=== PATIENT | female | born 1970 | race Caucasian/White ===

== ENCOUNTER 2019-06-28 09:18 | Observation (INO) | payer OTHER, SELFPAY ==
[2019-06-21 11:28] VITALS: BMI 25.3
[2019-06-28] VITALS (14 sets, daily range): BP systolic 114–202; BP diastolic 64–108; PULSE 70–105; RESP 12–20; TEMP 36.1–36.8; O2SAT 94–99; BMI 25.4; BMI 25.1; BMI 26.9
--- NOTE | 2019-06-28 09:36 | CT_ITS ---
STUDY: CT BRAIN WITHOUT CONTRAST REASON FOR EXAM: Female, 48 years old. Headaches and dizziness. Hypertension. RADIATION DOSAGE (If Supplied By Facility): CTDIvol = ( 44.99 ) mGy, DLP = ( 762.36 ) mGycm TECHNIQUE: Transaxial CT imaging of the brain was performed without administration of intravenous contrast material. Individualized dose optimization techniques were used for this CT. COMPARISON: Comparison is made with prior examination dated May 25, 2015. FINDINGS: Normal soft tissue structures. Normal calvarium. Normal size ventricles and extra-axial spaces for the patient's age. Normal white matter tracts of the cerebral hemispheres. Normal basal ganglia and thalami. Normal brainstem. Normal cerebellum. There is no intracranial hemorrhage. There are no findings of an acute ischemic infarction. Normal visualized paranasal sinuses. CT/Brain/Head without Contrast IMPRESSION: Normal unenhanced CT scan of the brain. Electronically Signed: Juan Ramsey, at 10:56 EDT , Service support ,
--- NOTE | 2019-06-28 09:37 | EKG12_ITS ---
Test Reason : NAUSEA/VOMITING Blood Pressure : / mmHG Vent. Rate : 097 BPM Atrial Rate : 097 BPM P-R Int : 124 ms QRS Dur : 078 ms QT Int : 346 ms P-R-T Axes : 044 052 047 degrees QTc Int : 439 ms Normal sinus rhythm Possible Left atrial enlargement Nonspecific ST abnormality Abnormal ECG Confirmed by SILVANA LUJAN, KATYA ([id number]), rewrite editor AUDREY LEE ([id number]) on 07/02/2019 11:25:09 AM Referred By: Denisa Phillips Confirmed By:KATYA PINA MD
--- NOTE | 2019-06-28 09:45 | ED.VISSUMM ---
- ER Visit Summary Date of Service: 06/28/19 Chief Complaint: Hypertension History of Present Illness: The patient is a 48 F [facility] department for evaluation of hypertension. Patient states several years ago she was hospitalized in [place] underwent numerous test and eventually was placed on 5 antihypertensive medications. She states that she lost weight got a divorce things seem to normalize and she was eventually taken off his blood pressure medications. About 2 weeks ago he developed a rash felt to be a contact dermatitis was placed on prednisone was not improving so she got a dose of Kenalog and another round of prednisone. These were reportedly tapering dose. She states that during this time. About 1 week ago can have hypertension. She saw her primary care physician. She was given metoprolol. She states her last dose of prednisone was on Monday. She tells me that on Monday her somatic symptoms began to get worse. She notes now headache, nausea with dry heaves, a jittery feeling, feeling that she is floating. She denies any chest pain or shortness of breath however the patient appears to be tachypneic. She also notes that her lips are tingling. She is reporting numerous blood pressure readings some of which do not make normal physiologic sense such as 154/136. There is however in the 170/110 120 range. She has had her metoprolol increased yesterday and has taken approximately 200 mg of metoprolol the middle of the night. She drank coffee this morning. She is also recently tried to quit smoking and is currently on nicotine patches but does not have one on now. Physical Examination: 202/64 heart rate 105 respirations are 20 pulse ox 95% temperature 97.0 Gen: Well-nourished well-developed Head: Normocephalic atraumatic Eyes: Perrl EOMI ENT: TMs clear no rhinorrhea moist mucous membranes Neck: Supple no lymphadenopathy no JVD nontender CVS: Regular rate rhythm no murmurs normal S1-S2 Respiratory: Patient is tachypneic clear to auscultation bilaterally chest nontender Abdomen: Soft nontender nondistended normal bowel sounds no masses Back: Nontender Extremity: Nontender no edema Skin: Normal color no rash Neuro: alert orientated ?3 CN II-XII intact normal strength sensation Psych: Patient appears anxious Test Results: EKG shows a sinus rhythm at a rate of 97 no concerning features of ACS. Basic labs were obtained showed a white count of 18. Troponin negative. Urinalysis 25-50 white cells with 1+ bacteria. Chest x-ray negative. CT the brain was negative. Emergency Department Course and Treatment: I decided to have the nurses do fairly frequent manual readings as I felt there is a potential for anxiety if we had the monitor cycling the blood pressure frequently. Initially gave her Zofran and Ativan. This did help her nausea/dry heaving. However the patient's pulse pressures continue to be narrowed with more of a high diastolic than a high systolic readings. She continued to feel very symptomatic and gave labetalol. This resulted in blood pressure 120/90 range. Symptomatically she felt better after labetalol. I think it reasonable that we bring her and is a hypertensive urgency under observation. Patient is appreciative of this stating that she does not feel well enough to go home. There may be some degree of adrenal issue with just being on 2 weeks of prednisone but I would think that is it is just 2 weeks that should be a large component. She has this history of significant hypertension requiring 5 drugs at one point. We will bring the patient into PCU. Impression: 1. Hypertensive urgency 2. Nausea and vomiting This note was generated with [employer] dictation software. It may contain incorrect words, spelling, and punctuation that were not noted in review of the chart prior to signing ED Disposition - Plan for ED Patient: Referrals: Clovis Montalvo MD [Primary Care Provider] -
[2019-06-28] MEDS: LORazepam 2 MG/ML Syringe 1 MG IV (09:52)
[2019-06-28] MEDS: Ondansetron 4 MG/2 ML Vial IV (09:52)
[2019-06-28 09:59] LABS: Absolute Lymphocyte Count 3.87 X10^3/uL (0.83-4.51); Absolute Neutrophil Count 12.5 X10^3/uL (2.0-7.7); Basophil# 0.11 X10^3/uL; Basophil% 0.6 % (0-1); Eosinophil# 0.24 X10^3/uL; Eosinophils% 1.3 % (0-5); Hematocrit 49.4 % (37-47); Hemoglobin 15.7 g/dL (12.0-15.0); Lymphocyte # 3.87 X10^3/ul (4.0); Lymphocyte % 21.2 % (19-41); Mean Corp Hgb Conc 31.8 g/dL (32-36); Mean Corpuscular Hgb 25.2 pg (27.0-32.0); Mean Corpuscular Volume 79.3 fL (81-99); Mean Platelet Vol. 10.5 fl (6.2-12.0); Monocyte# 1.01 X10^3/uL; Monocyte% 5.5 % (0-10); NRBC Flagged by Analyzer 0 % (0-5); Neutrophil # 12.51 X10^3/uL (2.7-7.7); Neutrophil % 68.4 % (47-70); Platelet Count 249 K/mm3 (150-450); RBC Distribution Width SD 41.4 fl (35.1-43.9); Red Blood Count 6.23 M/mm3 (4.2-5.4); White Blood Count 18.3 K/mm3 (4.4-11.0)
[2019-06-28 10:14] LABS: ALB/GLOB Ratio 1.1 RATIO (0.9-2.4); AST(SGOT) 10 U/L (15-37); Alanine Aminotransfer ALT/SGPT 23 U/L (13-56); Albumin, Serum 4.1 g/dL (3.2-5.0); Alkaline Phosphatase 86 U/L (45-117); Anion Gap 8 (5-15); BUN 17 mg/dL (7-18); BUN/Creat Ratio 21.3 RATIO (10-20); Calcium,Total 8.8 mg/dL (8.5-10.1); Chloride 107 mmol/L (98-107); EST Glomerular Filtration Rate 82 mL/min (>60); Est Glom Filt Rate - Afr Amer 99 mL/min (>60); Estimated Creatinine Clearance 62.44 ml/min; Globulin 3.9 g/dL (2.2-4.2); Glucose 90 mg/dL (74-106); Potassium 4.2 mmol/L (3.5-5.1); Sodium Level 139 mmol/L (136-145)
--- NOTE | 2019-06-28 10:20 | RAD_ITS ---
STUDY: X-RAY CHEST REASON FOR EXAM: Female, 48 years old. Hypertension. Shortness of breath. TECHNIQUE: AP and lateral views of the chest. COMPARISON: Comparison is made with prior study August 26, 2016. FINDINGS: The lungs are clear and expanded. There is no demonstrated pleural abnormality. Normal size heart. Normal mediastinum and sera. Normal visualized pulmonary arteries. Normal visualized aortic arch and descending thoracic aorta. Normal visualized thoracic spine. Normal visualized ribs, clavicles, and shoulders. There is no demonstrated abnormality of the visualized soft tissue structures of the upper abdomen. RAD/Chest PA and Lateral IMPRESSION: Normal x-ray examination of the chest. Electronically Signed: Juan Ramsey, at 11:08 EDT , Service support ,
[2019-06-28 11:19] LABS: Mucous, Urine 0 SEEN /hpf (<or=2+)
[2019-06-28 11:22] LABS: Color, Urine Yellow (Yellow); Glucose, Dipstick Normal (Normal); Ketone-Dipstick Negative (Negative); Leukocyte Esterase-Dipstick 500 /ul (Negative); Nitrite-Dipstick Negative (Negative); Occult Blood-Urine 10 /ul (Negative); Protein-Dipstick Negative (Negative); Urine Bilirubin Dipstick Negative (Negative); Urine Clarity Sl. Cloudy (Clear); Urine Urobilinogen Normal (Normal)
[2019-06-28 11:31] LABS: Bacteria 1+ /hpf (None Seen); Red Blood Cells-Urine 0-5 SEEN /hpf (0-5); Squamous Epithelial Cells - UA 0-5 SEEN /hpf (5-10); White Blood Cells 25-50 SEEN /hpf (0-5)
--- NOTE | 2019-06-28 14:44 | PCM.HP.STD ---
Problem List (1) H/O emotional problems Status: Chronic (2) Hypertension Status: Chronic (3) Depression Status: Chronic (4) Overweight (BMI 25.0-29.9) Status: Chronic History of Present Illness Date of Admission: 06/28/19 Chief Complaint: Elevated blood pressure. The patient is a 48 year old F with past medical history as mentioned above presented to the emergency room because of elevated blood pressure. Patient provided history over the last 5 years including her present complaint today. She stated that around 5 years ago, she was on 5 different antihypertensive medications and her blood pressure was difficult to control. During that time, she was referred to [facility] and apparently, she underwent extensive work-up for secondary hypertension including cardiac and renal imaging studies and according to the patient, everything looked okay at that time. Over the. Of 5 years, she did lots of life changing strategies including weight loss and trying to quit smoking and she mentioned that she lost significant weight and over the first 3 years, her blood pressure started to come down and her doctor was able to to keep her off any antihypertensive medication for the last 2 years. 2 weeks ago, she started having skin rash, was diagnosed with contact dermatitis and was started on tapering course of prednisone for 1 week by her PCP. The skin rash did not go away and she had significant amount of itching for which she received 1 dose of IV steroids and she was given another week of taper prednisone along with course of Keflex 500 mg p.o. 3 times daily for 1 week. She completed the prednisone taper this past Monday and she supposed to complete her Keflex course today. She notes that her blood pressure has been going up over the last couple of weeks. She saw her primary care physician who started her on metoprolol. She complained of headache, throbbing headache, generalized, associated with nausea with dry heaves as well as jittery feeling and without aggravating or relieving factors. Yesterday, her blood pressure was 154/136. She called her doctor who advised to take an extra dose of metoprolol 50 mg last night and when she rechecked her blood pressure later, it was 164/116. She took another dose of metoprolol ER 50 mg around 1 AM this morning. Today, she went to work, she continued to have headache with nausea and some anxiety. Again around 7 AM this morning at work, her blood pressure was 173/120 and she was advised to take another 50 mg of metoprolol which she did. Her blood pressure did not come down and again continued to have significant headache with nausea and dry heaves and she decided to come to the emergency department. She denied chest pain, palpitation, dizziness or lightheadedness. She reported mild shortness of breath. She denies abdominal pain, constipation or diarrhea. She denies urinary symptoms. She denies fever chills. She denied using recreational drugs. In the emergency department, initial blood pressure was 202/64, other vital signs were stable. She was given 1 dose of IV labetalol and her blood pressure started to improve. Her routine blood work was remarkable for leukocytosis, otherwise normal. LFT was normal. EKG revealed normal sinus rhythm without evidence of acute ischemic changes or cardiac arrhythmias. Troponin was negative. Chest x-ray showed no acute findings. CT scan brain without contrast showed no acute hemorrhage infarct. Urinalysis revealed cloudy urine, negative for nitrite, 500 leukocyte esterase, there was 25-50 WBCs and 1+ bacteria. Urine drug screen was negative. She is being admitted for hypertensive urgency, labile hypertension and leukocytosis which is probably reactive. Past Medical History Past Medical History (Chronic Problems): Chronic Problems (Last Updated 06/28/19 @ 14:43 by Denisa Phillips MD) Heart murmur (Chronic) Frequent headaches (Chronic) H/O emotional problems (Chronic) Back pain (Chronic) High cholesterol (Chronic) Vitamin D deficiency (Chronic) Scoliosis (Chronic) Segmental and somatic dysfunction of lumbar region (Chronic) Hypertension (Chronic) Depression (Chronic) Overweight (BMI 25.0-29.9) (Chronic) Medical History: Medical History (Last Updated 06/28/19 @ 14:43 by Denisa Phillips MD) Heart murmur (Chronic) R01.1 Frequent headaches (Chronic) R51 H/O emotional problems (Chronic) Z86.59 Back pain (Chronic) M54.9 High cholesterol (Chronic) E78.00 Vitamin D deficiency (Chronic) E55.9 Allergies meperidine HCl [From Demerol] Adverse Reaction (Verified 06/28/19 09:19) Nausea/Vom/Diarrhea Home Medications: Ambulatory Orders Medication Instructions Recorded metoprolol succinate ER 25 mg 25 mg PO DAILY #30 tab 07/19/19 tablet,extended release 24 hr nicotine 14 mg/24 hr daily 1 patch TRANSDERMAL Q24H #21 ea 05/17/19 transdermal patch cephalexin 500 mg capsule 500 mg PO TID #21 cap 06/21/19 Surgical History: Surgical History (Last Reviewed 06/20/19 @ 07:09 by Pamela Baumann) History of hysterectomy Z90.710 06/12/2012 History of wisdom tooth extraction K08.409 10/14/16 Hx of tonsillectomy Z90.89 1988 Surgical History: hysterectomy, tonsillectomy Psychiatric History: Anxiety, Depression [employer]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 Denies: Anorexia, Chills, Fever, Weakness Eyes: Denies: Blurred vision, Double vision, Drainage, Redness HEENT: Denies: Difficulty Hearing, Ear Pain, Eye Pain, Nasal Congestion, Sore Throat Cardiovascular: Denies: Chest Pain, Chest Pressure, Chest Tightness, Heaviness, Palpitations, Paroxysmal Noc. Dyspnea, Syncope Respiratory: Reports: Shortness of Breath. Denies: Cough, Pleuritic Pain, Sputum production, Wheezing Gastrointestinal: Reports: Nausea. Denies: Abdominal Pain, Constipation, Diarrhea, Vomiting Genitourinary: Denies: Dysuria, Frequency, Hematuria Musculoskeletal: Denies: Arm Pain, Back Pain, Foot Pain Skin: Denies: Dryness, Rash Neurological: Reports: Headaches. Denies: Balance problems, Blurred vision, Change in Speech, Slurred speech, Confusion, Focal weakness, Incoordination, Numbness Psychiatric: Reports: Anxiety, Depression Endocrine: Denies: Change in Body Habitus, Polydipsia, Polyuria VTE Information - Inpt Only VTE Present on Admission: No VTE Mechan Device Prophylaxis: None VTE Pharm Prophylaxis ordered?: No - Physical Exam General: Alert, Oriented x3, Cooperative, No apparent distress HEENT: Atraumatic, PERRLA, EOMI, Normocephalic Oral: Moist Mucosa, No Gingival or Mucosal Lesions/ Ulcerations Neck: Supple, No JVD, Negative Carotid Bruits, Trachea Midline, Thyroid Normal Size and Texture Lungs: Clear to auscultation, Normal air movement, No rhonchi, No wheeze, No rales Cardiovascular: Regular rate, Regular Rhythm, Normal S1, Normal S2, No murmurs, PMI Normal Abdomen: Bowel Sounds Present, Soft, Non Tender, Non-Distended, No Hepato-splenomegaly Extremities: No clubbing, No cyanosis, No edema Skin: No rashes, No breakdown Lymphatic: No Cervical, Supraclavicular, or Inguinal Adenopathy Neurological: Cranial nerves II-XII grossly intact, Motor Exam 5/5 strength throughout Psych/Mental Status: Normal Affect, Appropriate, Alert and oriented to time, place, person, mood and affect Vital Signs Temp Pulse Resp BP Pulse Ox 98.2 F 72 12 132/98 H 97 06/28/19 14:34 06/28/19 14:34 06/28/19 14:34 06/28/19 14:34 06/28/19 14:34 Oxygen Delivery Method Room Air Weight: 138 lb 3.2 oz Body Mass Index (BMI) 26.9 Laboratory Tests Past 24 Hrs 06/28/19 06/28/19 06/28/19 09:45 09:45 11:15 WBC 18.3 H RBC 6.23 H Hgb 15.7 H Hct 49.4 H MCV 79.3 L MCH 25.2 L MCHC 31.8 L RDW Std Deviation 41.4 RDW Coeff of Comfort 15.0 H Plt Count 249 MPV 10.5 Immature Gran % (Auto) 3.000 H Neut % (Auto) 68.4 Lymph % (Auto) 21.2 Cocke % (Auto) 5.5 Eos % (Auto) 1.3 Baso % (Auto) 0.6 Absolute Neuts (auto) 12.5 H Absolute Lymphs (auto) 3.87 Nucleated RBC % 0 Sodium 139 Potassium 4.2 Chloride 107 Carbon Dioxide 24.0 Anion Gap 8 BUN 17 Creatinine 0.80 Estim Creat Clear Calc 62.44 Est GFR (MDRD) Af Amer 99 Est GFR (MDRD) Non-Af 82 BUN/Creatinine Ratio 21.3 H Glucose 90 Calcium 8.8 Total Bilirubin 0.50 AST 10 L ALT 23 Alkaline Phosphatase 86 Troponin I < 0.015 Total Protein 8.0 Albumin 4.1 Globulin 3.9 Albumin/Globulin Ratio 1.1 Urine Color Yellow Urine Clarity Sl. Cloudy Urine pH 6.0 Ur Specific [place] 1.010 Urine Protein Negative Urine Glucose (UA) Normal Urine Ketones Negative Urine Occult Blood 10 H Urine Nitrite Negative Urine Bilirubin Negative Urine Urobilinogen Normal Ur Leukocyte Esterase 500 H Urine RBC 0-5 SEEN Urine WBC 25-50 SEEN Ur Squamous Epith Cells 0-5 SEEN Urine Bacteria 1+ Urine Mucus 0 SEEN Urine Opiates Screen Urine Methadone Screen Ur Barbiturates Screen Ur Phencyclidine Scrn Ur Amphetamines Screen U Methamphetamin-MDMA U Benzodiazepines Scrn Urine Cocaine Screen U Cannabinoids Screen Ur Drug Screen Comment 06/28/19 11:15 WBC RBC Hgb Hct MCV MCH MCHC RDW Std Deviation RDW Coeff of Comfort Plt Count MPV Immature Gran % (Auto) Neut % (Auto) Lymph % (Auto) Cocke % (Auto) Eos % (Auto) Baso % (Auto) Absolute Neuts (auto) Absolute Lymphs (auto) Nucleated RBC % Sodium Potassium Chloride Carbon Dioxide Anion Gap BUN Creatinine Estim Creat Clear Calc Est GFR (MDRD) Af Amer Est GFR (MDRD) Non-Af BUN/Creatinine Ratio Glucose Calcium Total Bilirubin AST ALT Alkaline Phosphatase Troponin I Total Protein Albumin Globulin Albumin/Globulin Ratio Urine Color Urine Clarity Urine pH Ur Specific [place] Urine Protein Urine Glucose (UA) Urine Ketones Urine Occult Blood Urine Nitrite Urine Bilirubin Urine Urobilinogen Ur Leukocyte Esterase Urine RBC Urine WBC Ur Squamous Epith Cells Urine Bacteria Urine Mucus Urine Opiates Screen Pending Urine Methadone Screen Pending Ur Barbiturates Screen Pending Ur Phencyclidine Scrn Pending Ur Amphetamines Screen Pending U Methamphetamin-MDMA Pending U Benzodiazepines Scrn Pending Urine Cocaine Screen Pending U Cannabinoids Screen Pending Ur Drug Screen Comment Clinical Impression(s) from Imaging Studies Brain CT 06/28/19 09:36 IMPRESSION: Normal unenhanced CT scan of the brain. Electronically Signed: Juan Ramsey, at 10:56 EDT , Service support , Chest X-Ray 06/28/19 10:20 IMPRESSION: Normal x-ray examination of the chest. Electronically Signed: Juan Ramsey, at 11:08 EDT , Service support , Assessment/Plan All Active Problems (Last Updated 06/28/19 @ 14:43 by Denisa Phillips MD) Contact dermatitis due to poison kristopher (Acute) This is a 48 years old female patient presented to the emergency room because of elevated blood pressure with headache, nausea and dry heaves and she is being admitted for hypertensive urgency/labile hypertension as well as leukocytosis. #1 hypertensive urgency/labile hypertension: With history of hypertension, has been off antihypertensive medications for 2 years. Patient was on prednisone for 2 weeks and she has not been able to sleep at night because of itching for the last couple of weeks after she started having the contact dermatitis. Blood pressure significantly fluctuates. She received 1 dose of IV labetalol, blood pressure improved in the ER. EKG was unremarkable. Chest x-ray and CT scan brain were unremarkable as well. Plan: Admit to PCU for observation, cardiac monitoring, close monitor blood pressure, continue metoprolol ER 25 mg p.o. daily, start Norvasc 5 mg p.o. daily, IV hydralazine PRN, repeat CBC tomorrow morning, Ativan as needed. #2 leukocytosis: This is probably reactive secondary to steroids in addition to acute illness. She denies any symptoms or risk of infection. Urinalysis reviewed but patient has been on Keflex for 7 days and today is the last day. She is afebrile. Plan: Urine culture, no indication for IV antibiotics, complete the last day of Keflex which is today. #3 recent history of contact dermatitis/poison kristopher: She completed 2 weeks course of tapered prednisone this past Monday. Skin rash is improving very slowly. Plan for IV Benadryl as needed for itching, complete Keflex as mentioned above. #4 depression/anxiety: She is not on any medication at this time. Plan to start p.o. Ativan as needed, recommend follow-up with PCP as outpatient and probable referral to psychiatry as outpatient as well. #5 tobacco abuse: Continue NicoDerm patch. #6 DVT prophylaxis: Low risk patient, no prophylaxis indicated. Ambulate. This note was generated with [employer] dictation software. It may contain incorrect words, spelling, and punctuation that were not noted in checking the note before signing. Code Visit OBSV E&M: 30646 Initial observation care L3
[2019-06-28 14:47] LABS: Amphetamine Urine VISTA NEGATIVE (<1000 ng/mL); Barbiturate Urine VISTA NEGATIVE (< 200 ng/mL); Benzodiazepine Urine VISTA NEGATIVE (< 200 ng/mL); Cocaine Urine VISTA NEGATIVE (< 300 ng/mL); Ecstacy Urine VISTA NEGATIVE (< 500 ng/mL); Methadone Urine VISTA NEGATIVE (< 300 ng/mL); PCP Urine VISTA NEGATIVE (< 25 ng/mL); THC Urine VISTA NEGATIVE (< 50 ng/mL); Vista UDS pH Range 6
[2019-06-28] MEDS: 0.9% Normal Saline 1,000 ML 100 ML IV (15:27)
[2019-06-28] MEDS: Cephalexin 500 MG Capsule PO ×2 (16:46→22:18)
[2019-06-28] MEDS: DiphenhydrAMINE 50 MG/ML Syringe 25 MG IV (22:18)
[2019-06-29 02:30] VITALS: BP 125/90; PULSE 66; RESP 16; TEMP 36.8; O2SAT 96
[2019-06-29 03:21] VITALS: PULSE 65
[2019-06-29] MEDS: Cephalexin 500 MG Capsule PO (05:29)
[2019-06-29 06:14] LABS: Absolute Lymphocyte Count 4.26 X10^3/uL (0.83-4.51); Absolute Neutrophil Count 9.8 X10^3/uL (2.0-7.7); Basophil# 0.08 X10^3/uL; Basophil% 0.5 % (0-1); Eosinophil# 0.22 X10^3/uL; Eosinophils% 1.4 % (0-5); Hemoglobin 13.6 g/dL (12.0-15.0); Lymphocyte # 4.26 X10^3/ul (4.0); Lymphocyte % 26.5 % (19-41); Mean Corp Hgb Conc 31.6 g/dL (32-36); Mean Corpuscular Hgb 25.7 pg (27.0-32.0); Mean Corpuscular Volume 81.1 fL (81-99); Monocyte# 1.12 X10^3/uL; NRBC Flagged by Analyzer 0 % (0-5); Neutrophil # 9.84 X10^3/uL (2.7-7.7); Neutrophil % 61.3 % (47-70); Platelet Count 208 K/mm3 (150-450); RBC Distribution Width CV 14.9 % (11.6-14.6); RBC Distribution Width SD 43.8 fl (35.1-43.9); White Blood Count 16.1 K/mm3 (4.4-11.0)
[2019-06-29 07:00] VITALS: PULSE 65; O2SAT 95
[2019-06-29 07:56] VITALS: BP 109/73; PULSE 66; PULSE 69; RESP 16; TEMP 36.7; O2SAT 96
[2019-06-29] MEDS: Metoprolol(XL)Succ 25 MG Tablet PO (07:56)
[2019-06-29] MEDS: amLODIPine 5 MG Tablet PO (07:56)
[2019-06-29 09:57] VITALS: BP 118/80
--- NOTE | 2019-06-29 10:21 | PCM.DC ---
You will use the following diet at home:: Cardiac Discharge Activity: Return to Normal Activity Call your doctor if you observe: Shortness of breath, Dizziness, Fainting spells, Chest pain Allergies/Adverse Reactions: Allergies meperidine HCl [From Demerol] Adverse Reaction (Verified 06/28/19 09:19) Nausea/Vom/Diarrhea Medications to take at Discharge nicotine 14 mg/24 hr daily transdermal patch 1 patch TRANSDERMAL Q24H #21 ea 05/17/19 Amlodipine [Norvasc] 5 mg PO DAILY #30 tab 06/29/19 Metoprolol Succinate 50 mg PO DAILY #30 tab 06/29/19 The following prescriptions were given: Amlodipine [Norvasc] 5 mg PO DAILY #30 tab Transmission Status: Sent to [id number] Primary Care Physician: Clovis Montalvo MD [Primary Care Provider] - Please follow up with your Primary Care Physician in: 1 Week Test Results: Test results from this visit will be discussed in further detail at your follow-up appointment, if applicable. Proposed Discharge Date: 06/29/19
--- NOTE | 2019-06-29 10:24 | DS.PCM_ITS ---
<Bernarda Lopez - Last Filed: 06/29/19 10:36> Discharge Date and Diagnosis Date of Admission: 06/28/19 Date of Discharge: 06/29/19 - Primary Discharge Diagnosis 1. Hypertensive urgency, history of labile hypertension 2. Leukocytosis secondary to recent steroid use 3. Recent history of contact dermatitis with superimposed bacterial skin infection 4. Depression/anxiety 5. Tobacco use 6. Asymptomatic bacteria-completed course of Keflex related to #3. - Secondary Discharge Diagnosis Chronic Problems (Last Updated 06/28/19 @ 14:43 by Denisa Phillips MD) Heart murmur (Chronic) Frequent headaches (Chronic) H/O emotional problems (Chronic) Back pain (Chronic) High cholesterol (Chronic) Vitamin D deficiency (Chronic) Scoliosis (Chronic) Segmental and somatic dysfunction of lumbar region (Chronic) Hypertension (Chronic) Depression (Chronic) Overweight (BMI 25.0-29.9) (Chronic) Hospital Course and Treatment Imaging Results: Diagnostic Data Brain CT 06/28/19 09:36 IMPRESSION: Normal unenhanced CT scan of the brain. Electronically Signed: Juan Ramsey, at 10:56 EDT , Service support , Chest X-Ray 06/28/19 10:20 IMPRESSION: Normal x-ray examination of the chest. Electronically Signed: Juan Ramsey, at 11:08 EDT , Service support , Operations: None Procedures: None Summary of Care Provided: The patient is a 48 year old F admitted 06/28/2019 due to elevated blood pressure. 1. Hypertensive urgency, history of labile hypertension-blood pressure in ER 202/64. Improved following 1 dose of IV labetalol 10 mg. Home metoprolol regimen recently increased to 50 mg daily by primary care provider. Continue Toprol XL 50 mg daily. Patient additionally started on amlodipine 5 mg daily. Instructed patient to check blood pressure twice daily, morning and night and report findings to primary care physician at follow-up in 1 week. Patient reports she is under increased stress as her has cancer, suspect part of labile blood pressure may be due to stress/anxiety. Encouraged discussion with primary care physician on adding medication regiment to help with this. 2. Leukocytosis secondary to recent steroid use 3. Recent history of contact dermatitis with superimposed bacterial skin infection-completed extensive course of oral steroids, Kenalog injection followed by a course of Keflex. Rash appears to be mostly resolved. 4. Depression/anxiety-not on regimen. Encouraged follow-up with PCP. 5. Tobacco use-encouraged cessation. 6. Asymptomatic bacteria-completed course of Keflex related to #3. General: Alert, Oriented x3, Cooperative, No apparent distress HEENT: Atraumatic, PERRLA, EOMI, Normocephalic Oral: Moist Mucosa Neck: Supple, No JVD, Negative Carotid Bruits, Trachea Midline, Thyroid Normal Size and Texture Lungs: Clear to auscultation, Normal air movement, No rhonchi, No wheeze, No rales Cardiovascular: Regular rate, Regular Rhythm, Normal S1, Normal S2, No murmurs Abdomen: Bowel Sounds Present, Soft, Non Tender, Non-Distended Extremities: No clubbing, No cyanosis, No edema Skin: No rashes, No breakdown Lymphatic: No Cervical, Supraclavicular, or Inguinal Adenopathy Neurological: Cranial nerves II-XII grossly intact, Motor Exam 5/5 strength throughout Psych/Mental Status: Normal Affect, Appropriate Patient seen and examined prior to discharge. Physical assessment as noted above. Patient is stable for discharge with follow up recommendations as noted above. This patient was seen by THOMAS You under the supervision of Dr. Bain. - Physical Exam Vital Signs Temp Pulse Resp BP Pulse Ox 98.1 F 66 16 118/80 96 06/29/19 07:56 06/29/19 07:56 06/29/19 07:56 06/29/19 09:57 06/29/19 07:56 Oxygen Delivery Method Room Air Weight: 138 lb 3.2 oz Body Mass Index (BMI) 26.9 Intake and Output for Last 24 Hours 06/27/19 06/28/19 06/29/19 23:59 23:59 23:59 Intake Total 1285 / 1285 595 / 595 Balance 1285 / 1285 595 / 595 Laboratory Tests Past 24 Hrs 06/28/19 06/28/19 06/29/19 11:15 11:15 05:41 WBC 16.1 H RBC 5.30 Hgb 13.6 Hct 43.0 MCV 81.1 MCH 25.7 L MCHC 31.6 L RDW Std Deviation 43.8 RDW Coeff of Comfort 14.9 H Plt Count 208 MPV 11.0 Immature Gran % (Auto) 3.300 H Neut % (Auto) 61.3 Lymph % (Auto) 26.5 [place] % (Auto) 7.0 Eos % (Auto) 1.4 Baso % (Auto) 0.5 Absolute Neuts (auto) 9.8 H Absolute Lymphs (auto) 4.26 Nucleated RBC % 0 Urine Color Yellow Urine Clarity Sl. Cloudy Urine pH 6.0 Ur Specific [place] 1.010 Urine Protein Negative Urine Glucose (UA) Normal Urine Ketones Negative Urine Occult Blood 10 H Urine Nitrite Negative Urine Bilirubin Negative Urine Urobilinogen Normal Ur Leukocyte Esterase 500 H Urine RBC 0-5 SEEN Urine WBC 25-50 SEEN Ur Squamous Epith Cells 0-5 SEEN Urine Bacteria 1+ Urine Mucus 0 SEEN Urine Opiates Screen NEGATIVE Urine Methadone Screen NEGATIVE Ur Barbiturates Screen NEGATIVE Ur Phencyclidine Scrn NEGATIVE Ur Amphetamines Screen NEGATIVE U Methamphetamin-MDMA NEGATIVE U Benzodiazepines Scrn NEGATIVE Urine Cocaine Screen NEGATIVE U Cannabinoids Screen NEGATIVE Ur Drug Screen Comment Discharge Diet: Low fat/ Low Cholesterol, 2000 mg Sodium Diet Discharge Activity: Return to Normal Activity Call your doctor if you observe: Shortness of breath, Dizziness, Fainting spells, Chest pain Home Medications: Medications to take at Discharge nicotine 14 mg/24 hr daily transdermal patch 1 patch TRANSDERMAL Q24H #21 ea 05/17/19 Amlodipine [Norvasc] 5 mg PO DAILY #30 tab 06/29/19 Metoprolol Succinate 50 mg PO DAILY #30 tab 06/29/19 Following Prescrptions Were Given to Patient: Amlodipine [Norvasc] 5 mg PO DAILY #30 tab Transmission Status: Received by [id number] Primary Care Physician: Clovis Montalvo MD [Primary Care Provider] - Please follow up with your Primary Care Physician in: 1 Week Disposition: Home Minutes spent on discharge:: 35 Patient Condition:: Stable Medical Necessity - Tobacco Use Smoking Status: Current some day smoker Tobacco Use: Cigarettes Meaningful Use Info Meaningful Use Diagnoses (Choose all that apply): None applicable <Kana Bain - Last Filed: 06/29/19 11:11> Discharge Date and Diagnosis - Secondary Discharge Diagnosis Chronic Problems (Last Updated 06/28/19 @ 14:43 by Denisa Phillips MD) Heart murmur (Chronic) Frequent headaches (Chronic) H/O emotional problems (Chronic) Back pain (Chronic) High cholesterol (Chronic) Vitamin D deficiency (Chronic) Scoliosis (Chronic) Segmental and somatic dysfunction of lumbar region (Chronic) Hypertension (Chronic) Depression (Chronic) Overweight (BMI 25.0-29.9) (Chronic) Hospital Course and Treatment Summary of Care Provided: This patient was seen in conjunction with THOMAS You . I have independently interviewed and examined the patient and reviewed pertinent historical, laboratory, and other data. Please refer to THOMAS You note for details of this patient's presentation, findings, and recommendations. I have reviewed THOMAS You note and concur with documented findings. In brief, patient is a 48-year-old lady who presented with multiple complaints including dizziness found to have markedly elevated blood pressure admitted to monitored bed for subsequent management Hospital course: As documented above by Bernarda Lopez NP?C - Physical Exam Vital Signs Temp Pulse Resp BP Pulse Ox 98.1 F 66 16 118/80 96 06/29/19 07:56 06/29/19 07:56 06/29/19 07:56 06/29/19 09:57 06/29/19 07:56 Oxygen Delivery Method Room Air Weight: 62.686 kg Body Mass Index (BMI) 26.9 Intake and Output for Last 24 Hours 06/27/19 06/28/19 06/29/19 23:59 23:59 23:59 Intake Total 1285 / 1285 595 / 595 Balance 1285 / 1285 595 / 595 Laboratory Tests Past 24 Hrs 06/28/19 06/28/19 06/29/19 11:15 11:15 05:41 WBC 16.1 H RBC 5.30 Hgb 13.6 Hct 43.0 MCV 81.1 MCH 25.7 L MCHC 31.6 L RDW Std Deviation 43.8 RDW Coeff of Comfort 14.9 H Plt Count 208 MPV 11.0 Immature Gran % (Auto) 3.300 H Neut % (Auto) 61.3 Lymph % (Auto) 26.5 [place] % (Auto) 7.0 Eos % (Auto) 1.4 Baso % (Auto) 0.5 Absolute Neuts (auto) 9.8 H Absolute Lymphs (auto) 4.26 Nucleated RBC % 0 Urine Color Yellow Urine Clarity Sl. Cloudy Urine pH 6.0 Ur Specific [place] 1.010 Urine Protein Negative Urine Glucose (UA) Normal Urine Ketones Negative Urine Occult Blood 10 H Urine Nitrite Negative Urine Bilirubin Negative Urine Urobilinogen Normal Ur Leukocyte Esterase 500 H Urine RBC 0-5 SEEN Urine WBC 25-50 SEEN Ur Squamous Epith Cells 0-5 SEEN Urine Bacteria 1+ Urine Mucus 0 SEEN Urine Opiates Screen NEGATIVE Urine Methadone Screen NEGATIVE Ur Barbiturates Screen NEGATIVE Ur Phencyclidine Scrn NEGATIVE Ur Amphetamines Screen NEGATIVE U Methamphetamin-MDMA NEGATIVE U Benzodiazepines Scrn NEGATIVE Urine Cocaine Screen NEGATIVE U Cannabinoids Screen NEGATIVE Ur Drug Screen Comment Code Visit OBSV E&M: 08368 Observation care discharge
== END 2019-06-29 10:21 | disposition home or self-care (01) ==
LOC: ED 13:39 → PCU 14:44
PROVIDERS: Admitting Provider Hospitalist; Emergency Provider Emergency Medicine; Family Provider Internal Medicine; PCP Internal Medicine; Referring Provider Hospitalist; Visit Provider Internal Medicine
DX: I16.0 Hypertensive urgency (principal); I10 Essential (primary) hypertension; T38.0X5A Adverse effect of glucocorticoids and synthetic analogues, initial encounter; L25.5 Unspecified contact dermatitis due to plants, except food; D72.829 Elevated white blood cell count, unspecified; M41.9 Scoliosis, unspecified; E78.00 Pure hypercholesterolemia, unspecified; F17.210 Nicotine dependence, cigarettes, uncomplicated; R06.02 Shortness of breath; F41.9 Anxiety disorder, unspecified; F32.9 Major depressive disorder, single episode, unspecified; Z79.899 Other long term (current) drug therapy
CPT/HCPCS: 36415; 70450; 71046; 80053; 80307; 81001; 84484; 85025; 87086; 87088; 93005; 96361; 96374; 96375; 99218; 99284; 99406; J7030; A4216; G0378; J2405

== ENCOUNTER → 2019-11-01 07:38 | Outpatient (CLI) | payer OTHER, SELFPAY ==
[2019-10-18 13:36] VITALS: BMI 26.9
--- NOTE | 2019-11-01 07:55 | BI_ITS ---
MAMMOGRAPHY - BILATERAL SCREENING 3-D TOMOSYNTHESIS REASON FOR EXAM: Female, 48 years old. UNKNOWN FM HX -ADOPTED, LT MOLE MARKED, WT GAIN SINCE 2012 MAMM @ [facility] PERTINENT HISTORY: No significant family history. TECHNIQUE: 2-D mammograms and 3-D Tomosynthesis of the breast (s) were performed. CAD was performed. COMPARISON: July 15, 2013. FINDINGS: The breast composition is heterogeneously dense that can obscure small breast masses. Scattered benign calcifications are seen. No dense spiculated masses or suspicious microcalcifications are identified. No architectural distortion is identified. There is no skin thickening or retraction. There has been no significant change since the prior study. BI/SCREEN MAMM (CAD) W/NAKUL BILAT IMPRESSION: No mammographic signs of malignancy. Routine yearly mammograms recommended. ASSESSMENT CATEGORY: BIRADS Category 1: Negative. A letter regarding these results will be sent to the patient by the facility within 30 days. FOLLOW UP RECOMMENDATION: Yearly follow up mammogram recommended. (A) Approximately 10% of breast cancers are not detected by mammography. A normal mammogram should not delay biopsy of a clinically suspicious abnormality. Electronically Signed: Milton Kent MD at 13:27 EST , Service support ,
== END ==
PROVIDERS: Family Provider Internal Medicine; PCP Internal Medicine; Referring Provider Internal Medicine; Visit Provider Internal Medicine
DX: Z12.31 Encounter for screening mammogram for malignant neoplasm of breast (principal)
CPT/HCPCS: 77063; 77067

== ENCOUNTER → 2020-01-27 08:19 | Outpatient (CLI) | payer OTHER, SELFPAY ==
[2020-01-24 13:49] VITALS: BMI 26.9
[2020-01-27 08:32] LABS: Absolute Lymphocyte Count 3.35 X10^3/uL (0.83-4.51); Absolute Neutrophil Count 7.5 X10^3/uL (2.0-7.7); Basophil# 0.08 X10^3/uL; Basophil% 0.6 % (0-1); Eosinophil# 0.35 X10^3/uL; Eosinophils% 2.8 % (0-5); Hematocrit 45.6 % (37-47); Hemoglobin 14.5 g/dL (12.0-15.0); Lymphocyte # 3.35 X10^3/ul (4.0); Lymphocyte % 27.2 % (19-41); Mean Corp Hgb Conc 31.8 g/dL (32-36); Mean Corpuscular Hgb 25.6 pg (27.0-32.0); Mean Corpuscular Volume 80.4 fL (81-99); Mean Platelet Vol. 11.1 fl (6.2-12.0); Monocyte# 0.91 X10^3/uL; Monocyte% 7.4 % (0-10); NRBC Flagged by Analyzer 0 % (0-5); Neutrophil # 7.51 X10^3/uL (2.7-7.7); Platelet Count 228 K/mm3 (150-450); RBC Distribution Width CV 14.4 % (11.6-14.6); RBC Distribution Width SD 41.7 fl (35.1-43.9); Red Blood Count 5.67 M/mm3 (4.2-5.4); White Blood Count 12.3 K/mm3 (4.4-11.0)
[2020-01-27 08:47] LABS: BUN 17 mg/dL (7-18); Creatinine, Serum 0.69 mg/dL (0.55-1.02); EST Glomerular Filtration Rate 97 mL/min (>60); Glucose 93 mg/dL (74-106)
[2020-01-27 08:48] LABS: ALB/GLOB Ratio 1.1 RATIO (0.9-2.4); AST(SGOT) 14 U/L (15-37); Alanine Aminotransfer ALT/SGPT 24 U/L (13-56); Alkaline Phosphatase 89 U/L (45-117); Anion Gap 6 (5-15); BUN/Creat Ratio 24.8 RATIO (10-20); Calcium,Total 8.8 mg/dL (8.5-10.1); Chloride 106 mmol/L (98-107); Est Glom Filt Rate - Afr Amer 118 mL/min (>60); Globulin 3.7 g/dL (2.2-4.2); Potassium 4.2 mmol/L (3.5-5.1); Protein, Total 7.7 g/dL (6.4-8.2); Sodium Level 137 mmol/L (136-145)
== END ==
PROVIDERS: PCP Internal Medicine; Visit Provider Internal Medicine
DX: I10 Essential (primary) hypertension (principal); F32.9 Major depressive disorder, single episode, unspecified
CPT/HCPCS: 36415; 80053; 85025

== ENCOUNTER → 2020-04-06 | Outpatient (CLI) | payer OTHER, SELFPAY ==
[2020-03-25 18:27] VITALS: BMI 26.9
[2020-04-13 14:08] LABS: Dopamine, UR 210 ug/L (Undefined); Epinephrine, 24Ur 5 ug/24 hr (0-20); Epinephrine, Ur 7 ug/L (Undefined); Norepinephrine, 24Ur 33 ug/24 hr (0-135); Norepinephrine, Ur 45 ug/L (Undefined); VMA, 24UR 1.8 mg/24 hr (0.0-7.5)
[2020-04-13 20:43] LABS: Dopamine, 24Ur 153 ug/24 hr (0-510); VMA, UR 2.4 mg/L (Undefined)
== END | disposition home or self-care (01) ==
LOC: LABSPEC 08:27
PROVIDERS: PCP Internal Medicine; Referring Provider Internal Medicine; Visit Provider Internal Medicine
DX: D35.00 Benign neoplasm of unspecified adrenal gland (principal); I10 Essential (primary) hypertension
CPT/HCPCS: 81050; 82384; 84585

== ENCOUNTER → 2020-04-24 08:00 | Outpatient (CLI) | payer OTHER, SELFPAY ==
[2020-03-09 15:55] VITALS: BMI 26.9
[2020-03-25 18:27] VITALS: BMI 26.9
--- NOTE | 2020-04-24 08:00 | RDU_ITS ---
Reason For Study: Resistant/symtomatic HTN Right Renal Artery Left Renal Artery Right renal artery ostium Left renal artery ostium 123.6/36.2 135.2/44.5 RSV/EDV. PSV/EDV. Right renal artery proximal Left renal artery proximal PSV/EDV 155.9/65.3 PSV/EDV. 100.9/42.7 . Right renal artery mid 175.2/83.8 Left renal artery mid 136.5/42.7 PSV/EDV. PSV/EDV . Right renal artery distal Left renal artery distal 178.5/49.2 327.8/110.4 PSV/EDV. PSV/EDV. Right Renal Parenchyma Left Renal Parenchyma Upper Pole Medula 29.4/13.3 Left upper pole medulla 47.2/19.7 PSV/EDV. PSV/EDV . Right upper pole medulla EDR .45 . Left upper pole medulla EDR .42 . Right upper pole medulla R.I. .55 . Left upper pole medulla R.I. .58 . Upper [place] Cortx 27.8/13.3 PSV/EDV. UP Cortex 21.3/10.0 PSV/EDV. Right upper pole cortex EDR .48 . Left upper pole cortex EDR .47 . Right upper pole cortex R.I. .52 . Left upper pole cortex R.I. .53 . Right lower Pole medulla 32.7/17.1 Left lower Pole medulla 28.8/14.5 PSV/EDV . PSV/EDV . Right lower pole medulla EDR .52 . Left lower pole medulla EDR .5 . Right lower pole medulla R.I. .48 . Left lower pole medulla R.I. .5 . Lower Pole Cortex 28.8/14.5 Lower Pole Cortx 23.6/9.3 PSV/EDV. PSV/EDV. Left lower pole cortex EDR .4 . Right lower pole cortex EDR .5 . Left lower pole cortex R.I. .6 . Right lower pole cortex R.I. .5 . Left Renal Hilar Right Renal Hilar LT Hilar avg 110.3/40.8 PSV/EDV . Right Hilar avg 88.7/39.6 PSV/EDV. Left hilar acceleration time 80.0 Right hilar acceleration time 60 m/sec. m/sec. Left Renal Dimensions Right Renal Dimensions Left kidney size 11.03 cm . Right kidney size 11.3 cm . Left cortical dimension 1.65 cm . Right cortical dimension 1.21 cm . Aorta Proximal abdominal aorta 1.4 x 1.45 cm . Proximal abdominal aorta peak systolic velocity is 137.9 cm/sec . Distal abdominal aorta 1.02 x .98 cm . Distal abdominal aorta peak systolic velocity is 117.1 cm/sec . Normal Renal Veins bilat. Interpretation Summary <60% stenosis bilateral renal arteries Normal right renal length 11.3 cm Normal left renal length 11.03 cm Maximal aortic diameter 1.4 x 1.45cm Slightly increased aortic velocity making renal/aortic ratios inaccurate Ordering Physician: Clovis Montalvo Performed By: Wenceslao Rodriguez RVT
--- NOTE | 2020-04-24 08:00 | ECHOCS_ITS ---
Reason For Study: HTN Procedure This was a 2D Doppler, Color Flow transthoracic echocardiogram. The study was technically difficult. Contrast injection was performed. Exam performed in department. Left Ventricle Normal LV size. Left ventricular systolic function is normal. The estimated ejection fraction is 65 %. No evidence for diastolic dysfunction. No regional wall motion abnormalities noted. Right Ventricle Normal RV size. Normal systolic function. Atria Normal left atrium. Normal right atrium. Aneurysmal atrial septum. No doppler evidence for ASD. Bubble contrast study negative for right to left interatrial shunt. Mitral Valve There is no mitral annular calcification. Normal mitral valve. Trivial mitral valve insufficiency. Tricuspid Valve Normal tricuspid valve. Trivial tricuspid valve insufficiency. Right ventricular systolic pressure estimated to be 26 mmHg. Aortic Valve Trisinus/trileaflet aortic valve. Mild focal aortic valve thickening. Pulmonic Valve The pulmonic valve is not well visualized. Great Vessels Normal sized aortic root. Pericardium/Pleural No pericardial effusion. Medication 22 gauge I.V. with prn adaptor inserted into right arm. Diluted definity 4.0ml given slow IV push to enhance endocardial definition. (Saline bubble x 2: with and w/o valsalva. MMode/2D Measurements & Calculations LVIDd: 3.7 cm IVSd: 0.86 cm Ao root diam: 2.9 cm LVIDs: 2.5 cm LVPWd: 0.79 cm RVDd: 2.7 cm FS: 32.6 % LAV(MOD-sp4): 45.8 ml LVAd ap4: 25.3 cm2 SV(MOD-sp4): 46.0 ml EDV(MOD-sp4): 70.6 ml EDV(sp4-el): 71.7 ml LVAs ap4: 13.2 cm2 ESV(MOD-sp4): 24.5 ml ESV(sp4-el): 25.1 ml EF(MOD-sp4): 65.3 % EF(sp4-el): 65.0 % SV(sp4-el): 46.6 ml LA A4 area: 17.2 cm2 LA dimension(2D): 3.1 cm RA A4 area: 11.0 cm2 Time Measurements MV dec time: 0.18 sec Doppler Measurements & Calculations MV E max bhavesh: 109.9 cm/sec Lat Peak E' Bhavesh: 12.3 cm/sec Med Peak E' Bhavesh: 10.1 cm/sec MV A max bhavesh: 68.8 cm/sec E/E' lat: 9.0 E/E' med: 10.8 MV E/A: 1.6 Ao V2 max: 151.6 cm/sec LV V1 max: 104.1 cm/sec PA V2 max: 94.2 cm/sec Ao max P.2 mmHg LV V1 max P.3 mmHg TR max bhavesh: 236.1 cm/sec TR max P.7 mmHg Interpretation Summary Left ventricular systolic function is normal. The estimated ejection fraction is 65 %. Trivial mitral valve insufficiency. Trivial tricuspid valve insufficiency. Mild focal aortic valve thickening. Right ventricular systolic pressure estimated to be 26 mmHg. No evidence for diastolic dysfunction. Ordering Physician: Clovis Montalvo Referring Physician: Clovis Montalvo Performed By: Malorie Davidson, RDCS, RVT
== END ==
PROVIDERS: PCP Internal Medicine; Referring Provider Internal Medicine; Visit Provider Internal Medicine
DX: I10 Essential (primary) hypertension (principal); R94.31 Abnormal electrocardiogram [ECG] [EKG]
CPT/HCPCS: 93306; 93975; Q9957; A4216; C8929

== ENCOUNTER → 2021-01-19 16:40 | Outpatient (CLI) | payer OTHER, SELFPAY ==
[2020-12-03 16:57] VITALS: BMI 26.9
--- NOTE | 2021-01-19 16:39 | BI_ITS ---
MAMMOGRAPHY - BILATERAL SCREENING REASON FOR EXAM: Female, 50 years old. Routine annual screening examination. PERTINENT HISTORY: Non-contributory. TECHNIQUE: Digital bilateral breast nakul (3D mammographic acquisition) in the CC and MLO projections. 2-D mediolateral oblique (MLO) and craniocaudad (CC) views of both breasts were obtained. CAD: Full Field Digital Mammography with Computer Added Detection was performed. COMPARISON: Comparison is made with prior examination dated 11/01/2019. FINDINGS: Breast Composition: The breasts are heterogeneously dense, which may obscure small masses. There are no dominant masses or suspicious calcifications. Stable benign-appearing bilateral axillary lymph nodes. No other significant abnormalities are identified. There has been no significant change since the prior study. BI/SCRN MAMM (CAD)W/NAKUL BILAT IMPRESSION: Stable bilateral screening mammogram. Yearly follow-up mammogram recommended. (A) ASSESSMENT CATEGORY: BIRADS Category 2: Benign. A letter regarding these results will be sent to the patient by the facility within 30 days. Approximately 10% of breast cancers are not detected by mammography. A normal mammogram should not delay biopsy of a clinically suspicious abnormality. [id number] Electronically Signed: Juan Ramsey MD at 19:18 EDT , Service support ,
== END ==
PROVIDERS: PCP Internal Medicine; Referring Provider Internal Medicine; Visit Provider Internal Medicine
DX: Z12.31 Encounter for screening mammogram for malignant neoplasm of breast (principal)
CPT/HCPCS: 77063; 77067

== ENCOUNTER → 2021-07-12 17:02 | Outpatient (CLI) | payer OTHER, SELFPAY ==
--- NOTE | 2021-07-12 17:03 | RAD_ITS ---
STUDY: X-RAY - LEFT FOOT CLINICAL: Female, 50 years old. pain x 2 weeks after vacationing and walking in water with rocks pain bottom of foot by toes and along lateral side of foot TECHNIQUE: 3 view(s) of the foot. COMPARISON: None. FINDINGS: Normal talus, calcaneus, and tarsal bones. Normal visualized subtalar, talonavicular, calcaneocuboid, tarsal and tarsometatarsal articulations. Normal metatarsi. No fracture or displaced fragment is seen. Normal metatarsophalangeal joint of the great toe. Normal tibial and fibular sesamoid bones. Normal interphalangeal joint of the great toe. Normal phalanges of the great toe. Normal second through fifth metatarsophalangeal joints. Normal interphalangeal joints and phalanges of the lesser toes. The soft tissue structures are unremarkable. There is no demonstrated fracture. RAD/Foot min 3 Views IMPRESSION: Normal x-ray examination of the foot. Electronically Signed: Venkatesh Krishnan MD at 18:28 EDT , Service support ,
== END ==
PROVIDERS: PCP Internal Medicine; Referring Provider Physician Assistant Surgical; Visit Provider Physician Assistant Surgical
DX: S96.912A Strain of unspecified muscle and tendon at ankle and foot level, left foot, initial encounter (principal)
CPT/HCPCS: 73630

== ENCOUNTER 2022-01-13 08:12 | Outpatient (CLI) | payer OTHER, SELFPAY ==
[2022-01-13 08:43] LABS: Absolute Lymphocyte Count 2.15 X10^3/uL (0.83-4.51); Absolute Neutrophil Count 5.6 X10^3/uL (2.0-7.7); Basophil# 0.06 X10^3/uL; Basophil% 0.7 % (0-1); Eosinophils% 4.5 % (0-5); Hematocrit 45.1 % (37-47); Hemoglobin 14.5 g/dL (12.0-15.0); Lymphocyte # 2.15 X10^3/ul (0.83-4.51); Lymphocyte % 24.3 % (19-41); Mean Corp Hgb Conc 32.2 g/dL (32-36); Mean Corpuscular Hgb 25.9 pg (27.0-32.0); Mean Corpuscular Volume 80.7 fL (81-99); Mean Platelet Vol. 11.9 fl (6.2-12.0); Monocyte# 0.58 X10^3/uL; Monocyte% 6.6 % (0-10); NRBC Flagged by Analyzer 0 % (0-5); Neutrophil # 5.61 X10^3/uL (2.7-7.7); Neutrophil % 63.4 % (47-70); Platelet Count 234 K/mm3 (150-450); RBC Distribution Width CV 14.2 % (11.6-14.6); RBC Distribution Width SD 41.3 fl (35.1-43.9); Red Blood Count 5.59 M/mm3 (4.2-5.4); White Blood Count 8.8 K/mm3 (4.4-11.0)
[2022-01-13 08:54] LABS: ALB/GLOB Ratio 1.2 RATIO (0.9-2.4); AST(SGOT) 8 U/L (15-37); Alanine Aminotransfer ALT/SGPT 14 U/L (13-56); Albumin, Serum 4.1 g/dL (3.2-5.0); Alkaline Phosphatase 89 U/L (45-117); Anion Gap 5 (5-15); BUN 19 mg/dL (7-18); BUN/Creat Ratio 27.9 RATIO (10-20); Calcium,Total 8.7 mg/dL (8.5-10.1); Chloride 106 mmol/L (98-107); Cholesterol 237 mg/dL (200); Creatinine, Serum 0.68 mg/dL (0.55-1.02); EST Glomerular Filtration Rate 97 mL/min (>60); Est Glom Filt Rate - Afr Amer 118 mL/min (>60); Globulin 3.4 g/dL (2.2-4.2); Glucose 92 mg/dL (74-106); High Density Lipoprotein 47 mg/dL; Potassium 4.2 mmol/L (3.5-5.1); Protein, Total 7.5 g/dL (6.4-8.2); Sodium Level 137 mmol/L (136-145); Thyroid Stim Hormone (TSH) 0.72 uIU/mL (0.358-3.74); Triglycerides 85 mg/dL; Very Low Density Lipoprotein 17 mg/dL (5-40)
== END 2022-01-13 23:59 | disposition home or self-care (01) ==
PROVIDERS: PCP Internal Medicine; Referring Provider Nurse Practitioner Family; Visit Provider Nurse Practitioner Family
DX: I10 Essential (primary) hypertension (principal); F32.9 Major depressive disorder, single episode, unspecified; F41.1 Generalized anxiety disorder; F41.0 Panic disorder [episodic paroxysmal anxiety]
CPT/HCPCS: 36415; 80053; 80061; 84443; 85025

== ENCOUNTER 2022-01-21 11:58 | Outpatient (CLI) | payer OTHER, SELFPAY ==
--- NOTE | 2022-01-21 12:10 | BI_ITS ---
MAMMOGRAPHY - BILATERAL SCREENING REASON FOR EXAM: Female, 51 years old. Routine annual screening examination. PERTINENT HISTORY: Non-contributory. TECHNIQUE: Digital bilateral breast nakul (3D mammographic acquisition) in the CC and MLO projections. 2-D mediolateral oblique (MLO) and craniocaudad (CC) views of both breasts were obtained. CAD: Full Field Digital Mammography with Computer Added Detection was performed. COMPARISON: Comparison is made with prior study of 01/19/2021 and 11/01/2019. FINDINGS: Breast Composition: The breasts are heterogeneously dense, which may obscure small masses. There are no dominant masses or suspicious calcifications. No other significant abnormalities are identified. There has been no significant change since the prior study. BI/SCRN MAMM (CAD)W/NAKUL BILAT IMPRESSION: Stable bilateral screening mammogram. Yearly follow-up mammogram recommended. (A) ASSESSMENT CATEGORY: BIRADS Category 1: Negative. A letter regarding these results will be sent to the patient by the facility within 30 days. Approximately 10% of breast cancers are not detected by mammography. A normal mammogram should not delay biopsy of a clinically suspicious abnormality. [id number] Electronically Signed: Juan Ramsey MD at 13:06 EDT ,
== END 2022-01-21 23:59 | disposition home or self-care (01) ==
LOC: OPBI 12:09
PROVIDERS: PCP Internal Medicine; Referring Provider Nurse Practitioner Family; Visit Provider Nurse Practitioner Family
DX: Z12.31 Encounter for screening mammogram for malignant neoplasm of breast (principal)
CPT/HCPCS: 77063; 77067

== ENCOUNTER 2022-12-26 10:41 | Outpatient (RCR) | payer OTHER, SELFPAY ==
--- NOTE | 2022-12-26 12:01 | HP.PTEVAL ---
Patient's Visit Information DARRYN LANDAVERDE is a 52 year old F referred to Physical Therapy by JALEEL Pepe with a diagnosis of LUMBAR RADICULOPATHY. Date of Evaluation: 12/26/22 Physical Therapist: Harpreet Morris PT, Cert MDT, OCS - Visit Plan Frequency: 2x /Week Duration: 4 Weeks Plan: PT INTERVETIONS LIDIA EX'S ,MANUAL THERAPY ,PROGRESS TO DLS /POSTURAL EX'S , BODY MECHANICS ,AND MODALTIES NEEDED - Subjective This 52 y/o female presents to physical therapy with lumbar radiculopathy. Patient has had ~ 2months ago which go better with medication. Then recently on Dec 16 ,lifting a patient felt sharp pain in lumbar right side and leg . Next day was worse. Patient seen Monday because felt leg getting numbness and had x-rays. Patient was provided with prednisone/flexural. So symptoms getting better. Aggravating sitting ,bending ,driving ,lifting standing . Alleviating factors walking. Bowel /bladder -. Coughing /sneezing -. No abnormal night pain . C/o paresthesia/tingling in right. Patient goals affects job demands an d ADLS'. Patient on restricted duty 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 SOCAIL: . 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 - Pain Right Back Pain Intensity (Out of 10): 2 Pain Intensity Range: 10 - Objective POSTURE: mild forward posture left side shift deformity. GAIT: reciprocal pattern. MEURO: reflexes L3-4,L4-5 ,L5-S1 1/3 ,C/O paresthesia /tingling right leg. FLEXABLITY: hamstrings min tight. MMT: quads/hams/hip /ankle 5/5. LUMBAR ROM : flexion mod loss pain, extension severe loss pain ,side glides WFL - Special Tests L/S Slump test left side: Negative L/S Slump test right side: Negative L/S Left Straight Leg Raise: Negative L/S Right Straight Leg Raise: Negative Lumbar Standing: Flexion - Mechanical Response: No effect Lumbar Standing: Flexion - Symptoms During Testing: Increases Lumbar Standing: Flexion - Symptoms After Testing: Worse Lumbar Standing: Extension - Mechanical Response: No effect Lumbar Standing: Extension - Symptoms During Testing: Increases Lumbar Standing: Extension - Symptoms After Testing: No worse Lumbar Standing: Right Side Glides - Mechanical Response: No effect Lumbar Standing: Right Side [place] - Symptoms During Testing: No effect Lumbar Standing: Right Side [place] - Symptoms After Testing: No effect Lumbar Standing: Left Side [place] - Mechanical Response: No effect Lumbar Standing: Left Side [place] - Symptoms During Testing: No effect Lumbar Standing: Left Side [place] - Symptoms After Testing: No effect Lumbar Lying: Flexion - Mechanical Response: No effect Lumbar Lying: Flexion - Symptoms After Testing: Worse Lumbar Lying: Extension - Mechanical Response: No effect Lumbar Lying: Extension - Symptoms During Testing: Increases Lumbar Lying: Extension - Symptoms After Testing: No worse Comments:: REIL WITH HIPS TO LEFT REDUCES PAIN WITH MECHANICAL RESPONSE - Balance/Special Test Scores Oswestry Low Back Score: 23 - Goals Goal 1:: Patient to be I with HEP Goal Time Frame: 4-6 Weeks Goal 2:: Patient to improve posture/body mechanics 90 % OF THE TIME Goal Time Frame: 4-6 Weeks Goal 3:: Patient to demonstrate 75 % improvement with less pain and improved function Goal Time Frame: 4-6 Weeks Goal 4:: Patient to improve lumbar 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 Goal Time Frame: 4-6 Weeks - Rehabilitation Potential Physical Therapy Diagnosis: This has lumbar possible disc involvement with pain with positioning ,motion testing and bending ,sitting, driving .lifting with extension addressing lateral aspect thus benefit from skilled PT Rehabilitation Potential: Good - Anticipated Interventions Thank you for the opportunity to evaluate your patient. For Medicare and Medicare HMO plans, please review the plan of care and approve it. It will need to be FAXED BACK to us at [phone] for Medicare purposes. For Medicare only, by signing this I certify the plan of care. Please let me know if there are questions or concerns regarding this plan of care. Physician Signature: Date:
--- NOTE | 2023-03-16 09:51 | HP.PT.NRP ---
DARRYN LANDAVERDE was seen in my office for initial evaluation on 12/26/22. The following Plan of Care was established for this patient: Initial Frequency: 2x /Week Initial Duration: 4 Weeks This patient was last seen in our office . Pertinent comments regarding their Physical therapy will appear below: Patient was seen for PT for lumbar radiculopathy for HEP. At this point I will be discontinuing this patient from physical therapy. I would be happy to see this patient again in the future if found appropriate by the physician. Thank you! Harpreet Morris, PT, Cert MDT, OCS Balance/Gait/Functional tests - Balance/Special Test Scores Oswestry Low Back Score: 23
== END 2022-12-26 19:00 | disposition home or self-care (01) ==
LOC: PT 10:41
PROVIDERS: PCP Internal Medicine; Referring Provider Physician Assistant; Visit Provider Physician Assistant
DX: S39.012D Strain of muscle, fascia and tendon of lower back, subsequent encounter (principal); M54.16 Radiculopathy, lumbar region
CPT/HCPCS: 97110; 97162

== ENCOUNTER 2023-06-07 10:14 | Outpatient (RCR) | payer OTHER, SELFPAY | END 2023-06-07 10:14 | disposition home or self-care (01) | LOC: PT 10:14 | PROVIDERS: PCP Internal Medicine; Visit Provider Physician Assistant | DX: M54.16 Radiculopathy, lumbar region (principal); S39.012D Strain of muscle, fascia and tendon of lower back, subsequent encounter ==

== ENCOUNTER → 2023-08-16 | Outpatient (CLI) | payer OTHER, SELFPAY ==
--- NOTE | 2023-08-16 08:06 | BI_ITS ---
MAMMOGRAPHY - BILATERAL SCREENING REASON FOR EXAM: Female, 52 years old. Routine annual screening examination. PERTINENT HISTORY: Non-contributory. TECHNIQUE: Digital bilateral breast nakul (3D mammographic acquisition) in the CC and MLO projections. 2-D mediolateral oblique (MLO) and craniocaudad (CC) views of both breasts were obtained. CAD: Full Field Digital Mammography with Computer Added Detection was performed. COMPARISON: Comparison is made with prior study dated January 21, 2022 and January 19, 2021. FINDINGS: Breast Composition: The breasts are heterogeneously dense, which may obscure small masses. There are no dominant masses or suspicious calcifications. Stable small benign-appearing bilateral axillary lymph nodes. No other significant abnormalities are identified. There has been no significant change since the prior study. BI/SCRN MAMM (CAD)W/NAKUL BILAT IMPRESSION: Stable bilateral screening mammogram. Yearly follow-up mammogram recommended. (A) ASSESSMENT CATEGORY: BIRADS Category 2: Benign. A letter regarding these results will be sent to the patient by the facility within 30 days. Approximately 10% of breast cancers are not detected by mammography. A normal mammogram should not delay biopsy of a clinically suspicious abnormality. [id number] Electronically Signed: Juan Ramsey MD at 12:49 EDT ,
[2023-08-16 09:02] LABS: Absolute Lymphocyte Count 2.48 X10^3/uL (0.83-4.51); Absolute Neutrophil Count 5.9 X10^3/uL (2.0-7.7); Basophil# 0.05 X10^3/uL; Basophil% 0.5 % (0-1); Eosinophil# 0.15 X10^3/uL; Eosinophils% 1.6 % (0-5); Hemoglobin 16.3 g/dL (12.0-15.0); Lymphocyte # 2.48 X10^3/ul (0.83-4.51); Lymphocyte % 26.6 % (19-41); Mean Corpuscular Hgb 26.2 pg (27.0-32.0); Mean Platelet Vol. 10.2 fl (6.2-12.0); Monocyte# 0.61 X10^3/uL; Monocyte% 6.6 % (0-10); NRBC Flagged by Analyzer 0 % (0-5); Neutrophil # 5.91 X10^3/uL (2.7-7.7); Neutrophil % 63.5 % (47-70); Platelet Count 214 K/mm3 (150-450); RBC Distribution Width SD 44.1 fl (35.1-43.9); Red Blood Count 6.22 M/mm3 (4.2-5.4); White Blood Count 9.3 K/mm3 (4.4-11.0)
[2023-08-16 09:26] LABS: AST(SGOT) 9 U/L (15-37); Alanine Aminotransfer ALT/SGPT 25 U/L (13-56); Albumin, Serum 4.1 g/dL (3.2-5.0); Alkaline Phosphatase 80 U/L (45-117); Anion Gap 3 (5-15); BUN 23 mg/dL (7-18); BUN/Creat Ratio 33.6 RATIO (10-20); Calcium,Total 9.3 mg/dL (8.5-10.1); Chloride 106 mmol/L (98-107); Cholesterol 301 mg/dL (200); Creatinine, Serum 0.68 mg/dL (0.55-1.02); EST Glomerular Filtration Rate 96 mL/min (>60); Est Glom Filt Rate - Afr Amer 116 mL/min (>60); Glucose 105 mg/dL (74-106); High Density Lipoprotein 68 mg/dL; Potassium 4.5 mmol/L (3.5-5.1); Protein, Total 8.1 g/dL (6.4-8.2); Sodium Level 137 mmol/L (136-145); Triglycerides 102 mg/dL; Very Low Density Lipoprotein 20 mg/dL (5-40)
== END | disposition home or self-care (01) ==
PROVIDERS: PCP Internal Medicine; Referring Provider Internal Medicine; Visit Provider Internal Medicine
DX: Z00.00 Encounter for general adult medical examination without abnormal findings (principal); Z12.31 Encounter for screening mammogram for malignant neoplasm of breast
CPT/HCPCS: 36415; 77063; 77067; 80053; 80061; 85025

== ENCOUNTER → 2024-08-19 | Outpatient (CLI) | payer OTHER, SELFPAY ==
--- NOTE | 2024-08-19 10:58 | BI_ITS ---
MAMMOGRAPHY - BILATERAL SCREENING REASON FOR EXAM: Female, 53 years old. Routine annual screening examination. PERTINENT HISTORY: Non-contributory. TECHNIQUE: Digital bilateral breast nakul (3D mammographic acquisition) in the CC and MLO projections. 2-D mediolateral oblique (MLO) and craniocaudad (CC) views of both breasts were obtained. CAD: Full Field Digital Mammography with Computer Added Detection was performed. COMPARISON: Comparison is made with prior study dated August 16, 2023 and January 21, 2022. FINDINGS: Breast Composition: The breasts are heterogeneously dense, which may obscure small masses. There are no dominant masses or suspicious calcifications. Stable small bilateral axillary lymph nodes. No other significant abnormalities are identified. There has been no significant change since the prior study. BI/SCRN MAMM (CAD)W/NAUKL BILAT IMPRESSION: Stable bilateral screening mammogram. Yearly follow-up mammogram recommended. (A) ASSESSMENT CATEGORY: BIRADS Category 2: Benign. A letter regarding these results will be sent to the patient by the facility within 30 days. Approximately 10% of breast cancers are not detected by mammography. A normal mammogram should not delay biopsy of a clinically suspicious abnormality. [id number] Electronically Signed: Juan Ramsey MD at 12:33 EDT ,
--- OUTSIDE RECORDS SUMMARY | 2024-08-19 11:38 | XMS RPT_ITS | CCD ---
Author Organization [facility] Care Team Providers Care Daylight Driller Name Role Phone GÓMEZ MONTALVO MD Primary Care Physician LUIS ALFREDO STUART MD Attending Unavailable LUIS ALFREDO STUART MD Admitting Unavailable LUIS ALFREDO STUART MD Primary Care Unavailable JAMIE MOYER Consulting Unavaila ble PROVIDER, UNKNOWN Consulting Unavailable ANTHONY VICTORIA Admitting Unavailable JAMIE MOYER Consulting Unavaila ble ANTHONY VICTORIA Primary Care Unavailable ANTHONY VICTORIA Attending Unavailable PROVIDER, UNKNOWN Consulting Unavailable GÓMEZ MONTALVO MD Admitting Unavailable GÓMEZ MONTALVO MD Primary Care Unavailable GÓMEZ MONTALVO MD Attending Unavailable JAMIE MOYER Consulting Unavaila ble PROVIDER, UNKNOWN Consulting Unavailable MITCH LINDSEY APRN Primary Care Unavailable JAMIE MOYER Consulting Unavaila ble MITCH LINDSEY APRN Attending Unavailable MITCH LINDSEY APRN Admitting Unavailable PROVIDER, UNKNOWN Consulting Unavailable ANTHONY VICTORIA Admitting Unavailable JAMIE MOYER Consulting Unavaila ble ANTHONY VICTORIA Primary Care Unavailable ANTHONY VICTORIA Attending Unavailable PROVIDER, UNKNOWN Consulting Unavailable ANTHONY VICTORIA Attending Unavailable ANTHONY VICTORIA Admitting Unavailable JAMIE MOYER Consulting Unavaila ble ANTHONY VICTORIA Primary Care Unavailable PROVIDER, UNKNOWN Consulting Unavailable ANTHONY VICTORIA Admitting Unavailable ANTHONY VICTORIA Primary Care Unavailable JAMIE MOYER Consulting Unavaila ANTHONY Jeffery Attending Unavailable PROVIDER, UNKNOWN Consulting Unavailable GÓMEZ MONTALVO MD Primary Care Unavailable GÓMEZ MONTALVO MD Attending Unavailable GÓMEZ MONTALVO MD Admitting Unavailable JAMIE MOYER Consulting Unavaila ble PROVIDER, UNKNOWN Consulting Unavailable GÓMEZ MONTALVO MD Primary Care Unavailab ZAKI Drake MD Attending Unavailable GÓMEZ MONTALVO MD Primary Care Unavailab ZAKI Drake MD Attending Unavailable GÓMEZ MONTALVO MD Primary Care Unavailab MITCH Stern Attending Unavailable GÓMEZ MONTALVO MD Primary Care Unavailab MITCH Stern Attending Unavailable ZAKI CROOK MD Attending Unavailable GÓMEZ MONTALVO MD Primary Care Unavailab GÓMEZ Dunham MD Primary Care Unavailab ZAKI Drake MD Attending Unavailable Gómez Montalvo MD Primary Care Provider GÓMEZ MONTALVO Primary Care Unavailable PERI ROGEL Admitting Unavailable PERI ROGEL Attending Unavailable Allergies Allergy Classification Reported Allergen(s) Allergy Type Date of Onset Reaction(s) Facility (5 sources) Codeine; Translations: [codeine] Drug Allergy 6 Unable (qualifier value) [facility] (1 source) Codeine Drug Allergy [facility] (1 source) Meperidine Drug Allergy [facility] (3 sources) Lisinopril; Translations: [LISINOPRIL] Drug Allergy 4 Cough [facility] (3 sources) Meperidine; Translations: [MEPERIDINE (PF)] Drug Allergy 6 [facility] Medications Current Medications Medication Drug Class(es) Dates Sig (Normalized) Sig (Original) amLODIPine 10 mg oral tablet (2 sources) Dihydropyridine Calcium Channel Khurram Start: 01-09-2024 amLODIPine 10 mg oral tablet Dose : 10 mg = 1 tab(s), Oral, qDay, # 30 tab(s), 0 Refill(s) Start Date: 01/09/24 Status: Ordered Start: 05-24-2017 take 1 tablet by altaf th twice daily amLODIPine (NORVASC) 5 mg tablet Take 1 tablet by mouth twice daily. 180 tablet 05/24/2017 Active atorvastatin 10 mg oral tablet (1 source) HMG-CoA Reductase Inhibitor Start: 04-10-2017 take 1 tablet by mouth once daily atorvastatin (LIPITOR) 10 mg tablet Indications: Mixed hyperlipidemia Take 1 tablet by mouth once daily. 90 tablet 3 04/10/2017 Active cyclobenzaprine hydrochloride 10 mg oral tablet (1 source) Muscle Relaxant Start: 01-09-2024 cyclobenzaprine 10 mg oral tablet Dose : 10 mg = 1 tab(s), Oral, TID, PRN as needed for spasm, # 30 tab(s), 0 Refill(s) Start Date: 01/09/24 Status: Ordered gabapentin 300 mg oral capsule (1 source) Anti-epileptic Agent Start: 07-13-2023 End: 08-12-2023 gabapentin 300 mg oral capsule Dose : 300 mg = 1 cap(s), Oral, TID, # 90 cap(s), 0 Refill(s), Pharmacy: [id number], Lumbar radiculopathy Neuropathic pain, 152.4, cm, 07/13/23 7:24:00 EDT, Height, 61.4, kg, 07/13/23 7:24:00 EDT, Dosing Weight Start Date: 07/13/23 Stop Date: 08/12/23 Status: Ordered ibuprofen 600 mg oral tablet (2 sources) Nonsteroidal Anti-inflammatory Drug Start: 01-09-2024 ibuprofen 600 mg oral tablet Dose : 600 mg = 1 tab(s), Oral, q6h, PRN for pain, Take with food or milk., # 20 tab(s), 0 Refill(s) Start Date: 01/09/24 Status: Ordered Ibuprofen 200 mg cap Take by mouth. NEEDED STOPPED FOR SURGERY 07/18/24 Active metoprolol tartrate 100 mg oral tablet (3 sources) beta-Adrenergic Khurram Start: 07-13-2023 Metopr olol Succinate ER 100 mg oral TABLET extended release Dose : 100 mg = 1 tab(s), Oral, qDay, # 30 tab(s), 0 Refill(s) Start Date: 07/13/23 Status: Ordered Start: 04-10-2017 take 1 tablet by altaf th once daily metoprolol succinate ER (TOPROL XL) 50 mg 24 hr tablet Indications: Uncontrolled stage 2 hypertension Take 1 tablet by mouth once daily. 90 tablet 3 04/10/2017 Active MULTIVITAMIN WITH MINERALS (MULTIVITAMIN & MINERAL FORMULA ORAL) (1 source) MULTIVITAMIN WIT H MINERALS (MULTIVITAMIN & MINERAL FORMULA ORAL) Take 1 tablet by mouth as needed. Active rosuvastatin calcium 20 mg oral tablet (1 source) HMG-CoA Reductase Inhibitor Start: 01-09-20 24 take 1 tablet by mouth once daily rosuvastatin 20 mg oral tablet TAKE 1 TABLET BY MOUTH ONCE DAILY Start Date: 01/09/24 Status: Ordered traMADol hydrochloride 50 mg oral tablet (1 source) Opioid Agonist take 1 tablet by mouth every eight hours as needed traMADol (ULTRAM) 50 mg tablet Take 50 mg by mouth every 8 hours as needed for pain. USUALLY AT BEDTIME Active venlafaxine 25 mg oral tablet (1 source) Serotonin and Norepinephrine Reuptake Inhibitor take 1 tablet by mouth once daily at bedtime venlafaxine (EFFEXOR) 25 mg tablet Take 25 mg by mouth daily at bedtime. FOR HOT FLASHES Active Completed/Discontinued Medications Medication Drug Class(es) Dates Sig (Normalized) Sig (Original) acyclovir 400 mg oral tablet (1 source) Herpesvirus Nucleoside Analog DNA Polymerase Inhibitor, Herpes Simplex Virus Nucleoside Analog DNA Polymerase Inhibitor, Herpes Zoster Virus Nucleoside Analog DNA Polymerase Inhibitor Start: 12-03-2013 End: 07-08-2024 acyclovir (ZOVIRAX) 400 mg tablet Indications: Herpes simplex without mention of complication Take two tabs po stat to start, followed by one tab po tid x 5days prn acute flare of recurrent cold sores or fever blisters 17 tablet 3 12/03/2013 07/08/2024 Discontinued (Other) losartan potassium 50 mg oral tablet (1 source) Angiotensin 2 Receptor Khurram Start: 04-10-2017 End: 07-08-2024 take 1 tablet by mouth once daily losartan (COZAAR) 50 mg tablet Indications: Uncontrolled stage 2 hypertension Take 1 tablet by mouth once daily. 90 tablet 3 04/10/2017 07/08/2024 Discontinued (Discontinued by another Health Care Provider) sertraline 100 mg oral tablet (1 source) Serotonin Reuptake Inhibitor Start: 04-10-2017 End: 07-08-2024 take 1.5 tablets by mouth once daily sertraline (ZOLOFT) 100 mg tablet Indications: Anxiety and depression Take 1.5 tablets by mouth once daily. 135 tablet 3 04/10/2017 07/08/2024 Discontinued (Other) topiramate 25 mg oral tablet (1 source) Start: 04-10-2017 End: 07-08-2024 take 1 tablet by mouth once daily at bedtime topiramate (TOPAMAX) 25 mg tablet Indications: migraine prevention Take 1 tablet by mouth daily at bedtime. Indications: MIGRAINE PREVENTION 30 tablet 2 04/10/2017 07/08/2024 Discontinued (Other) zolpidem tartrate 10 mg oral tablet (1 source) gamma-Aminobutyric Acid-ergic Agonist Start: 04-10-2017 End: 07-08-2024 take 1 tablet by mouth every twenty-four hours as needed zolpidem (AMBIEN) 10 mg tab Take 1 tablet by mouth at bedtime as needed (insomnia). 30 tablet 1 04/10/2017 07/08/2024 Discontinued (Other) Problems Active Problems Problem Classification Problem Date Documented Date Episodic/Chronic Disorders of lipid metabolism (4 sources) Mixed hyperlipidemia; Translations: [Mixed hyperlipidemia] Onset: 07-03-2013 Resolved: 04-10-2017 07-08-2024 Chronic Essential hypertension (6 sources) Hypertensive disorder; Translations: [Essential (primary) hypertension] Onset: 07-03-2013 07-13-2023 Chronic Heart valve disorders (3 sources) Heart murmur; Translations: [Cardiac murmur, unspecified] Onset: 10-30-2023 07-08-2024 Episodic Nausea and vomiting (3 sources) Postoperative nausea and vomiting; Translations: [Nausea with vomiting, unspecified] Onset: 07-08-2024 07-08-2024 Episodic Other hereditary and degenerative nervous system conditions (1 source) Restless legs; Translations: [Restless legs syndrome] Onset: 07-21-2011 09-17-2013 Chronic Other injuries and conditions due to external causes (1 source) Compression injury of nerve 01-09-2024 Episodic Residual codes; unclassified (1 source) Other specified postprocedural states; Translations: [PONV (postoperative nausea and vomiting)] Onset: 07-08-2024 Episodic Spondylosis; intervertebral disc disorders; other back problems (2 sources) Other intervertebral disc displacement, lumbar region; Translations: [Other intervertebral disc degeneration, lumbar region] Onset: 12-14-2023 Chronic Spondylosis; intervertebral disc disorders; other back problems (5 sources) Radiculopathy, lumbar region; Translations: [Neck pain] Onset: 08-11-2006 Resolved: 07-03-2013 Episodic Past or Other Problems Problem Classification Problem Date Documented Da te Episodic/Chronic Allergic reactions (2 sources) Solar degeneration; Translations: [Other skin changes due to chronic exposure to nonionizing radiation] Onset: 05-05-2010 Resolved: 04-28-2015 07-21-2011 Episodic Menstrual disorders (1 source) Menometrorrhagia; Translations: [Excessive and frequent menstruation with irregular cycle] Onset: 04-17-2012 Resolved: 07-23-2012 07-23-2012 Chronic Nonspecific chest pain (1 source) Atypical chest pain; Translations: [Other chest pain] Onset: 01-30-2015 Resolved: 04-10-2017 04-10-2017 Episodic Other and unspecified benign neoplasm (1 source) Dysplastic nevus of skin; Translations: [Melanocytic nevi of unspecified upper limb, including shoulder] Onset: 12-05-2013 12-05-2013 Episodic Other and unspecified benign neoplasm (1 source) Benign neoplasm of skin of lower limb; Translations: [Other benign neoplasm of skin of unspecified lower limb, including hip] Onset: 12-28-2006 Resolved: 07-21-2011 07-21-2011 Episodic Other and unspecified benign neoplasm (1 source) Benign neoplasm of skin of shoulder; Translations: [Other benign neoplasm of skin of unspecified upper limb, including shoulder] Onset: 12-05-2013 Resolved: 04-28-2015 04-28-2015 Episodic Other and unspecified benign neoplasm (1 source) Melanocytic nevus of trunk; Translations: [Melanocytic nevi of trunk] Onset: 12-05-2013 Resolved: 04-28-2015 04-28-2015 Episodic Other and unspecified benign neoplasm (1 source) Melanocytic nevus of upper limb; Translations: [Melanocytic nevi of unspecified upper limb, including shoulder] Onset: 12-05-2013 Resolved: 04-28-2015 04-28-2015 Episodic Other and unspecified benign neoplasm (1 source) Melanocytic nevi of unspecified part of face; Translations: [Benign neoplasm of skin of other and unspecified parts of face] Onset: 12-05-2013 Resolved: 04-28-2015 04-28-2015 Episodic Other and unspecified benign neoplasm (1 source) Melanocytic nevus of neck; Translations: [Melanocytic nevi of scalp and neck] Onset: 12-05-2013 Resolved: 04-28-2015 04-28-2015 Episodic Other and unspecified benign neoplasm (1 source) Dermatofibroma; Translations: [Other benign neoplasm of skin of unspecified lower limb, including hip] Onset: 12-05-2013 Resolved: 04-28-2015 04-28-2015 Episodic Other and unspecified benign neoplasm (1 source) Senile angioma; Translations: [Hemangioma of skin and subcutaneous tissue] Onset: 12-05-2013 Resolved: 04-28-2015 04-28-2015 Episodic Other circulatory disease (1 source) Disorder of capillaries; Translations: [Disease of capillaries, unspecified] Onset: 12-28-2006 Resolved: 07-21-2011 07-21-2011 Episodic Other connective tissue disease (1 source) Pain in bilateral legs; Translations: [Pain in right leg] Onset: 03-18-2014 Resolved: 04-28-2015 04-28-2015 Episodic Other female genital disorders (1 source) Postcoital bleeding; Translations: [Postcoital bleeding] Onset: 06-05-2012 Resolved: 07-03-2013 07-03-2013 Chronic Other inflammatory condition of skin (1 source) Rosacea; Translations: [Rosacea, unspecified] Onset: 12-28-2006 Resolved: 07-21-2011 07-21-2011 Chronic Other inflammatory condition of skin (1 source) Seborrheic dermatitis; Translations: [Seborrheic dermatitis, unspecified] Onset: 09-29-2008 Resolved: 07-21-2011 07-21-2011 Episodic Other skin disorders (1 source) Seborrheic keratosis; Translations: [Other seborrheic keratosis] Onset: 12-28-2006 Resolved: 07-21-2011 07-21-2011 Episodic Other skin disorders (1 source) Acne; Translations: [Other acne] Onset: 12-28-2006 Resolved: 07-21-2011 07-21-2011 Episodic Other skin disorders (2 sources) Alopecia; Translations: [Nonscarring hair loss, unspecified] Onset: 09-23-2008 Resolved: 07-21-2011 07-21-2011 Episodic Other skin disorders (1 source) Telogen effluvium; Translations: [Telogen effluvium] Onset: 09-29-2008 Resolved: 07-21-2011 07-21-2011 Episodic Other skin disorders (1 source) Solar lentigo; Translations: [Other melanin hyperpigmentation] Onset: 12-05-2013 Resolved: 04-28-2015 04-28-2015 Episodic Ovarian cyst (1 source) Cyst of ovary; Translations: [Unspecified ovarian cyst, unspecified side] Onset: 04-17-2012 Resolved: 07-03-2013 07-03-2013 Episodic Skin and subcutaneous tissue infections (1 source) Pyoderma; Translations: [Pyoderma] Onset: 12-28-2006 Resolved: 07-21-2011 07-21-2011 Episodic Viral infection (2 sources) Herpes simplex; Translations: [Herpesviral infection, unspecified] Onset: 11-11-2008 Resolved: 07-21-2011 12-03-2013 Episodic Results Test Name Value Interpretation Reference Range Facility CBC panel Auto (Bld)on 07-20 Erythrocyte distribution width (RBC) [Ratio] 14.5 % Normal 11.5-15.0 [facility] Comment on above: Order Comment: Speci men Type: BLOOD SPECIMEN Ordering Facility: [facility] Address: [address] [place] [address] Performed By: #### 3 3762-6 #### [facility] CLIA [id number] [address] [place] [address] [place] Hematocrit (Bld) [Volume fraction] 36.2 % Normal 36.0-46.0 [facility] Comment on above: Order Comment: Speci men Type: BLOOD SPECIMEN Ordering Facility: [facility] Address: [address] [place] [address] Performed By: #### 3 3762-6 #### [facility] CLIA [id number] [address] [place] [address] [place] Hemoglobin (Bld) [Mass/Vol] 11.6 g/dL Normal 11.5-15.5 [facility] Comment on above: Order Comment: Speci men Type: BLOOD SPECIMEN Ordering Facility: [facility] Address: [address] [place] [address] Performed By: #### 3 3762-6 #### [facility] CLIA [id number] [address] [place] [address] [place] MCH (RBC) [Entitic mass] 26.1 pg Normal 26.0-34.0 [facility] Comment on above: Order Comment: Speci men Type: BLOOD SPECIMEN Ordering Facility: [facility] Address: [address] [place] [address] Performed By: #### 3 3762-6 #### [facility] CLIA [id number] [address] [place] [address] STATES [facility] MCHC (RBC) [Mass/Vol] 32.0 g/dL Normal 30.5-36.0 [facility] Comment on above: Order Comment: Speci men Type: BLOOD SPECIMEN Ordering Facility: [facility] Address: [address] [place] [address] Performed By: #### 3 3762-6 #### [facility] CLIA [id number] [address] [place] [address] [place] MCV (RBC) [Entitic vol] 81.3 fL Normal 80.0-100.0 [facility] Comment on above: Order Comment: Speci men Type: BLOOD SPECIMEN Ordering Facility: [facility] Address: [address] [place] [address] Performed By: #### 3 3762-6 #### [facility] CLIA [id number] [address] [place] [address] [place] Nucleated RBC (Bld) [#/Vol] 10*3/uL Normal <0.01 [facility] Comment on above: Order Comment: Speci men Type: BLOOD SPECIMEN Ordering Facility: [facility] Address: [address] [place] [address] Performed By: #### 3 3762-6 #### [facility] CLIA [id number] [address] [place] [address] [place] Platelet mean volume (Bld) [Entitic vol] 10.4 fL Normal 9.0-12.7 [facility] Comment on above: Order Comment: Speci men Type: BLOOD SPECIMEN Ordering Facility: [facility] Address: [address] [place] [address] Performed By: #### 3 3762-6 #### [facility] CLIA [id number] [address] [place], [place] [id number] [facility] [place] Platelets (Bld) [#/Vol] 208 10*3/uL Normal 150-400 [facility] Comment on above: Order Comment: Jean welsh Type: BLOOD SPECIMEN Ordering Facility: [facility] Address: [address] [place] [address] Performed By: #### 3 3762-6 #### [facility] CLIA [id number] [address] [place] [address] [facility] [place] RBC (Bld) [#/Vol] 4.45 10*6/uL Normal 3.90-5.20 [facility] Comment on above: Order Comment: Ameliai men Type: BLOOD SPECIMEN Ordering Facility: [facility] Address: [address] [place] [address] Performed By: #### 3 3762-6 #### [facility] CLIA [id number] [address] [place] [address] [place] WBC (Bld) [#/Vol] 12.25 10*3/uL High 3.70-11.00 [facility] Comment on above: Order Comment: Jean welsh Type: BLOOD SPECIMEN Ordering Facility: [facility] Address: [address] [place] [address] Performed By: #### 3 3762-6 #### [facility] CLIA [id number] [address] [place] [address] OF [facility] CNDSon 07-20-2024 CNDS HNO ID: [id number] Author: MARCO LOVE PA-C Service: Orthopaedic Surgery Author Type: Physician Hot Dip Galvanizer Type: Discharge Summary Filed: 08/01/2024 20:10 Note Text: Attestation signed by Peri Rogel DO at 08/06/2024 7:47 AM Agree with above DISCHARGE SUMMARY PATIENT NAME: Brooke Landaverde Code Status: Prior Highest Readmission Risk Score: 8 The 30 day readmissions risk score is derived from an internally validated risk model which evaluates patient level characteristics, utilization history, medication orders and lab results up until the day of discharge. Patients with a score of 40 or above are considered highest risk for readmission. Specific patient level drivers will be listed at the bottom of the summary. Admission Information Admission Information ADMIT DATE: 07/18/2024 DISCHARGE DATE: 07/20/2024 MY DOCTORS AND MEDICAL TEAM: My Main Hospital Doctor: Peri Rogel DO Primary Care Provider: Gómez Montalvo MD My Medical Team Members: Treatment Team: Attending Provider: Peri Rogel DO Nurse Practitioner: Jocelyn Ojeda APRN.CNP MY CONDITION AT DISCHARGE: Good REASON I WAS IN THE HOSPITAL: Back surgery SUMMARY OF WHAT HAPPENED WHILE I WAS IN THE HOSPITAL: Patient was admitted to the hospital through preop on 07/18/2024. Once ready patient was taken to the operating room and surgery was completed without complication. Upon completion the patient was awakened extubated and taken to PACU for recovery. Once recovered she was transferred to regular nursing floor. Patient ambulated well with physical therapy on postop day 1 and was cleared for safe discharge home. There were no adverse events while patient was admitted in the hospital. Patient was discharged home on postop day 2. OTHER PROBLEMS/DIAGNOSIS: Principal Problem: Spinal stenosis of lumbar region with neurogenic claudication Active Problems: Preop testing Resolved Problems: * No resolved hospital problems. * OPERATIONS PERFORMED WHILE IN THE HOSPITAL: PLIF L4-S1 with decompression L4-S1 IMPORTANT TEST/PROCEDURES: No procedures performed TEST RESULTS NOT AVAILABLE AT THIS TIME: No pending results Discharge Disposition Discharge Disposition: Home With Self Care Activity When You Leave the Hospital Do not bend over at the waist to lift heavy objects Lifting is restricted to: 10 pounds May use stairs May walk with a cane May walk with a walker No baths or showers for: 7 days from surgical date No driving for: While taking narcotic pain medication No swimming or hot tubs for: Until assessed by surgical team No walking restrictions Diet Instructions Resume your pre-hospital diet For Pain When You Leave the Hospital If you become constipated, you may use any rmkz-sat-xmssnsk treatment such as Milk of Magnesia, Sennakot, Prune Juice, Suppositories, etc. in addition to the stool softener/fiber supplement No alcohol or driving while on pain medication Use the dispensed medication (see prescription) Wound/Surgical Site Care Apply ice packs as needed Do not change or remove your dressing It is normal to have swelling, mild bruising, blood on the steri-strips, numbness and firmness around the incision Keep your dressing clean and dry Some bleeding from the wound/surgical site can be expected. If excessive, see a doctor at once Steri strips can get wet. Let them fall off or remove in: Allow to fall off You may change your dressing daily beginning on: Postop day 7. Continue to keep incision covered for an additional week changing bandage daily Call Your Doctor If There is an unusual odor from the wound area There is severe pain at the operative site You have pain and swelling in your legs, especially if it is only on one side and not the other You have persistent or heavy bleeding You have redness, swelling, pus or drainage from the wound Your temperature is greater than 101F Follow Up Appointments Follow-Up Appointment When: In 3 weeks Patient/Parents to call for appointment?: Scheduled Marco Love PA-C [phone] [address] PCP Requested Referral Additional Provider to Provider Information: Treatment Team: Attending Provider: Peri Rogel DO Nurse Practitioner: Jocelyn Ojeda APRN.CNP Transitions of Care Critical Issues: LABS AND PROCEDURES PENDING AT DISCHARGE: No pending results. FOLLOW-UP APPOINTMENTS ALREADY SCHEDULED WITH A [facility] PROVIDER: No future appointments. ALLERGIES Allergen Reactions Codeine anxiety Demerol [Meperidine* nausea Lisinopril Cough DISCHARGE MEDICATION: Medication List CONTINUE taking these medications amLODIPine 5 mg tablet C (more content not included)... [facility] Comprehensive metabolic 2000 panelon 07-20-2024 Albumin [Mass/Vol] 3.3 g/dL Normal 3.2-5.0 [facility] Comment on above: Order Comment: Speci men Type: BLOOD SPECIMEN Ordering Facility: [facility] Address: [address] [place] [address] Performed By: #### 3 3762-6 #### [facility] CLIA [id number] [address] [place] [address] [place] ALP [Catalytic activity/Vol] 92 U/L Normal 45-117 [facility] Comment on above: Order Comment: Speci men Type: BLOOD SPECIMEN Ordering Facility: [facility] Address: [address] [place] [address] Performed By: #### 3 3762-6 #### [facility] CLIA [id number] [address] [place] [address] [place] ALT [Catalytic activity/Vol] 13 U/L Normal 13-61 [facility] Comment on above: Order Comment: Speci men Type: BLOOD SPECIMEN Ordering Facility: [facility] Address: [address] [place] [address] Result Comment: Resu lts may be falsely depressed after the administration of Sulfasalazine and/or Sulfapyridine. Performed By: #### 3 3762-6 #### [facility] CLIA [id number] [address] [place] [address] [place] Anion gap [Moles/Vol] 7 mmol/L Normal 5-16 [facility] Comment on above: Order Comment: Speci men Type: BLOOD SPECIMEN Ordering Facility: [facility] Address: [address] [place] [address] Performed By: #### 3 3762-6 #### [facility] CLIA [id number] [address] [place] [address] [place] AST [Catalytic activity/Vol] 19 U/L Normal 8-34 [facility] Comment on above: Order Comment: Speci men Type: BLOOD SPECIMEN Ordering Facility: [facility] Address: [address] [place] [address] Result Comment: Resu lts may be falsely depressed after the administration of Sulfasalazine and/or Sulfapyridine. Performed By: #### 3 3762-6 #### [facility] CLIA [id number] [address] [place] [address] [place] Bilirubin [Mass/Vol] 0.5 mg/dL Normal 0.2-1.0 [facility] Comment on above: Order Comment: Speci men Type: BLOOD SPECIMEN Ordering Facility: [facility] Address: [address] [place] [address] Performed By: #### 3 3762-6 #### [facility] CLIA [id number] [address] [place] [address] [place] Calcium [Mass/Vol] 8.5 mg/dL Normal 8.5-10.5 [facility] Comment on above: Order Comment: Speci men Type: BLOOD SPECIMEN Ordering Facility: [facility] Address: [address] [place] [address] Performed By: #### 3 3762-6 #### [facility] CLIA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 Dressing, Positioning, Precautions/Restrictio ns, Role of Occupational Therapy, Safety/Judgment THERAPEUTIC SKILLS USED Activity Dosing, Cuing Tactile, Cuing Verbal, Cuing Visual FUNCTIONAL STATUS Activities of Daily Living Assist Level Additional Information Feeding Grooming Supervision Bathing Upper Body Supervision Bathing Lower Body Supervision Dressing Upper Body Supervision Dressing Lower Body Supervision Toileting Supervision Mobility Assist Level Additional Information Bed Mobility Supine To Sit: Minimal Assistance, Additional Information log roll from flat bed level, edu on how can assist, acting as in this role Sit to Stand Supervision Stand to Sit Supervision Bed to Chair Toilet/Commode Supervision Shower Functional Mobility Supervision, Additional Information Functional Mobility Device: Wheeled Walker slowed pacing, no LOB, denied dizziness; to/from bathroom ~18ft x2; in home functional distances ~250ft GOALS Patient will demonstrate understanding of importance of mobility during hospital stay and resolve all self-care, cognitive and/or coping needs identified. Rehab Potential: Excellent PLAN OT Frequency: Discontinue Therapy Services Reasons Therapy Services Discontinued: Goals met Treatment Interventions: Education, Self Care/Home Management SIGNATURE: BALJINDER Keller/L PATIENT NAME: Brooke Landaverde DATE: July 19, 2024 TIME: 8:55 AM [facility] ANES POSTPROC EVALon 024 ANES POSTPROC EVAL HNO ID: [id number] Author: TAMERA SCHULTZ DO Service: ? Author Type: Anesthesiologist Type: Anesthesia Postprocedure Evaluation Filed: 07/18/2024 15:44 Note Text: POST ANESTHESIA EVALUATION NOTE : 1970 Procedure Summary Date: 07/18/24 Room / Location: OR 01 / MR OR Anesthesia Start: 1117 Anesthesia Stop: 5 Procedures: FUSION LUMBAR POSTERIOR LEVEL 1 WITH C ARM (Spine Lumbar) FUSION LUMBAR POSTERIOR LEVEL 2 (Spine Lumbar) INSERT SPINE FIXATION DEVICE (Spine Lumbar) BONE MARROW ASPIRATION FOR BONE GRAFTING,SPINE SURGERY ONLY,VIA SEPARATE SKIN OR FASCIAL INCISION (Spine Lumbar) AUTOGRAFT FOR SPINE SURGERY ONLY, OBTAINED FROM SAME INCISION (Spine Lumbar) ALLOGRAFT FOR SPINE SURGERY MORSELIZED (Spine Lumbar) DECOMPRESSION LAMINECTOMY LUMBAR POSTERIOR LEVEL 1 WITH C ARM (Spine Lumbar) DECOMPRESSION LAMINECTOMY 1ST ADD'L LUMBAR SEGMENT (Spine Lumbar) DECOMPRESSION LAMINECTOMY 2ND ADD'L LUMBAR SEGMENT (Spine Lumbar) Diagnosis: Spinal stenosis of lumbar region with neurogenic claudication Spondylolisthesis of lumbar region Other intervertebral disc degeneration, lumbar region Other intervertebral disc displacement, lumbar region (Spinal stenosis of lumbar region with neurogenic claudication [M48.062]) (Spondylolisthesis of lumbar region [M43.16]) (Other intervertebral disc degeneration, lumbar region [M51.36]) (Other intervertebral disc displacement, lumbar region [M51.26]) Surgeons: Peri Rogel DO Responsible Provider: Tamera Schultz DO Anesthesia Type: general ASA Status: 2 Anesthesia Type: general Airway Type: ETT Last Vitals Vitals Value Taken Time BP 135/75 07/18/24 1530 Temp 37.1 ?C (98.7 ?F) 07/18/24 1437 Pulse 71 07/18/24 1537 Resp 16 07/18/24 1530 SpO2 100 % 07/18/24 1537 Vitals shown include unfiled device data. Post Anesthesia Patient Status Patient Evaluation: PACU. PACU/ICU Patient Condition: stable. Anticipated Disposition: inpatient floor planned admission. Neurological Status: aware and responsive. Pulmonary Status: breathing comfortably on supplemental oxygen Airway Control: returned to baseline unsupported. Cardiovascular Status: stable. Pain Management: clinically adequate Postoperative Hydration: acceptable. Intraoperative Events: no significant anesthesia events Post Operative Nausea/Vomiting Status: no significant post operative nausea or vomiting Recommendation: further care per PACU/ICU/floor team. Anesthesia Observations No Documentation SIGNATURE: Tamera Schultz DO PATIENT NAME: Brooke Landaverde DATE: July 18, 2024 TIME: 3:44 PM CSN: [id number] [facility] ANES PRE-OPon 07-18-2024 ANES PRE-OP HNO ID: [id number] Author: TAMERA SCHULTZ DO Service: ? Author Type: Anesthesiologist Type: Anesthesia Preprocedure Evaluation Filed: 07/18/2024 10:15 Note Text: ANESTHESIOLOGY DAY OF SURGERY NOTE : 1970 Procedure Information Date/Time: 07/18/24 1045 Procedures: FUSION LUMBAR POSTERIOR LEVEL 1 WITH C ARM FUSION LUMBAR POSTERIOR LEVEL 2 INSERT SPINE FIXATION DEVICE BONE MARROW ASPIRATION FOR BONE GRAFTING,SPINE SURGERY ONLY,VIA SEPARATE SKIN OR FASCIAL INCISION AUTOGRAFT FOR SPINE SURGERY ONLY, OBTAINED FROM SAME INCISION ALLOGRAFT FOR SPINE SURGERY MORSELIZED DECOMPRESSION LAMINECTOMY LUMBAR POSTERIOR LEVEL 1 WITH C ARM DECOMPRESSION LAMINECTOMY 1ST ADD'L LUMBAR SEGMENT DECOMPRESSION LAMINECTOMY 2ND ADD'L LUMBAR SEGMENT Location: MR OR 01 / MR OR Surgeons: Peri Rogel DO Estimated body mass index is 28.07 kg/m? as calculated from the following: Height as of this encounter: 152.4 cm (5'). Weight as of this encounter: 65.2 kg (143 lb 11.8 oz). Most recent hematocrit and potassium results: Hematocrit 45.8 07/08/2024 Potassium 4.1 07/08/2024 Relevant Problems ANESTHESIA (+) PONV (postoperative nausea and vomiting) CARDIO (+) HTN (hypertension) (+) Heart murmur I - PHYSICAL EVALUATION AIRWAY Patient intubated: No. Tracheostomy tube not present Mallampati: III. TM distance: >3 FB. Neck ROM: full ROM without neurological symptoms. Mouth opening: adequate. Short neck: no. Thick neck: no DENTAL Dental findings: teeth intact. II - ANESTHESIA PLAN ASA Score: 2 Anesthetic Plan: general Airway type: ETT The patient is not a current smoker. NPO Status: adequate Beta Khurram Monitoring Plan Monitoring plan: standard ASA. Post Procedure Analgesic Plan Postoperative analgesic plan: parenteral or oral opioids and multimodal analgesia. Informed Consent Anesthetic risks, benefits, alternatives, personnel and consent discussed: yes. Patient / Responsible Constitution Party agrees to proceed: yes Patient / Surrogate agrees to blood products: Yes Vitals Value Taken Time BP 136/88 07/18/24923 Pulse 73 07/18/24 0922 Resp 16 07/18/24 09 Temp 36.2 ?C (97.2 ?F) 07/18/24 09 SpO2 98 % 07/18/24922 Vitals shown include unfiled device data. Facility-Administered Medications as of 07/18/2024 Medication Dose Route Frequency lidocaine (PF) 10 mg/mL (1 %) 2 mg injection (XYLOCAINE) 0.2 mL INTRADERMAL PRN lactated ringers iv infusion 30 mL/hr INTRAVENOUS CONTINUOUS NaCl 0.9% iv flush bag 20 mL INTRAVENOUS PRN [COMPLETED] povidone-iodine 10% ointment ointment TOPICAL ONCE ceFAZolin iv piggyback 2 g in D5W (iso-osmotic) 100 mL (ANCEF) 2 g INTRAVENOUS ONCE Outpatient Medications as of 07/18/2024 Medication Sig venlafaxine (EFFEXOR) 25 mg tablet Take 25 mg by mouth daily at bedtime. FOR HOT FLASHES traMADol (ULTRAM) 50 mg tablet Take 50 mg by mouth every 8 hours as needed for pain. USUALLY AT BEDTIME amLODIPine (NORVASC) 5 mg tablet Take 1 tablet by mouth twice daily. (Patient taking differently: Take 10 mg by mouth every morning.) metoprolol succinate ER (TOPROL XL) 50 mg 24 hr tablet Take 1 tablet by mouth once daily. (Patient taking differently: Take 100 mg by mouth daily at bedtime.) atorvastatin (LIPITOR) 10 mg tablet Take 1 tablet by mouth once daily. (Patient taking differently: Take 10 mg by mouth once daily. BEDTIME) MULTIVITAMIN WITH MINERALS (MULTIVITAMIN AND MINERAL FORMULA ORAL) Take 1 tablet by mouth as needed. Ibuprofen 200 mg cap Take by mouth. NEEDED STOPPED FOR SURGERY 07/18/24 I have interviewed and examined the patient. I have reviewed the medical record and/or the pre-anesthesia evaluation, pertinent labs, and test results. This contains updated information obtained within 48 hours of Surgery/Procedure. SIGNATURE: Tamera Schultz DO PATIENT NAME: Brooke Landaverde DATE: July 18, 2024 TIME: 10:14 AM CSN: [id number] [facility] CONFIRM BLOOD TYPEon 024 ABO O [facility] Comment on above: Order Comment: Speci men Type: BLOOD SPECIMEN Ordering Facility: [facility] Address: [address] [place] [address] Performed By: #### 3 4528-0, 50164-8 #### [facility] CLIA [id number] [address] [place] [address] Rh Nom (Bld) Positive [facility] Comment on above: Order Comment: Speci men Type: BLOOD SPECIMEN Ordering Facility: [facility] Address: [address] [place] [address] Performed By: #### 3 4528-0, 71201-5 #### [facility] CLIA [id number] [address] [place] [address] CONSULTon 07-18-2024 CONSULT HNO ID: [id number] Author: NAREN PAYAN MD Service: Hospital Medicine Author Type: Physician Type: Consults Filed: 07/18/2024 14:53 Note Text: INITIAL CONSULT NOTE SERVICE DATE: 07/18/2024 REASON FOR CONSULT: Medical disease management PRIMARY CARE PHYSICIAN: Gómez Montalvo MD Subjective Ms. Landaverde is a 53 year old female who is s/p back surgery POD 0. Medical team was consulted for medical disease management. Patient has a past medical history of hypertension, hyper lipidemia, heart murmur. Seen and examined while in PACU complains of well-tolerated back pain with no numbness or tingling sensation. Review of system otherwise unremarkable. Non-smoker and nonalcoholic. PAST MEDICAL HISTORY Diagnosis Date Heart murmur 2023 REOCCURED RECENTLY HTN (hypertension) Hyperlipidemia Near syncope 2013 PONV (postoperative nausea and vomiting) PAST SURGICAL HISTORY Procedure Laterality Date TONSILLECTOMY PRIMARY/SECONDARY Tonsillectomy VAG HYST 250 GM/< W/RMVL TUBEAND/OVARY 06/12/12 TVH/RSO FAMILY HISTORY Adopted: Yes Problem Relation Age of Onset other (unknown [Other]) Other Pt adopted other (children healthy [Other]) Other Social History Tobacco Use Smoking status: Former Smokeless tobacco: Never Tobacco comments: was passive smoker quit 2001, smoked intermittently Substance Use Topics Alcohol use: Yes Comment: socially Drug use: No venlafaxine (EFFEXOR) 25 mg tablet, Take 25 mg by mouth daily at bedtime. FOR HOT FLASHES, Disp: , Rfl: , 07/08/2024 traMADol (ULTRAM) 50 mg tablet, Take 50 mg by mouth every 8 hours as needed for pain. USUALLY AT BEDTIME, Disp: , Rfl: , 07/08/2024 amLODIPine (NORVASC) 5 mg tablet, Take 1 tablet by mouth twice daily. (Patient taking differently: Take 10 mg by mouth every morning.), Disp: 180 tablet, Rfl: 0, 07/18/2024 at 0630 metoprolol succinate ER (TOPROL XL) 50 mg 24 hr tablet, Take 1 tablet by mouth once daily. (Patient taking differently: Take 100 mg by mouth daily at bedtime.), Disp: 90 tablet, Rfl: 3, 07/17/2024 at 2130 atorvastatin (LIPITOR) 10 mg tablet, Take 1 tablet by mouth once daily. (Patient taking differently: Take 10 mg by mouth once daily. BEDTIME), Disp: 90 tablet, Rfl: 3, 07/08/2024 MULTIVITAMIN WITH MINERALS (MULTIVITAMIN AND MINERAL FORMULA ORAL), Take 1 tablet by mouth as needed., Disp: , Rfl: , 07/08/2024 Ibuprofen 200 mg cap, Take by mouth. NEEDED STOPPED FOR SURGERY 07/18/24, Disp: , Rfl: , 07/08/2024 Current Facility-Administered Medications Medication Dose Route Frequency lidocaine (PF) 10 mg/mL (1 %) 2 mg injection (XYLOCAINE) 0.2 mL INTRADERMAL PRN lactated ringers iv infusion 30 mL/hr INTRAVENOUS CONTINUOUS NaCl 0.9% iv flush bag 20 mL INTRAVENOUS PRN lactated ringers iv infusion 75 mL/hr INTRAVENOUS CONTINUOUS fentaNYL 50 mcg/mL 50 mcg injection (SUBLIMAZE) 50 mcg INTRAVENOUS q 10 MIN PRN ondansetron 4 mg tab(s) (ZOFRAN) 4 mg ORAL PRN Or ondansetron (PF) 4 mg injection (ZOFRAN) 4 mg INTRAVENOUS PRN scopolamine 1 mg over 3 days 1 Patch (TRANSDERM-SCOP) 1 Patch TRANSDERMAL ONCE scopolamine - VERIFY patch OTHER q 8 H [START ON 07/19/2024] scopolamine - REMOVE PATCH OTHER ONCE Allergies As of Date: 06/21/2024 Allergen Noted Reaction CODEINE 01/17/2006 DEMEROL [MEPERIDINE (PF)] 01/17/2006 LISINOPRIL 04/21/2014 Cough Fully Assessed 04/10/2017 Objective PHYSICAL EXAM: Physical Exam Performed: Alert and oriented x 3 Cardiac -regular heart rate with normal S1 and S2 with murmur Lungs are clear No bilateral pitting edema BP 136/88[LA[ Pulse 74 Temp (Src) 97.2 (Temporal) Resp 16 Ht 5' 0 (1.52m) Wt 143 lb 11.8 oz (65.2kg) SpO2 98% LMP 05/21/2012 BMI 28.07 kg/(m2). O2 Therapy: Room Air DATA: Diagnostic tests reviewed for today's visit: Most recent labs and imaging results. Impression/Recommendat ions Active Problems: S/P back surgery _Patient underwent spinal fusion. Pending notes from the surgeon _POD 0 _Pain medication, bowel care as per Ortho _Comment incentive spirometer _PT and OT Hypertension Hyperlipidemia Heart murmur _resume home medications DVT prophylaxis as per Ortho, recommend ambulation Medication and Non-Pharmacologic VTE Prophylaxis/Anticoagul ants 07/18/24 0930 graduated compression stockings (il,wy) VTE Prophylaxis: VTE prophylaxis appropriate SIGNATURE: Naren Payan MD PATIENT NAME: Brooke Landaverde DATE: July 18, 2024 TIME: 2:49 PM Normal [facility] HISTORY PHYSICALon HISTORY PHYSICAL HNO ID: [id number] Author: PERI ROGEL, DO Service: ? Author Type: Physician Type: H&P Filed: 07/18/2024 10:54 Note Text: UPDATED HISTORY AND PHYSICAL EXAMINATION SERVICE DATE: 07/18/2024 SERVICE TIME: 12:20 AM SENSITIVE EXAMINATION CONSENT: The sensitive examination was discussed with the Patient or Patient's Authorized Molecular Genetic Pathologist. As applicable, any other physician, advance practice provider, medical student, or other health professional student that will be observing or involved in the sensitive examination for educational or training purposes was discussed with the Patient or Authorized Molecular Genetic Pathologist. The Patient or Authorized Molecular Genetic Pathologist has agreed to proceed with the sensitive examination. (Sensitive examination includes inspection and/or palpation of the breasts, pelvis, prostate and anorectal regions) PHYSICAL EXAM MUST BE COMPLETED ON ADMISSION The History and Physical (completed in the past 30 days) has been reviewed and the patient has been examined. The contents accurately reflect the patient's condition with the following additions or revisions since the HANDP was completed. Examination indicates no changes. This HANDP can be found in the scanned documents dated July 16, 2024. SIGNATURE: Peri Rogel DO PATIENT NAME: Brooke Landaverde DATE: July 18, 2024 TIME: 10:53 AM Normal [facility] OPERATIVE NOon 07-18-2024 OPERATIVE NO HNO ID: [id number] Author: PERI ROGEL DO Service: Orthopaedic Surgery Author Type: Physician Type: Operative Report Filed: 07/26/2024 10:41 Note Text: [facility] - OPERATIVE REPORT BROOKE LANDAVERDE : 1970 AGE: 53. SEX: F PATIENT TYPE: [place] [facility] [place] [facility] LOCATION: [id number] ATTENDING PHYSICIAN: Peri Rogel DO [facility] NUMBER: [id number] DATE OF SURGERY/PROCEDURE: 07/18/2024 INCISION/PROCEDURE START TIME: 11:56 AM INCISION CLOSE/PROCEDURE END TIME: 2:20 PM PREOPERATIVE DIAGNOSIS: POSTOPERATIVE DIAGNOSIS: SURGEON: Peri Rogel DO PARA EDUCATOR: JALEEL Torres SURGERY/PROCEDURE: ANESTHESIA: General endotracheal, Dr. Barillas. PREOPERATIVE DIAGNOSES: 1. Degenerative spondylolisthesis at L4-5. 2. Bilateral lower extremity radiculopathy consistent with neurogenic claudication- type symptoms, right-sided greater than left-sided radiculopathy. 3. Spinal stenosis with symptoms in her neurogenic claudication. POSTOPERATIVE DIAGNOSES: 1. Degenerative spondylolisthesis at L4-5. 2. Bilateral lower extremity radiculopathy consistent with neurogenic claudication- type symptoms, right-sided greater than left-sided radiculopathy. 3. Spinal stenosis with symptoms in her neurogenic claudication. NAME OF OPERATIONS: 1. Posterior fusion with instrumentation, L4 to S1. 2. Decompression from L4 to S1. 3. Bone marrow aspirate from the left ilium. 4. Local bone graft, ViviGen, cancellous chips and Fibercore were placed in the posterolateral gutters for fusion purposes. FLUIDS: Per Anesthesia. ESTIMATED BLOOD LOSS: 100 cc. COMPLICATIONS: There were no complications. No changes in neuromonitoring. DISPOSITION: The patient to PACU, will be admitted to the floor for postoperative care. HISTORY: The patient is a 53-year-old who presented to my office. This is a patient who was seen by Dr. Victoria in [facility] and has been in pain management, had received epidural injections that gave her relief. She had an opinion by another spine surgeon locally, who wanted to do an L4 to S1 decompression. She presented to my office for a second opinion. I had flexion- extension views that showed that she did have some mobility at the L4-5 level. The other concern of hers and why she got the second opinion was questioning because of arthritis in her back and was the decompression really going to resolve her back pain issues. In talking with her at length, I told her I would probably have added a fusion surgery at those levels instead of just decompression due to her degenerative instability and she thought on it and wanted to proceed going going on the route that I discussed with her. The risks, benefits, and alternatives to treatments were discussed. She understood, signed informed consent, and wanted to proceed. PROCEDURE IN DETAIL: The patient was met in the preoperative holding area by myself, the anesthesia team. The patient's consent was signed, HP was updated. She was brought back by the anesthesia team and underwent successful endotracheal anesthesia. The patient was taken from the supine lie to prone position on the Tanvir bed. She was positioned accordingly and was prepped and draped in normal sterile fashion with the lower lumbar spine free for operative intervention. At this time, a formal time-out was performed including that the appropriate patient, procedure being contemplated. Once this was deemed correct, a spinal needle was placed in the right paraspinal musculature and a lateral fluoroscopic image was obtained to confirm appropriate starting position for my skin incision. I marked my midline and injected 0.25% Marcaine with epinephrine in the skin, subcutaneous tissue, and lumbar musculature about 10 cc. I then made a midline incision using a 10 blade. I used Bovie electrocautery to dissect down through the subcutaneous tissue and I performed subperiosteal dissection down L4, L5, and S1. I marked my 4- 5 interval and I confirmed with Dr. Fitch from Radiology per [facility] protocol that we were at the appropriate level. Once this was deemed correct, I extended my exposure out to the transverse process of L4, L5, and sacral ala. I ensured I did not disrupt the 3-4 facet joint in my exposure, but I did take down the L4-5 and the L5-S1 facet joints and once this was completely removed of all the soft tissues and our posterolateral gutters were prepared, through a separate fascial incision on the left side, I took an aspirator, malleted the PSIS and I aspirated approximately 15 cc of bone marrow aspirate. This was sterilely passed off the back table and my aspirator was removed and the bone marrow aspirate was mixed with my cancellous bone chips as well as my ViviGen and other bony products now. After this was completed, I placed my self-retaining retractors and my Super- Slide in the posterolateral (more content not included)... Normal [facility] XR VERIFY LEVEL Q-ONXME-SAnk 07-18-2024 XR VERIFY LEVEL L-SPINE-NB * * *Final Report* * * DATE OF EXAM: Jul 18 2024 12:07PM RHX 5642 - XR VERIFY LEVEL L-SPINE-NB / PROCEDURE REASON: Back pain * * * * Physician Interpretation * * * * INTRAOPERATIVE FLUOROSCOPY LUMBAR SPINE FOR LOCALIZATION: Clinical Statement: Back pain. REPORT: Frontal and lateral fluoroscopic images were acquired in the OR over the lower lumbar spine for localization. Comparison is made with a prior outside lumbar spine radiographic exam performed 06/05/2024. The provided fluoroscopic images show a metallic clamp posteriorly between the L4 and L5 spinous processes. The level was confirmed with Dr. Rogel over the telephone at 12:09 PM. Any additional intraoperative fluoroscopic images as well as total intraoperative fluoroscopy time will be reported separately. IMPRESSION: Intraoperative fluoroscopy of the lumbar spine for localization. Fire Prevention Officer: PSCB Transcribe Date/Time: Jul 18 2024 12:09P Dictated by : JAYDEN FITCH MD This examination was interpreted and the report reviewed and electronically signed by: JAYDEN FITCH MD on Jul 18 2024 12:11PM EST [id number] [facility] ACTIVATED PARTIAL THROMBOPLA STIN TIMEon 07-08-2024 aPTT Coag (PPP) [Time] 31.5 s [facility] Bacteria Ur Culton Bacteria identified Cx Nom (U) CULTURE, URINE: No growth (<1,000 CFU/ml) Normal [facility] Comment on above: Performed By: #### 3 4528-0, 47429-8 #### [facility] CLIA [id number] [address] [place] [address] [place] Basic metabolic 2000 panelon 07-08-2024 Anion gap [Moles/Vol] 8 mmol/L 5 - 16 mmol/L [facility] Calcium [Mass/Vol] 10.5 mg/dL 8.5 - 10. 5 mg/dL [facility] Chloride [Moles/Vol] 108 mmol/L High 98 - 107 mmol/L [facility] CO2 [Moles/Vol] 24 mmol/L 21 - 32 mmol/L [facility] Creatinine [Mass/Vol] 0.52 mg/dL 0.51 - 0.95 mg/dL [facility] Comment on above: Patients receiving e ither N-Acetylcysteine (NAC) or Metamizole prior to venipuncture, may have falsely depressed results. GFR/1.73 sq M.predicted among non-blacks MDRD (S/P/Bld) [Vol rate/Area] 112 mL/min/{1.73_m2} - PINF [facility] Comment on above: Estimated Glomerular Filtration Rate (eGFR) is calculated using the 2020 CKD-EPI creatinine equation. This equation utilizes serum creatinine, sex, and age as parameters. The creatinine assay has traceable calibration to isotope dilution-mass spectrometry. Refer to KDIGO guidelines for clinical interpretation. In patients with unstable renal function, e.g. those with acute kidney injury, the eGFR may not accurately reflect actual GFR. Glucose [Mass/Vol] 99 mg/dL 70 - 100 mg/dL [facility] Comment on above: The [place] Diabete s Association (ADA) provides guidance for cutoff values for fasting glucose and random glucose. The ADA defines fasting as no caloric intake for at least 8 hours. Fasting plasma glucose results between 100 to 125 mg/dL indicate increased risk for diabetes (prediabetes). Fasting plasma glucose results greater than or equal to 126 mg/dL meet the criteria for diagnosis of diabetes. In the absence of unequivocal hyperglycemia, results should be confirmed by repeat testing. In a patient with classic symptoms of hyperglycemia or hyperglycemic crisis, random plasma glucose results greater than or equal to 200 mg/dL meet the criteria for diagnosis of diabetes. Reference: Standards of Medical Care in Diabetes 2016, [place] Diabetes Association. Diabetes Care. 2016.39(Suppl 1). Results may be falsely elevated after the administration of Sulfapyridine. Results may be falsely depressed after the administration of Sulfasalazine. Interpretation and review of laboratory results Abnormal [facility] Potassium [Moles/Vol] 4.1 mmol/L 3.5 - 5.1 mmol/L [facility] Sodium [Moles/Vol] 140 mmol/L 136 - 145 mmol/L [facility] Urea nitrogen [Mass/Vol] 13 mg/dL 7 - 26 mg/dL [facility] Anion gap [Moles/Vol] 8 mmol/L Normal 5-16 [facility] Comment on above: Order Comment: Jean welsh Type: BLOOD SPECIMEN Ordering Facility: [facility] Address: [address] [place] [address] Performed By: #### 2 4321-2 #### [facility] CLIA [id number] [address] [place] [address] [place] Calcium [Mass/Vol] 10.5 mg/dL Normal 8.5-10.5 [facility] Comment on above: Order Comment: Jean welsh Type: BLOOD SPECIMEN Ordering Facility: [facility] Address: [address] [place] [address] Performed By: #### 2 4321-2 #### [facility] CLIA [id number] [address] [place] [address] [place] Chloride [Moles/Vol] 108 mmol/L High 98-107 [facility] Comment on above: Order Comment: Jean welsh Type: BLOOD SPECIMEN Ordering Facility: [facility] Address: [address] [place] [address] Performed By: #### 2 4321-2 #### [facility] CLIA [id number] [address] [place] [address] [place] CO2 [Moles/Vol] 24 mmol/L Normal 21-32 [facility] Comment on above: Order Comment: Jean welsh Type: BLOOD SPECIMEN Ordering Facility: [facility] Address: [address] [place] [address] Performed By: #### 2 4321-2 #### [facility] CLIA [id number] [address] [place] [address] [place] Creatinine [Mass/Vol] 0.52 mg/dL Normal 0.51-0.95 [facility] Comment on above: Order Comment: Speci men Type: BLOOD SPECIMEN Ordering Facility: [facility] Address: [address] [place] [address] Result Comment: Diane ents receiving either N-Acetylcysteine (NAC) or Metamizole prior to venipuncture, may have falsely depressed results. Performed By: #### 2 4321-2 #### [facility] CLIA [id number] [address] [place] [address] [facility] Creatinine and Glomerular filtration rate.predicted panel (S/P/Bld) 112 mL/min/1.73m??? Normal >=60 [facility] Comment on above: Order Comment: Jean welsh Type: BLOOD SPECIMEN Ordering Facility: [facility] Address: [address] [place] [address] Result Comment: Gabi mated Glomerular Filtration Rate (eGFR) is calculated using the 2020 CKD-EPI creatinine equation. This equation utilizes serum creatinine, sex, and age as parameters. The creatinine assay has traceable calibration to isotope dilution-mass spectrometry. Refer to KDIGO guidelines for clinical interpretation. In patients with unstable renal function, e.g. those with acute kidney injury, the eGFR may not accurately reflect actual GFR. Performed By: #### 2 4321-2 #### [facility] CLIA [id number] [address] [place], [place] [address] [place] Glucose [Mass/Vol] 99 mg/dL Normal 70-100 [facility] Comment on above: Order Comment: Jean welsh Type: BLOOD SPECIMEN Ordering Facility: [facility] Address: [address] [place] [address] Result Comment: The [place] Diabetes Association (ADA) provides guidance for cutoff values for fasting glucose and random glucose. The ADA defines fasting as no caloric intake for at least 8 hours. Fasting plasma glucose results between 100 to 125 mg/dL indicate increased risk for diabetes (prediabetes). Fasting plasma glucose results greater than or equal to 126 mg/dL meet the criteria for diagnosis of diabetes. In the absence of unequivocal hyperglycemia, results should be confirmed by repeat testing. In a patient with classic symptoms of hyperglycemia or hyperglycemic crisis, random plasma glucose results greater than or equal to 200 mg/dL meet the criteria for diagnosis of diabetes. Reference: Standards of Medical Care in Diabetes 2016, [place] Diabetes Association. Diabetes Care. 2016.39(Suppl 1). Results may be falsely elevated after the administration of Sulfapyridine. Results may be falsely depressed after the administration of Sulfasalazine. Performed By: #### 2 4321-2 #### [facility] CLIA [id number] [address] [place] [address] [place] Potassium [Moles/Vol] 4.1 mmol/L Normal 3.5-5.1 [facility] Comment on above: Order Comment: Jean welsh Type: BLOOD SPECIMEN Ordering Facility: [facility] Address: [address] [place] [address] Performed By: #### 2 4321-2 #### [facility] CLIA [id number] [address] [place] [address] [place] Sodium [Moles/Vol] 140 mmol/L Normal 136-145 [facility] Comment on above: Order Comment: Jean welsh Type: BLOOD SPECIMEN Ordering Facility: [facility] Address: [address] [place] [address] Performed By: #### 2 4321-2 #### [facility] CLIA [id number] [address] [place] [address] [place] Urea nitrogen [Mass/Vol] 13 mg/dL Normal 7-26 [facility] Comment on above: Order Comment: Jean welsh Type: BLOOD SPECIMEN Ordering Facility: [facility] Address: [address] [id number] Performed By: #### 2 4321-2 #### [facility] CLIA [id number] [address] [place] [id number] [place] CBC W Auto Differential pane l (Bld)on 07-08-2024 Basophils (Bld) [#/Vol] 0.06 10*3/uL [facility] Basophils/100 WBC (Bld) 0.5 % [facility] Differential cell count method Nom (Bld) Auto [facility] Eosinophils (Bld) [#/Vol] 0.19 10*3/uL [facility] Eosinophils/100 WBC (Bld) 1.7 % [facility] Erythrocyte distribution width (RBC) [Ratio] 14.2 % 11.5 - 15.0 % [facility] Hematocrit (Bld) [Volume fraction] 45.8 % 36.0 - 46.0 % [facility] Hemoglobin (Bld) [Mass/Vol] 15.0 g/dL 11.5 - 15.5 g/dL [facility] Immature granulocytes (Bld) [#/Vol] 0.11 10*3/uL High [facility] Immature granulocytes/100 WBC (Bld) 1.0 % [facility] Interpretation and review of laboratory results Abnormal [facility] Lymphocytes (Bld) [#/Vol] 2.89 10*3/uL [facility] Lymphocytes/100 WBC (Bld) 26.2 % [facility] MCH (RBC) [Entitic mass] 26.0 pg 26.0 - 34.0 pg [facility] MCHC (RBC) [Mass/Vol] 32.8 g/dL 30.5 - 36.0 g/dL [facility] MCV (RBC) [Entitic vol] 79.4 fL Low 80.0 - 100.0 fL [facility] Monocytes (Bld) [#/Vol] 0.56 10*3/uL [facility] Monocytes/100 WBC (Bld) 5.1 % [facility] Neutrophils (Bld) [#/Vol] 7.20 10*3/uL [facility] Neutrophils/100 WBC (Bld) 65.5 % [facility] Nucleated RBC (Bld) [#/Vol] [facility] Nucleated RBC/100 WBC (Bld) [Ratio] 0.0 % /100 WBC [facility] Platelet mean volume (Bld) [Entitic vol] 11.1 fL 9.0 - 12.7 fL [facility] Platelets (Bld) [#/Vol] 276 10*3/uL [facility] RBC (Bld) [#/Vol] 5.77 10*6/uL High 3.90 - 5.2 0 m/uL [facility] WBC (Bld) [#/Vol] 11.01 10*3/uL High [facility] Basophils (Bld) [#/Vol] 0.06 10*3/uL Normal <0.11 [facility] Comment on above: Order Comment: Speci men Type: BLOOD SPECIMEN Ordering Facility: [facility] Address: [address] [place] [address] Performed By: #### 5 7021-8 #### [facility] CLIA [id number] [address] [place] [address] [place] Basophils/100 WBC (Bld) 0.5 % Normal [facility] Comment on above: Order Comment: Speci men Type: BLOOD SPECIMEN Ordering Facility: [facility] Address: [address] [place] [address] Performed By: #### 5 7021-8 #### [facility] CLIA [id number] [address] [place] [address] [place] Differential cell count method Nom (Bld) Auto Normal [facility] Comment on above: Order Comment: Speci men Type: BLOOD SPECIMEN Ordering Facility: [facility] Address: [address] [place] [address] Performed By: #### 5 7021-8 #### [facility] CLIA [id number] [address] [place] [address] [place] Eosinophils (Bld) [#/Vol] 0.19 10*3/uL Normal <0.46 [facility] Comment on above: Order Comment: Speci men Type: BLOOD SPECIMEN Ordering Facility: [facility] Address: [address] [place] [address] Performed By: #### 5 7021-8 #### [facility] CLIA [id number] [address] [place] [address] [place] Eosinophils/100 WBC (Bld) 1.7 % Normal [facility] Comment on above: Order Comment: Speci men Type: BLOOD SPECIMEN Ordering Facility: [facility] Address: [address] [place] [address] Performed By: #### 5 7021-8 #### [facility] CLIA [id number] [address] [place] [address] [place] Erythrocyte distribution width (RBC) [Ratio] 14.2 % Normal 11.5-15.0 [facility] Comment on above: Order Comment: Speci men Type: BLOOD SPECIMEN Ordering Facility: [facility] Address: [address] [place] [address] Performed By: #### 5 7021-8 #### [facility] CLIA [id number] [address] [place] [address] [place] Hematocrit (Bld) [Volume fraction] 45.8 % Normal 36.0-46.0 [facility] Comment on above: Order Comment: Speci men Type: BLOOD SPECIMEN Ordering Facility: [facility] Address: [address] [place] [address] Performed By: #### 5 7021-8 #### [facility] CLIA [id number] [address] [place] [address] [place] Hemoglobin (Bld) [Mass/Vol] 15.0 g/dL Normal 11.5-15.5 [facility] Comment on above: Order Comment: Speci men Type: BLOOD SPECIMEN Ordering Facility: [facility] Address: [address] [place] [address] Performed By: #### 5 7021-8 #### [facility] CLIA [id number] [address] [place] [address] [place] Immature granulocytes (Bld) [#/Vol] 0.11 10*3/uL High <0.10 [facility] Comment on above: Order Comment: Speci men Type: BLOOD SPECIMEN Ordering Facility: [facility] Address: [address] [place] [address] Performed By: #### 5 7021-8 #### [facility] CLIA [id number] [address] [place] [address] [place] Immature granulocytes/100 WBC (Bld) 1.0 % Normal [facility] Comment on above: Order Comment: Speci men Type: BLOOD SPECIMEN Ordering Facility: [facility] Address: [address] [place] [address] Performed By: #### 5 7021-8 #### [facility] CLIA [id number] [address] [place] [address] [place] Lymphocytes (Bld) [#/Vol] 2.89 10*3/uL Normal 1.00-4.00 [facility] Comment on above: Order Comment: Speci men Type: BLOOD SPECIMEN Ordering Facility: [facility] Address: [address] [place] [address] Performed By: #### 5 7021-8 #### [facility] CLIA [id number] [address] [place] [address] [place] Lymphocytes/100 WBC (Bld) 26.2 % Normal [facility] Comment on above: Order Comment: Speci men Type: BLOOD SPECIMEN Ordering Facility: [facility] Address: [address] [place] [address] Performed By: #### 5 7021-8 #### [facility] CLIA [id number] [address] [place] [address] [place] MCH (RBC) [Entitic mass] 26.0 pg Normal 26.0-34.0 [facility] Comment on above: Order Comment: Speci men Type: BLOOD SPECIMEN Ordering Facility: [facility] Address: [address] [place] [address] Performed By: #### 5 7021-8 #### [facility] CLIA [id number] [address] [place] [address] [place] MCHC (RBC) [Mass/Vol] 32.8 g/dL Normal 30.5-36.0 [facility] Comment on above: Order Comment: Speci men Type: BLOOD SPECIMEN Ordering Facility: [facility] Address: [address] [place] [address] Performed By: #### 5 7021-8 #### [facility] CLIA [id number] [address] [place] [address] [place] MCV (RBC) [Entitic vol] 79.4 fL Low 80.0-100.0 [facility] Comment on above: Order Comment: Speci men Type: BLOOD SPECIMEN Ordering Facility: [facility] Address: [address] [place] [address] Performed By: #### 5 7021-8 #### [facility] CLIA [id number] [address] [place] [address] [place] Monocytes (Bld) [#/Vol] 0.56 10*3/uL Normal <0.87 [facility] Comment on above: Order Comment: Speci men Type: BLOOD SPECIMEN Ordering Facility: [facility] Address: [address] [place] [address] Performed By: #### 5 7021-8 #### [facility] CLIA [id number] [address] [place] [address] [place] Monocytes/100 WBC (Bld) 5.1 % Normal [facility] Comment on above: Order Comment: Speci men Type: BLOOD SPECIMEN Ordering Facility: [facility] Address: [address] [place] [address] Performed By: #### 5 7021-8 #### [facility] CLIA [id number] [address] [place] [address] [place] Neutrophils (Bld) [#/Vol] 7.20 10*3/uL Normal 1.45-7.50 [facility] Comment on above: Order Comment: Speci men Type: BLOOD SPECIMEN Ordering Facility: [facility] Address: [address] [place] [address] Performed By: #### 5 7021-8 #### [facility] CLIA [id number] [address] [place] [address] [place] Neutrophils/100 WBC (Bld) 65.5 % Normal [facility] Comment on above: Order Comment: Speci men Type: BLOOD SPECIMEN Ordering Facility: [facility] Address: [address] [place] [address] Performed By: #### 5 7021-8 #### [facility] CLIA [id number] [address] [place] [address] [place] Nucleated RBC (Bld) [#/Vol] 10*3/uL Normal <0.01 [facility] Comment on above: Order Comment: Speci men Type: BLOOD SPECIMEN Ordering Facility: [facility] Address: [address] [place] [address] Performed By: #### 5 7021-8 #### [facility] CLIA [id number] [address] [place] [address] [place] Nucleated RBC/100 WBC (Bld) [Ratio] 0.0 /100 WBC Normal [facility] Comment on above: Order Comment: Speci men Type: BLOOD SPECIMEN Ordering Facility: [facility] Address: [address] [place] [address] Performed By: #### 5 7021-8 #### [facility] CLIA [id number] [address] [place] [address] [place] Platelet mean volume (Bld) [Entitic vol] 11.1 fL Normal 9.0-12.7 [facility] Comment on above: Order Comment: Speci men Type: BLOOD SPECIMEN Ordering Facility: [facility] Address: [address] [place] [address] Performed By: #### 5 7021-8 #### [facility] CLIA [id number] [address] [place] [address] [place] Platelets (Bld) [#/Vol] 276 10*3/uL Normal 150-400 [facility] Comment on above: Order Comment: Speci men Type: BLOOD SPECIMEN Ordering Facility: [facility] Address: [address] [place] [address] Performed By: #### 5 7021-8 #### [facility] CLIA [id number] [address] [place], [place] [id number] [facility] [place] RBC (Bld) [#/Vol] 5.77 10*6/uL High 3.90-5.20 [facility] Comment on above: Order Comment: Speci men Type: BLOOD SPECIMEN Ordering Facility: [facility] Address: [address] [place], [place] [address] Performed By: #### 5 7021-8 #### [facility] CLIA [id number] [address] [place], [place] [address] [facility] WBC (Bld) [#/Vol] 11.01 10*3/uL High 3.70-11.00 [facility] Comment on above: Order Comment: Speci men Type: BLOOD SPECIMEN Ordering Facility: [facility] Address: [address] [place] [address] Performed By: #### 5 7021-8 #### [facility] CLIA [id number] [address] [place], [place] [address] [facility] ECG COMPLETEon 07-08-2024 Atrial Rate 72 BPM [facility] Calculated P [place] 63 degrees [facility] Calculated R [place] 81 degrees [facility] Calculated T [place] 46 degrees [facility] P-R Interval 136 ms [facility] QRS Duration 86 ms [facility] QT Interval 396 ms [facility] QTC Calculation (Bazett) 433 ms [facility] Ventricular Rate 72 BPM [facility] NAME : BROOKE LANDAVERDE PID : [id number] : 1970 Gender : Female Race : ORD : [id number] Procedure Date : Jul 08 2024 10:09:45 Edit Date : Jul 08 2024 15:35:49 Diagnosis: Normal sinus rhythm Poor anterior R-wave progression Normal ECG No previous ECGs available Confirmed by JOAQUÍN ADAM MD ([id number]) on 07/08/2024 3:35:41 PM Test Reason : HCS Location : 2 : [place] Overread By : JOAQUÍN ADAM MD Edited By : JOAQUÍN ADAM MD Referred By : DENISE, Acquired by : MARSH[facility] ECG COMPLETE Ventricular Rate : 7 2 BPM Atrial Rate : 72 BPM P-R Interval : 136 ms QRS Duration : 86 ms Q-T Interval : 396 ms QTC Calculation(Bazett) : 433 ms Calculated P [place] : 63 degrees Calculated R [place] : 81 degrees Calculated T [place] : 46 degrees Normal sinus rhythm Poor anterior R-wave progression Normal ECG No previous ECGs available Confirmed by JOAQUÍN ADAM MD ([id number]) on 07/08/2024 3:35:41 PM NAME : BROOKE LANDAVERDE PID : [id number] : 1970 Gender : Female Race : ORD : [id number] Procedure Date : Jul 08 2024 10:09:45 Edit Date : Jul 08 2024 15:35:49 Diagnosis: Normal sinus rhythm Poor anterior R-wave progression Normal ECG No previous ECGs available Confirmed by JOAQUÍN ADAM MD ([id number]) on 07/08/2024 3:35:41 PM Test Reason : HCS Location : 2 : [place] Overread By : JOAQUÍN ADAM MD Edited By : JOAQUÍN ADAM MD Referred By : DENISE Acquired by : Jacob ARAYA [facility] HbA1c (Bld)on 07-08-2024 Average glucose Estimated from glycated hemoglobin (Bld) [Mass/Vol] 123 mg/dL [facility] Comment on above: Order Comment: Jean welsh Type: BLOOD SPECIMEN Ordering Facility: [facility] Address: [address] [id number] Result Comment: eAG: (Estimated average glucose) is a calculated value from HgbA1c and is malt liquors sales representative of the average blood glucose level in the last 2-3 month period. Performed By: #### 3 4528-0, 31771-6 #### [facility] CLIA [id number] [address] [place] [address] [place] HbA1c (Bld) [Mass fraction] 5.9 % High 4.3-5.6 [facility] Comment on above: Order Comment: Jean welsh Type: BLOOD SPECIMEN Ordering Facility: [facility] Address: [address] [place] [address] Result Comment: Amer [place] Diabetes Association guidelines indicate that patients with HgbA1c in the range 5.7-6.4% are at increased risk for development of diabetes, and intervention by lifestyle modification may be beneficial. HgbA1c greater or equal to 6.5% is considered diagnostic of diabetes. Performed By: #### 3 4528-0, 61588-1 #### [facility] CLIA [id number] [address] [place], [place] [address] [place] NT PRO BNPon 07-08-2024 Natriuretic peptide.B prohormone N-Terminal [Mass/Vol] 39 pg/mL NINF - 125 pg/mL [facility] Comment on above: NT-proBNP results of less than 300 pg/mL likely rules out acute congestive heart failure with 99% predictive value. NOTE: These cutoff points are suggested for ACUTE CHF DIAGNOSIS only Less than 50 years Greater than 450 pg/mL 50 - 75 years Greater than 900 pg/mL Greater than 75 years Greater than 1800 pg/mL NT-proBNP SerPl-mCncon 07-08 Natriuretic peptide.B prohormone N-Terminal [Mass/Vol] 39 pg/mL Normal <125 [facility] Comment on above: Order Comment: Speci men Type: BLOOD SPECIMEN Ordering Facility: [facility] Address: [address] [place] [address] Result Comment: NT-p roBNP results of less than 300 pg/mL likely rules out acute congestive heart failure with 99% predictive value. NOTE: These cutoff points are suggested for ACUTE CHF DIAGNOSIS only Less than 50 years\X09\ Greater than 450 pg/mL 50 - 75 years\X09\X09\ Greater than 900 pg/mL Greater than 75 years\X09\ Greater than 1800 pg/mL Performed By: #### 3 3762-6 #### [facility] CLIA [id number] [address] [place], [place] [address] [place] Natriuretic peptide.B prohor giles N-Terminal [Mass/Vol]on 07-08-2024 Interpretation and review of laboratory results Normal [facility] No Panel Informationon 07-08 Interpretation and review of laboratory results Normal [facility] PT panel Coag (PPP)on 2023 INR Coag (PPP) [Relative time] 0.9 {INR} 0.9 - 1.3 [facility] Comment on above: Vitamin K Antagonist (VKA) Therapeutic Range: INR 2 to 3 (Target INR of 2.5) Note: For patients treated with VKA drugs, such as warfarin, the [employer] [employer] 2012 Guideline recommends a therapeutic INR range of 2 to 3 (target INR of 2.5). This recommendation includes high-risk patients with antiphospholipid syndrome with previous arterial or venous thromboembolism, current-generation mechanical or bioprosthetic aortic heart valve replacement. Note: Patients with mechanical aortic valve replacement and additional risk factors for thromboembolic events (atrial fibrillation, previous thromboembolism, LV dysfunction, hypercoagulable conditions) or an older generation mechanical AVR (i.e., ball in-Cage) or any mechanical MVR should have a INR therapeutic range of 2.5 to 3.5 (target INR of 3). amelia Martinez. Chest 2012, 141:7S-47S Joao GIBSON et eufemia. [facility] 2017, 70: 252-289 PT Coag (PPP) [Time] 10.2 s [facility] INR Coag (PPP) [Relative time] 0.9 {INR} Normal 0.9-1.3 [facility] Comment on above: Order Comment: Speci men Type: BLOOD SPECIMEN Ordering Facility: [facility] Address: [address] [place] [address] Result Comment: Katt min K Antagonist (VKA) Therapeutic Range: INR 2 to 3 (Target INR of 2.5) Note: For patients treated with VKA drugs, such as warfarin, the [employer] [employer] 2012 Guideline recommends a therapeutic INR range of 2 to 3 (target INR of 2.5). This recommendation includes high-risk patients with antiphospholipid syndrome with previous arterial or venous thromboembolism, current-generation mechanical or bioprosthetic aortic heart valve replacement. Note: Patients with mechanical aortic valve replacement and additional risk factors for thromboembolic events (atrial fibrillation, previous thromboembolism, LV dysfunction, hypercoagulable conditions) or an older generation mechanical AVR (i.e., ball in-Cage) or any mechanical MVR should have a INR therapeutic range of 2.5 to 3.5 (target INR of 3). amelia Martinez. Chest 2012, 141:7S-47S Joao GIBSON et al. [facility] 2017, 70: 252-289 Performed By: #### 3 4528-0, 26945-1 #### [facility] CLIA [id number] [address] [place] [address] [place] PT Coag (PPP) [Time] 10.2 s Normal 9.7-13.0 [facility] Comment on above: Order Comment: Speci men Type: BLOOD SPECIMEN Ordering Facility: [facility] Address: [address] [place] [address] Performed By: #### 3 4528-0, 42396-7 #### [facility] CLIA [id number] [address] [place] [address] [place] STAPHYLOCOCCUS AUREUS AND MR SA SCREEN, PCR, NASALon 07-08-2024 S. aureus and MRSA panel TRACIE+probe (Nose) Not detected Normal Not Detected [facility] Comment on above: Order Comment: Speci men Type: SWAB Ordering Facility: [facility] Address: [address] [place] [address] Performed By: #### S APCR #### [facility] CLIA [id number] [address] [place] [address] [place] STAPHYLOCOCCUS AUREUS & MRSA SCREEN, PCR, NASALon 07-08-2024 Interpretation and review of laboratory results Normal [facility] S. aureus and MRSA panel TRACIE+probe (Nose) Not detected Not Detected [facility] TYPE AND SCREEN,30 DAYon ABO group Nom (Bld) O [facility] Blood group antibody screen Ql Negative [facility] HIstorical Ab Scr Status Negative [facility] Rh Nom (Bld) Positive [facility] ABO O Normal [facility] Comment on above: Order Comment: Speci men Type: BLOOD SPECIMEN Ordering Facility: [facility] Address: [address] [place] [address] Performed By: #### T SCR30 #### [facility] CLIA [id number] [address] [place] [address] OF [facility] HISTORICAL AB SCR STATUS Negative Normal [facility] Comment on above: Order Comment: Speci men Type: BLOOD SPECIMEN Ordering Facility: [facility] Address: [address] [place] [address] Performed By: #### T SCR30 #### [facility] CLIA [id number] [address] [place] [address] OF [facility] Rh Nom (Bld) Positive Normal [facility] Comment on above: Order Comment: Speci men Type: BLOOD SPECIMEN Ordering Facility: [facility] Address: [address] [place] [address] Performed By: #### T SCR30 #### [facility] CLIA [id number] [address] [place] [address] [place] aPTT Coag (PPP) [Time]on Unfractionated Hepar in Therapeutic Ranges: Standard Heparin Nomogram: 53 to 78 seconds (anti-Xa level of 0.3 to 0.7 U/ml) Low Dose/ACS Nomogram: 49 to 67 seconds (anti-Xa level of 0.2 to 0.5 U/ml) Stroke Treatment Nomogram: 49 to 67 seconds (anti-Xa level of 0.2 to 0.5 U/ml) Note: The APTT therapeutic range has been determined for the current lot of laboratory APTT reagent in use throughout the [facility]. [facility] aPTT PPPon 07-08-2024 aPTT Coag (PPP) [Time] 31.5 s Normal 23.0-32.4 [facility] Comment on above: Order Comment: Speci men Type: BLOOD SPECIMEN Ordering Facility: [facility] Address: [address] [place] [address] Performed By: #### 3 4528-0, 13946-3 #### [facility] CLIA [id number] [address] [place], [place] [address] [facility] OPERATIVE PROCEDURESon 03-08 OPERATIVE PROCEDURES [facility] OPERATIVE REPORT NAME ACCOUNT SEX AGE ADMIT DISCHARGE PT MED. RECORD# NUMBER DATE DATE TYPE SAIMA [id number] F 53 03/08/24 2 [address] [address] ROOM: [facility] DATE OF : 1970 DICTATING PHYSICIAN: Anthony Victoria DATE OF PROCEDURE: March 08, 2024 SURGEON: Anthony Victoria DO PARA EDUCATOR: None. ANESTHETIC: Local. PRE-PROCEDURE DIAGNOSES: (1) Lumbar spondylosis without myelopathy/M47.816. (2) Lumbosacral spondylosis/M47.817. POST-PROCEDURE DIAGNOSES: (1) Lumbar spondylosis without myelopathy/M47.816. (2) Lumbosacral spondylosis/M47.817. PROCEDURE PERFORMED: Bilateral medial branch block of L3-4, L4-5 and L5-S1 lumbar facets bilaterally under fluoroscopic guidance. COMPLICATIONS: None. ESTIMATED BLOOD LOSS: None. INTRAVENOUS FLUIDS: None. INDICATIONS: This is a 53-year-old female with severe axial pain. She had previous radicular pain relieved with epidural injections. She is here now for facet joint injections given her axial pain. She has been sent by Dr. rCook. The patient is trying to avoid surgery. The patient agrees to the risks and benefits of the above. DESCRIPTION OF PROCEDURE: This 53-year-old female was taken to the operating room and was placed in the prone position. Under sterile prep and drape of the lumbar region, the bilateral L5-S1, L4-5 and L3-4 lumbar facets were identified utilizing fluoroscopy. A 25-gauge needle was placed into the L4-5 facet initially. This was the most painful injection. As the needle approached into the joint, the pain was reproducible and was quite severe. Given the fact that the joints are innervated above and below, the decision was made to do all three levels on both sides to fully cover her pain pattern. A 25-gauge needle was then placed into the L5-S1 and L3-4 lumbar facets Page 1 of 2 BROOKE LANDAVERDE Operative Report BROOKE LANDAVERDE : 1970 on the lateral aspect under live fluoroscopic x-ray. Once all [address], lidocaine 1% preservative-free, 0.5 mL, with Kenalog 10 mg was instilled into each needle. The needles were then removed intact. It was found that on injection of the L4-5 level, the pain was most severe and reproducible. Once all of the needles were removed, the patient was transferred to ambulatory surgery in satisfactory condition. Dictated By: Anthony Victoria DO 03/08/24 11:47 JOB #: [id number] Transcribed By: malgorzata 03/08/24 11:57 Electronically signed by: E-SIGN: ANTHONY VICTORIA 03/08/24 13:32 Page 2 of 2 BROOKE LANDAVERDE Operative Report Normal [facility] MR LUMBAR SP WO CONTRASTon 0 01-16-2024 MR LUMBAR SP WO CONTRAST [place] [address] Patient: BROOKE LANDAVERDE. Phone#: : 1970 Age: 53 Gender: F Pt. Type: Out Account: [id number] Location: 062 Ordering: MITCH LINDSEY Exam Date: 01/16/2024/7:56 Family Phys: ANTHONY Becerra VICTORIA Charge Code: [id number] Physician: [place] Order #: [id number] Dose#: PROCEDURE: MRI LUMBAR SPINE WITHOUT CONTRAST COMPARISON: None. INDICATIONS: Lumbar radiculopathy TECHNIQUE: A variety of imaging planes and parameters were utilized for visualization of suspected pathology. FINDINGS: PARASPINAL AREA: Normal with no visible mass. BONES: No fracture, pars defect, or osseous lesion. CORD/CAUDA EQUINA: Normal caliber, contour, and signal intensity. LUMBAR DISC LEVELS: L1-L2: No significant disc/facet abnormality, spinal stenosis, or foraminal stenosis. L2-L3: Disc degeneration is present. The spinal canal and foramina are patent. L3-L4: No significant disc/facet abnormality, spinal stenosis, or foraminal stenosis. L4-L5: Mild annular disc bulging is present. There is mild bilateral foraminal narrowing. Bony hypertrophy is present with mild to moderate spinal canal narrowing. There is disc degeneration. L5-S1: Annular disc bulging is present. There is bony hypertrophy at the articular facettes. There is mild narrowing of the spinal canal. There is mild narrowing of the foramina bilaterally. CONCLUSION: 1. Mild annular disc bulging is present at the L4-5 and L5-S1 levels. There is mild bilateral foraminal narrowing. 2. Bony hypertrophy is present at the articular facettes. There is mild to moderate narrowing of the spinal canal at L4-5 and L5-S1. Dictated by: Eleanor Bhatt MD on 01/17/2024 at 18:58 Approved by: Eleanor Bhatt MD on 01/17/2024 at 19:01 Normal [facility] XR SPINE LUMBAR AP/LAT/FLEX/ EXTon 01-09-2024 XR SPINE LUMBAR AP/LAT/FLEX/EXT ORIGINAL EXAMINATION: 4 x-ray views of the lumbar spine including AP, lateral, flexion, and extension 01/09/2024 10:32 am COMPARISON: CT lumbar spine 07/05/2023 HISTORY: ORDERING SYSTEM PROVIDED HISTORY: Reason for Exam: Low back pain radiates down RLE FINDINGS: The there are 5 lumbar type vertebral bodies. L5 is a transitional lumbosacral vertebral body. Mild rightward curvature. Minimal anterolisthesis L3 on L4. Vertebral body heights are maintained. No evidence of instability on flexion/extension imaging. SI joints are not abnormally widened. Lateral view is compromised by motion artifact. Multilevel facet arthropathy. IMPRESSION: Multilevel degenerative changes without evidence of instability. L5 is a transitional lumbosacral vertebral body. Interpreted by: Mary Ferreira MD Preliminary Report By: Mary Ferreira MD Electronically signed By Mary Ferreira MD Dictated Date: 01/09/2024 11:14:54 AM Prelim Date: 01/09/2024 11:17:20 AM Sign Date: 01/09/2024 11:17:20 AM Ordering Provider: MITCH LINDSEY [facility] ([place] CBC + DIFFon 01-01-2024 Baso # 0.10 x10EE3/UL Normal 0.00 - 0.10 [facility] Comment on above: Performed By: #### 2 96301 #### [facility],[address] [place] [address] Basophils/100 WBC (Bld) 0.5 % Normal 0.0 - 2.0 [facility] Comment on above: Performed By: #### 2 12608 #### [facility],[address] [place] [address] CBC + DIFF Normal [facility] Comment on above: Result Comment: CBC- COMPLETE BLOOD COUNT Performed By: #### 2 06066 #### [facility],[address] [place] [address] EO # 0.10 x10EE3/UL Normal 0.00 - 0.50 [facility] Comment on above: Performed By: #### 2 17029 #### [facility],[address] [place], [place] [id number] Eosinophils/100 WBC (Bld) 1.2 % Normal 0.0 - 7.0 [facility] Comment on above: Performed By: #### 2 94483 #### [facility],[address] [place] [address] Erythrocyte distribution width (RBC) [Ratio] 15.2 % Normal 12.0 - 15.6 [facility] Comment on above: Performed By: #### 2 97657 #### [place] [address] Hematocrit (Bld) [Volume fraction] 45.5 % Normal 34.0 - 46.0 [facility] Comment on above: Performed By: #### 2 22640 #### [place] [address] Hemoglobin (Bld) [Mass/Vol] 14.9 g/dL Normal 12.0 - 16.0 [facility] Comment on above: Performed By: #### 2 35350 #### [place] [address] Lymph # 2.60 x10EE3/UL Normal 0.80 - 2.80 [facility] Comment on above: Performed By: #### 2 04223 #### [place] [address] Lymphocytes/100 WBC (Bld) 22.2 % Normal 20.0 - 45.0 [facility] Comment on above: Performed By: #### 2 87993 #### [place] [id number] MANUAL DIFF N/A Normal [facility] Comment on above: Performed By: #### 2 49848 #### [place] [address] MCH (RBC) [Entitic mass] 27 pg Normal 27 - 33 [facility] Comment on above: Performed By: #### 2 67687 #### [facility],[address] [place] [address] MCHC 33 X10 3 Normal 32 - 36 [facility] Comment on above: Performed By: #### 2 79171 #### [facility],[address] [place] [address]79 MCV (RBC) [Entitic vol] 81 fL Normal 80 - 99 [facility] Comment on above: Performed By: #### 2 71180 #### [facility],[address] [place] [address] [place] # 0.90 x10EE3/UL Normal 0.20 - 1.00 [facility] Comment on above: Performed By: #### 2 74970 #### [facility],[address] [place] [address] MONOS % 7.4 % Normal 0.0 - 10.0 [facility] Comment on above: Performed By: #### 2 84975 #### [facility],[address] [place] [address] Morphology Giovanny (Bld) [Interp] N/A Normal [facility] Comment on above: Performed By: #### 2 00273 #### [facility],[address] [place] [address] Neut # 8.00 x10EE3/UL High 1.50 - 7.10 [facility] Comment on above: Performed By: #### 2 01603 #### [facility],[address] [place] [address] Neutrophils/100 WBC (Bld) 68.7 % Normal 46.0 - 76.0 [facility] Comment on above: Performed By: #### 2 75024 #### [facility],[address] [place] [address] PLATELET 209 x10EE3/UL Normal 150 - 450 [facility] Comment on above: Performed By: #### 2 75961 #### [facility],[address] [place] [address] Platelet mean volume (Bld) [Entitic vol] 8.7 fL Normal 6.6 - 10.5 [facility] Comment on above: Result Comment: AUTO MATED DIFFERENTIAL Performed By: #### 2 93484 #### [facility],[address] [place] [address] RBC 5.64 x 10EE6/UL High 4.10 - 5.30 [facility] Comment on above: Performed By: #### 2 51532 #### [facility],[address] [place] [address] WBC 11.6 x 10EE3/UL High 4.5 - 10.8 [facility] Comment on above: Performed By: #### 2 30617 #### [facility],[address] [place] [address] CMP with eGFRon 01-01-2024 AGE 53 years Normal [facility] Comment on above: Performed By: #### 2 48998 #### [facility],[address] [place], [place] [id number] Albumin [Mass/Vol] 4.0 g/dL Normal 3.4 - 5.0 [facility] Comment on above: Performed By: #### 2 78854 #### [facility],[address] [place], [place] [id number] Albumin/Globulin [Mass ratio] 1.1 {ratio} Normal 0.9 - 1.6 [facility] Comment on above: Performed By: #### 2 31535 #### [facility],[address] [place] [address] ALK PHOS 74 U/L Normal 46 - 116 [facility] Comment on above: Performed By: #### 2 55088 #### [facility],[address],[place] [address] ALT [Catalytic activity/Vol] 29 U/L Normal 16 - 63 [facility] Comment on above: Performed By: #### 2 09673 #### [facility],[address] [place] [address] Anion gap [Moles/Vol] 16 mmol/L Normal 10 - 20 [facility] Comment on above: Performed By: #### 2 64506 #### [facility],[address] [place] [address] AST [Catalytic activity/Vol] 14 U/L Normal 13 - 39 [facility] Comment on above: Performed By: #### 2 62709 #### [facility],[address] [place] [address] B/C RATIO 24 ratio Normal 0 - 30 [facility] Comment on above: Performed By: #### 2 10290 #### [facility],[address] [place] [address] Bilirubin [Mass/Vol] 0.5 mg/dL Normal 0.2 - 1.0 [facility] Comment on above: Performed By: #### 2 26748 #### [facility],[address] [place] [address] Calcium [Mass/Vol] 9.3 mg/dL Normal 8.5 - 10.1 [facility] Comment on above: Performed By: #### 2 77899 #### [facility],[address] [place] [address]107 Chloride [Moles/Vol] 106 mmol/L Normal 98 - 107 [facility] Comment on above: Performed By: #### 2 38192 #### [facility],[address] [place] [address]677 CMP with eGFR Normal [facility] Comment on above: Result Comment: COMP REHENSIVE METABOLIC PANEL Performed By: #### 2 52824 #### [facility],[address] [place] [address] 41316 CO2 [Moles/Vol] 25.4 mmol/L Normal 21.0 - 32.0 [facility] Comment on above: Performed By: #### 2 74702 #### [facility],[address] [place], [place] [id number] Creatinine [Mass/Vol] 0.70 mg/dL Normal 0.55 - 1.02 [facility] Comment on above: Performed By: #### 2 95635 #### [facility],[address] [place], [place] [address] GFR/1.73 sq M.predicted among non-blacks MDRD (S/P/Bld) [Vol rate/Area] mL/min/{1.73_m2} Normal 60 - 999 [facility] Comment on above: Performed By: #### 2 04019 #### [facility],[address] [place] [address] Result Comment: ACCO RDING TO THE NATIONAL KIDNEY DISEASE EDUCATION PROGRAM(NKDE), A NORMAL eGFR IS A VALUE GREATER THAN OR EQUAL TO 60 ML/MIN/1.73 SQ METERS. CHRONIC KIDNEY DISEASE: <60mL/MIN/1.73 SQ METERS KIDNEY FAILURE: <15mL/MIN/1.73 SQ METERS THIS TEST SHOULD ONLY BE USED FOR PATIENTS 18 YEARS OF AGE AND OLDER. Globulin (S) [Mass/Vol] 3.6 g/dL Normal 1.5 - 3.8 [facility] Comment on above: Performed By: #### 2 89322 #### [facility],[address] [place], [place] [id number] Glucose [Mass/Vol] 100 mg/dL Normal 74 - 106 [facility] Comment on above: Performed By: #### 2 83216 #### [facility],[address] [place] [address] 67478 Potassium [Moles/Vol] 4.6 mmol/L Normal 3.5 - 5.1 [facility] Comment on above: Performed By: #### 2 93368 #### [facility],[address] [place] [address] 26502 Protein [Mass/Vol] 7.6 g/dL Normal 6.4 - 8.2 [facility] Comment on above: Performed By: #### 2 63872 #### [facility],[address] [place] [address] 18888 Sodium [Moles/Vol] 143 mmol/L Normal 136 - 145 [facility] Comment on above: Performed By: #### 2 94532 #### [facility],[address] [place] [address] 54477 Urea nitrogen [Mass/Vol] 17 mg/dL Normal 7 - 18 [facility] Comment on above: Performed By: #### 2 [id number] #### [facility],[address] [place] [address] LIPID PROFILEon 01-01-2024 Cholesterol [Mass/Vol] 189 mg/dL Normal 0 - 240 [facility] Comment on above: Performed By: #### 2 94462 #### [facility],[address] [place] [address] 80612 Cholesterol in HDL [Mass/Vol] 81 mg/dL High 40 - 60 [facility] Comment on above: Performed By: #### 2 84840 #### [facility],[address] [place] [address] 97194 Cholesterol in LDL [Mass/Vol] 94 mg/dL Normal 0 - 129 [facility] Comment on above: Performed By: #### 2 04131 #### [facility],[address] [place] [address] 99321 Cholesterol.total/C holesterol in HDL [Mass ratio] 2.3 {ratio} Normal 0.0 - 5.0 [facility] Comment on above: Performed By: #### 2 91739 #### [facility],[address] [place] [address] 90801 Lipid 1996 panel Normal [facility] Comment on above: Result Comment: LIPI D PROFILE Performed By: #### 2 95262 #### [facility],[address] [place] [address] 22358 Triglyceride [Mass/Vol] 70 mg/dL Normal 0 - 150 [facility] Comment on above: Performed By: #### 2 39485 #### [facility],[address] [place] [address] C-ARM USAGE 1 HOURon 024 C-ARM USAGE 1 HOUR [place] [address] Patient: BROOKE LANDAVERDE. Phone#: : 1970 Age: 52 Gender: F Pt. Type: Out Account: [id number] Location: [facility] Ordering: ANTHONY VICTORIA Exam Date: 12/14/2023/10:48 Family Phys: JAMIE MOYER Charge Code: [id number] Physician: Kingfisher Order #: [id number] Dose#: PROCEDURE: C-ARM USEAGE 1 HR COMPARISON: [facility], SX, C-ARM USEAGE 1 HR, 07/20/2023, 10:13. INDICATIONS: Pain TOTAL DOSE: 1.5 mGy FINDINGS: IMAGES: BONES: Spinal needle is present dorsally at the mid lumbar level. SOFT TISSUES: Negative. No visible soft tissue swelling. EFFUSION: None visible. OTHER: Negative. CONCLUSION: 1. Spinal needle is present dorsally at the mid lumbar level. Dictated by: Eleanor Bhatt MD on 12/14/2023 at 15:02 Approved by: Eleanor Bhatt MD on 12/14/2023 at 15:04 Normal [facility] OPERATIVE PROCEDURESon 12-14 OPERATIVE PROCEDURES [facility] OPERATIVE REPORT NAME ACCOUNT SEX AGE ADMIT DISCHARGE PT MED. RECORD# NUMBER DATE DATE TYPE SAIMA [id number] F 52 12/14/23 2 BROOKE Couch [id number] ROOM: [facility] DATE OF : 1970 DICTATING PHYSICIAN: Anthony Victoria DATE OF PROCEDURE: December 14, 2023 SURGEON: Anthony Victoria DO PARA EDUCATOR: None. ANESTHESIA: Local. PREPROCEDURE DIAGNOSES: 1. Lumbar radiculitis/M54.16. 2. Lumbar disk L3-4/M51.26. 3. Degenerative lumbar disk disease. POSTPROCEDURE DIAGNOSES: 1. Lumbar radiculitis/M54.16. 2. Lumbar disk L3-4/M51.26. 3. Degenerative lumbar disk disease. PROCEDURE: Lumbar epidural with fluoroscopy. COMPLICATIONS: None. IV FLUIDS: None. ESTIMATED BLOOD LOSS: None. INDICATIONS OF PROCEDURE: This is a 52-year-old female who has had one previous lumbar epidural injection with great efficacy. The pain has now returned. She has seen a surgeon, and his recommendations are to continue this procedure until it is no longer beneficial. The concern we have is at the L3-4 level there is some spondylolisthesis as well. Her pain is low back and right leg radicular. She agrees to the risks and benefits. DESCRIPTION OF OPERATION: This 52-year-old female was taken to the operating room and was placed in the sitting position. Under sterile prep of the lumbar spine, a local was given at the L3-4 interspace identified via fluoroscopic view. A #18 gauge Page 1 of 2 BROOKE LANDAVERDE Operative Report BROOKE LANDAVERDE : 1970 Tuohy needle was placed midline into the epidural space via loss of resistance with air. After appropriate confirmation and negative aspiration, Omnipaque 240/0.25 mL was injected showing good spread of the dye in the epidural space. This was followed by Kenalog 80 mg and preservative-free saline 3 mL. The needle was then removed intact. The patient was then transferred to Ambulatory Surgery in satisfactory condition. Dictated By: Anthony Victoria DO 12/14/23 10:53 JOB #: [id number] Transcribed By: am 12/14/23 10:59 Electronically signed by: E-SIGN: ANTHONY VICTORIA 12/14/23 12:17 Page 2 of 2 BROOKE LANDAVERDE Operative Report Normal [facility] CNOVon 11-04-2023 CNOV Office Visit (UCWSTR ) BROOKE LANDAVERDE ([id number]) 1970 F Date Time Provider Department 11/04/23 10:[address] [facility] During your visit today, we recorded the following information about you: Bernarda Kim APRN.SOFTWARE TECHNICIAN 11/04/2023 10:47 AM Signed 52 year old female with PMH HTN and hyperlipidemia presents with complaints of chest pain Right mid axillary and right sided chest pain +SOB OF note, patient had COVID early September Discussed limitations of express care with patient and referred to ED given concerns for possible PE and or ACS Allergies As of Date: 11/04/2023 Noted Allergy Reaction CODEINE 01/17/2006 Comments: anxiety DEMEROL (MEPERIDINE (PF)) 01/17/2006 Comments: nausea LISINOPRIL 04/21/2014 3 - Cough Date Reviewed: 04/10/2017 Reviewed by: Emi Corey - Fully Assessed Reason for Visit: Chest Pain [21] Primary Visit Diagnosis:Chest pain, unspecified type [R07.9] Other Visit Diagnosis:SOB (shortness of breath) [R06.02] Prescriptions as of 11/04/2023 - amLODIPine (NORVASC) 5 mg tablet Take 1 tablet by mouth twice daily. - metoprolol succinate ER (TOPROL XL) 50 mg 24 hr tablet Take 1 tablet by mouth once daily. - sertraline (ZOLOFT) 100 mg tablet Take 1.5 tablets by mouth once daily. - atorvastatin (LIPITOR) 10 mg tablet Take 1 tablet by mouth once daily. - losartan (COZAAR) 50 mg tablet Take 1 tablet by mouth once daily. - zolpidem (AMBIEN) 10 mg tab Take 1 tablet by mouth at bedtime as needed (insomnia). - topiramate (TOPAMAX) 25 mg tablet Take 1 tablet by mouth daily at bedtime. Indications: MIGRAINE PREVENTION - acyclovir (ZOVIRAX) 400 mg tablet Take two tabs po stat to start, followed by one tab po tid x 5days prn acute flare of recurrent cold sores or fever blisters - MULTIVITAMIN WITH MINERALS (MULTIVITAMIN AND MINERAL FORMULA ORAL) Take 1 tablet by mouth once daily. - Ibuprofen 200 mg cap Take by mouth. 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] 09/29/2008 07/21/2011 Other alopecia [L65.8] 09/29/2008 07/21/2011 Seborrheic dermatitis, unspecified [L21.9] 09/29/2008 07/21/2011 Herpes simplex without mention of complication *11/11/2008 07/21/2011 Actinic Damage///Sun-Damaged Skin [L57.8] 05/05/2010 07/21/2011 Restless legs [G25.81] 07/21/2011 Menometrorrhagia [N92.1] 04/17/2012 07/23/2012 Other and unspecified ovarian cyst [N83.209] 04/17/2012 07/03/2013 Post - coital bleeding 06/05/2012 07/03/2013 HTN (hypertension) [I10] 07/03/2013 Hyperlipemia [E78.5] 07/03/2013 04/10/2017 Herpes simplex without mention of complication *12/03/2013 Atypical nevus of shoulder: Right posterior toni*12/05/2013 Dermatofibroma of shoulder [D23.60] 12/05/2013 04/28/2015 Melanocytic nevi of trunk [D22.5] 12/05/2013 04/28/2015 Melanocytic nevi of upper extremity or shoulder*12/05/2013 04/28/2015 Melanocytic nevi of face [D22.30] 12/05/2013 04/28/2015 Melanocytic nevus of neck [D22.4] 12/05/2013 04/28/2015 Solar lentigo [L81.4] 12/05/2013 04/28/2015 Dermatofibroma of thigh [D23.70] 12/05/2013 04/28/2015 Actinic skin damage [L57.8] 12/05/2013 04/28/2015 Perez angioma [D18.01] 12/05/2013 04/28/2015 Leg pain, bilateral [M79.604, M79.605] 03/18/2014 04/28/2015 Atypical chest pain [R07.89] 01/30/2015 04/10/2017 Hyperlipidemia [E78.5] 03/06/2015 Encounter Status:Closed by BERNARDA KIM on 11/04/[address] [facility] OPERATIVE PROCEDURESon 07-20 OPERATIVE PROCEDURES [facility] OPERATIVE REPORT NAME ACCOUNT SEX AGE ADMIT DISCHARGE PT MED. RECORD# NUMBER DATE DATE TYPE SAIMA [id number] F 52 07/20/23 07/20/23 2 BROOKE Iza [id number] ROOM: [facility] DATE OF : 1970 DICTATING PHYSICIAN: Anthony Victoria DATE OF PROCEDURE: July 20, 2023 SURGEON: Anthony Victoria DO PARA EDUCATOR: None. ANESTHESIA: Local. PREPROCEDURE DIAGNOSES: 1. Lumbar radiculitis/M54.16. 2. Lumbar disk/M51.26. POSTPROCEDURE DIAGNOSES: 1. Lumbar radiculitis/M54.16. 2. Lumbar disk/M51.26. PROCEDURE: Lumbar epidural with fluoroscopy. COMPLICATIONS: None. IV FLUIDS: None. ESTIMATED BLOOD LOSS: None. INDICATIONS OF PROCEDURE: This is a 52-year-old female with severe right leg pain posterior to the knee. She was seen by Dr. Crook's office, neurosurgeon in [place], who recommended epidural injections prior to any surgical event. The patient agrees with the risks and benefits of procedure. DESCRIPTION OF OPERATION: This 52-year-old female was taken to the operating room and was placed in the sitting position. Under sterile prep, a local was given at the L3-4 interspace identified via fluoroscopic views. A #17 gauge Tuohy needle was placed midline into the epidural space via loss of resistance with air. After appropriate confirmation and negative aspiration, Kenalog 80 mg with preservative-free saline 4 mL was injected in the needle. The needle was removed intact. The patient was transferred to Ambulatory Surgery in satisfactory condition. Page 1 of 2 SAIMA BROOKE P Operative Report BROOKE LANDAVERDE : 1970 Dictated By: Anthony Victoria DO 07/20/23 10:23 JOB #: [id number] Transcribed By: am 07/20/23 11:32 Electronically signed by: E-SIGN: ANTHONY VICTORIA 07/20/23 14:44 Page 2 of 2 BROOKE LANDAVERDE Operative Report Normal [facility] EMERGENCY REPORTon 3 EMERGENCY REPORT [facility] EMERGENCY ROOM REPORT NAME ACCOUNT SEX AGE ADMIT DISCHARGE PT MED. RECORD# NUMBER DATE DATE TYPE BROOKE LANDAVERDE [id number] F 52 07/05/23 07/05/23 3 P [id number] ROOM: ER DATE OF : 1970 DICTATING PHYSICIAN: Luis Alfredo Stuart CHIEF COMPLAINT: Right lower back pain. HISTORY OF PRESENT ILLNESS: This is a 52-year-old female who has a history of acute sciatica in November of this year. She had an injury to her lower back at that time and developed sciatica. She was started on steroids as well as muscle relaxers. She saw her chiropractor and had resolution of her symptoms. She indicates that yesterday she was at work sitting in a chair, and she twisted or turned to speak with someone and had sudden onset of a sharp pain in the right lower back. The pain radiates into the posterior aspect of the right buttock but does not radiate down the leg. She has had no change in her bowel or bladder habits. No perineal anesthesia. She has been ambulatory, but any movement or bending causes the pain to increase. She has had no vomiting. No fever. No diarrhea. She has been urinating normally. PAST MEDICAL HISTORY: Significant for the previous sciatica as noted. SOCIAL HISTORY: She does not smoke or drink excessively. REVIEW OF SYSTEMS: The patient complains of pain in the right lower back after a twisting injury. She denies shortness of breath. She denies chest pain. She denies abdominal pain. All other review of systems are negative except as noted above. PHYSICAL EXAMINATION: VITAL SIGNS: Afebrile. Vital signs are stable. GENERAL: She is uncomfortable secondary to the pain. NECK: Neck is nontender. LUNGS: Chest is clear. CARDIOVASCULAR: Regular rate and rhythm. ABDOMEN: Soft with active bowel sounds and nontender. BACK: The back reveals tenderness with spasm over the right paraspinal lumbar region. Straight leg raising is negative bilaterally. Neurovascular examination is normal in both lower extremities. DIAGNOSTIC DATA: Laboratories ordered include a urinalysis and a CT scan of the lumbar spine. The urinalysis is clear, and the CT scan of the lumbar spine shows degenerative disease but no other acute findings. MEDICAL DECISION-MAKING/EMERGE NCY DEPARTMENT COURSE AND TREATMENT: A 52-year-old female who presents with a twisting injury to the lower back and onset of pain in the right lower back. Differential diagnoses include acute sciatica, acute lumbar strain, and acute nerve root impingement. The patient was Page 1 of 2 BROOKE LANDAVERDE Emergency Room Report BROOKE LANDAVERDE : 1970 evaluated. An IV was started, and the patient was treated with IV steroids as well as Toradol and Norflex. She was reevaluated after a period of time and is feeling much better. She is up and ambulatory. She is still having some pain in the right lower back. She will be discharged home at this time, and she is comfortable with that plan. She will be given Norflex as well as Anaprox for pain. She will be given a Lidoderm patch to use and will follow up with her primary care physician. DIAGNOSIS: Acute lumbar strain. Dictated By: Luis Alfredo Stuart MD 07/05/23 09:10 JOB #: [id number] Transcribed By: malgorzata 07/05/23 17:14 Electronically signed by: Luis Alfredo Stuart M.D. 07/07/23 08:30 Page 2 of 2 BROOKE LANDAVERDE Emergency Room Report Normal [facility] CT LUMBAR W/O CONTRASTon CT LUMBAR W/O CONTRAST [address] [address] Patient: BROOKE LANDAVERDE. Phone#: : 1970 Age: 52 Gender: F Pt. Type: ER Account: [id number] Location: 052 Ordering: DR. LUIS ALFREDO STUART Exam Date: 07/05/20238:28 Family Phys: JAMIE MOYER Charge Code: [id number] Physician: Kingfisher Order #: [id number] Dose#: 14.60 PROCEDURE: CT LUMBAR SPINE WITHOUT CONTRAST COMPARISON: None. INDICATIONS: Pain. TECHNIQUE: After obtaining the patient's consent, multi-planar CT images were created without intravenous contrast material. All CT scans at this facility use dose modulation, iterative reconstruction, and/or weight based dosing when appropriate to reduce radiation dose to as low as reasonably achievable. IV CONTRAST: No IV contrast used,0ml TOTAL DOSE: 14.60 CTDIvol(mGy) FINDINGS: PARASPINAL AREA: Normal with no visible mass. BONES: Transitional anatomy at the lumbosacral junction with sacralization of L5. There is grade 1 anterolisthesis of L3 on L4. Vertebral bodies are maintained in height and alignment. There is mild rightward curvature of the lumbar spine. L4 it is a limbus vertebral body. Facet arthropathy in the lower lumbar spine. OTHER: Urinary bladder, is distended, incompletely imaged on this exam. LUMBAR DISC LEVELS: L1-L2: No significant disc/facet abnormality, spinal stenosis, or foraminal stenosis. L2-L3: No significant disc/facet abnormality, spinal stenosis, or foraminal stenosis. L3-L4: Grade 1 anterolisthesis of L3 on L4, facet arthropathy and mild disc bulge contributes to at least mild bilateral foraminal narrowing. L4-L5: Circumferential disc bulge contributes to mild bilateral foraminal narrowing. L5-S1: No significant disc/facet abnormality, spinal stenosis, or foraminal stenosis. CONCLUSION: 1. No acute osseous abnormality 2. Multilevel degenerative changes [place] [address] Patient: BROOKE LANDAVERDE Phone#: : 1970 Age: 52 Gender: F Pt. Type: ER Account: [id number] Location: 052 Ordering: DR. LUIS ALFREDO STUART Exam Date: 07/05/2023/8:28 Family Phys: JAMIE MOYER Charge Code: [id number] Physician: Kingfisher Order #: [id number] Dose#: 14.60 Dictated by: Suzie Kimball MD on 07/05/2023 at 8:51 Approved by: Suzie Kimball MD on 07/05/2023 at 8:56 Normal [facility] URINALYSISon 07-05-2023 Bilirubin Ql (U) Negative Normal NORMAL: NEGATIVE [facility] Comment on above: Performed By: #### 2 26975 #### [facility],[address] [place], [place] [id number] Clarity (U) clear Normal NORMAL: CLEAR [facility] Comment on above: Performed By: #### 2 74234 #### [facility],[address] [place] [address] Color (U) yellow Normal NORMAL: YELLOW [facility] Comment on above: Performed By: #### 2 11751 #### [facility],[address] [place] [address]1643 Glucose Ql (U) NORM Normal NORMAL: NORMAL [facility] Comment on above: Performed By: #### 2 96601 #### [facility],[address] [place] [address]375 Hemoglobin Ql (U) Negative Normal NORMAL: NEGATIVE [facility] Comment on above: Performed By: #### 2 03605 #### [facility],[address] [place] [address]758 Ketone Negative Normal NORMAL: NEGATIVE [facility] Comment on above: Performed By: #### 2 76870 #### [facility],[address] [place] [address]196 Leukocytes Negative Normal NORMAL: NEGATIVE [facility] Comment on above: Performed By: #### 2 05478 #### [facility],[address] [place] [address] 64608 Nitrite Ql (U) Negative Normal NORMAL: NEGATIVE [facility] Comment on above: Performed By: #### 2 59091 #### [facility],[address] [place] [address] 26273 pH (U) 6 [pH] Normal NORMAL: 5.0-8.0 [facility] Comment on above: Performed By: #### 2 97609 #### [facility],[address] [place] [address]507 Protein Ql (U) Negative Normal NORMAL: NEGATIVE [facility] Comment on above: Performed By: #### 2 62279 #### [facility],[address] [place] [address] Sp [place] 1.010 Normal NORMAL: 1.010-1.030 [facility] Comment on above: Performed By: #### 2 20560 #### [facility],[address] [place] [address] Specimen Type Void Normal [facility] Comment on above: Performed By: #### 2 80509 #### [facility],[address] [place], [place] [id number] Urinalysis dipstick W Reflex Microscopic panel (U) NOT INDICATED Normal [facility] Comment on above: Performed By: #### 2 23443 #### [facility],[address] [place] [address] Urobilinog NORM Normal NORMAL: NORMAL [facility] Comment on above: Performed By: #### 2 74829 #### [facility],[address] [place] [address] Vital Signs Date Time Vital Sign Value Performing Clinician Marquise sosa 07-08-2024 11:20040 Body height 152.4 cm Pac 1 Work Phone: [facility] 07-08-2024 11:20040 Body mass index (BMI) [Ratio] 26.95 kg/m2 Pac 1 Work Phone: [facility] 07-08-2024 11:20 Body weight 62.6 kg Pac 1 Work Phone: [facility] 07-08-2024 11:20-0400 Heart rate 72 /min Pacc 1 Work Phone: [facility] 07-08-2024 11:20-0400 Respiratory rate 18 /min Pacc 1 Work Phone: [facility] 07-08-2024 11:20-0400 SaO2% (BldA) [Mass fraction] 98 % Pacc 1 Work Phone: [facility] Encounters Encounter Date Encounter Type Care Provider Facility Start: 07-18-2024 End: 07-20-2024 ambulatory PERI ROGEL Facility:[id number] Start: 07-08-2024 End: 07-08-2024 Office outpatient new 45 minutes Pacc [facility] 1 Work Phone: Pre Anesthesia Comment on above: Preop testing (Prima ry Dx); PONV (postoperative nausea and vomiting); Heart murmur; Mixed hyperlipidemia; Primary hypertension Start: 07-08-2024 End: 07-08-2024 Patient encounter status Pac 1 Work Phone: [facility] Start: 07-08-2024 End: 07-08-2024 ambulatory GÓMEZ MONTALVO Facility:[id number] Start: 07-08-2024 Encounter for other preprocedural examination [facility] Start: 06-19-2024 ambulatory ZAKI CROOK MD Facilit y:A Start: 05-22-2024 End: 05-22-2024 ambulatory GÓMEZ MONTALVO MD Facility:A Start: 03-08-2024 End: 03-08-2024 ambulatory GÓMEZ LUJAN [facility] Start: 01-29-2024 End: 01-29-2024 ambulatory GÓMEZ MONTALVO MD Facility:A Start: 01-29-2024 End: 01-29-2024 Patient encounter procedure ZAKI CROOK MD [facility] Start: 01-16-2024 End: 01-16-2024 ambulatory MITCH LINDSEY [facility] Start: 01-09-2024 End: 01-09-2024 ambulatory GÓMEZ MONTALOV MD Facility:A Start: 01-01-2024 End: 01-01-2024 ambulatory GÓMEZ LUJAN [facility] Start: 12-14-2023 End: 12-14-2023 ambulatory ANTHONY VICTORIA [facility] Start: 12-14-2023 ambulatory ANTHONY [facility] Start: 11-04-2023 End: 11-04-2023 ambulatory Facility:[facility] Start: 07-20-2023 End: 07-20-[address] [facility] Start: 07-13-2023 End: 07-13-2023 ambulatory GÓMEZ MONTALVO MD Facility:A Start: 07-13-2023 End: 07-13-2023 Patient encounter procedure MITCHAMANDA LINDSEY [facility] Start: 07-05-2023 End: 07-05-2023 Emergency department patient visit LUIS ALFREDO LUJAN [facility] Procedures Date Procedure Procedure Detail Performing Clinician Start: 07-08-2024 Antibody screen PACO MONTALVO Comment on above: Order Comment: Speci men Type: BLOOD SPECIMEN Ordering Facility: [facility] Address: [address] [place] [address] Performed By: #### T SCR30 #### [facility] CLIA [id number] [address] [place] [address] [place] Start: 07-08-2024 Antibody screen rbc each serum technique Peri Rogel DO Work Phone: Start: 07-08-2024 Iadna s aureus ampli fied probe tq Peri Rogel DO Work Phone: Start: 07-08-2024 Thromboplastin time partial plasma/whole blood Peri Rogel DO Work Phone: Start: 07-05-2023 Urinalysis LUIS ALFREDO ALR ED Comment on above: Result Comment: URIN ALYSIS Performed By: #### 2 76612 #### [facility],[address] [place] [address] Start: 11-30-2016 Lipid 1996 panel - S arabella or Plasma Pacc 1 Work Phone: Hysterectomy MITCH LINDSEY 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 Tonsillectomy MITCH LINDSEY 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 Plan of Treatment Date Care Activity Detail Author Start: 07-08-2027 Diabetes Screening Diabetes Screening [facility] Start: 07-18-2024 End: 07-18-2024 Admission to same day surgery center 07/18/2024 11:05 AM EDT - 07/18/2024 2:40 PM EDT Surgery [facility] Surgery [address] [facility] [place] [address] Peri Rogel, DO [address] [place] [address] FUSION LUMBAR POSTERIOR LEVEL 1 WITH C ARM [facility] Surgery Comment on above: FUSION LUMBAR POSTERIOR LEVEL 1 WITH C A Start: 07-18-2024 End: 07-18-2024 Allograft for spine surgery only morselized ALLOGRAFT FOR SPINE SURGERY MORSELIZED Spinal stenosis of lumbar region with neurogenic claudication Spondylolisthesis of lumbar region Other intervertebral disc degeneration, lumbar region Other intervertebral disc displacement, lumbar region 07/18/2024 11:05 AM EDT MR OR Start: 07-18-2024 End: 07-18-2024 Arthrodesis posterior/posterolateral ea addl FUSION LUMBAR POSTERIOR LEVEL 2 Spinal stenosis of lumbar region with neurogenic claudication Spondylolisthesis of lumbar region Other intervertebral disc degeneration, lumbar region Other intervertebral disc displacement, lumbar region 07/18/2024 11:05 AM EDT MR OR Start: 07-18-2024 End: 07-18-2024 Arthrodesis posterior/posterolateral lumbar FUSION LUMBAR POSTERIOR LEVEL 1 WITH C ARM Spinal stenosis of lumbar region with neurogenic claudication Spondylolisthesis of lumbar region Other intervertebral disc degeneration, lumbar region Other intervertebral disc displacement, lumbar region 07/18/2024 11:05 AM EDT MR OR Start: 07-18-2024 End: 07-18-2024 Autograft spine surgery local from same incision AUTOGRAFT FOR SPINE SURGERY ONLY, OBTAINED FROM SAME INCISION Spinal stenosis of lumbar region with neurogenic claudication Spondylolisthesis of lumbar region Other intervertebral disc degeneration, lumbar region Other intervertebral disc displacement, lumbar region 07/18/2024 11:05 AM EDT MR OR Start: 07-18-2024 End: 07-18-2024 Bone marrow aspiration bone grfg spi surg only BONE MARROW ASPIRATION FOR BONE GRAFTING,SPINE SURGERY ONLY,VIA SEPARATE SKIN OR FASCIAL INCISION Spinal stenosis of lumbar region with neurogenic claudication Spondylolisthesis of lumbar region Other intervertebral disc degeneration, lumbar region Other intervertebral disc displacement, lumbar region 07/18/2024 11:05 AM EDT MR OR Start: 07-18-2024 End: 07-18-2024 Newman facetectomy & foramotomy 1 segment lumbar DECOMPRESSION LAMINECTOMY LUMBAR POSTERIOR LEVEL 1 WITH C ARM Spinal stenosis of lumbar region with neurogenic claudication Spondylolisthesis of lumbar region Other intervertebral disc degeneration, lumbar region Other intervertebral disc displacement, lumbar region 07/18/2024 11:05 AM EDT MR OR Start: 07-18-2024 End: 07-18-2024 Newman facetectomy&foramtomy 1 sgm ea crv thrc/lmbr MR OR Start: 07-18-2024 End: 07-18-2024 Posterior segmental instrumentation 3-6 vrt seg INSERT SPINE FIXATION DEVICE Spinal stenosis of lumbar region with neurogenic claudication Spondylolisthesis of lumbar region Other intervertebral disc degeneration, lumbar region Other intervertebral disc displacement, lumbar region 07/18/2024 11:05 AM EDT MR OR Start: 07-18-2024 Subsequent hospital visit by physician 07/18/2024 11:05 AM EDT Hospital Encounter [facility] Surgery [address] [facility] [place] [address] Peri Rogel, DO [address] [place] [address] Spinal stenosis of lumbar region with neurogenic claudication [M48.062] [facility] Surgery Comment on above: Spinal stenosis of lumbar region with ne urogenic claudication [M48.062] Start: 07-08-2024 End: 10-07-2024 Bacteria identified in Urine by Culture [facility] Work Phone: Comment on above: Expected: 07/08/2024, Expires: 4 Start: 07-08-2024 End: 10-07-2024 Hemoglobin A1c in Blood [facility] Work Phone: Comment on above: Expected: 07/08/2024, Expires: 4 Start: 06-30-2024 Covid-19 Vaccine () Covid-19 Vaccine () [facility] Start: 06-30-2024 Influenza vaccination Influenza Vaccine (#1) [facility] Start: 2021 Shingrix Vaccine (1 of 2) Shingrix Vaccine (1 of 2) [facility] Start: 11-30-2021 Lipid panel Lipid Screening [facility] Start: 03-12-2020 Urine microalbumin profile DTaP,Tdap,Td Vaccine (2 - Td or Tdap) [facility] Start: 2016 Screening for malignant neoplasm of colon [facility] Start: 07-15-2014 Screening for malignant neoplasm of breast Mammogram Screening [facility] Start: 1989 Annual PCP Team Chronic Disease Visit Annual PCP Team Chronic Disease Visit [facility] Start: 1989 Anxiety Screening Anxiety Screening [facility] Start: 1989 BP Controlled (<130/80) BP Controlled (<130/80) [facility] Start: 1989 Depression Screening Depression Screening [facility] Immunizations Immunization Date Immunization Notes Care Provider Fa cility 08-04-2021 influenza virus vacc ine, unspecified formulation Pac 1 Work Phone: [facility] 07-14-2017 tuberculin skin test ; purified protein derivative solution, intradermal Pac 1 Work Phone: [facility] 08-12-2015 influenza virus vacc ine, unspecified formulation Pacc 1 Work Phone: [facility] 08-16-2013 influenza virus vacc ine, unspecified formulation Pacc 1 Work Phone: [facility] 03-22-2010 tuberculin skin test ; purified protein derivative solution, intradermal Pac 1 Work Phone: [facility] 03-12-2010 tetanus toxoid, redu krystian diphtheria toxoid, and acellular pertussis vaccine, adsorbed Pac 1 Work Phone: [facility] 03-12-2010 tuberculin skin test ; purified protein derivative solution, intradermal Pac 1 Work Phone: [facility] 11-01-1993 hepatitis B immune globulin [facility] 1 Work Phone: [facility] 04-02-1993 hepatitis B immune globulin [facility] 1 Work Phone: [facility] 02-22-1993 hepatitis B immune globulin [facility] 1 Work Phone: [facility] Payers Date Payer Category Payer Private Health Insurance JORDIN PEREZ PPO TPA [id number] 2024-Present [address] [place] [address] PPO [id number] 2023 Private Health Insurance [id number] 1971 Unknown [id number] .65 1971 Unknown [id number] .65 1971 Unknown [id number] [id number] .65 1971 Unknown [id number] [id number] .65 1971 Unknown [id number] [id number] .651 1971 Unknown [id number] [id number] .651 1971 Unknown [id number] [id number] .651 1971 Unknown [id number] [id number] .627 1971 Unknown [id number] [id number] .627 1971 Unknown [id number] [id number] .627 1971 Unknown [id number] [id number] .627 1971 Unknown [id number] .627 1971 Unknown [id number] .627 Social History Date Type Detail Facility Start: 07-13-2023 End: 01-09-2024 Tobacco smoking status Never smoked tobacco (finding) [facility] Sex Assigned At Female [facility] Start: 07-08-2024 Tobacco smoking status NHIS Ex-smoker [facility] History of tobacco use Current smoker [facility] Start: 07-08-2024 Tobacco use and exposure Smokeless tobacco non-user [facility] Start: 07-08-2024 Alcoholic beverage intake Current drinker of alcohol (finding) [facility] Start: 07-08-2024 History of Social function [facility] Start: 07-08-2024 Tobacco use panel [facility] National Score (1-100), lower number is lower risk 76 [facility] Start: 07-08-2024 Tobacco Comment was passive sm oker quit 2001, smoked intermittently [facility] Start: 1971 Sex assigned at Not on file C [facility] Clinical Notes 11-04-2023 to 07-20-2024 Tom Burnett PA-C - 07/08/2024 12:04 PM Tom Calle PA-C - 07/08/2024 11:47 AM Divya Sin APRN.SOFTWARE TECHNICIAN - 07/08/2024 11:00 AM EDTPatient Instructions Note Date & Type Note Facility 07-20-2024 Note HNO ID: [id number] Author: JAVON DIAZ RN Service: Nursing Author Type: Registered Nurse Type: Nursing Progress Note Filed: 07/20/2024 09:47 Note Text: D/C instructions given at this time. All questions answered, pt to d/c home with . [facility] 07-20-2024 Note HNO ID: [id number] Author: MARCO LOVE PA-C Service: Orthopaedic Surgery Author Type: Physician Hot Dip Galvanizer Type: Progress Notes Filed: 07/20/2024 07:29 Note Text: ORTHOPAEDIC SURGERY PROGRESS NOTE Subjective: Patient seen resting in bed in no acute distress. No complaint of chest pain, shortness of breath, or nausea/vomiting. Patient has been cleared by physical therapy. She states that she was a little more sore yesterday but is feeling better today. She has been up and out of bed voiding without difficulty. No complaint of pain, numbness, or tingling in the right leg. Vitals: Afebrile. Vital Signs Stable. Drain output 95 mL at last recorded measurement, however this was over a 16-hour period. Physical Examination: Alert, oriented, and cooperative 5/5 strength bilateral lower extremities, patient able to straight leg raise bilaterally Distally neurologically intact Back: Dressing clean, dry and intact. Surgical site supple. Labs: Recent Labs 07/20/24 0621 07/19/24 0556 HB 11.6 11.7 HCT 36.2 35.8* Impression: Post Op Day #2 status post L4-S1 PLIF with decompression L4-S1 - Physical Therapy evaluation - DVT prophylaxis: Intermittent pneumatic compression device (IPCD) - Out of bed and ambulate - Case management for discharge planning -cleared for discharge to home with self-care. Electronically signed by: Marco Love PA-C, PA-C [facility] 07-20-2024 Note HNO ID: [id number] Author: NOTE, INTERFACE, ? Service: ? Author Type: ? Type: Progress Notes Filed: 07/20/2024 03:40 Note Text: Epic Scheduled Downtime: 07/20/2024 1:00:00 AM to 07/20/2024 3:20:00 AM [facility] 07-19-2024 Note HNO ID: [id number] Author: JOCELYN OJEDA APRN.SOFTWARE TECHNICIAN Service: Hospital Medicine Author Type: Nurse Practitioner Type: Progress Notes Filed: 07/19/2024 18:51 Note Text: INPATIENT INTERNAL MEDICINE CONSULT PROGRESS NOTE SERVICE DATE: 07/19/2024 SERVICE TIME: 6:41 PM PRIMARY SERVICE: Hospital Medicine Subjective Patient seen in room, ambulating with as standby assist. Complains on back pain but stated pain is controlled with meds. Vital signs are stable, patient is hemodynamically stable and afebrile. No acute events or concerns as per RN. CHIEF COMPLAINT: back pain INTERVAL HPI: POD #1 L4-S1 PLIF with decompression L4-S1 Good pain control, walks with LSO brace and walker. REGINE drain in place Current Facility-Administered Medications Medication Dose Route Frequency scopolamine - REMOVE PATCH OTHER ONCE metoprolol succinate ER 50 mg tab(s) (TOPROL XL) 50 mg ORAL DAILY atorvastatin 10 mg tab(s) (LIPITOR) 10 mg ORAL DAILY lactated ringers iv infusion 75 mL/hr INTRAVENOUS CONTINUOUS acetaminophen 1,000 mg tab(s) (TYLENOL) 1,000 mg ORAL q 6 H HYDROmorphone 0.5 mg injection (DILAUDID) 0.5 mg INTRAVENOUS q 2 H PRN oxyCODONE IR 10 mg tab(s) (ROXICODONE) 10 mg ORAL q 4 H PRN cyclobenzaprine 10 mg tab(s) (FLEXERIL) 10 mg ORAL TID PRN ondansetron 4 mg tab(s) (ZOFRAN) 4 mg ORAL q 6 H PRN Or ondansetron (PF) 4 mg injection (ZOFRAN) 4 mg INTRAVENOUS q 6 H PRN docusate sodium 100 mg cap(s) (COLACE) 100 mg ORAL BID polyethylene glycol 3350 17 g packet 17 g ORAL DAILY PRN [START ON 07/20/2024] bisacodyl EC 10 mg tab(s) (DULCOLAX) 10 mg ORAL DAILY oxyCODONE IR 5 mg tab(s) (ROXICODONE) 5 mg ORAL q 4 H PRN [START ON 07/20/2024] amLODIPine 5 mg tab(s) (NORVASC) 5 mg ORAL DAILY Objective PHYSICAL EXAM: BP 89/49 Pulse 65 Temp (Src) 97.9 (Oral) Resp 15 Ht 5' 0 (1.52m) Wt 143 lb 11.8 oz (65.2kg) SpO2 93% LMP 05/21/2012 BMI 28.07 kg/(m2). O2 Therapy: Room Air PHYSICAL EXAM PERFORMED GENERAL: awake, alert, O x 3. No acute distress. Well-developed and well-nourished. Appears stated age and well- groomed HEAD: normocephalic, atraumatic, no scalp tenderness, no cranial deformities SKIN: warm, dry and intact, no rashes or lesions. Nails are not deformed, no clubbing, nailbeds are pink. EYES: conjunctivae are clear, no scleral paleness, no discharge. EARS/SINUSES: no sinus tenderness by palpation. External ears without deformities. No discharge. ORAL CAVITY/THROAT: oral cavity mucosa pink and moist. Good dentition, appropriate mouth hygiene. NECK: supple, full ROM. Trachea is midline. No carotid bruits. No JVD. No thyromegaly CHEST: symmetric in appearance and shape, no chest wall tenderness upon palpation RESPIRATORY: respiratory sounds are clear in both lungs. No crackles, rales, rhonchi or wheezes. No dullness by percussion. CARDIAC/PULSES: S1S2 regular, normal rhythm and rate. No murmurs, rubs, gallops or thrills. Radial pulses 2+ b/l, brachial pulses 2+ b/l ABDOMEN: soft, symmetric, not distended, not tender, bowel sounds are active and auscultated in all 4 quadrants. No vascular bruits. No hepatomegaly. : urinates spontaneously without complains or dysuria, urine is clear. EXTREMITIES: no edema. Capillary refill < 3 sec NEURO: awake, alert, O x 3, speech is not changed. Muscle strength 5/5 in all extremities. No new or focal motor or sensory symptoms. No tremors. PSYCH: appropriate mood and affect. Cognition and memory appears to be intact. WOUNDS: postoperative DATA: Diagnostic tests reviewed for today's visit: Latest Reference Range AND Units 07/19/24 05:56 Sodium 136 - 145 mmol/L 141 Potassium 3.5 - 5.1 mmol/L 4.3 Chloride 98 - 107 mmol/L 107 CO2 21 - 32 mmol/L 27 BUN 7 - 26 mg/dL 14 Creatinine 0.51 - 0.95 mg/dL 0.59 Glucose 70 - 100 mg/dL 102 (H) Protein, Total 6.0 - 8.5 g/dL 5.7 (L) Calcium 8.5 - 10.5 mg/dL 9.2 Magnesium 1.6 - 2.6 mg/dL 1.7 Phosphorus 2.5 - 4.9 mg/dL 4.1 Albumin 3.2 - 5.0 g/dL 3.0 (L) Bilirubin, Total 0.2 - 1.0 mg/dL 0.4 Alkaline Phosphatase 45 - 117 U/L 91 ALT 13 - 61 U/L 14 AST 8 - 34 U/L 21 Anion Gap 5 - 16 mmol/L 7 eGFR >=60 mL/min/1.73m? 109 (H): Data is abnormally high (L): Data is abnormally low Latest Reference Range AND Units 07/08/24 11:39 Hemoglobin A1C 4.3 - 5.6 % 5.9 (H) Estimated Average Glucose mg/dL 123 (H): Data is abnormally high Latest Reference Range AND Units 07/19/24 05:56 WBC 3.70 - 11.00 k/uL 18.38 (H) RBC 3.90 - 5.20 m/uL 4.43 Hemoglobin 11.5 - 15.5 g/dL 11.7 Hematocrit 36.0 - 46.0 % 35.8 (L) Platelet Count 150 - 400 k/uL 239 (H): Data is abnormally high (L): Data is abnormally low Assessment/Plan Principal Problem: Spinal stenosis of lumbar region with neurogenic claudication - POD #1 L4-S1 PLIF with decompression L4-S1 Dr. Rogel -Postoperative pain management Tylenol 1000 mg oral every 6 hours monitor for LFTs elevation, Flexeril 10 mg oral 3 times d (more content not included)... [facility] 07-19-2024 Note HNO ID: [id number] Author: PERI ROGEL DO Service: Orthopaedic Surgery Author Type: Physician Type: Progress Notes Filed: 07/19/2024 14:54 Note Text: Patient was seen and examined this afternoon. Patient is doing well. Patient complains having back pain. Patient's right leg pain has resolved. Patient has done well with PT OT. Patient's last recorded drain output was 110 cc. We will continue to maintain Hemovac drain. Otherwise plan would be for discharge tomorrow if patient is doing fine. [facility] 07-19-2024 Note HNO ID: [id number] Author: MARCO LOVE PA-C Service: Orthopaedic Surgery Author Type: Physician Hot Dip Galvanizer Type: Progress Notes Filed: 07/19/2024 07:32 Note Text: ORTHOPAEDIC SURGERY PROGRESS NOTE Subjective: Patient seen resting in bed in no acute distress. No complaint of chest pain, shortness of breath, or nausea/vomiting. She has ambulated back and forth to the restroom without difficulty. She is voiding without difficulty. Pain in the lower extremities that was present prior to surgery has dissipated. She did report having some numbness in the right leg immediately after surgery but that is gone as well. Pain has been well-controlled with scheduled Tylenol, oxycodone, and Flexeril. Vitals: Afebrile. Vital Signs Stable. Drain output 130 mL at last recorded measurement. Physical Examination: Alert, oriented, and cooperative 5/5 strength bilateral lower extremities, patient able to straight leg raise bilaterally Distally neurologically intact Back: Dressing clean, dry and intact. Surgical site supple. REGINE drain in place Labs: Recent Labs 07/19/24 0556 HB 11.7 HCT 35.8* Impression: Post Op Day #1 status post L4-S1 PLIF with decompression L4-S1 - Physical Therapy evaluation - DVT prophylaxis: Intermittent pneumatic compression device (IPCD) - Out of bed and ambulate - Pain control -continue current pain management regimen - Case management for discharge planning, plan for likely discharge home when drain output reaches below 50 and she has cleared physical therapy. Electronically signed by: Marco Love PA-C, PA-C [facility] 07-18-2024 Note HNO ID: [id number] Author: YOON PRADO RN Service: ? Author Type: Registered Nurse Type: Progress Notes Filed: 07/18/2024 21:25 Note Text: Pt complaints of pain medicated per order [facility] 07-18-2024 Note HNO ID: [id number] Author: BISI MARTE AA Service: ? Author Type: [employer] Driver Type: Anesthesia Procedure Notes Filed: 07/18/2024 11:49 Note Text: ANESTHESIOLOGY PROCEDURE NOTE Airway General Information Procedure Start Time/Medication Administration: 07/18/2024 11:25 AM Procedure End Time: 07/18/2024 11:25 AM Patient location during procedure: OR Timeout Performed Pre-procedure: timeout performed Consent Obtained: Yes Patient identity confirmed: arm band Staffing Anesthesiologist: Tamera Schultz DO CAA: Bisi Marte AA Performed by: ALLA student Indications and Patient Condition Indications for airway management: anesthesia Preoxygenated: yes anesthesia circuit Method: sleep Difficult Mask: No Final Airway Details Final airway type: endotracheal airway Final Endotracheal Airway: ETT Cuffed: yes Successful intubation technique: direct laryngoscopy ETT size (mm): 7.0 Measured from: teeth Measurement (cm): 22 Placement verified by: chest auscultation and capnometry Cormack-Lehane Classification: grade I - full view of glottis Number of attempts at approach: 1 Airway not difficult Comments Airway managed by Davion Kyle SIGNATURE: EVERT Almazan PATIENT NAME: Brooke Landaverde DATE: July 18, 2024 TIME: 11:49 AM CSN: [id number] [facility] 07-17-2024 Note HNO ID: [id number] Author: JONA RENO RN Service: Nursing Author Type: Registered Nurse Type: Progress Notes Filed: 07/17/2024 15:02 Note Text: PRE-PROCEDURE INSTRUCTIONS TO PREPARE FOR YOUR PROCEDURE: Your arrival time for your procedure is 0915. Do NOT eat any solid foods after MIDNIGHT the night prior to your procedure - this includes gum or mints. You can drink clear liquids* up until 0715, which is 2 hours before your arrival time. *Clear liquids = water, carbohydrate drink (sports drink that is clear or yellow in color), Ensure Pre-Surgery (given by [facility]EST or your DrAna), fruit juice without pulp (apple/cranberry), clear tea, black coffee (no cream). NO CARBONATED BEVERAGES AND NO ALCOHOL. Shower the morning of the procedure, put on clean clothes, and have clean sheets for your bed to help prevent infection after your procedure. Leave all valuables such as jewelry including rings, piercings, wallets, and purses at home. Wear comfortable, loose-fitting clothing. If you wear glasses or contacts, please bring a case. SPECIAL INSTRUCTIONS: If instructed, bring your first voided urine specimen with you. If you were provided skin preparation to use prior to your procedure, complete this as directed. If you were provided Ensure Pre-Surgery drink, you need to drink this at 0715. This should be consumed quickly (in less than 5 minutes, rather than sipped over time) If a bowel preparation has been ordered by your physician, it is very important to follow the bowel prep instructions or your procedure may need to be rescheduled. If you use crutches or a walker, bring them with you. If you have a home CPAP/BIPAP machine, bring it with you. If you were instructed to complete a fleets enema or bowel prep, complete as directed. Bring copy of Living Will/Power of Sales Representative Printing. Do not smoke or chew. If you use tobacco, quit or at least cut down before surgery. Do not smoke or chew after midnight the day before your surgery. This effects bleeding, infection, healing, and so much more. Do not take any Diet or Herbal Supplements 2 weeks prior to your surgery date. Please notify your physician if there is any change in your physical condition such as a cold, cough, fever, sore throat, or skin irritation near the surgical site. Visitors under the age of 14 are restricted in the Surgery Center. UPON ARRIVAL: Access to [facility] is located on [address] Geodetic Technician parking is available for your convenience from 5am-5pm- there is a $5.00 charge for this service. Take the elevators directly inside the entrance to the 1st Floor Surgery Lobby. Sign in at the podium located to the left when you get off the elevators. A payment may be expected at the time of service. One visitor may come back to the preoperative area with you. The preoperative staff will be reviewing your medical history, please let them know if you prefer not to have a visitor with you during this time. Once you are ready for your procedure, two visitors at a time are permitted in your preprocedure room. MEDICATION INSTRUCTIONS PRIOR TO SURGERY Please read below carefully for your personalized instructions. Medications: If you are on blood thinner or anticoagulants including aspirin, please confirm with your surgical team on when to stop these medications. Unless instructed differently by your surgical team, stay on all of your medications until your surgery. Pre-Surgery Med Instructions Medication Instructions venlafaxine (EFFEXOR) 25 mg tablet If you normally take this medication in the morning, it is ok to take the morning of surgery with a sip of water. traMADol (ULTRAM) 50 mg tablet PRN if needed amLODIPine (NORVASC) 5 mg tablet Take morning of surgery with a sip of water, no other fluids metoprolol succinate ER (TOPROL XL) 50 mg 24 hr tablet Take morning of surgery with a sip of water, no other fluids atorvastatin (LIPITOR) 10 mg tablet MULTIVITAMIN WITH MINERALS (MULTIVITAMIN AND MINERAL FORMULA ORAL) Follow Surgeon's instructions - hold 2 weeks preop Ibuprofen 200 mg cap Follow Surgeon's instructions- hold 2 weeks preop If you have any medication changes between receiving these instructions and your surgery date, please provide this updated information with the nurse who calls you the week day prior to your surgical procedure so we can update your list and provide you with updated instructions for the morning of your procedure. [facility] 07-10-2024 Note HNO ID: [id number] Author: BLAISE GAMBOA APRN.SOFTWARE TECHNICIAN Service: ? Author Type: Nurse Practitioner Type: Progress Notes Filed: 07/10/2024 13:01 Note Text: Summary: ABNORMAL LABS WBC elevated 11.01, RBC 5.77, low MCV. Sending communication to Leonardo and will defer to them if they feel she warrants additional testing. [facility] 07-08-2024 Note Normal sinus rhythm Poor anterior R-wave progression Normal ECG No previous ECGs available Confirmed by KIA LUJAN, [facility] ([id number]) on 07/08/2024 3:35:41 PM [facility] 07-08-2024 Note HNO ID: [id number] Author: BLAISE GAMBOA APRN.CASI Service: ? Author Type: Physician Hot Dip Galvanizer Type: Progress Notes Filed: 07/10/2024 12:59 Note Text: PACC Consult SERVICE DATE: 07/08/2024 SERVICE TIME: 12:04 PM PRIMARY CARE PHYSICIAN: Gómez Montalvo MD REASON FOR VISIT: Brooke Landaverde is a 53 year old female who is scheduled for L4-S1 PLF with instrumentation, R L4-S1 decompression and bone marrow aspiration at the request of Dr. Rogel for consultation. My final recommendation will be communicated back to the requesting physician by way of shared medical record or letter. 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 Montalvo. PAST MEDICAL HISTORY 2023: Heart murmur Comment: REOCCURED RECENTLY No date: HTN (hypertension) No date: Hyperlipidemia 2014: Near syncope No date: PONV (postoperative nausea and vomiting) PAST SURGICAL HISTORY No date: TONSILLECTOMY PRIMARY/SECONDARY Comment: Tonsillectomy 06/12/12: VAG HYST 250 GM/< W/RMVL TUBEAND/OVARY Comment: TVH/RSO FAMILY HISTORY Adopted: Yes Problem Relation Age of Onset other (unknown [Other]) Other Pt adopted other (children healthy [Other]) Other SOCIAL HISTORY: Social History Tobacco Use Smoking status: Former Smokeless tobacco: Never Tobacco comments: was passive smoker quit 2001, smoked intermittently Substance Use Topics Alcohol use: Yes Comment: socially Drug use: No Prior to Admission medications as of 07/08/24 1124 Medication Sig Last Dose Taking venlafaxine (EFFEXOR) 25 mg tablet Take 25 mg by mouth daily at bedtime. FOR HOT FLASHES Taking Yes traMADol (ULTRAM) 50 mg tablet Take 50 mg by mouth every 8 hours as needed for pain. USUALLY AT BEDTIME Taking Yes amLODIPine (NORVASC) 5 mg tablet Take 1 tablet by mouth twice daily. Patient taking differently: Take 10 mg by mouth every morning. Taking Yes metoprolol succinate ER (TOPROL XL) 50 mg 24 hr tablet Take 1 tablet by mouth once daily. Patient taking differently: Take 100 mg by mouth daily at bedtime. Taking Yes atorvastatin (LIPITOR) 10 mg tablet Take 1 tablet by mouth once daily. Patient taking differently: Take 10 mg by mouth once daily. BEDTIME Taking Yes MULTIVITAMIN WITH MINERALS (MULTIVITAMIN AND MINERAL FORMULA ORAL) Take 1 tablet by mouth as needed. Taking Yes Ibuprofen 200 mg cap Take by mouth. NEEDED STOPPED FOR SURGERY 07/18/24 Taking Yes No medication comments found. ALLERGIES Allergen Reactions Codeine anxiety Demerol [Meperidine* nausea Lisinopril Cough REVIEW OF SYSTEMS: PAIN ASSESSMENT: General: No weight loss, malaise or fevers. Neuro: No history of TIA's, stroke, PAINT SUPERVISOR tumor, impaired sensorium, hemiplegia, paraplegia or quadraplegia. No neurological symptoms or problems. Respiratory: No history of current cough or dyspnea, or pneumonia in the past 6 weeks. No history of respiratory/pulmonary symptoms or problems. Cardiovascular: Positive for: HLD, Hypertension, innocent murmur GI: No history of GI symptoms or problems. No history of esophageal varices, recent ascites, or ETOH greater than 2 drinks per day. 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 : , Patient's last menstrual period was 05/21/2012. Endocrine: No history of diabetes. Has not taken steroids within the past 30 days. No history of endocrinological symptoms or problems. Hematology: No history of bleeding or clotting disorder. Pt is not taking anti-coagulation or platelet medications. No history of hematological symptoms or problems. Oncology: No history of CA metastasis, chemo within 30 days, or radiotherapy within 90 days. Has not lost 10% of body wt in 6 months. No history of oncological symptoms or problems. Psych: No history of psychiatric symptoms or problems. Musculoskeletal: Back pain with radiculopathy Skin: Negative for lesions, rash and itching. Objective PHYSICAL EXAM: VITALS: Pulse 72 Resp 18 Ht 5' 0 (1.52m) Wt 138 lb (62.6kg) SpO2 98% LMP 05/21/2012 BMI 26.95 kg/(m2). General: Alert and oriented Skin: Normal color, no rash, no lesions. HEENT: EOM, pupils equal, round and reactive. Cardiovascular: RRR, faint systolic murmur LSB Lungs: Normal breath sounds, no wheezes or crackles. Pulses: Carotid and radial pulses normal +2. Diagnostic tests reviewed for today's visit: A1C 5.9, NEG SA/MRSA, O+, BNP 39 Latest Ref Rng AND Units 07/08/2024 CBC WBC 3.70 - 11.00 k/uL 11.01 RBC 3.90 - 5.20 m/uL 5.77 Hemoglobi (more content not included)... [facility] 07-08-2024 History of Present illness Narrative [facility] Consult SERVICE DATE: 07/08/2024 SERVICE TIME: 12:04 PM PRIMARY CARE PHYSICIAN: Gómez Montalvo MD REASON FOR VISIT: Brooke Landaverde is a 53 year old female who is scheduled for L4-S1 PLF with instrumentation, R L4-S1 decompression and bone marrow aspiration at the request of Dr. Rogel for consultation. My final recommendation will be communicated back to the requesting physician by way of shared medical record or letter. 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 Montalvo. PAST MEDICAL HISTORY 2023: Heart murmur Comment: REOCCURED RECENTLY No date: HTN (hypertension) No date: Hyperlipidemia 2013: Near syncope No date: PONV (postoperative nausea and vomiting) PAST SURGICAL HISTORY No date: TONSILLECTOMY PRIMARY/SECONDARY <AGE 13 Comment: Tonsillectomy 06/12/12: VAG HYST 250 GM/< W/RMVL TUBE&/OVARY Comment: TVH/RSO FAMILY HISTORY Adopted: Yes Problem Relation Age of Onset other (unknown [Other]) Other Pt adopted other (children healthy [Other]) Other SOCIAL HISTORY: Social History Tobacco Use Smoking status: Former Smokeless tobacco: Never Tobacco comments: was passive smoker quit 2001, smoked intermittently Substance Use Topics Alcohol use: Yes Comment: socially Drug use: No Prior to Admission medications as of 07/08/24 1124 Medication Sig Last Dose Taking venlafaxine (EFFEXOR) 25 mg tablet Take 25 mg by mouth daily at bedtime. FOR HOT FLASHES Taking Yes traMADol (ULTRAM) 50 mg tablet Take 50 mg by mouth every 8 hours as needed for pain. USUALLY AT BEDTIME Taking Yes amLODIPine (NORVASC) 5 mg tablet Take 1 tablet by mouth twice daily. Patient taking differently: Take 10 mg by mouth every morning. Taking Yes metoprolol succinate ER (TOPROL XL) 50 mg 24 hr tablet Take 1 tablet by mouth once daily. Patient taking differently: Take 100 mg by mouth daily at bedtime. Taking Yes atorvastatin (LIPITOR) 10 mg tablet Take 1 tablet by mouth once daily. Patient taking differently: Take 10 mg by mouth once daily. BEDTIME Taking Yes MULTIVITAMIN WITH MINERALS (MULTIVITAMIN & MINERAL FORMULA ORAL) Take 1 tablet by mouth as needed. Taking Yes Ibuprofen 200 mg cap Take by mouth. NEEDED STOPPED FOR SURGERY 07/18/24 Taking Yes No medication comments found. ALLERGIES Allergen Reactions Codeine anxiety Demerol [Meperidine* nausea Lisinopril Cough REVIEW OF SYSTEMS: PAIN ASSESSMENT: General: No weight loss, malaise or fevers. Neuro: No history of TIA's, stroke, PAINT SUPERVISOR tumor, impaired sensorium, hemiplegia, paraplegia or quadraplegia. No neurological symptoms or problems. Respiratory: No history of current cough or dyspnea, or pneumonia in the past 6 weeks. No history of respiratory/pulmonary symptoms or problems. Cardiovascular: Positive for: HLD, Hypertension, innocent murmur GI: No history of GI symptoms or problems. No history of esophageal varices, recent ascites, or ETOH greater than 2 drinks per day. 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 : , Patient's last menstrual period was 05/21/2012. Endocrine: No history of diabetes. Has not taken steroids within the past 30 days. No history of endocrinological symptoms or problems. Hematology: No history of bleeding or clotting disorder. Pt is not taking anti-coagulation or platelet medications. No history of hematological symptoms or problems. Oncology: No history of CA metastasis, chemo within 30 days, or radiotherapy within 90 days. Has not lost 10% of body wt in 6 months. No history of oncological symptoms or problems. Psych: No history of psychiatric symptoms or problems. Musculoskeletal: Back pain with radiculopathy Skin: Negative for lesions, rash and itching. Objective PHYSICAL EXAM: VITALS: Pulse 72 Resp 18 Ht 5' 0 (1.52m) Wt 138 lb (62.6kg) SpO2 98% LMP 05/21/2012 BMI 26.95 kg/(m^2). General: Alert and oriented Skin: Normal color, no rash, no lesions. HEENT: EOM, pupils equal, round and reactive. Cardiovascular: RRR, faint systolic murmur LSB Lungs: Normal breath sounds, no wheezes or crackles. Pulses: Carotid and radial pulses normal +2. Diagnostic tests reviewed for today's visit: Lab Value Units Date High Low HB 15.0 g/dL 07/08/2024 15.5 11.5 HCT 45.8 % 07/08/2024 46.0 36.0 WBC 11.01 k/uL 07/08/2024 11.00 3.70 PLT 276 k/uL 07/08/2024 400 150 NA No results within date range. K No results within date range. GLUC No results within date range. BUN No results within date range. CREAT No results within date range. PTSEC 10.2 sec 07/08/2024 13.0 9.7 INR 0.9 no uni* 07/08/2024 1.3 0.9 APTT 31.5 sec 07/08/2024 32.4 23.0 ALT No results within date range. AST No results within date range. TBILI No results within date range. TSH No results within date range. Lab Value Units Date High Low HCGQT No results within date range. UHCG No results within date range. HCG, BODY* No results within date range. Lab Value Units Date High Low ABORHD No results within date range. ABSCREEN No results within date range. Hemoglobin A1C (%) Date Value 02/06/2015 5.9 PENDING Assessment/Plan ASSESSMENT/PLAN: 1. Preop testing - ICD9: V72.84, ICD10: Z01.818 (primary diagnosis) I had the pleasure of meeting Brooke in [facility] today. 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 She's having shooting pain down her right leg. She has no loss of bowel or bladder control. She has excellent functional capacity. She reports PONV after hyster but it occurred when she was being moved out of PACU. She denies a Hx of motion sickness. She wore scop patch reotely for a cruise w/o complication. EKG 07/08/24 NSR - COMPLETE BLOOD COUNT AND DIFFERENTIAL - BASIC METABOLIC PANEL - URINE CULTURE - ACTIVATED PARTIAL THROMBOPLASTIN TIME - PROTHROMBIN TIME - ECG COMPLETE - STAPHYLOCOCCUS AUREUS & MRSA SCREEN, PCR, NASAL - TYPE AND SCREEN,30 DAY - ACTIVATED PARTIAL THROMBOPLASTIN TIME - HEMOGLOBIN A1C - NT PRO BNP 2. Heart murmur - ICD9: 785.2, ICD10: R01.1 -Known since she was a child. It's intermittently detected. She reports having an echo done several years ago. She denies exertional dyspnea, CP, dizziness or syncope. -Patient says her PCP is aware and dis not feel a new echo was indicated as she has been asymptomatic. 4. Mixed hyperlipidemia - ICD9: 272.2, ICD10: E78.2 -Continue statin periop to decrease risk of MACE 5. Primary hypertension - ICD9: 401.9, ICD10: I10 - Controlled - Continue current medications - Recommend home blood pressure monitoring, to bring results to next visit - Encouraged sodium restriction, DASH or Mediterranean diet - Recommend regular aerobic exercise Tom Burnett PA-C METS: Climb a flight of stairs or walk up a hill (5.50 METs) Patient denies any chest pain or undue shortness of breath with the above physical activity. ANESTHESIA FINDINGS: Intubation History: No history of difficult intubation Significant Anesthesia Considerations: Postop nausea/vomiting Airway History: No abnormal airway history Planned Anesthetic: General and Per anesthesia choice Instructions Given to Patient: Instructions located in the after visit summary. Patient given verbal and written preop instructions and voices comprehension and compliance. SIGNATURE: Tom Burnett PA-C PATIENT NAME: Brooke Landaverde DATE: July 08, 2024 TIME: 12:04 PM Summary: DOS meds MEDICATION INSTRUCTIONS PRIOR TO SURGERY Please read below carefully for your personalized instructions. Medications: If you are on blood thinner or anticoagulants including aspirin, please confirm with your surgical team on when to stop these medications. Unless instructed differently by your surgical team, stay on all of your medications until your surgery. Pre-Surgery Med Instructions Medication Instructions venlafaxine (EFFEXOR) 25 mg tablet If you normally take this medication in the morning, it is ok to take the morning of surgery with a sip of water. traMADol (ULTRAM) 50 mg tablet PRN if needed amLODIPine (NORVASC) 5 mg tablet Take morning of surgery with a sip of water, no other fluids metoprolol succinate ER (TOPROL XL) 50 mg 24 hr tablet Take morning of surgery with a sip of water, no other fluids atorvastatin (LIPITOR) 10 mg tablet MULTIVITAMIN WITH MINERALS (MULTIVITAMIN & MINERAL FORMULA ORAL) Follow Surgeon's instructions - hold 2 weeks preop Ibuprofen 200 mg cap Follow Surgeon's instructions- hold 2 weeks preop If you have any medication changes between receiving these instructions and your surgery date, please provide this updated information with the nurse who calls you the week day prior to your surgical procedure so we can update your list and provide you with updated instructions for the morning of your procedure. Wake 07/18/24 L4-S1 PLF with instrumentation, R L4-S1 decompression and bone marrow aspiration 53 yo female with HTN, HLD, near syncope. Med clearance received from Dr. Montalvo. documented in this encounter [facility] 07-08-2024 Instructions Tom Burnett PA-C - 07/08/2024 11:51 AM EDT MEDICATION INSTRUCTIONS PRIOR TO SURGERY Please read below carefully for your personalized instructions. Medications: If you are on blood thinner or anticoagulants including aspirin, please confirm with your surgical team on when to stop these medications. Unless instructed differently by your surgical team, stay on all of your medications until your surgery. Pre-Surgery Med Instructions Medication Instructions venlafaxine (EFFEXOR) 25 mg tablet If you normally take this medication in the morning, it is ok to take the morning of surgery with a sip of water. traMADol (ULTRAM) 50 mg tablet PRN if needed amLODIPine (NORVASC) 5 mg tablet Take morning of surgery with a sip of water, no other fluids metoprolol succinate ER (TOPROL XL) 50 mg 24 hr tablet Take morning of surgery with a sip of water, no other fluids atorvastatin (LIPITOR) 10 mg tablet MULTIVITAMIN WITH MINERALS (MULTIVITAMIN & MINERAL FORMULA ORAL) Follow Surgeon's instructions - hold 2 weeks preop Ibuprofen 200 mg cap Follow Surgeon's instructions- hold 2 weeks preop If you have any medication changes between receiving these instructions and your surgery date, please provide this updated information with the nurse who calls you the week day prior to your surgical procedure so we can update your list and provide you with updated instructions for the morning of your procedure. documented in this encounter [facility] 07-08-2024 Note HNO ID: [id number] Author: TOM BURNETT PA-C Service: ? Author Type: Physician Hot Dip Galvanizer Type: Progress Notes Filed: 07/08/2024 12:19 Note Text: Summary: DOS meds MEDICATION INSTRUCTIONS PRIOR TO SURGERY Please read below carefully for your personalized instructions. Medications: If you are on blood thinner or anticoagulants including aspirin, please confirm with your surgical team on when to stop these medications. Unless instructed differently by your surgical team, stay on all of your medications until your surgery. Pre-Surgery Med Instructions Medication Instructions venlafaxine (EFFEXOR) 25 mg tablet If you normally take this medication in the morning, it is ok to take the morning of surgery with a sip of water. traMADol (ULTRAM) 50 mg tablet PRN if needed amLODIPine (NORVASC) 5 mg tablet Take morning of surgery with a sip of water, no other fluids metoprolol succinate ER (TOPROL XL) 50 mg 24 hr tablet Take morning of surgery with a sip of water, no other fluids atorvastatin (LIPITOR) 10 mg tablet MULTIVITAMIN WITH MINERALS (MULTIVITAMIN AND MINERAL FORMULA ORAL) Follow Surgeon's instructions - hold 2 weeks preop Ibuprofen 200 mg cap Follow Surgeon's instructions- hold 2 weeks preop If you have any medication changes between receiving these instructions and your surgery date, please provide this updated information with the nurse who calls you the week day prior to your surgical procedure so we can update your list and provide you with updated instructions for the morning of your procedure. [facility] 07-08-2024 Note HNO ID: [id number] Author: DIVYA BRYANT APRN.SOFTWARE TECHNICIAN Service: ? Author Type: Nurse Practitioner Type: Progress Notes Filed: 07/08/2024 12:19 Note Text: Wake 07/18/24 L4-S1 PLF with instrumentation, R L4-S1 decompression and bone marrow aspiration 53 yo female with HTN, HLD, near syncope. Med clearance received from Dr. Montalvo. [facility] 11-04-2023 Note HNO ID: [id number] Author: BERNARDA KIM APRN.SOFTWARE TECHNICIAN Service: ? Author Type: Nurse Practitioner Type: Progress Notes Filed: 11/04/2023 10:47 Note Text: 52 year old female with PMH HTN and hyperlipidemia presents with complaints of chest pain Right mid axillary and right sided chest pain +SOB OF note, patient had COVID 19 early September Discussed limitations of express care with patient and referred to ED given concerns for possible PE and or ACS [facility] Evaluation + Plan note No data available for this section [facility] Evaluation note Diagnosis Annual physical exam- Primary Routine general medical examination at a health care facility HTN (hypertension) Unspecified essential hypertension Hyperlipemia Other and unspecified hyperlipidemia Restless legs Restless legs syndrome (RLS) Atypical moles Benign neoplasm of skin, site unspecified Leg pain, bilateral- Primary Pain in limb Hyperlipidemia Other and unspecified hyperlipidemia HTN (hypertension) Unspecified essential hypertension Chest pain- Primary Chest pain, unspecified Panic Panic disorder without agoraphobia Hyperlipemia Other and unspecified hyperlipidemia HTN (hypertension) Unspecified essential hypertension Hyperlipidemia Other and unspecified hyperlipidemia Uncontrolled stage 2 hypertension- Primary Unspecified essential hypertension Mixed hyperlipidemia Nausea Nausea alone Headache, unspecified headache type Anxiety and depression Dysthymic disorder Essential hypertension Unspecified essential hypertension Migraine without status migrainosus, not intractable, unspecified migraine type Stress and adjustment reaction Other specified adjustment reaction Insomnia, unspecified type Preop testing- Primary Preoperative examination, unspecified PONV (postoperative nausea and vomiting) Nausea with vomiting Heart murmur Undiagnosed cardiac murmurs Mixed hyperlipidemia Primary hypertension Unspecified essential hypertension Preop testing Preoperative examination, unspecified Spinal stenosis of lumbar region with neurogenic claudication Spinal stenosis, lumbar region, with neurogenic claudication Spondylolisthesis of lumbar region Acquired spondylolisthesis Other intervertebral disc degeneration, lumbar region Other intervertebral disc displacement, lumbar region [facility] No data available for this section [facility] Progress note No data available for this section [facility] Reason for referral (narrative)* Outpatient Procedure (Routine) - New Request Specialty Diagnoses / Procedures Referred By Contac t Referred To [facility] Diagnoses Preop testing Procedures ECG COMPLETE ECG COMPLETE ECG ROUTINE ECG W/LEAST 12 LDS W/I&R Peri Rogel DO [address] [place] [address] [facility] [place] [place] [address] Referral ID Status Reason Start Date Expiration Date Visits Requested Visits Authorized [id number] New Request Auto-Generat ed Referral 07/08/2024 07/04/2025 1 1 [facility] Summary Purpose Family History No Family History Records Found Advance Directives No Advanced Directives Records FoundNo Advanced Directives Records FoundNo Advanced Directives Records FoundNo Advanced Directives Records Found Additional Source Comments Patient Care team informatio n (unrecognized section and content) [employer] Relationship Specialty Start Date End Date Gómez Montalvo MD [address] [place] [address] PCP - General Internal Medicine 06/26/24 INFORMATION SOURCE (unrecogn ized section and content) DATE CREATED AUTHOR 03/10/2024 [facility] DATE CREATED AUTHOR AUTHOR'S ORGANIZ ATION 06/21/2024 [facility] ([place]) DATE CREATED AUTHOR AUTHOR'S ORGANIZ ATION 07/20/2024 [facility] DATE CREATED AUTHOR AUTHOR'S ORGANIZ ATION 08/07/2024 [facility] nter Source Comments (unrecognize d section and content) In the event this informatio n is protected by the Federal Confidentiality of Alcohol and Drug Abuse Patient Records regulations: The Federal rules restrict any use of the information to criminally investigate or prosecute any alcohol or drug abuse patient.[facility] FOR RECORDS PERTAINING TO PATIENTS WHO ARE OR HAVE BEEN ENROLLED IN A CHEMICAL DEPENDENCY/SUBSTANCEABUSE PROGRAM, SOME INFORMATION MAY BE OMITTED. This clinical summary was aggregated from multiple sources. Caution should be exercised in using it in the provision of clinical care. This summary normalizes information from multiple sources, and as a consequence, information in this document may materially change the coding, format and clinical context of patient data. In addition, data may be omitted in some cases. CLINICAL DECISIONS SHOULD BE BASED ON THE PRIMARY CLINICAL RECORDS. [facility] provides no warranty or guarantee of the accuracy or completeness of information in this document.
== END | disposition home or self-care (01) ==
PROVIDERS: PCP Internal Medicine; Referring Provider Internal Medicine; Visit Provider Internal Medicine
DX: Z12.31 Encounter for screening mammogram for malignant neoplasm of breast (principal)
CPT/HCPCS: 77063; 77067

== ENCOUNTER → 2025-04-05 | Outpatient (CLI) | payer OTHER, SELFPAY ==
--- NOTE | 2025-04-05 10:37 | US_ITS ---
PROCEDURE: ABDOMEN LIMITED 04/05/2025 REASON FOR EXAM: ABDOMINAL PAIN, RECURRENT TECHNIQUE: Complete abdominal ultrasound smith-scale images with color doppler. PATIENT PREPARATION: Per protocol COMPARISON: None. FINDINGS: Liver: Unremarkable hepatic echotexture. The liver measures 13.2 cm. 2 simple hepatic cysts are noted in the right hepatic lobe measuring 1.3 and 0.6 cm. No follow-up is needed. Unremarkable flow in the portal vein. Gallbladder: The gallbladder measures 5.8 cm. Negative sonographic Sawyer. No evidence of pericholecystic free fluid. Normal gallbladder wall thickness measuring 1.3 mm. Folds are noted in the gallbladder. Common bile duct: 4.3 mm. Pancreas: Mildly increased echogenicity, probably fatty infiltration. Kidneys: The right kidney measures 11.3 x 6.8 x 4.2 cm. Normal right renal cortical thickness measuring 1.1 cm. Right renal nonobstructing stone measuring 0.4 cm. Peritoneal Findings: No free fluid is noted. US/Abdomen Limited IMPRESSION: Two simple hepatic cysts. No evidence of cholelithiasis or acute cholecystitis. Reading Location: [place] [address]
--- OUTSIDE RECORDS SUMMARY | 2025-04-05 10:43 | XMS RPT_ITS | CCD ---
Author Organization [facility] Care Team Providers Care Roll Icer Machine Name Role Phone Dr. Gómez Montalvo Primary Care Provider [phone] Dr. Gómez Montalvo Referring Provider [phone] Dr. Hernan Trotter Attending Provider JALEEL Santana Attending Provider Chet Cat AQUACULTURE WORKER, AQUACULTURE WORKER-C Jamie Attending Provider [phone] Dr. Huy Villatoro Attending Provider Van BING[place], AQUACULTURE WORKER-C Jamie Referring Provider [phone] GÓMEZ MONTALVO MD Primary Care [phone] Dr. Gómez Montalvo Primary Care Provider [phone] Dr. Gómez Montalvo Attending Provider [phone] Dr. Gómez Montalvo Referring Provider [phone] GÓMEZ MONTALVO MD Primary Care Unavailab ZAKI Drake MD Attending Unavailable GÓMEZ MONTALVO MD Primary Care Unavailab ZAKI Drake MD Attending Unavailable GÓMEZ MONTALVO MD Primary Care Unavailab MITCH Stern Attending Unavailable GÓMEZ MONTALVO MD Primary Care Unavailab MITCH Stern Attending ZAKI Christiansen MD Attending Unavailable GÓMEZ MONTALVO MD Primary Care Unavailab GÓMEZ Dunham MD Primary Care Unavailab ZAKI Drake MD Attending Unavailable Gómez Montalvo MD Primary Care Provider [phone] GÓMEZ MONTALVO Primary Care Unavailable PERI ROGEL Admitting Unavailable PERI ROGEL Attending Unavailable Darlyn LUJAN, Dr. Ojeda Primary Care Provider Katia LUJAN, Dr. Brannon Primary Care Provider Katia LUJAN, Dr. Brannon Referring Provider Michi Lombardo Attending Provider Bernarda Crespo Attending Unavailable Oleghe, Efewongbe Referring Unavailable Oleghe, Efewongbe Primary Care Unavailable Oleghe, Efewongbe Attending Unavailable Oleghe, Efewongbe Referring Unavailable Oleghe, Efewongbe Primary Care Unavailable Oleghe, Efewongbe Primary Care Unavailable Oleghe, Efewongbe Attending Unavailable Oleghe, Efewongbe Referring Unavailable Oleghe, Efewongbe Primary Care Unavailable Oleghe, Efewongbe Attending Unavailable Oleghe, Efewongbe Referring Unavailable Oleghe, Efewongbe Primary Care Unavailable Oleghe, Efewongbe Attending Unavailable Oleghe, Efewongbe Referring Unavailable Michi Lombardo Attending Unavailable Oleghe, Efewongbe Referring Unavailable Oleghe, Efewongbe Primary Care Unavailable JAMIE SANTIZO Consulting Unavaila ble PERI ROGEL Admitting Unavailable STEFANKOBERTAED J Primary Care Unavailable STEBERTA BREWSTERED J Attending Unavailable PROVIDER, UNKNOWN Consulting Unavailable FILIBERTOE, EFEWONGBE Attending Unavailable JAMIE SANTIZO Consulting Unavaila PACO PhillipsBE Admitting Unavailable LUZ MARIAGHE, EFEWONGBE Primary Care Unavailable PROVIDER, UNKNOWN Consulting Unavailable FILIBERTOE, EFEWONGBE Attending Unavailable KATIA, EFEWONGBE Admitting Unavailable JAMIE SANTIZO Consulting Unavaila GÓMEZ Phillips MD Primary Care Unavailable PROVIDER, UNKNOWN Consulting Unavailable PACO MONTALVOBE Consulting Unavailable JUNIOR MALDONADO DO Admitting Unavailable JUNIOR MALDONADO DO Primary Care Unavailable JUNIOR MALDONADO DO Attending Unavailable KATIA, EFEWONGBE Referring Unavailable PROVIDER, UNKNOWN Consulting Unavailable JAMIE SANTIZO Consulting Unavaila ble PERI ROGEL Admitting Unavailable STEFANKO, PERI J Primary Care Unavailable STEFANKO, PERI J Attending Unavailable PROVIDER, UNKNOWN Consulting Unavailable Allergies Allergy Classification Reported Allergen(s) Allergy Type Date of Onset Reaction(s) Facility (10 sources) Codeine; Translations: [codeine] Drug Allergy 6 Unable (qualifier value) [facility] (6 sources) Meperidine; Translations: [meperidine HCl] Drug Allergy 2 Nausea/Vom/Diar vipul [facility] (3 sources) Lisinopril; Translations: [LISINOPRIL] Drug Allergy 4 Cough [facility] (3 sources) Meperidine; Translations: [MEPERIDINE (PF)] Drug Allergy 6 [facility] (1 source) Codeine Drug Allergy 5 [facility] (1 source) Codeine Drug Allergy [facility] (1 source) Meperidine Drug Allergy [facility] Medications Current Medications Medication Drug Class(es) Dates Sig (Normalized) Sig (Original) amLODIPine 10 mg oral tablet (20 sources) Dihydropyridine Calcium Channel Khurram Start: 07-03-2019 End: 03-12-2025 take 1 tablet by mouth once daily Amlodipine 10 mg tablet Active 10 mg PO DAILY 90 March 12, 2025 10:25am Start: 06-29-2019 End: 07-03-2019 take 1 tablet by mouth once daily Amlodipine 5 MG tablet Discontinued 5 mg PO DAILY June 29, 2019 12:00am July 03, 2019 5:27pm Start: 05-24-2017 take 1 tablet by altaf twice daily amLODIPine (NORVASC) 5 mg tablet Take 1 tablet by mouth twice daily. 180 tablet 05/24/2017 Active Start: 08-26-2016 End: 02-07-2018 take 1 tablet by mouth twice daily Amlodipine 2.5 MG tablet Discontinued 2.5 mg PO TWICE A DAY August 26, 2016 12:00am February 07, 2018 9:15am atorvastatin 10 mg oral tablet (2 sources) HMG-CoA Reductase Inhibitor Start: 04-10-2017 take 1 tablet by mouth once daily atorvastatin (LIPITOR) 10 mg tablet Indications: Mixed hyperlipidemia Take 1 tablet by mouth once daily. 90 tablet 3 04/10/2017 Active gabapentin 300 mg oral capsule (1 source) Anti-epileptic Agent Start: 07-13-2023 End: 08-12-2023 gabapentin 300 mg oral capsule Dose : 300 mg = 1 cap(s), Oral, TID, # 90 cap(s), 0 Refill(s), Pharmacy: [id number], Lumbar radiculopathy Neuropathic pain, 152.4, [...] mouth. NEEDED STOPPED FOR SURGERY 07/18/24 Active 24 hr metoprolol succinate 100 mg extended release oral tablet (20 sources) beta-Adrenergic Khurram Start: 07-13-2023 Metopr olol Succinate ER 100 mg oral TABLET extended release Dose : 100 mg = 1 tab(s), Oral, qDay, # 30 tab(s), 0 Refill(s) Start Date: 07/13/23 Status: Ordered Start: 10-18-2019 End: 03-12-2025 take 1 tablet by mouth once daily Metoprolol Succinate 100 mg tablet extended release 24 hr Active 100 mg PO DAILY March 12, 2025 10:26am Start: 07-03-2019 End: 07-18-2019 Metoprolol Succinate 25 mg t ablet extended release 24 hr Discontinued 50 mg PO AT BEDTIME July 03, 2019 4:57pm July 18, 2019 5:03pm Start: 06-29-2019 End: 07-03-2019 Metoprolol Succinate 25 mg t ablet extended release 24 hr Discontinued 50 mg PO DAILY June 29, 2019 10:21am July 03, 2019 4:57pm Start: 06-29-2019 End: 07-18-2019 take 50 mg by mouth at bedtime Metoprolol Succinate Di scontinued 50 MG PO AT BEDTIME July 03, 2019 4:57pm July 18, 2019 5:03pm Start: 05-17-2019 End: 06-29-2019 take 1 tablet by mouth once daily Metoprolol Succinate 25 mg tablet extended release 24 hr Discontinued 25 mg PO DAILY May 17, 2019 12:00am June 29, 2019 10:21am Start: 04-10-2017 End: 10-18-2019 Metoprolol Succinate (Toprol Xl) 50 mg tablet extended release 24 hr Discontinued 75 mg PO DAILY July 18, 2019 5:14pm October 18, 2019 2:53pm Start: 08-26-2016 End: 07-18-2019 take 1 tablet by mouth once daily Metoprolol Succinate (Toprol Xl) 50 mg tablet extended release 24 hr Discontinued 50 mg PO DAILY July 03, 2019 12:00am July 18, 2019 5:15pm MULTIVITAMIN WITH MINERALS (MULTIVITAMIN & MINERAL FORMULA ORAL) (2 sources) MULTIVITAMIN WIT H MINERALS (MULTIVITAMIN & MINERAL FORMULA ORAL) Take 1 tablet by mouth as needed. Active rosuvastatin calcium 20 mg oral tablet (7 sources) HMG-CoA Reductase Inhibitor Start: 3 End: 5 take 1 tablet by mouth once daily Rosuvastatin 20 mg tablet Active 20 mg PO DAILY March 12, 2025 10:26am Completed/Discontinued Medications Medication Drug Class(es) Dates Sig [...] 17 tablet 3 12/03/2013 07/08/2024 Discontinued (Other) amoxicillin 500 mg oral capsule (5 sources) Penicillin-class Antibacterial Start: 10-18-2016 End: 02-07-2018 take 1 capsule by mouth every eight hours Amoxicillin 500 MG capsule Discontinued 500 mg PO Q8H October 18, 2016 1:00am February 07, 2018 9:15am amoxicillin 875 mg / clavulanate 125 mg oral tablet (5 sources) Penicillin-class Antibacterial Start: 11-02-2021 End: 12-13-2021 Amoxicillin-Pot Clavulanate 875-125 mg tablet Discontinued 1 {tbl} PO TWICE A DAY November 02, 2021 1:00am December 13, 2021 5:05pm Start: 11-02-2021 End: 12-13-2021 take 1 tablet by mouth twice daily Amoxicillin-Pot Clavulanate Discontinued 1 TABLET PO TWICE A DAY November 02, 2021 1:00am December 13, 2021 5:05pm benzonatate 200 mg oral capsule (5 sources) Non-narcotic Antitussive Start: 08-22-2019 End: 10-18-2019 Benzonatate 200 mg capsule Discontinued 200 mg PO 2 to 3 times per day as needed for cough August 22, 2019 12:00am October 18, 2019 2:36pm cephalexin 500 mg oral capsule (5 sources) Cephalosporin Antibacterial Start: 06-21-2019 End: 06-29-2019 take 1 capsule by mouth three times daily Cephalexin (Keflex) 500 mg capsule Discontinued 500 mg PO THREE TIMES A DAY June 21, 2019 12:00am June 29, 2019 10:20am today is last day clindamycin 300 mg oral capsule (5 sources) Lincosamide Antibacterial Start: 10-20-2016 End: 02-07-2018 take 1 capsule by mouth every six hours Clindamycin Hcl 300 MG capsule Discontinued 300 mg PO EVERY 6 HOURS October 21, 2016 1:00am February 07, 2018 9:15am cyclobenzaprine hydrochloride 10 mg oral tablet (11 sources) Muscle Relaxant Start: 08-19-2024 End: 03-12-2025 take 1 tablet by mouth three times daily Cyclobenzaprine 10 mg tablet Discontinued 10 mg PO THREE TIMES A DAY August 19, 2024 12:00am March 12, 2025 10:08am Start: 01-09-2024 cyclobenzaprin e 10 mg oral tablet Dose : 10 mg = 1 tab(s), Oral, TID, PRN as needed for spasm, # 30 tab(s), 0 Refill(s) Start Date: 01/09/24 Status: Ordered Start: 01-04-2024 End: 06-26-2024 take 1 tablet by mouth twice daily as needed for muscle spasms Cyclobenzaprine 10 mg tablet Discontinued 10 mg PO TWICE A DAY as needed for muscle spasm 60 January 04, 2024 1:00am June 26, 2024 9:52am Start: 12-19-2022 End: 06-26-2023 take 1 tablet by mouth once at bedtime as needed for muscle spasms Cyclobenzaprine 10 mg tablet Discontinued 10 mg PO BEDTIME as needed for muscle spasm December 19, 2022 1:00am June 26, 2023 2:36pm AFTER work hours only as needed Start: 10-10-2022 End: 06-26-2023 take 1 tablet by mouth twice daily at bedtime for muscle spasms Cyclobenzaprine 5 mg tablet Discontinued 5 mg PO TWICE A DAY as needed for muscle spasm October 10, 2022 1:00am June 26, 2023 2:36pm Take first dose at bedtime. doxycycline hyclate 100 mg oral capsule (10 sources) Tetracycline-class Drug Start: 12-13-2021 End: 01-07-2022 take 1 capsule by mouth twice daily Doxycycline Hyclate 100 mg capsule Discontinued 100 mg PO TWICE A DAY December 13, 2021 1:00am January 07, 2022 1:54pm Start: 08-22-2019 End: 09-01-2019 take 1 capsule by mouth twice daily Doxycycline Monohydrate 100 mg capsule Discontinued 100 mg PO TWICE A DAY 18 08August 22, 2019 12:00am August 31, 2019 12:00am September 01, 2019 12:10am glucocil capsule (1 source) Start: 12-28-2023 End: 03-12-2025 glucocil capsule Discontinued PO December 28, 2023 1:00am March 12, 2025 10:07am hydrALAZINE hydrochloride 25 mg oral tablet (5 sources) Arteriolar Vasodilator Start: 01-24-2020 End: 04-05-2021 Hydralazine 25 mg tablet Discontinued 25 mg PO THREE TIMES A DAY as needed for hypertensive emergency 90 January 24, 2020 12:00am April 05, 2021 1:14pm For systolic greater than 140 and diastolic greater than 100 mmHg. hydroCHLOROthiazide 12.5 mg oral tablet (15 sources) Thiazide Diuretic Start: 03-09-2020 End: 12-13-2021 take 1 tablet by mouth once daily in the morning Hydrochlorothiazide 12.5 mg tablet Discontinued 12.5 mg PO EVERY MORNING September 17, 2021 2:18pm December 13, 2021 5:06pm hydrOXYzine hydrochloride 25 mg oral tablet (15 sources) Antihistamine Start: 04-05-2021 End: 08-25-2022 take 1 tablet by mouth at bedtime Hydroxyzine Hcl 25 mg tablet Discontinued 25 mg PO AT BEDTIME January 14, 2022 1:14pm August 25, 2022 1:00pm LORazepam 0.5 mg oral tablet (5 sources) Benzodiazepine Start: 04-05-2021 End: 09-17-2021 take 1 tablet by mouth once daily as needed Lorazepam 0.5 mg tablet Discontinued 0.5 mg PO DAILY as needed for panic attack(s) April 05, 2021 12:00am September 17, 2021 2:01pm losartan potassium 50 mg oral tablet (6 sources) Angiotensin 2 Receptor Khurram Start: 05-25-2015 End: 07-08-2024 take 1 tablet by mouth at bedtime Losartan 50 MG tablet Discontinued 50 mg PO AT BEDTIME May 25, 2015 12:00am February 07, 2018 9:16am methylPREDNISolone 4 mg oral tablet (4 sources) Corticosteroid Start: 10-10-2022 End: 06-26-2023 take 1 tablet by mouth once at mealtime Methylprednisolone (Medrol (Hitesh)) 4 mg tablets,dose pack Discontinued 0 PO per package directions October 10, 2022 1:00am June 26, 2023 2:36pm PO PER PKG DIR. Take with food, Tylenol okay Avoid NSAIDS. 24 hr nicotine 0.583 mg/hr transdermal system (5 sources) Cholinergic Nicotinic Agonist Start: 05-17-2019 End: 07-03-2019 apply 1 dose transdermal route every twenty-four hours Nicotine 14 mg/24 hr patch 24 hour Discontinued 1 NMA TD Q24H May 17, 2019 12:00am July 03, 2019 4:57pm Start: 05-17-2019 End: 07-03-2019 apply 1 dose transdermal route every twenty-four hours Nicotine Discontinued 1 PATCH TD Q24H May 17, 2019 12:00am July 03, 2019 4:57pm oxyCODONE hydrochloride 5 mg oral tablet (1 source) Opioid Agonist Start: 08-19-2024 End: 03-12-2025 Oxycodone 5 mg tablet Discontinued mg PO August 19, 2024 12:00am March 12, 2025 10:08am predniSONE 10 mg oral tablet (8 sources) Start: 12-19-2022 End: 06-26-2023 take 4 tablets by mouth once daily, then take 3 tablets by mouth once daily, then take 2 tablets by mouth once daily, then take 1 tablet by mouth once daily Prednisone 10 mg tablet Discontinued 10 mg PO As Directed January 04, 2023 4:19pm June 26, 2023 2:36pm 4 tablets daily x3 days, then 3 tablets daily x3 days, then 2 tablets daily x3 days, then 1 tablet daily x3 days sertraline 100 mg oral tablet (6 sources) Serotonin Reuptake Inhibitor Start: 04-10-2017 End: 07-08-2024 take 1.5 tablets by mouth once daily sertraline (ZOLOFT) 100 mg tablet Indications: Anxiety and depression Take 1.5 tablets by mouth once daily. 135 tablet 3 04/10/2017 07/08/2024 Discontinued (Other) Start: 01-29-2015 End: 02-07-2018 Sertraline 100 MG tablet Discontinued 150 mg PO AT BEDTIME January 29, 2015 12:00am February 07, 2018 9:16am Start: 01-29-2015 End: 02-07-2018 take 150 mg by mouth at bedtime Sertraline Discontinue d 150 MG PO AT BEDTIME January 29, 2015 12:00am February 07, 2018 9:16am sulfacetamide sodium 100 mg/ml ophthalmic solution (5 sources) Sulfonamide Antibacterial Start: 03-16-2018 End: 03-21-2018 Sulfacetamide Sodium (Bleph-10) 10 % drops Discontinued 1 NMA OPHTHALMIC Q3H 15 March 16, 2018 12:00am March 20, 2018 12:00am March 21, 2018 12:05am Start: 03-16-2018 End: 03-21-2018 Sulfacetamide Sodium (Bleph- 10) 10 % drops Discontinued 1 DRP OPHTHALMIC Q3H 15 March 16, 2018 12:00am March 21, 2018 12:05am topiramate 25 mg oral tablet (1 source) Start: 04-10-2017 End: 07-08-2024 take 1 tablet by mouth once daily at bedtime topiramate (TOPAMAX) 25 mg tablet Indications: migraine prevention Take 1 tablet by mouth daily at bedtime. Indications: MIGRAINE PREVENTION 30 tablet 2 04/10/2017 07/08/2024 Discontinued (Other) traMADol hydrochloride 50 mg oral tablet (2 sources) Opioid Agonist Start: 06-26-2024 End: 03-12-2025 Tramadol 50 mg tablet Discontinued mg PO as needed June 26, 2024 12:00am March 12, 2025 10:08am triamcinolone acetonide 40 mg/ml injectable suspension (1 source) Corticosteroid Start: 06-20-2019 End: 06-20-2019 Kenalog (triamcinolone acetonide) 40 mg/mL suspension for injection Discontinued 40 MG INTRAARTIC ONCE June 20, 2019 7:04am June 20, 2019 7:20am 24 hr venlafaxine 37.5 mg extended release oral capsule (7 sources) Serotonin and Norepinephrine Reuptake Inhibitor Start: 06-26-2024 End: 03-12-2025 take 1 capsule by mouth every twenty-four hours at bedtime Venlafaxine 37.5 mg capsule,extended release 24hr Discontinued 37.5 mg PO AT BEDTIME June 26, 2024 10:17am March 12, 2025 10:08am Start: 08-25-2022 End: 06-26-2023 take 1 capsule by mouth every twenty-four hours at bedtime Venlafaxine 37.5 mg capsule,extended release 24hr Discontinued 37.5 mg PO AT BEDTIME August 25, 2022 12:00am June 26, 2023 2:36pm take 1 tablet by once daily at bedtime venlafaxine (EFFEXOR) 25 mg tablet Take 25 mg by mouth daily at bedtime. FOR HOT FLASHES Active zolpidem tartrate 10 mg oral tablet (1 source) gamma-Aminobutyric Acid-ergic Agonist Start: 04-10-2017 End: 07-08-2024 take 1 tablet by mouth every twenty-four hours as needed zolpidem (AMBIEN) 10 mg tab Take 1 tablet by mouth at bedtime as needed (insomnia). 30 tablet 1 04/10/2017 07/08/2024 Discontinued (Other) Problems Active Problems Problem Classification Problem Date Documented Da te Episodic/Chronic Abdominal pain (4 sources) Unspecified abdominal pain; Translations: [Right upper quadrant pain] Onset: 04-01-2025 Episodic Allergic reactions (10 sources) Contact dermatitis due to poison kristopher; Translations: [Allergic contact dermatitis due to plants, except food] Onset: 05-05-2010 Resolved: 04-28-2015 06-28-2019 Episodic Anxiety disorders (6 sources) Generalized anxiety disorder; Translations: [Generalized anxiety disorder] Chronic Disorders of lipid metabolism (13 sources) Hypercholesterolemia ; Translations: [Pure hypercholesterolemia , unspecified] Onset: 07-03-2013 Resolved: 04-10-2017 05-17-2019 Chronic Essential hypertension (20 sources) Hypertensive disorder; Translations: [Essential (primary) hypertension] Onset: 07-03-2013 Chronic Headache; including migraine (5 sources) Frequent headache; Translations: [Frequent headaches] 06-28-2019 Episodic Menopausal disorders (1 source) Menopausal flushing; Translations: [Menopausal and female climacteric states] 06-26-2024 Chronic Mood disorders (5 sources) Depressive disorder; Translations: [Depression] 06-28-2019 Chronic Nausea and vomiting (4 sources) Postoperative nausea and vomiting; Translations: [Nausea with vomiting, unspecified] Onset: 07-08-2024 07-08-2024 Episodic Nutritional deficiencies (5 sources) Vitamin D deficiency; Translations: [Vitamin D deficiency, unspecified] 05-17-2019 Chronic Other acquired deformities (5 sources) Scoliosis deformity of spine; Translations: [Scoliosis, unspecified] 02-12-2018 Chronic Other aftercare (1 source) Other terminal supervisor (current) drug therapy; Translations: [Other terminal supervisor (current) drug therapy] Onset: 04-01-2025 Episodic Other bone disease and musculoskeletal deformities (5 sources) Segmental and somatic dysfunction; Translations: [Segmental and somatic dysfunction of lumbar region] 06-28-2019 Episodic Other hereditary and degenerative nervous system conditions (2 sources) Restless legs; Translations: [Restless legs syndrome] Onset: 07-21-2011 09-17-2013 Chronic Other injuries and conditions due to external causes (1 source) Compression injury of nerve 01-09-2024 Episodic Other nutritional; endocrine; and metabolic disorders (5 sources) Body mass index 25-29 - overweight; Translations: [Overweight] 06-28-2019 Episodic Residual codes; unclassified (1 source) Other specified postprocedural states; Translations: [PONV (postoperative nausea and vomiting)] Onset: 07-08-2024 Episodic Residual codes; unclassified (1 source) Acquired absence of other genital organ(s); Translations: [Acquired absence of other genital organ(s)] Onset: 04-01-2025 Episodic Screening and history of mental health and substance abuse codes (5 sources) History of clinical finding in subject; Translations: [Personal history of other mental and behavioral disorders] 06-28-2019 Episodic Sprains and strains (9 sources) Strain of foot; Translations: [Strain of unspecified muscle and tendon at ankle and foot level, left foot, initial encounter] 12-19-2022 Episodic Past or Other Problems Problem Classification Problem Date Documented Da te Episodic/Chronic Heart valve disorders (9 sources) Heart murmur; Translations: [Cardiac murmur, unspecified] Onset: 10-30-2023 06-28-2019 Episodic Immunizations and screening for infectious disease (8 sources) Patient encounter status; Translations: [Encounter for screening for COVID-19] Onset: 09-05-2024 06-25-2021 Episodic Menstrual disorders (2 sources) Menometrorrhagia; Translations: [Excessive and frequent menstruation with irregular cycle] Onset: 04-17-2012 Resolved: 07-23-2012 07-23-2012 Chronic Nonspecific chest pain (2 sources) Atypical chest pain; Translations: [Other chest pain] Onset: 01-30-2015 Resolved: 04-10-2017 04-10-2017 Episodic Other acquired deformities (3 sources) Spondylolisthesis, lumbar region; Translations: [Spondylolisthesis, lumbar region] Onset: 09-18-2024 Episodic Other and unspecified benign neoplasm (2 sources) Dysplastic nevus of skin; Translations: [Melanocytic nevi of unspecified upper limb, including shoulder] Onset: 12-05-2013 12-05-2013 Episodic Other and unspecified benign neoplasm (2 sources) Benign neoplasm of skin of lower limb; Translations: [Other benign neoplasm of skin of unspecified lower limb, including hip] Onset: 12-28-2006 Resolved: 07-21-2011 07-21-2011 Episodic Other and unspecified benign neoplasm (2 sources) Benign neoplasm of skin of shoulder; Translations: [Other benign neoplasm of skin of unspecified upper limb, including shoulder] Onset: 12-05-2013 Resolved: 04-28-2015 04-28-2015 Episodic Other and unspecified benign neoplasm (2 sources) Melanocytic nevus of trunk; Translations: [Melanocytic nevi of trunk] Onset: 12-05-2013 Resolved: 04-28-2015 04-28-2015 Episodic Other and unspecified benign neoplasm (2 sources) Melanocytic nevus of upper limb; Translations: [Melanocytic nevi of unspecified upper limb, including shoulder] Onset: 12-05-2013 Resolved: 04-28-2015 04-28-2015 Episodic Other and unspecified benign neoplasm (2 sources) Melanocytic nevi of unspecified part of face; Translations: [Benign neoplasm of skin of other and unspecified parts of face] Onset: 12-05-2013 Resolved: 04-28-2015 04-28-2015 Episodic Other and unspecified benign neoplasm (2 sources) Melanocytic nevus of neck; Translations: [Melanocytic nevi of scalp and neck] Onset: 12-05-2013 Resolved: 04-28-2015 04-28-2015 Episodic Other and unspecified benign neoplasm (2 sources) Dermatofibroma; Translations: [Other benign neoplasm of skin of unspecified lower limb, including hip] Onset: 12-05-2013 Resolved: 04-28-2015 04-28-2015 Episodic Other and unspecified benign neoplasm (2 sources) Senile angioma; Translations: [Hemangioma of skin and subcutaneous tissue] Onset: 12-05-2013 Resolved: 04-28-2015 04-28-2015 Episodic Other circulatory disease (2 sources) Disorder of capillaries; Translations: [Disease of capillaries, unspecified] Onset: 12-28-2006 Resolved: 07-21-2011 07-21-2011 Episodic Other connective tissue disease (2 sources) Pain in bilateral legs; Translations: [Pain in right leg] Onset: 03-18-2014 Resolved: 04-28-2015 04-28-2015 Episodic Other female genital disorders (2 sources) Postcoital bleeding; Translations: [Postcoital bleeding] Onset: 06-05-2012 Resolved: 07-03-2013 07-03-2013 Chronic Other inflammatory condition of skin (2 sources) Rosacea; Translations: [Rosacea, unspecified] Onset: 12-28-2006 Resolved: 07-21-2011 07-21-2011 Chronic Other inflammatory condition of skin (2 sources) Seborrheic dermatitis; Translations: [Seborrheic dermatitis, unspecified] Onset: 09-29-2008 Resolved: 07-21-2011 07-21-2011 Episodic Other screening for suspected conditions (not mental disorders or infectious disease) (3 sources) Encounter for screening for malignant neoplasm of colon; Translations: [Special screening for malignant neoplasms of colon] Onset: 09-05-2024 06-26-2023 Episodic Other skin disorders (2 sources) Seborrheic keratosis; Translations: [Other seborrheic keratosis] Onset: 12-28-2006 Resolved: 07-21-2011 07-21-2011 Episodic Other skin disorders (2 sources) Acne; Translations: [Other acne] Onset: 12-28-2006 Resolved: 07-21-2011 07-21-2011 Episodic Other skin disorders (4 sources) Alopecia; Translations: [Nonscarring hair loss, unspecified] Onset: 09-23-2008 Resolved: 07-21-2011 07-21-2011 Episodic Other skin disorders (2 sources) Telogen effluvium; Translations: [Telogen effluvium] Onset: 09-29-2008 Resolved: 07-21-2011 07-21-2011 Episodic Other skin disorders (2 sources) Solar lentigo; Translations: [Other melanin hyperpigmentation] Onset: 12-05-2013 Resolved: 04-28-2015 04-28-2015 Episodic Ovarian cyst (2 sources) Cyst of ovary; Translations: [Unspecified ovarian cyst, unspecified side] Onset: 04-17-2012 Resolved: 07-03-2013 07-03-2013 Episodic Skin and subcutaneous tissue infections (9 sources) Abscess of groin; Translations: [Cutaneous abscess of groin] Onset: 12-28-2006 Resolved: 07-21-2011 Episodic Spondylosis; intervertebral disc disorders; other back problems (17 sources) Backache; Translations: [Dorsalgia, unspecified] Onset: 08-11-2006 Resolved: 07-03-2013 12-19-2022 Episodic Viral infection (4 sources) Herpes simplex; Translations: [Herpesviral infection, unspecified] Onset: 11-11-2008 Resolved: 07-21-2011 12-03-2013 Episodic Results Test Name Value Interpretation Reference Range Facility [facility] 04-02-2025 [facility] Telephone (GENSWS) BROOKE LANDAVERDE ([id number]) 1970 F Date Time Provider Department 04/02/25 TOM RODRIGEZ GENSWS During your visit today, we recorded the following information about you: Carlos Cutler RN 04/02/2025 10:33 AM Signed Images requested from [place] for CT scan 04/01/25.Carlos Cutler RN Allergies As of Date: 04/02/2025 Noted Allergy Reaction CODEINE 01/17/2006 Comments: anxiety DEMEROL (MEPERIDINE (PF)) 01/17/2006 Comments: nausea LISINOPRIL 04/21/2014 3 - Cough Date Reviewed: 07/18/2024 Reviewed by: Marion Maciel, RN - Fully Assessed Prescriptions as of 04/02/2025 - venlafaxine (EFFEXOR) 25 mg tablet Take 25 mg by mouth daily at bedtime. FOR HOT FLASHES - amLODIPine (NORVASC) 5 mg tablet Take 1 tablet by mouth twice daily. - metoprolol succinate ER (TOPROL XL) 50 mg 24 hr tablet Take 1 tablet by mouth once daily. - atorvastatin (LIPITOR) 10 mg tablet Take 1 tablet by mouth once daily. - MULTIVITAMIN WITH MINERALS (MULTIVITAMIN AND MINERAL FORMULA ORAL) Take 1 tablet by mouth as needed. Problem List As Of Date 04/02/2025 Noted Resolved Cervicalgia [M54.2] 08/11/2006 07/03/2013 Rosacea [...] pain [R07.89] 01/30/2015 04/10/2017 Hyperlipidemia [E78.5] 03/06/2015 PONV (postoperative nausea and vomiting) [R11.2* Heart murmur [R01.1] 2023 Preop testing [Z01.818] 07/11/2024 Spinal stenosis of lumbar region with neurogeni*07/19/2024 Encounter Status:Closed by CARLOS CUTLER on 04/02/25 Normal [facility] ED MED ADMINISTRATION DETAIL on 04-02-2025 ED MED ADMINISTRATION DETAIL Otr Flatbed Driver Medication Administration Record [address] [place] [address] [id number] 04/01/2025 Patient: BROOKE LANDAVERDE Sex: Female : 1970 Age: 54y MEASUREMENTS: Wt: 61.2 kg, Ht/Holden: 60.0 in, BMI: 26.37 ALLERGIES: Demerol, codeine Medication Ordered Medication Administration Date/Time IV NS 0.9 % 500 mL 20:48 04/01 IV NS 0.9 % 500 mL started in bag#1 500 mL at 150 Started at 150 mL/hr (NOW mL/hr via Site# 1. Allergies verified and confirmed 5 rights. Via IV 20:48 04/01/2025 x1) pump. IV patency established. IV site checked: no pain, redness, or Debby Lal R.N. swelling. IV flushed thoroughly pre-medication administration. Stopped Information reviewed with patient including reason for taking this 23:05 04/01/2025 medication, signs of allergic reaction and precautions. Verbalizes Debby Lal R.N. understanding. Medication Wastage: 500 mL wasted. - 20:49 Scanned Debby Lal R.N. 23:05 04/01 Medication Discontinued: bag #1 completed. Total amount infused: 500 mL. IV patency established. IV site checked: no pain, redness, or swelling. IV flushed thoroughly post-medication administration. - 23:23 Debby Lal R.N. KetorOLAC 20:51 06/03 KetorOLAC (Toradol) IVP 30 mg given via Site# 1. Given (Toradol) IVP 30 mg Allergies verified and confirmed 5 rights. IV patency established. IV 20:51 04/01/2025 (NOW x1) site checked: no pain, redness, or swelling. IV flushed thoroughly Debby Lal R.N. pre-medication administration. Information reviewed with patient Scanned including reason for taking this medication, signs of allergic reaction and precautions. Verbalizes understanding. - 20:53 Debby Lal R.N. 1 of 2 Otr Flatbed Driver Medication Ordered Medication Administration Date/Time Zofran IVP 4 mg 20:51 06 Zofran IVP 4 mg given via Site# 1. Allergies verified Given (NOW x1) and confirmed 5 rights. IV patency established. IV site checked: no 20:51 04/01/2025 pain, redness, or swelling. IV flushed thoroughly pre-medication Debby Lal R.N. administration. Information reviewed with patient including reason Scanned for taking this medication, signs of allergic reaction and precautions. Verbalizes understanding. - 20:51 Debby Lal R.N. 2 of 2 [facility] ED NURSES CLINICAL NOTEon ED NURSES CLINICAL NOTE Nurse Narrative Nurse Clinical Narrative [address] [address] [id number] 04/01/2025 18:20:00 Patient: BROOKE LANDAVERDE Sex: Female : 1970 Age: 54y Disposition: Discharge to Home Disposition Decision Time: 22:22 04/01/2025 Departure Time: 23:10 04/01/2025 TRIAGE Arrived by private vehicle. Historian: (patient). Accompanied by family. Primary physician (Mesha Encinas/ vanessa Crespo). Triage time: 18:54 04/01/2025. Acuity: LEVEL 3. Chief Complaint: ABDOMINAL PAIN, NAUSEA and VOMITING and (upper back pain, right shoulder pain). Onset. (1 weeks ago). SEPSIS SCREEN: NEGATIVE. SIRS criteria negative. No possible sources of infection. -- 18:59 04/01/25 EDT Ashley Dahl R.N. 18:04/01/25. BP: 191/113 MAP: 139. HR: 81. RR: 17. O2 saturation: 99% Temperature: 98.1 F. Pain level now 810. -- 18:59 04/01/25 SWATI Dahl R.N. Measurements: 18:04/01/25 Wt: 61.2 kg, Ht/Holden: 60.0 in, BMI: 26.37 -- 18:04/01/25 SWATI Dahl R.N. Medications: Prilosec OTC 20 mg tablet,delayed release: 1 tablet twice a day. -- 19:04/01/25 SWATI Dahl R.N. rosuvastatin 20 mg tablet: 1 tablet once a day. -- 19:04/01/25 SWATI Dahl R.N. 1 of 4 Nurse Narrative metoprolol succinate ER 100 mg tablet,extended release 24 hr: 1 tablet once a day. -- 19:04/01/25 SWATI Dahl R.N. amlodipine 10 mg tablet: 1 tablet once a day TAKE 1 TABLET BY MOUTH ONCE DAILY. -- 19:04/01/25 SWATI Dahl R.N.Updated through eRx -- 22:04/01/25 RACHEALT Hernan Cage D.O. amlodipine 10 mg tablet: 1 tablet once a day. -- 22:04/01/25 RACHEALT Hernan Cage D.O. 18:54 04/01/25. Preferred Pharmacy: ([facility]). -- 18:59 04/01/25 SWATI Dahl R.N. Allergies: codeine -- 18:57 04/01/25 SWATI Dahl R.N. Demerol -- 18:57 04/01/25 SWATI Dahl R.N. Home Medications/Allergy Information Source: patient, family -- 18:57 04/01/25 SWATI Dahl R.N. Problems: Hypertension -- 18:57 04/01/25 SWATI Dahl R.N. Surgeries: Hysterectomy. partial -- 18:57 04/01/25 SWATI Dahl R.N. Adenoidectomy -- 18:58 04/01/25 EDT Ashley Dahl R.N. Tonsillectomy -- 18:58 04/01/25 EDT Ashley Dahl R.N. Back Surgery -- 18:58 04/01/25 EDT Ashley Dahl R.N. History 18:54 04/01/25. PAST MEDICAL HX: Immunizations: up-to-date. LNMP: No menstrual periods. SOCIAL HX: Never smoker. Occasional alcohol use. No drug use. The patient has not traveled outside the [place] Infectious disease exposure: No infectious disease exposure. ABUSE ASSESSMENT: The patient answered yes to the question(s) Do you feel safe in your home? and 2 of 4 Nurse Narrative no to the question(s) Are you afraid to go home?. Abuse denied. No suspicion of abuse. SELF HARM ASSESSMENT: Self harm assessment was performed. The patient answered no to the question(s) Have you recently felt down, depressed, or hopeless? and Do you have thoughts of harming or killing yourself?. FALL RISK ASSESSMENT: Fall risk assessment completed. No risk factors identified. -- 18:59 04/01/25 EDT Ashley Dahl R.N. Interventions 18:54 04/01/25. Advanced care plan discussed with patient (Full Code). -- 18:59 04/01/25 RACHEALT Ashley Dahl R.N. PHYSICAL ASSESSMENT 18:59 04/01/25. BP: 191/113 MAP: 139. HR: 81. RR: 17. O2 saturation: 99% Temperature: 98.1 F. Pain level now 8/10. -- 22:48 04/01/25 EDT Vee Boswell R.N. 20:20 04/01/25. BP: 157/84 MAP: 131 mmHg. HR: 61 bpm. -- 22:48 04/01/25 EDT Vee Boswell R.N. 20:35 04/01/25. BP: 152/87 MAP: 108 mmHg. HR: 60 bpm. -- 22:48 04/01/25 EDT Vee Boswell R.N. 22:00 04/01/25. Ambulatory to room. Patient gowned. GENERAL / NEURO / PSYCH: Alert. Oriented X 4. HEENT: Mucous membranes are pink. RESPIRATORY: Respirations not labored. GI / : Other abdominal findings: (c/o pain to right flank area.). Abdomen soft. SKIN: Skin is warm and dry. -- 22:51 04/01/25 EDT Vee Boswell R.N. NURSING PROGRESS NOTES 19:05 04/01/25. Urine collected. -- 19:15 04/01/25 EDT Ashley Dahl R.N. 20:30 04/01/25. ED physician at the patient's bedside. -- 20:44 04/01/25 EDT Debby Lal R.N. 20:40 04/01/25. Site #1 started via IV in the right antecubital space with a 20g angiocath with aseptic technique and good blood return; 1 attempt. Blood drawn: rainbow set and adler tube(s). Labeled in the presence of the patient and sent to the lab. Saline lock flushed with 5 mL saline. -- 20:43 04/01/25 EDT Debby Lal R.N. 20:48 04/01/25. IV NS 0.9 % 500 mL started in bag#1 500 mL at 150 mL/hr via Site# 1. Allergies verified and confirmed 5 rights. Via IV pump. IV patency established. IV site checked: no pain, redness, or swelling. IV flushed thoroughly pre-medication administration. Information reviewed with patient including reason for (more content not included)... Normal [facility] ED ORDER SHEET (CPOE ONLY)on 04-02-2025 ED ORDER SHEET (CPOE ONLY) Order Sheet Order Sheet [address] [place] [address] [id number] 04/01/2025 Patient: BROOKE LANDAVERDE Sex: Female : 1970 Age: 54y MEASUREMENTS: Wt: 61.2 kg, Ht/Holden: 60.0 in, BMI: 26.37 ALLERGIES: Demerol, codeine MEDICATION/IV/DRIP/FL UID ORDERS Order Description Priority Entered Acknowledged Completed IV NS 0.9 %500 mL at 150 mL/hr 20:32 04/01/2025 20:35 20:49 (NOW x1) Hernan Cage D.O. 04/01/2025 04/01/2025 Debby Burroughs R.NAna RAnaNAna KetorOLAC (Toradol) IVP30 mg 20:32 04/01/2025 20:35 20:53 (NOW x1) Hernan Cage D.O. 04/01/2025 04/01/2025 Debby Burroughs R.N. R.NAna Reason for ordering with alerts: Benefits outweigh risks --20:32 04/01/2025 Hernan Cage D.O. Zofran IVP4 mg (NOW x1) 20:32 04/01/2025 20:35 20:51 Hernan Cage D.O. 04/01/2025 04/01/2025 Debby Burroughs R.N. R.NAna Ampicillin-Sulbactam (Unasyn) 21:55 04/01/2025 Cancelled: Verbal per Physician IVPB 3gm/100ml NS3 g diluted Hernan Cage D.O. 22:54 EDT Debby Lal R.N. in sodium chloride IVPB 0.9 % Minibag+ 100 mL at 200 mL/hr 1 of 3 Order Sheet (NOW x1) LAB ORDERS Order Description Priority Entered Acknowledged Collected Completed Urinalysis Stat Stat 19:14 04/01/2025 19:14 04/01/2025 19:15 04/01/2025 Ashley Harman Shauna Ewing, R.N. R.N. R.N. Per Protocol, Auth by: Hernan Cage D.O. Reason for Lab: abd pain CBC w Diff Stat Stat 20:32 04/01/2025 20:35 04/01/2025 20:35 04/01/2025 Debby Davis Katelyn Horst, D.O. R.N. R.N. Lipase Stat Stat 20:32 04/01/2025 20:35 04/01/2025 20:35 04/01/2025 Debby Davis Katelyn Horst, D.O. R.N. R.N. CMP Stat Stat 20:32 04/01/2025 20:35 04/01/2025 20:35 04/01/2025 Debby Davis Katelyn Horst, D.O. R.NAna RAnaNAna DIAGNOSTIC STUDY ORDERS Order Description Priority Entered Acknowledged Completed CT ABD/PEL w Cont Stat Stat 20:32 04/01/2025 20:35 Hernan Cage D.O. 04/01/2025 Debby Lal R.N. Order Comments: 20:31 04/01/2025: (Right upper quadrant and right flank pain); Status: Not . Hernan Cage D.O. Reason for Study: Abdominal Pain 2 of 3 Order Sheet STAFF ORDERS Order Description Priority Entered Acknowledged Collected Completed IV Saline Lock 20:32 04/01/2025 20:35 04/01/2025 20:35 04/01/2025 Debby Davis Katelyn Horst, D.O. R.NAna RAnaNAna NPO 21:55 04/01/2025 21:58 04/01/2025 Debby Davis D.O. RAnaNAna [Electronically signed by Hernan Cage D.O. (04/02/2025 01:35 EDT)] 3 of 3 Normal [facility] ED PHYSICIAN CLINICAL REPORT on 04-02-2025 ED PHYSICIAN CLINICAL REPORT Narrative Physician Clinical Narrative [address] [address] [id number] 04/01/2025 18:20:00 Patient: BROOKE LANDAVERDE Sex: Female : 1970 Age: 54y Disposition: Discharge to Home Disposition Decision Time: 22:22 04/01/2025 Departure Time: 23:10 04/01/2025 Measurements Wt: 61.2 kg, Ht/Holden: 60.0 in, BMI: 26.37 Initial Vital Sign Measured Time BP MAP HR RR O2Sat ETCO2 Temp Pain GCS RTS 18:59 04/01/2025 191/113 139 81 17 99% 98.1 F 8 Time Seen: 20:17 04/01/2025. Arrived- By private vehicle. Historian- patient. HISTORY OF PRESENT ILLNESS Chief Complaint: ABDOMINAL PAIN. (this 54-year-old female presents to ER complaining of some right flank pain with radiation anteriorly into the right upper quadrant 2 weeks ago. She also stated she had some pain in the right upper scapula. She has saw her PCP a week ago and thought that she might have some gallbladder issues. Today her symptoms have gotten worse and she saw the PCP again today who palpated of the right upper quadrant and elicited pain and told her that she has got a gallbladder problem. She also admitted to nausea And belching with today some dry heaves but no vomiting. Patient has history of partial hysterectomy but no other abdominal surgeries. She denies any fever, diarrhea, constipation Or dysuria. patient denies any specific food intolerances but states her pain usually got worse in the flank area after eating.). The patient has had nausea. No vomiting or diarrhea. Recent medical care: The patient was seen recently by a health care provider (by PCP today and 1 week ago). 1 of 13 Narrative REVIEW OF SYSTEMS RESPIRATORY: No difficulty breathing. CVS: No chest pain. THROAT: No sore throat. NEUROLOGICAL: No headache. : No difficulty with urination. GI: No constipation, black stools or hematemesis. Status: Not . PAST HISTORY See nurses notes. Hypertension Surgeries: Adenoidectomy Back Surgery Hysterectomy: Body Site partial Tonsillectomy Medications: amlodipine 10 mg tablet: 1 tablet once a day. metoprolol succinate ER 100 mg tablet,extended release 24 hr: 1 tablet once a day. Prilosec OTC 20 mg tablet,delayed release: 1 tablet twice a day. rosuvastatin 20 mg tablet: 1 tablet once a day. Allergies: codeine Demerol Home Medications/Allergy Information Source: patient, family - Ashley Dahl R.N., 04/01/2025 18:57 EDT SOCIAL HISTORY Never smoker. 2 of 13 Narrative ADDITIONAL NOTES The nursing notes have been reviewed. PHYSICAL EXAM Appearance: Alert. Oriented X3. No acute distress. Eyes: Pupils equal, round and reactive to light. Eyes normal inspection. ENT: Ears normal. Nose normal. Pharynx normal. Neck: Normal inspection. Neck supple. CVS: Normal heart rate. Heart sounds normal. Pulses normal. Abdomen: Soft. Tenderness in the right upper quadrant. Bowel sounds normal. No organomegaly. No mass. (there is tenderness to the palpation in the right upper quadrant with positive Sawyer's. There is also some right CVA pain with percussion.). Back: Mild CVA tenderness on the right. Skin: Normal skin color. Extremities: Extremities exhibit normal ROM. No lower extremity edema. Neuro: Oriented X 3. LABS, X-RAYS, AND EKG Laboratory Tests: CBC + DIFF Final MORRIS: 04/01/2025 20:40:00 EDT MsgRcvd: 04/01/2025 20:53 EDT Lab Test Result Reference Status Received Comments 04/01/2025 20:53 CBC-COMPLETE CBC + DIFF Final EDT BLOOD COUNT 04/01/2025 20:53 WBC 8.9 x 10/UL 4.5 - 10.8 Final EDT 5.74 x 10/UL 04/01/2025 20:53 RBC 4.10 - 5.30 Final Above high normal EDT 3 of 13 Narrative Lab Test Result Reference Status Received Comments 04/01/2025 20:53 HEMOGLOBIN 15.2 g/dl 12.0 - 16.0 Final EDT 04/01/2025 20:53 HEMATOCRIT 44.4 % 34.0 - 46.0 Final EDT 77 fl 04/01/2025 20:53 MCV 80 - 99 Final Below low normal EDT 26 pg 04/01/2025 20:53 MCH 27 - 33 Final Below low normal EDT 04/01/2025 20:53 MCHC 34 X10 3 32 - 36 Final EDT 04/01/2025 20:53 RDW/CV 15.0 % 12.0 - 15.6 Final EDT 04/01/2025 20:53 PLATELET 259 x10/UL 150 - 450 Final EDT 04/01/2025 20:53 AUTOMATED MPV 8.7 fl 6.6 - 10.5 Final EDT DIFFERENTIAL 04/01/2025 20:53 NEUT % 55.1 % 46.0 - 76.0 Final EDT 04/01/2025 20:53 LYMPH % 35.1 % 20.0 - 45.0 Final EDT 04/01/2025 20:53 MONOS % 6.9 % 0.0 - 10.0 Final EDT 04/01/2025 20:53 EO % 2.5 % 0.0 - 7.0 Final EDT 04/01/2025 20:53 BASO % 0.3 % 0.0 - 2.0 Final EDT 4 of 13 Narrative Lab Test Result Reference Status Received Comments 3.14 x10/UL 04/01/2025 20:53 Lymph # 0.80 - 2.80 Final Above high normal EDT 04/01/2025 20:53 Neut # 4.92 x10/UL 1.50 - 7.10 Final EDT 04/01/2025 20:53 (more content not included)... Normal [facility] ED SUPER BILLon 04-02-2025 ED SUPER BILL [address] [address] [id number] 04/01/2025 Patient: BROOKE LANDAVERDE Sex: Female : 1970 Age: 54y Item Facility Professional Category Description Code Code Quantity Fee Total Drugs Normal Saline 384900 1 $0.00 $0.00 1000cc (790593) Nurse/E/M EMERGENCY 982453 1 $0.00 $0.00 DEPARTMENT VISIT HIGH/URGENT SEVERITY (64488-12) Nurse/IV/IM/Infusions Hydration 532323 2 $0.00 $0.00 additional hour (65320) Nurse/IV/IM/Infusions IVP additional 514389 1 $0.00 $0.00 push (15637) Nurse/IV/IM/Infusions IVP initial 186799 1 $0.00 $0.00 (68526) Grand Total $0.00 Providers Hernan Cage D.O. 1 of 2 [facility] Chief Complaint ABDOMINAL PAIN. Principal Diagnosis Chronic right upper quadrant abdominal pain of unknown cause. ICD-10 Codes R10.11: Right upper quadrant pain 2 of 2 Normal [facility] ED VISIT SUMMARYon ED VISIT SUMMARY Visit Overview Visit Overview [address] [address] [id number] 04/01/2025 Patient: BROOKE LANDAVERDE Sex: Female : 1970 Age: 54y 04/02/2025 01:35 AM EDT ED Arrival:18:20 04/01/2025 EDT Status:not Recent Travel:no Language:eng Adv Directive: Isolation Status: Ethnicity:N Fall Risk:no risk Infectious Disease Exposure:no Measurements:5' / 152.4 Self-Harm Status:risk Sepsis Screen:negative cm 135.0 lb / 61.2 kg Chief Complaint:ABDOMINAL PAIN, NAUSEA, VOMITING, (1 weeks ago), ([place]- Ce/ saw Bernarda Crespo), and (upper back pain, right shoulder pain ) ALLERGIES codeine Demerol HOME MEDICATIONS amlodipine 10 mg tablet: 1 tablet once a day. metoprolol succinate ER 100 mg tablet,extended release 24 hr: 1 tablet once a day. Prilosec OTC 20 mg tablet,delayed release: 1 tablet twice a day. 3 Visit Overview rosuvastatin 20 mg tablet: 1 tablet once a day. PAST MEDICAL HISTORY / PROBLEMS Hypertension Immunizations: up-to-date LNMP: No menstrual periods See nurses notes PAST SURGICAL HISTORY Adenoidectomy Back Surgery Hysterectomy. partial Tonsillectomy SOCIAL HISTORY Smoking status: No Alcohol use: Yes Drug use: No ED COURSE MEDICATIONS GIVEN IN EMERGENCY DEPARTMENT 20:48 04/01/25 IV NS 0.9 % 500 mL 150 mL/hr 20:51 04/01/25 Zofran IVP 4 mg 20:51 04/01/25 KetorOLAC (Toradol) IVP 30 mg IV SITE INFORMATION INTAKE OUTPUT REASSESMENT (most recent) 22:00 04/01/25. Ambulatory to room. Patient gowned. GENERAL / NEURO / PSYCH: Alert. Oriented X 4. HEENT: Mucous membranes are pink. RESPIRATORY: Respirations not labored. GI / : Other abdominal findings: (c/o pain to right flank area.). Abdomen soft. SKIN: Skin is warm and dry. 3 Visit Overview VITAL SIGNS First Vitals Last Vitals Temp 18:59 04/01/25 98.1 F Temp 23:05 04/01/25 BP 18:04/01/25 191/113 BP 23:04/01/25 HR 18:04/01/25 81 HR 23:04/01/25 62 RR 18:04/01/25 17 RR 23:04/01/25 15 O2 Sat 18:04/01/25 99% O2 Sat 23:05 04/01/25 96% RA Pain 18:59 04/01/25 8 Pain 23:05 04/01/25 4 ETCO2 18:59 04/01/25 ETCO2 23:05 04/01/25 GCS 18:59 04/01/25 GCS 23:05 04/01/25 RTS 18:59 04/01/25 RTS 23:05 04/01/25 PROCEDURES NURSING INTERVENTIONS LABS / STUDIES LABS / STUDIES ORDERED CBC w Diff CMP CT ABD/PEL w Cont Lipase Urinalysis CLINICAL IMPRESSION CHRONIC RIGHT UPPER QUADRANT ABDOMINAL PAIN OF UNKNOWN CAUSE 3 of 3 Normal [facility] ED VITALS FLOW SHEETon 04-02 ED VITALS FLOW SHEET Vitals Vital Sign Flow Sheet [address] [place] [address] [id number] 04/01/2025 Patient: BROOKE LANDAVERDE Sex: Female : 1970 Age: 54y Measurements Wt: 61.2 kg, Ht/Holden: 60.0 in, BMI: 26.37 Measured Time BP MAP HR RR O2Sat ETCO2 Temp Pain GCS RTS 23:05 04/01/2025 62 15 96% RA 4 22:49 04/01/2025 151/80 103 57 22:47 04/01/2025 131/92 105 61 21:20 04/01/2025 119/76 92 58 21:18 04/01/2025 61 94% 21:13 04/01/2025 61 94% 21:08 04/01/2025 62 94% 21:04 04/01/2025 139/78 105 61 21:03 04/01/2025 57 98% 20:58 04/01/2025 54 97% 20:53 04/01/2025 58 97% 20:49 04/01/2025 147/84 105 58 20:48 04/01/2025 63 96% 20:43 04/01/2025 60 93% 20:38 04/01/2025 59 94% 1 of 2 Vitals Measured Time BP MAP HR RR O2Sat ETCO2 Temp Pain GCS RTS 20:35 04/01/2025 152/87 108 60 20:20 04/01/2025 157/84 131 61 18:59 04/01/2025 191/113 139 81 17 99% 98.1 F 8 2 of 2 Normal [facility] CBC + DIFFon 04-01-2025 Baso # 0.03 x10EE3/UL Normal 0.00 - 0.10 [facility] Comment on above: Performed By: #### 2 [id number] #### [facility],[address] [place], [place] [id number] Basophils/100 WBC (Bld) 0.3 % Normal 0.0 - 2.0 [facility] Comment on above: Performed By: #### 2 [id number] #### [facility],[address] [place] [address] CBC + DIFF Normal [facility] Comment on above: Result Comment: CBC- COMPLETE BLOOD COUNT Performed By: #### 2 [id number] #### [facility],[address] [place] [address] EO # 0.23 x10EE3/UL Normal 0.00 - 0.50 [facility] Comment on above: Performed By: #### 2 91217 #### [facility],[address] [place], [place] [id number] Eosinophils/100 WBC (Bld) 2.5 % Normal 0.0 - 7.0 [facility] Comment on above: Performed By: #### 2 51482 #### [facility],[address] [place] [address] Erythrocyte distribution width (RBC) [Ratio] 15.0 % Normal 12.0 - 15.6 [facility] Comment on above: Performed By: #### 2 72528 #### [facility],[address] [place] [address] Hematocrit (Bld) [Volume fraction] 44.4 % Normal 34.0 - 46.0 [facility] Comment on above: Performed By: #### 2 [id number] #### [facility],[address] [place], [place] [id number] Hemoglobin (Bld) [Mass/Vol] 15.2 g/dL Normal 12.0 - 16.0 [facility] Comment on above: Performed By: #### 2 21078 #### [facility],[address] [place] [address] Lymph # 3.14 x10EE3/UL High 0.80 - 2.80 [facility] Comment on above: Performed By: #### 2 92753 #### [facility],[address] [place] [address] Lymphocytes/100 WBC (Bld) 35.1 % Normal 20.0 - 45.0 [facility] Comment on above: Performed By: #### 2 52240 #### [facility],[address] [place] [address] MANUAL DIFF N/A Normal [facility] Comment on above: Performed By: #### 2 04844 #### [facility],[address] [place] [address] MCH (RBC) [Entitic mass] 26 pg Low 27 - 33 [facility] Comment on above: Performed By: #### 2 35235 #### [facility],[address] [place] [address] MCHC 34 X10 3 Normal 32 - 36 [facility] Comment on above: Performed By: #### 2 25498 #### [facility],[address] [place] [address] MCV (RBC) [Entitic vol] 77 fL Low 80 - 99 [facility] Comment on above: Performed By: #### 2 93956 #### [facility],[address] [place] [address] Sibley # 0.62 x10EE3/UL Normal 0.20 - 1.00 [facility] Comment on above: Performed By: #### 2 33761 #### [facility],[address],[place] [address] MONOS % 6.9 % Normal 0.0 - 10.0 [facility] Comment on above: Performed By: #### 2 21461 #### [facility],[address] [place] [address] Morphology Giovanny (Bld) [Interp] N/A Normal [facility] Comment on above: Performed By: #### 2 99570 #### [facility],[address] [place] [address] Neut # 4.92 x10EE3/UL Normal 1.50 - 7.10 [facility] Comment on above: Performed By: #### 2 50198 #### [address] [address] Neutrophils/100 WBC (Bld) 55.1 % Normal 46.0 - 76.0 [facility] Comment on above: Performed By: #### 2 25878 #### [facility],[address] [place], [place] [id number] PLATELET 259 x10EE3/UL Normal 150 - 450 [facility] Comment on above: Performed By: #### 2 61772 #### [address] [address] Platelet mean volume (Bld) [Entitic vol] 8.7 fL Normal 6.6 - 10.[address] [facility] Comment on above: Result Comment: AUTO MATED DIFFERENTIAL Performed By: #### 2 23843 #### [address] [address] RBC 5.74 x 10EE6/UL High 4.10 - 5.30 [facility] Comment on above: Performed By: #### 2 39731 #### [facility],[address] [place] [address] 00543 WBC 8.9 x 10EE3/UL Normal 4.5 - 10.8 [facility] Comment on above: Performed By: #### 2 33316 #### [place] [address],[place] [address] CMP with eGFRon 04-01-2025 AGE 54 years Normal [facility] Comment on above: Performed By: #### 2 97936 #### [facility],[address] [place] [address] 22581 Albumin [Mass/Vol] 4.2 g/dL Normal 3.4 - 5.0 [facility] Comment on above: Performed By: #### 2 11863 #### [facility],[address] [place] [address]15 Albumin/Globulin [Mass ratio] 1.1 {ratio} Normal 0.9 - 1.6 [facility] Comment on above: Performed By: #### 2 40633 #### [facility],[address] [place] [address] 31784 ALK PHOS 127 U/L High 46 - 116 [facility] Comment on above: Performed By: #### 2 41805 #### [facility],[address] [place] [address] 75451 ALT [Catalytic activity/Vol] 23 U/L Normal 16 - 63 [facility] Comment on above: Performed By: #### 2 45871 #### [facility],[address] [place] [address] 13241 Anion gap [Moles/Vol] 12 mmol/L Normal 10 - 20 [facility] Comment on above: Performed By: #### 2 17005 #### [facility],[address] [place] [address] 58082 AST [Catalytic activity/Vol] 14 U/L Normal 13 - 39 [facility] Comment on above: Performed By: #### 2 45194 #### [facility],[address] [place] [address]34 B/C RATIO 16 ratio Normal 0 - 30 [facility] Comment on above: Performed By: #### 2 48832 #### [facility],[address] [place] [address] 44130 Bilirubin [Mass/Vol] 0.4 mg/dL Normal 0.2 - 1.0 [facility] Comment on above: Performed By: #### 2 10452 #### [facility],[address] [place] [address] 62645 Calcium [Mass/Vol] 9.5 mg/dL Normal 8.5 - 10.1 [facility] Comment on above: Performed By: #### 2 43546 #### [facility],[address] [place] [address] 86696 Chloride [Moles/Vol] 103 mmol/L Normal 98 - 107 [facility] Comment on above: Performed By: #### 2 04538 #### [facility],[address] [place] [address] CMP with eGFR Normal [facility] Comment on above: Result Comment: COMP REHENSIVE METABOLIC PANEL Performed By: #### 2 08390 #### [facility],[address] [place] [address]109 CO2 [Moles/Vol] 31.0 mmol/L Normal 21.0 - 32.0 [facility] Comment on above: Performed By: #### 2 09685 #### [facility],[address] [place] [address] 84344 Creatinine [Mass/Vol] 0.67 mg/dL Normal 0.55 - 1.02 [facility] Comment on above: Performed By: #### 2 73493 #### [facility],[address] [place] [address] 27920 GFR/1.73 sq M.predicted among non-blacks MDRD (S/P/Bld) [Vol rate/Area] mL/min/{1.73_m2} Normal 60 - 999 [facility] Comment on above: Performed By: #### 2 73926 #### [facility],[address] [place] [address]70 Result Comment: ACCO RDING TO THE NATIONAL KIDNEY DISEASE EDUCATION PROGRAM(NKDE), A NORMAL eGFR IS A VALUE GREATER THAN OR EQUAL TO 60 ML/MIN/1.73 SQ METERS. CHRONIC KIDNEY DISEASE: <60mL/MIN/1.73 SQ METERS KIDNEY FAILURE: <15mL/MIN/1.73 SQ METERS THIS TEST SHOULD ONLY BE USED FOR PATIENTS 18 YEARS OF AGE AND OLDER. Globulin (S) [Mass/Vol] 3.7 g/dL Normal 1.5 - 3.8 [facility] Comment on above: Performed By: #### 2 64297 #### [facility],[address] [place] [address] 28899 Glucose [Mass/Vol] 94 mg/dL Normal 74 - 106 [facility] Comment on above: Performed By: #### 2 99793 #### [facility],[address] [place] [address] 37331 Potassium [Moles/Vol] 3.9 mmol/L Normal 3.5 - 5.1 [facility] Comment on above: Performed By: #### 2 47568 #### [facility],[address] [place] [address] 41835 Protein [Mass/Vol] 7.9 g/dL Normal 6.4 - 8.2 [facility] Comment on above: Performed By: #### 2 47022 #### [facility],[address] [place] [address] 04371 Sodium [Moles/Vol] 142 mmol/L Normal 136 - 145 [facility] Comment on above: Performed By: #### 2 94431 #### [facility],[address] [place] [address] 93600 Urea nitrogen [Mass/Vol] 11 mg/dL Normal 7 - 18 [facility] Comment on above: Performed By: #### 2 68769 #### [facility],[address] [place] [address] ABDOMEN/PELVIS [facility] 2024 CT ABDOMEN/PELVIS [place] [address] Patient: BROOKE LANDAVERDE Phone#: : 1970 Age: 54 Gender: F Pt. Type: ER Account: [id number] Location: 05 Ordering: DR. HERNAN CAGE Exam Date: 04/01/2025/21:19 Family Phys: GÓMEZ MONTALVO Charge Code: 251163 Physician: [facility] Order #: [id number] Dose#: 11.2 PROCEDURE: CT ABDOMEN/PELVIS WITH CONTRAST COMPARISON: None. INDICATIONS: Abdominal pain. TECHNIQUE: After obtaining the patient's consent, CT images were created with non-ionic intravenous contrast material. All CT scans at this facility use dose modulation, iterative reconstruction, and/or weight based dosing when appropriate to reduce radiation dose to as low as reasonably achievable. IV CONTRAST: Omnipaque 350,80ml TOTAL DOSE: 11.20 CTDIvol(mGy) FINDINGS: LIVER: There is a 12 millimeter hypodense right hepatic lobe focus, possible cyst.. No enlargement, atrophy, abnormal density, or significant focal lesion. BILIARY: Normal. No visible dilatation or calcification. PANCREAS: Normal. No lesion, fluid collection, ductal dilatation, or atrophy. SPLEEN: Normal. No enlargement or focal lesion. KIDNEYS: Normal. No mass, obstruction, or calcification. ADRENALS: Normal. No mass or enlargement. AORTA/VASCULAR: Normal. No aneurysm or dissection. RETROPERITONEUM: Normal. No mass or adenopathy. BOWEL/MESENTERY: There is moderate stool retention. The appendix is thickened at 9 millimeters. There are new no other inflammatory changes identified. ABDOMINAL WALL: Normal. No mass or hernia. URINARY BLADDER: Normal. No visible focal wall thickening, lesion, or calculus. PELVIC NODES: Normal. No adenopathy. PELVIC ORGANS: Normal. No visible mass. Pelvic organs appropriate for patient age. BONES: Surgical hardware is present at L 3, L4 and L5. LUNG BASES: Normal. No visible pulmonary or pleural disease. OTHER: Negative. Continued Report - Page 2 of 2 Patient: BROOKE LANDAVERDE Phone#: : 1970 Age: 54 Gender: F Pt. Type: ER Account: [id number] Location: 052 Ordering: DR. HERNAN CAGE Exam Date: 04/01/2025/21:19 Family Phys: GÓMEZ MONTALVO Charge Code: 037905 Physician: [facility] Order #: [id number] Dose#: 11.2 CONCLUSION: 1. The appendix is thickened consistent with appendicitis. There is no evidence of extraluminal air or abscess. 2. No other acute abdominal or pelvic abnormality is identified. 3. This report was communicated by telephone to Dr. Hernan Cage at the dictation time shown below. Dictated by: Eleanor Bhatt MD on 04/01/2025 at 21:45 Approved by: Eleanor Bhatt MD on 04/01/2025 at 21:54 Normal [facility] Internal Medicine Office Vis iton 04-01-2025 Internal Medicine Office Visit [facility] [place] [address] [place] [address] OFFICE VISIT Date of Service: 04/01/25 MR#: [id number] Acct: [id number] Name: BROOKE LANDAVERDE Rep #: [id number] : 1970 Provider: THOMAS gould Age/Sex: 54/F Location: [facility] Status: Signed with Addenda ADDENDUM by THOMAS Crespo on 04/01/25 at 1712 HPI Details: BROOKE LANDAVERDE, is a 54 F who presents to the office today for continued back and shoulder pain she was seen previously by Gerard Watson who suggested it could be gallbladder related. Monday she started with pain was nauseated with vomiting the pain was located on her right side has intermittent nausea and pain. Pain and nausea improved with rest worse with eating had difficulty sleeping last night due to the discomfort has noted increased belching recently started taking omeprazole since symptoms started pain is dull and achy patient was at work today left for this appointment and states she will be returning to work after appointment as pain is tolerable unless she eats. Assessment and Plan Assessment and Plan (1) Abdominal discomfort: Status: Acute Comment: Abdominal discomfort with fullness noted and increased belching. History of previous intermittent pain similar 3 days ago pain returned and has not diminished accompanied with nausea no diarrhea no fever or chills. Will obtain abdominal ultrasound as symptoms are consistent with cholecystitis. Instructed patient to go to emergency room if pain worsens if eyes or skin turn yellow or orange or further decline in status patient verbalized understanding Orders: Orders Gallbladder Today R10.9 - Unspecified abdominal pain 04/01/25 1712 Date Bernarda Crespo [employer] WORK[employer]-C cc: * Signed Intake Vital Signs 03/12/25 10:05 04/01/25 10:04 Height 5 ft 4 in 5 ft 4 in Weight: 138 lb 136 lb BMI 23.6 23.3 BP 142/82 H 130/84 H Blood Pressure Location Lt brachial Lt brachial Position Sitting Sitting Respiration 18 16 Pulse 76 72 Pulse Source Monitor Monitor Temp 97.8 F 98.1 F Temp Source Temporal Temporal Pulse Oximetry (%) 97 98 Oxygen Delivery Method room air room air Intake Visit Reasons: GALLBLADDER 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 Marketing 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 Required: No Is patient in pain?: Yes (R side) Pain scale (1-10): 5 Allergies codeine Allergy (Mild, Verified 04/01/25 09:47) anxious meperidine HCl (From Demerol) Adverse Reaction (Verified 04/01/25 09:47) Nausea/Vom/Diarrhea Medications ???Medication ???Instructions ???Recorded ???Confirmed ???Type hydrochlorothiazide 12.5 mg tablet 12.5 mg PO QAM PRN 12/13/2101/21 History amlodipine 10 mg tablet 10 mg PO DAILY #90 tabs 03/12/25 0 04/01/25 Rx metoprolol succinate 100 mg 100 mg PO DAILY #90 tabs 03/12/25 04/01/25 Rx tablet,extended release 24 hr rosuvastatin 20 mg tablet 20 mg PO DAILY #90 TABLETS 5 04/01/25 Rx calcium carbonate (Tums) 300 mg PO TID 04/01/25 04/01/25 Hi story omeprazole 20 mg capsule,delayed 20 mg PO BID 04/01/25 04/01/25 His tory release Nurse's Note: Pt has been having ongoing back/shoulder pain, Was seen w/ Gerard Walter previously and he mentioned it could be gallbladder related. She brushed it off she states Monday she started w/ the severe pain, got super nauseated and vomited a lot. The pain is localized to R side and has ongoing nausea and pain that returns after eating anything. Pt has increased belching and denies sulfur burps. Wondered if it was an ulcer started taking omeprazole 20mg since then. Pt states that the pain is pretty much there all the time and is dull and achey. Pt states the pain intensifies and wraps/radiates around to R side after she eats anything, and the nausea and burping increased also. Has not changed diet and eats clean w/ low fat and nongreasy things due to dietary restrictions. Pt has been treating w/ tums, tylneol, and omeprazole. Pt denies abdominal pain but does have bloating. Pt denies change in bowels, denies flatuence. Pt states after eating pain scale increased to 8/10. [facility] Medical History Hot flashes due to menopause Preoperative evaluation to rule out surgical contraindication Hyperlipidemia Colon cancer screening Preventative health care Chronic back pain Lumbar radiculopathy Acute lumbar myofascial strain Abscess of left groin Generalized anxiety disorder with panic attacks High blood pressure Heart murmur Frequent headaches H/O emotional problems Back pain Vitamin D deficiency High cholesterol Surgical History H/O spinal fusion Hx of tonsillectomy History of hysterectomy History of wisdom tooth extrac (more content not included)... Normal [facility] LIPASEon 04-01-2025 Lipase [Catalytic activity/Vol] 23.0 U/L Normal 15.0 - 78.0 [facility] Comment on above: Result Comment: *PLE ASE NOTE THAT RANGES FOR LIPASE HAVE CHANGED OF 10/27/23 DUE TO AN ASSAY UPDATE BY THE ATOMIZER ASSEMBLER.THE NEW ASSAY RANGE IS 6-250 U/L, WITH A REFERENCE RANGE OF 16-77 U/L. Performed By: #### 2 19675 #### [facility],[address] [place] [address] URINALYSISon 04-01-2025 Bilirubin Ql (U) Negative Normal NORMAL: NEGATIVE [facility] Comment on above: Performed By: #### 2 41250 ####[facility],[address] [place] [address] Clarity (U) clear Normal NORMAL: CLEAR [facility] Comment on above: Performed By: #### 2 08087 ####[facility],[address] [place] [address] Color (U) p.yel Normal NORMAL: YELLOW [facility] Comment on above: Performed By: #### 2 88285 ####[facility],[address] [place], [place] [address] Glucose Ql (U) NORM Normal NORMAL: NORMAL [facility] Comment on above: Performed By: #### 2 07491 ####[facility],[address] [place], [place] [address] Hemoglobin Ql (U) Negative Normal NORMAL: NEGATIVE [facility] Comment on above: Performed By: #### 2 69740 ####[facility],[address] [place], [place] [address] Ketone Negative Normal NORMAL: NEGATIVE [facility] Comment on above: Performed By: #### 2 62948 ####[facility],[address] [place], [place] [address] Leukocytes Negative Normal NORMAL: NEGATIVE [facility] Comment on above: Performed By: #### 2 29412 ####[facility],[address] [place], [place] [address] Nitrite Ql (U) Negative Normal NORMAL: NEGATIVE [facility] Comment on above: Performed By: #### 2 92229 ####[facility],[address] [place], [place] [address] pH (U) 7 [pH] Normal NORMAL: 5.0-8.0 [facility] Comment on above: Performed By: #### 2 70446 ####[facility],[address] [place] [address] Protein Ql (U) Negative Normal NORMAL: NEGATIVE [facility] Comment on above: Performed By: #### 2 23446 ####[facility],[address] [place] [address] Sp Seney 1.005 Low NORMAL: 1.010-1.030 [facility] Comment on above: Performed By: #### 2 33791 ####[facility],[address] [place] [address] Specimen Type R Normal [facility] Comment on above: Performed By: #### 2 33011 ####[facility],[address] [place] [address] Urinalysis dipstick W Reflex Microscopic panel (U) NOT INDICATED Normal [facility] Comment on above: Performed By: #### 2 42094 ####[facility],[address] [place] [address] Urobilinog NORM Normal NORMAL: NORMAL [facility] Comment on above: Performed By: #### 2 45418 ####[facility],[address] [place] [address] Internal Medicine Office Vis ito 03-12-2025 Internal Medicine Office Visit [facility] [address] [place] [address] OFFICE VISIT Date of Service: 03/12/25 MR#: [id number] Acct: [id number] Name: BROOKE LANDAVERDE Rep #: [id number] : 1970 Provider: JALEEL Gaming Age/Sex: 54/F Location: [facility] Status: Signed Intake Vital Signs 08/19/24 11:32 03/12/25 10:05 Height 5 ft 4 in 5 ft 4 in Weight: 144 lb 138 lb BMI 24.7 23.6 BP 126/70 H 142/82 H Blood Pressure Location Lt brachial Lt brachial Position Sitting Sitting Respiration 16 18 Pulse 77 76 Pulse Source Monitor Monitor Temp 97.8 F 97.8 F Temp Source Temporal Temporal Pulse Oximetry (%) 97 97 Oxygen Delivery Method room air room air Intake Visit Reasons: ACUTE - MED REFILLS Chief Complaint: ACUTE-MED REFILLS Is patient in pain?: No Allergies codeine Allergy (Mild, Verified 03/12/25 10:05) anxious meperidine HCl (From Demerol) Adverse Reaction (Verified 03/12/25 10:05) Nausea/Vom/Diarrhea Medications ???Medication ???Instructions ???Recorded ???Confirmed ???Type hydrochlorothiazide 12.5 mg tablet 12.5 mg PO QAM PRN 12/13/2107/31 History amlodipine 10 mg tablet 10 mg PO DAILY #90 tabs 03/12/25 0 03/12/25 Rx metoprolol succinate 100 mg 100 mg PO DAILY #90 tabs 03/12/25 03/12/25 Rx tablet,extended release 24 hr rosuvastatin 20 mg tablet 20 mg PO DAILY #90 TABLETS 5 03/12/25 Rx Nurse's Note: pt presents in office today requesting refills on her medications. pt has c/o of not being able to fall asleep at night, states she had flu A in November, and has a burning sensation in right lower posterior lung PFS Medical History Hot flashes due to menopause Preoperative evaluation to rule out surgical contraindication Hyperlipidemia Colon cancer screening Preventative health care Chronic back pain Lumbar radiculopathy Acute lumbar myofascial strain Abscess of left groin Generalized anxiety disorder with panic attacks High blood pressure Heart murmur Frequent headaches H/O emotional problems Back pain Vitamin D deficiency High cholesterol Surgical History H/O spinal fusion Hx of tonsillectomy History of hysterectomy History of wisdom tooth extraction Family History Other Unknown- Adopted Social History Smoking Status: Current some day smoker Tobacco: How many years used: 2 alcohol intake: current alcohol intake frequency: holidays/special occasions only substance use type: does not use what type of physical activity do you participate in: none seatbelt use: always do you feel safe at home: Yes HPI HPI Chief Complaint: ACUTE-MED REFILLS Details: BROOKE LANDAVERDE, is a 54 F who presents to the office today for medication refills. She states that she has actually been out of her rosuvastatin for probably the past month. She had switched jobs and needed to work there for 3 months before she was eligible for insurance. So she had enough of her BP meds but not her cholesterol medication Patient did have back surgery last June at [facility] where she had a Lumbar fusion from L4-S1. She states that the surgery was very successful in that she feels 100% better than she did at the same time she has to keep with the restrictions of limiting her lifting. Patient did have Influenza A back in November and she did have some lingering symptoms. She has periodic flare-ups and she did see pulmonology and was given a sample of Breztri that she uses PRN. She states that she seems to noticed improvement when she uses the inhaler a few times a week (once daily). She states that she doesn't feel short of breath or wheezing that it is just this burning sensation in the right shoulder blade area that she uses it for. Patient does not check her blood pressure regularly at home. She states that her diet is pretty good she thinks. She has been trying to exercise more at the same time with her previous back surgery she pretty much just walks and does not do any type of impact type of activities or any type of lifting. ROS Const Constitutional: No body ache, chills, excessive sweating, fatigue, fever(s), frequent falls, headache(s), snoring, weight change, sleep problems, abnormal sleep pattern or change in appetite Eyes Eyes: No blurry vision, change in vision, eye pain or Light sensitivity ENT ENT: No abnormal hearing, ear or mastoid pain, tinnitus, nasal congestion, headache(s), neck pain or sore throat Resp Respiratory: No cough, shortness of breath, snoring or wheezing Cardio Cardiology: No chest pain at rest, chest pain with exertion, excessiv (more content not included)... Normal [facility] CBC + DIFFon 08-21-2024 Baso # 0.04 x10EE3/UL Normal 0.00 - 0.10 [facility] Comment on above: Performed By: #### 2 23010 #### [facility],[address] [place] [address] Basophils/100 WBC (Bld) 0.4 % Normal 0.0 - 2.0 [facility] Comment on above: Performed By: #### 2 49567 #### [place] [address] CBC + DIFF Normal [facility] Comment on above: Result Comment: CBC- COMPLETE BLOOD COUNT Performed By: #### 2 09167 #### [place] [address] EO # 0.19 x10EE3/UL Normal 0.00 - 0.50 [facility] Comment on above: Performed By: #### 2 78871 #### [place] [address] Eosinophils/100 WBC (Bld) 2.4 % Normal 0.0 - 7.0 [facility] Comment on above: Performed By: #### 2 32749 #### [place] [address] Erythrocyte distribution width (RBC) [Ratio] 14.7 % Normal 12.0 - 15.6 [facility] Comment on above: Performed By: #### 2 87969 #### [place] [address] Hematocrit (Bld) [Volume fraction] 45.2 % Normal 34.0 - 46.0 [facility] Comment on above: Performed By: #### 2 86853 #### [place] [address] Hemoglobin (Bld) [Mass/Vol] 15.2 g/dL Normal 12.0 - 16.0 [facility] Comment on above: Performed By: #### 2 05144 #### [address] [address] Lymph # 2.47 x10EE3/UL Normal 0.80 - 2.80 [facility] Comment on above: Performed By: #### 2 08687 #### [facility],[address] [place] [address] Lymphocytes/100 WBC (Bld) 30.9 % Normal 20.0 - 45.0 [facility] Comment on above: Performed By: #### 2 19523 #### [facility],[address] [place] [address] MANUAL DIFF N/A Normal [facility] Comment on above: Performed By: #### 2 91222 #### [facility],[address] [place] [address] MCH (RBC) [Entitic mass] 27 pg Normal 27 - 33 [facility] Comment on above: Performed By: #### 2 94508 #### [facility],[address] [place] [address] MCHC 34 X10 3 Normal 32 - 36 [facility] Comment on above: Performed By: #### 2 62091 #### [facility],[address] [place] [address] MCV (RBC) [Entitic vol] 79 fL Low 80 - 99 [facility] Comment on above: Performed By: #### 2 68873 #### [facility],[address] [place] [address] Sibley # 0.39 x10EE3/UL Normal 0.20 - 1.00 [facility] Comment on above: Performed By: #### 2 71765 #### [facility],[address] [place] [address] MONOS % 4.9 % Normal 0.0 - 10.0 [facility] Comment on above: Performed By: #### 2 50322 #### [facility],[address],[place] [address] Morphology Giovanny (Bld) [Interp] N/A Normal [facility] Comment on above: Performed By: #### 2 10077 #### [facility],[address] [place] [address] 10056 Neut # 4.90 x10EE3/UL Normal 1.50 - 7.10 [facility] Comment on above: Performed By: #### 2 74623 #### [facility],[address] [place], [place] [address] Neutrophils/100 WBC (Bld) 61.4 % Normal 46.0 - 76.0 [facility] Comment on above: Performed By: #### 2 06314 #### [facility],[address] [place], [place] [address] PLATELET 247 x10EE3/UL Normal 150 - 450 [facility] Comment on above: Performed By: #### 2 99037 #### [facility],[address] [place] [address] Platelet mean volume (Bld) [Entitic vol] 8.6 fL Normal 6.6 - 10.[address] [facility] Comment on above: Result Comment: AUTO MATED DIFFERENTIAL Performed By: #### 2 00269 #### [facility],[address] [place], [place] [address] RBC 5.71 x 10EE6/UL High 4.10 - 5.30 [facility] Comment on above: Performed By: #### 2 49717 #### [facility],[address] [place] [address] 44250 WBC 8.0 x 10EE3/UL Normal 4.5 - 10.8 [facility] Comment on above: Performed By: #### 2 21905 #### [facility],[address] [place], [place] [address] CMP with eGFRon 08-21-2024 AGE 53 years Normal [facility] Comment on above: Performed By: #### 2 42828 ####[facility],[address] [place] [address] 07364 Albumin [Mass/Vol] 4.0 g/dL Normal 3.4 - 5.0 [facility] Comment on above: Performed By: #### 2 22593 ####[facility],[address] [place] [address] 54934 Albumin/Globulin [Mass ratio] 0.9 {ratio} Normal 0.9 - 1.6 [facility] Comment on above: Performed By: #### 2 25364 ####[facility],[address] [place] [address] 76899 ALK PHOS 138 U/L High 46 - 116 [facility] Comment on above: Performed By: #### 2 66798 ####[facility],[address] [place] [address] 19542 ALT [Catalytic activity/Vol] 20 U/L Normal 16 - 63 [facility] Comment on above: Performed By: #### 2 26162 ####[facility],[address] [place] [address] 26916 Anion gap [Moles/Vol] 19 mmol/L Normal 10 - 20 [facility] Comment on above: Performed By: #### 2 87255 ####[facility],[address] [place] [address] 36243 AST [Catalytic activity/Vol] 14 U/L Normal 13 - 39 [facility] Comment on above: Performed By: #### 2 85584 ####[facility],[address] [place] [address] 75362 B/C RATIO 23 ratio Normal 0 - 30 [facility] Comment on above: Performed By: #### 2 55982 ####[facility],[address] [place] [address] 36816 Bilirubin [Mass/Vol] 0.1 mg/dL Low 0.2 - 1.0 [facility] Comment on above: Performed By: #### 2 68488 ####[facility],[address] [place] [address] 68479 Calcium [Mass/Vol] 9.4 mg/dL Normal 8.5 - 10.1 [facility] Comment on above: Performed By: #### 2 25846 ####[facility],[address] [place] [address] 08528 Chloride [Moles/Vol] 102 mmol/L Normal 98 - 107 [facility] Comment on above: Performed By: #### 2 21480 ####[facility],[address] [place] [address] 55599 CMP with eGFR Normal [facility] Comment on above: Result Comment: COMP REHENSIVE METABOLIC PANEL Performed By: #### 2 35146 ####[facility],[address] [place] [address] 64046 CO2 [Moles/Vol] 23.3 mmol/L Normal 21.0 - 32.0 [facility] Comment on above: Performed By: #### 2 10818 ####[facility],[address] [place] [address] 25183 Creatinine [Mass/Vol] 0.65 mg/dL Normal 0.55 - 1.02 [facility] Comment on above: Performed By: #### 2 11003 ####[facility],[address] [place] [address] 63542 GFR/1.73 sq M.predicted among non-blacks MDRD (S/P/Bld) [Vol rate/Area] mL/min/{1.73_m2} Normal 60 - 999 [facility] Comment on above: Performed By: #### 2 71822 ####[facility],[address] [place] [address] 08291 Result Comment: ACCO RDING TO THE NATIONAL KIDNEY DISEASE EDUCATION PROGRAM(NKDE), A NORMAL eGFR IS A VALUE GREATER THAN OR EQUAL TO 60 ML/MIN/1.73 SQ METERS. CHRONIC KIDNEY DISEASE: <60mL/MIN/1.73 SQ METERS KIDNEY FAILURE: <15mL/MIN/1.73 SQ METERS THIS TEST SHOULD ONLY BE USED FOR PATIENTS 18 YEARS OF AGE AND OLDER. Globulin (S) [Mass/Vol] 4.6 g/dL High 1.5 - 3.8 [facility] Comment on above: Performed By: #### 2 01244 ####[facility],[address] [place] [address] 01237 Glucose [Mass/Vol] 93 mg/dL Normal 74 - 106 [facility] Comment on above: Performed By: #### 2 22542 ####[facility],[address] [place] [address] 74419 Potassium [Moles/Vol] 4.2 mmol/L Normal 3.5 - 5.1 [facility] Comment on above: Performed By: #### 2 17269 ####[facility],[address] [place] [address] 20635 Protein [Mass/Vol] 8.6 g/dL High 6.4 - 8.2 [facility] Comment on above: Performed By: #### 2 84028 ####[facility],[address] [place] [address] 16666 Sodium [Moles/Vol] 140 mmol/L Normal 136 - 145 [facility] Comment on above: Performed By: #### 2 59568 ####[facility],[address] [place] [address] 56816 Urea nitrogen [Mass/Vol] 15 mg/dL Normal 7 - 18 [facility] Comment on above: Performed By: #### 2 58463 ####[facility],[address] [place] [address] 22369 LIPID PROFILEon 08-21-2024 Cholesterol [Mass/Vol] 293 mg/dL High 0 - 240 [facility] Comment on above: Performed By: #### 2 23900 #### [facility],[address] [place] [address] 03055 Cholesterol in HDL [Mass/Vol] 54 mg/dL Normal 40 - 60 [facility] Comment on above: Performed By: #### 2 04159 #### [facility],[address] [place] [address] 54761 Cholesterol in LDL [Mass/Vol] 198 mg/dL High 0 - 129 [facility] Comment on above: Performed By: #### 2 69792 #### [facility],[address] [place] [address] 26726 Cholesterol.total/Chol esterol in HDL [Mass ratio] 5.4 {ratio} High 0.0 - 5.0 [facility] Comment on above: Performed By: #### 2 81987 #### [facility],[address] [place] [address] 87694 Lipid 1996 panel Normal [facility] Comment on above: Result Comment: LIPI D PROFILE Performed By: #### 2 72738 #### [facility],[address] [place] [address] 07458 Triglyceride [Mass/Vol] 204 mg/dL High 0 - 150 [facility] Comment on above: Performed By: #### 2 01037 #### [facility],[address] [place] [address] 07228 Internal Medicine Office Vis dominique 08-19-2024 Internal Medicine Office Visit [facility] [address] [place] [address] OFFICE VISIT Date of Service: 08/19/24 MR#: [id number] Acct: [id number] Name: BROOKE LANDAVERDE Rep #: [id number] : 1970 Provider: Dr. 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 Required: No Accompanied by: Self Is patient in pain?: No Allergies codeine Allergy (Mild, Verified 08/19/24 11:30) anxious meperidine HCl (From Demerol) Adverse Reaction (Verified 08/19/24 11:30) Nausea/Vom/Diarrhea Medications ???Medication ???Instructions ???Recorded ???Confirmed ???Type hydrochlorothiazide 12.5 mg tablet 12.5 mg PO QAM PRN 12/13/21 08/19/24 History glucocil PO 12/28/23 08/19/24 History amlodipine 10 mg tablet 10 mg PO DAILY #90 tabs 06/03/24 08/19/24 Rx rosuvastatin 20 mg tablet 20 mg PO DAILY #90 TABLETS 06/26/24 08/19/24 Rx tramadol 50 mg tablet mg PO PRN 06/26/24 08/19/24 History venlafaxine 37.5 mg 37.5 mg PO QHS #90 caps 06/26/24 08/19/24 Rx capsule,extended release 24 hr metoprolol succinate 100 mg 100 mg PO DAILY #90 tabs 06/28/24 08/19/24 Rx tablet,extended release 24 hr cyclobenzaprine 10 mg tablet 10 mg PO TID 08/19/24 08/19/24 History oxycodone 5 mg tablet mg PO 08/19/24 08/19/24 History PFSH Medical History Hot flashes due to menopause Preoperative evaluation to rule out surgical contraindication Hyperlipidemia Colon cancer screening Preventative health care Chronic back pain Lumbar radiculopathy Acute lumbar myofascial strain Abscess of left groin Generalized anxiety disorder with panic attacks High blood pressure Heart murmur Frequent headaches H/O emotional problems Back pain Vitamin D deficiency High cholesterol Surgical History (Updated 08/19/24 @ 11:32 by Danette Montez MA) H/O spinal fusion Hx of tonsillectomy History of hysterectomy History of wisdom tooth extraction Family History Other Unknown- Adopted Social History Smoking Status: Current some day smoker Tobacco: How many years used: 2 alcohol intake: current alcohol intake frequency: holidays/special occasions only substance use type: does not use what type of physical activity do you participate in: none seatbelt use: always do you feel safe at home: Yes HPI HPI Chief Complaint: yearly Details: BROOKE LANDAVERDE, is a 53 F who presents to the office today for yearly visit. No acute concerns at this time. Had a mammogram today. History of hysterectomy. Would like to get a flu shot today. Was referred to general surgery for colon cancer screening but did not get this done. Now opts for the Cologuard. Denies any dark or bloody stool or significant family history for colon cancer. ROS Const Constitutional: No body ache, chills, excessive sweating, fatigue, fever(s), frequent falls, headache(s), snoring, weakness or change in appetite Eyes Eyes: No blurry vision, change in vision, bulging eyes, floaters, visual disturbances, eye pain or Light sensitivity ENT ENT: No abnormal hearing, ear or mastoid pain, tinnitus, balance problems, nosebleed/epistaxis, nasal congestion, headache(s), neck pain or sore throat Resp Respiratory: No cough, excessive phlegm production, pain on inspiration, shortness of breath, snoring or wheezing Cardio Cardiology: No chest pain at rest, chest pain with exertion, excessive sweating, dyspnea on exertion, lightheadedness, orthopnea or palpitations Gastro GI: No abdominal pain, change in bowel habits, constipation, cramping, diarrhea, nausea/dyspepsia or vomiting Genitourinary-Female: No burning urination, painful urination, urinary incontinence, urinary frequency or suprapubic fullness Musc Musculoskeletal: No abnormal gait, joint pain, back pain, limited range of motion, muscle cramps, muscle weakness, neck pain or numbness Skin Skin: No dry skin, redness, excessive hair growth, yellowing of the eye, lesions, itchy eyes, rash or wounds Neuro Neurology: No abnormal gait, abnormal hearing, behavioral changes, unsteady gait/balance, weakness, frequent falls, headache(s), memory loss, numbness or visual disturbances Psych Psychiatric: No anxiety, No behavioral changes, No change in appetite, No depression, No memory loss and No (more content not included)... Normal [facility] SCRN MAMM (CAD)W/NAKUL BILATo n 08-19-2024 SCRN MAMM (CAD)W/NAKUL BILAT [facility] Services [address] [place], [place] [id number] SCRN MAMM (CAD)W/NAKUL BILAT MR#: [id number] Acct: [id number] Name: BROOKE LANDAVERDE Rep #: [id number] : 1970 F 53 From: Juan rocha MD PCP: Dr. Gómez Montalvo MD Status: [facility] Study: SCRN MAMM (CAD)W/NAKUL BILAT Date of Exam: 07/31 11/22 Exam# [id number] Ordering Dr: Gómez Montalvo MD [id number] MAMMOGRAPHY - BILATERAL SCREENING REASON FOR EXAM: Female, 53 years old. Routine annual screening examination. PERTINENT HISTORY: Non-contributory. TECHNIQUE: Digital bilateral breast nakul (3D mammographic acquisition) in the CC and MLO projections. 2-D mediolateral oblique (MLO) and craniocaudad (CC) views of both breasts were obtained. CAD: Full Field Digital Mammography with Computer Added Detection was performed. COMPARISON: Comparison is made with prior study dated August 16, 2023 and January 21, 2022. FINDINGS: Breast Composition: The breasts are heterogeneously dense, which may obscure small masses. There are no dominant masses or suspicious calcifications. Stable small bilateral axillary lymph nodes. No other significant abnormalities are identified. There has been no significant change since the prior study. BI/SCRN MAMM (CAD)W/NAKUL BILAT IMPRESSION: Stable bilateral screening mammogram. Yearly follow-up mammogram recommended. (A) ASSESSMENT CATEGORY: BIRADS Category 2: Benign. A letter regarding these results will be sent to the patient by the facility within 30 days. Approximately 10% of breast cancers are not detected by mammography. A normal mammogram should not delay biopsy of a clinically suspicious abnormality. [id number] Electronically Signed: Juan Ramsey MD at 12:33 EDT , CC: Dr. Gómez Montalvo MD Medical Assembler: Signed Normal [facility] CBC panel Auto (Bld)on 07-20 Erythrocyte distribution width (RBC) [Ratio] 14.5 % Normal 11.5-15.0 [facility] Comment on above: Order Comment: Jean welsh Type: BLOOD SPECIMEN Ordering Facility: [facility] Address: [address] [place] [address] Performed By: #### 3 3762-6 #### [facility] CLIA [id number] [address] [place] [address] [place] Hematocrit (Bld) [Volume fraction] 36.2 % Normal 36.0-46.0 [facility] Comment on above: Order Comment: Jean welsh Type: BLOOD SPECIMEN Ordering Facility: [facility] Address: [address] [place] [address] Performed By: #### 3 3762-6 #### [facility] CLIA [id number] [address] [place] [address] [place] Hemoglobin (Bld) [Mass/Vol] 11.6 g/dL Normal 11.5-15.5 [facility] Comment on above: Order Comment: Jean welsh Type: BLOOD SPECIMEN Ordering Facility: [facility] Address: [address] [place] [address] Performed By: #### 3 3762-6 #### [facility] CLIA [id number] [address] [place] [address] [place] MCH (RBC) [Entitic mass] 26.1 pg Normal 26.0-34.0 [facility] Comment on above: Order Comment: Speci men Type: BLOOD SPECIMEN Ordering Facility: [facility] Address: [address] [place] [address] Performed By: #### 3 3762-6 #### [facility] CLIA [id number] [address] [place] [address] [place] MCHC (RBC) [Mass/Vol] 32.0 g/dL Normal 30.5-36.0 [facility] Comment on above: Order Comment: Speci men Type: BLOOD SPECIMEN Ordering Facility: [facility] Address: [address] [place] [address] Performed By: #### 3 3762-6 #### [facility] CLIA [id number] [address] [place] [address] [place] MCV (RBC) [Entitic vol] 81.3 fL Normal 80.0-100.0 [facility] Comment on above: Order Comment: Speci men Type: BLOOD SPECIMEN Ordering Facility: [facility] Address: [address] [place] [address] Performed By: #### 3 3762-6 #### [facility] CLIA [id number] [address] [place] [address] [place] Nucleated RBC (Bld) [#/Vol] 10*3/uL Normal <0.01 [facility] Comment on above: Order Comment: Speci men Type: BLOOD SPECIMEN Ordering Facility: [facility] Address: [address] [place] [address] Performed By: #### 3 3762-6 #### [facility] CLIA [id number] [address] [place] [address] [place] Platelet mean volume (Bld) [Entitic vol] 10.4 fL Normal 9.0-12.7 [facility] Comment on above: Order Comment: Speci men Type: BLOOD SPECIMEN Ordering Facility: [facility] Address: [address] [place] [address] Performed By: #### 3 3762-6 #### [facility] CLIA [id number] [address] [place] [address] [facility] [place] Platelets (Bld) [#/Vol] 208 10*3/uL Normal 150-400 [facility] Comment on above: Order Comment: Ameliai blaise Type: BLOOD SPECIMEN Ordering Facility: [facility] Address: [address] [place] [address] Performed By: #### 3 3762-6 #### [facility] CLIA [id number] [address] [place] [address] [place] RBC (Bld) [#/Vol] 4.45 10*6/uL Normal 3.90-5.20 [facility] Comment on above: Order Comment: Speci men Type: BLOOD SPECIMEN Ordering Facility: [facility] Address: [address] [place] [address] Performed By: #### 3 3762-6 #### [facility] CLIA [id number] [address] [place] [address] [place] WBC (Bld) [#/Vol] 12.25 10*3/uL High 3.70-11.00 [facility] Comment on above: Order Comment: Jean welsh Type: BLOOD SPECIMEN Ordering Facility: [facility] Address: [address] [place] [address] Performed By: #### 3 3762-6 #### [facility] CLIA [id number] [address] [place] [address] [place] CNDSon 07-20-2024 CNDS HNO ID: [id number] Author: MARCO SANTANA PA-C Service: Orthopaedic Surgery Author Type: Physician Tool Sharpener Type: Discharge Summary Filed: 08/01/2024 20:10 Note [...] you become constipated, you may use any boar-vje-reryuyn treatment such as Milk of Magnesia, Sennakot, [...] Patient/Parents to call for appointment?: Scheduled Marco Santana PA-C [phone] [facility] [address] [facility] [address] PCP Requested Referral Additional Provider to Provider Information: Treatment Team: Attending Provider: Peri Rogel DO Nurse Practitioner: Jocelyn Ojeda APRN.CNP Transitions of Care Critical Issues: LABS AND PROCEDURES PENDING AT DISCHARGE: No pending results. FOLLOW-UP APPOINTMENTS ALREADY SCHEDULED WITH A [facility] PROVIDER: No future appointments. ALLERGIES Allergen Reactions Codeine anxiety Demerol [Meperidine* nausea Lisinopril Cough DISCHARGE MEDICATION: Medication List CONTINUE taking these medications amLODIPine 5 mg tablet C (more content not included)... Normal [facility] Comprehensive metabolic 2000 panelon 07-20-2024 Albumin [Mass/Vol] 3.3 g/dL Normal 3.2-5.0 [facility] Comment on above: Order Comment: Speci men Type: BLOOD SPECIMEN Ordering Facility: [facility] Address: [address] [place] [address] Performed By: #### 3 3762-6 #### [facility] CLIA [id number] [address] [place] [address] [place] ALP [Catalytic activity/Vol] 92 U/L Normal 45-117 [facility] Comment on above: Order Comment: Speci men Type: BLOOD SPECIMEN Ordering Facility: [facility] Address: [address] [place] [address] Performed By: #### 3 3762-6 #### [facility] CLIA [id number] [address] [place] [address] [place] ALT [Catalytic activity/Vol] 13 U/L Normal 13-61 [facility] Comment on above: Order Comment: Speci men Type: BLOOD SPECIMEN Ordering Facility: [facility] Address: [address] [place] [address] Result Comment: Resu lts may be falsely depressed after the administration of Sulfasalazine and/or Sulfapyridine. Performed By: #### 3 3762-6 #### [facility] CLIA [id number] [address] [place] [address] [place] Anion gap [Moles/Vol] 7 mmol/L Normal 5-16 [facility] Comment on above: Order Comment: Speci men Type: BLOOD SPECIMEN Ordering Facility: [facility] Address: [address] [place] [address] Performed By: #### 3 3762-6 #### [facility] CLIA [id number] [address] [place] [address] [place] AST [Catalytic activity/Vol] 19 U/L Normal 8-34 [facility] Comment on above: Order Comment: Speci men Type: BLOOD SPECIMEN Ordering Facility: [facility] Address: [address] [place] [address] Result Comment: Resu lts may be falsely depressed after the administration of Sulfasalazine and/or Sulfapyridine. Performed By: #### 3 3762-6 #### [facility] CLIA [id number] [address] [place] [address] [place] Bilirubin [Mass/Vol] 0.5 mg/dL Normal 0.2-1.0 [facility] Comment on above: Order Comment: Speci men Type: BLOOD SPECIMEN Ordering Facility: [facility] Address: [address] [place] [address] Performed By: #### 3 3762-6 #### [facility] CLIA [id number] [address] [place] [address] [place] Calcium [Mass/Vol] 8.5 mg/dL Normal 8.5-10.5 [facility] Comment on above: Order Comment: Speci men Type: BLOOD SPECIMEN Ordering Facility: [facility] Address: [address] [place] [address] Performed By: #### 3 3762-6 #### [facility] CLIA [id number] [address] [place] [address] [place] Chloride [Moles/Vol] 108 mmol/L High 98-107 [facility] Comment on above: Order Comment: Speci men Type: BLOOD SPECIMEN Ordering Facility: [facility] Address: [address] [place] [address] Performed By: #### 3 3762-6 #### [facility] CLIA [id number] [address] [place] [address] [place] CO2 [Moles/Vol] 27 mmol/L Normal 21-32 [facility] Comment on above: Order Comment: Speci men Type: BLOOD SPECIMEN Ordering Facility: [facility] Address: [address] [place] [address] Performed By: #### 3 3762-6 #### [facility] CLIA [id number] [address] [place] [address] [place] Creatinine [Mass/Vol] 0.55 mg/dL Normal 0.51-0.95 [facility] Comment on above: Order Comment: Jean welsh Type: BLOOD SPECIMEN Ordering Facility: [facility] Address: [address] [place] [address] Result Comment: Diane ents receiving either N-Acetylcysteine (NAC) or Metamizole prior to venipuncture, may have falsely depressed results. Performed By: #### 3 3762-6 #### [facility] CLIA [id number] [address] [place] [address] [place] Creatinine and Glomerular filtration rate.predicted panel (S/P/Bld) 110 mL/min/1.73m??? Normal >=60 [facility] Comment on above: Order Comment: Jean welsh Type: BLOOD SPECIMEN Ordering Facility: [facility] Address: [address] [place] [address] Result Comment: Gabi mated Glomerular Filtration Rate [...] GFR. Performed By: #### 3 3762-6 #### [facility] CLIA [id number] [address] [place] [address] [place] Glucose [Mass/Vol] 80 mg/dL Normal 70-100 [facility] Comment on above: Order Comment: Jean welsh Type: BLOOD SPECIMEN Ordering Facility: [facility] Address: [address] [place] [address] Result Comment: The [place] [employer] (ADA) provides guidance for cutoff [...] Standards of Medical Care in Diabetes 2016, [place] [employer]. Diabetes Care. 2016.39(Suppl 1). Results may be falsely elevated after the administration of Sulfapyridine. Results may be falsely depressed after the administration of Sulfasalazine. Performed By: #### 3 3762-6 #### [facility] CLIA [id number] [address] [place] [address] [place] Potassium [Moles/Vol] 3.9 mmol/L Normal 3.5-5.1 [facility] Comment on above: Order Comment: Jean welsh Type: BLOOD SPECIMEN Ordering Facility: [facility] Address: [address] [place] [address] Performed By: #### 3 3762-6 #### [facility] CLIA [id number] [address] [place] [address] [place] Protein [Mass/Vol] 5.9 g/dL Low 6.0-8.5 [facility] Comment on above: Order Comment: Jean welsh Type: BLOOD SPECIMEN Ordering Facility: [facility] Address: [address] [place] [address] Performed By: #### 3 3762-6 #### [facility] CLIA [id number] [address] [place] [address] [place] Sodium [Moles/Vol] 142 mmol/L Normal 136-145 [facility] Comment on above: Order Comment: Jean welsh Type: BLOOD SPECIMEN Ordering Facility: [facility] Address: [address] [place] [address] Performed By: #### 3 3762-6 #### [facility] CLIA [id number] [address] [place] [address] [place] Urea nitrogen [Mass/Vol] 14 mg/dL Normal 7-26 [facility] Comment on above: Order Comment: Jean welsh Type: BLOOD SPECIMEN Ordering Facility: [facility] Address: [address] [place] [address] Performed By: #### 3 3762-6 #### [facility] CLIA [id number] [address] [place], [place] [address] [place] Magnesium SerPl-mCncon 07-20 Magnesium [Mass/Vol] 1.6 mg/dL Normal 1.6-2.6 [facility] Comment on above: Order Comment: Speci men Type: BLOOD SPECIMEN Ordering Facility: [facility] Address: [address] [place], [place] [address] Performed By: #### 3 3762-6 #### [facility] CLIA [id number] [address] [place], [place] [address] [place] CASE MGT INIT ASSESon 2023 CASE MGT INIT ASSES HNO ID: [id number] Author: COLTEN NEWTON LISW Service: Care Management Author Type: Coin Machine Collector Supervisor Type: Care Mgt Initial Assessment Filed: [...] you manage to accomplish the following: Independent: Ambulation;Bathe/Show er;Dress;Meals/Meal Prep;Going to the bathroom;Medication Management;Transporta tion to appointments/communit y Current Services/Equipment Current Post-Acute Service(s): DME Current DME Type: Rolling walker, Bedside commode, Shower seat Discharge Planning Patient Goal(s): General wellness, Be able to go home [place] Explained: [place] Given: No Reason Not Given: [...] were you homeless or living in a care home (including now)?: No Utilities In the past 12 months has the [employer], oil, or water [employer] threatened to shut off services in your [...] TIME: 9:31 AM CONTACT #: [id number] Normal [facility] CBC panel Auto (Bld)on 07-19 Erythrocyte distribution width (RBC) [Ratio] 14.3 % Normal 11.5-15.0 [facility] Comment on above: Order Comment: Speci men Type: BLOOD SPECIMEN Ordering Facility: [facility] Address: [address] [place] [address] Performed By: #### 3 4528-0, 45394-3 #### [facility] CLIA [id number] [address] [place] [address] OF [facility] Hematocrit (Bld) [Volume fraction] 35.8 % Low 36.0-46.0 [facility] Comment on above: Order Comment: Speci men Type: BLOOD SPECIMEN Ordering Facility: [facility] Address: [address] [place] [address] Performed By: #### 3 4528-0, 88647-2 #### [facility] CLIA [id number] [address] [place] [address] [place] Hemoglobin (Bld) [Mass/Vol] 11.7 g/dL Normal 11.5-15.5 [facility] Comment on above: Order Comment: Speci men Type: BLOOD SPECIMEN Ordering Facility: [facility] Address: [address] [place] [address] Performed By: #### 3 4528-0, 12321-1 #### [facility] CLIA [id number] [address] [place] [address] [place] MCH (RBC) [Entitic mass] 26.4 pg Normal 26.0-34.0 [facility] Comment on above: Order Comment: Speci men Type: BLOOD SPECIMEN Ordering Facility: [facility] Address: [address] [place] [address] Performed By: #### 3 4528-0, 66848-1 #### [facility] CLIA [id number] [address] [place] [address] [place] MCHC (RBC) [Mass/Vol] 32.7 g/dL Normal 30.5-36.0 [facility] Comment on above: Order Comment: Speci men Type: BLOOD SPECIMEN Ordering Facility: [facility] Address: [address] [place] [address] Performed By: #### 3 4528-0, 46800-7 #### [facility] CLIA [id number] [address] [place] [address] [place] MCV (RBC) [Entitic vol] 80.8 fL Normal 80.0-100.0 [facility] Comment on above: Order Comment: Speci men Type: BLOOD SPECIMEN Ordering Facility: [facility] Address: [address] [place] [address] Performed By: #### 3 4528-0, 59272-2 #### [facility] CLIA [id number] [address] [place] [address] [place] Nucleated RBC (Bld) [#/Vol] 10*3/uL Normal <0.01 [facility] Comment on above: Order Comment: Speci men Type: BLOOD SPECIMEN Ordering Facility: [facility] Address: [address] [place] [address] Performed By: #### 3 4528-0, 36870-0 #### [facility] CLIA [id number] [address] [place] [address] [place] Platelet mean volume (Bld) [Entitic vol] 10.9 fL Normal 9.0-12.7 [facility] Comment on above: Order Comment: Speci men Type: BLOOD SPECIMEN Ordering Facility: [facility] Address: [address] [place] [address] Performed By: #### 3 4528-0, 51064-1 #### [facility] CLIA [id number] [address] [place] [address] [place] Platelets (Bld) [#/Vol] 239 10*3/uL Normal 150-400 [facility] Comment on above: Order Comment: Speci men Type: BLOOD SPECIMEN Ordering Facility: [facility] Address: [address] [place], [place] [address] Performed By: #### 3 4528-0, 12662-1 #### [facility] CLIA [id number] [address] [place] [address] RBC (Bld) [#/Vol] 4.43 10*6/uL Normal 3.90-5.20 [facility] Comment on above: Order Comment: Speci men Type: BLOOD SPECIMEN Ordering Facility: [facility] Address: [address] [place] [address] Performed By: #### 3 4528-0, 24409-7 #### [facility] CLIA [id number] [address] [place] [address] WBC (Bld) [#/Vol] 18.38 10*3/uL High 3.70-11.00 [facility] Comment on above: Order Comment: Speci men Type: BLOOD SPECIMEN Ordering Facility: [facility] Address: [address] [place] [address] Performed By: #### 3 4528-0, 88288-5 #### [facility] CLIA [id number] [address] [place] [address] OF [facility] Comprehensive metabolic 2000 panelon 07-19-2024 Albumin [Mass/Vol] 3.0 g/dL Low 3.2-5.0 [facility] Comment on above: Order Comment: Speci men Type: BLOOD SPECIMEN Ordering Facility: [facility] Address: [address] [place] [address] Performed By: #### 3 4528-0, 60984-3 #### [facility] CLIA [id number] [address] [place] [address] [place] ALP [Catalytic activity/Vol] 91 U/L Normal 45-117 [facility] Comment on above: Order Comment: Speci men Type: BLOOD SPECIMEN Ordering Facility: [facility] Address: [address] [place] [address] Performed By: #### 3 4528-0, 64981-5 #### [facility] CLIA [id number] [address] [place] [address] [place] ALT [Catalytic activity/Vol] 14 U/L Normal 13-61 [facility] Comment on above: Order Comment: Speci men Type: BLOOD SPECIMEN Ordering Facility: [facility] Address: [address] [place] [address] Result Comment: Resu lts may be falsely depressed after the administration of Sulfasalazine and/or Sulfapyridine. Performed By: #### 3 4528-0, 46379-1 #### [facility] CLIA [id number] [address] [place] [address] [place] Anion gap [Moles/Vol] 7 mmol/L Normal 5-16 [facility] Comment on above: Order Comment: Speci [facility] Type: BLOOD SPECIMEN Ordering Facility: [facility] Address: [address] [place] [address] Performed By: #### 3 4528-0, 53754-2 #### [facility] CLIA [id number] [address] [place] [address] [place] AST [Catalytic activity/Vol] 21 U/L Normal 8-34 [facility] Comment on above: Order Comment: Speci men Type: BLOOD SPECIMEN Ordering Facility: [facility] Address: [address] [place] [address] Result Comment: Resu lts may be falsely depressed after the administration of Sulfasalazine and/or Sulfapyridine. Performed By: #### 3 4528-0, 49790-1 #### [facility] CLIA [id number] [address] [place] [address] [place] Bilirubin [Mass/Vol] 0.4 mg/dL Normal 0.2-1.0 [facility] Comment on above: Order Comment: Speci men Type: BLOOD SPECIMEN Ordering Facility: [facility] Address: [address] [place] [address] Performed By: #### 3 4528-0, 47047-0 #### [facility] CLIA [id number] [address] [place] [address] [place] Calcium [Mass/Vol] 9.2 mg/dL Normal 8.5-10.5 [facility] Comment on above: Order Comment: Speci men Type: BLOOD SPECIMEN Ordering Facility: [facility] Address: [address] [place] [address] Performed By: #### 3 4528-0, 02464-5 #### [facility] CLIA [id number] [address] [place] [address] [place] Chloride [Moles/Vol] 107 mmol/L Normal 98-107 [facility] Comment on above: Order Comment: Speci men Type: BLOOD SPECIMEN Ordering Facility: [facility] Address: [address] [place] [address] Performed By: #### 3 4528-0, 93693-1 #### [facility] CLIA [id number] [address] [place] [address] [place] CO2 [Moles/Vol] 27 mmol/L Normal 21-32 [facility] Comment on above: Order Comment: Speci men Type: BLOOD SPECIMEN Ordering Facility: [facility] Address: [address] [place] [address] Performed By: #### 3 4528-0, 16279-0 #### [facility] CLIA [id number] [address] [place] [address] [place] Creatinine [Mass/Vol] 0.59 mg/dL Normal 0.51-0.95 [facility] Comment on above: Order Comment: Speci men Type: BLOOD SPECIMEN Ordering Facility: [facility] Address: [address] [place] [address] Result Comment: Diane ents receiving either N-Acetylcysteine (NAC) or Metamizole prior to venipuncture, may have falsely depressed results. Performed By: #### 3 4528-0, 30684-7 #### [facility] CLIA [id number] [address] [place] [address] [place] Creatinine and Glomerular filtration rate.predicted panel (S/P/Bld) 109 mL/min/1.73m??? Normal >=60 [facility] Comment on above: Order Comment: Jean welsh Type: BLOOD SPECIMEN Ordering Facility: [facility] Address: [address] [place] [address] Result Comment: Gabi mated Glomerular Filtration Rate [...] actual GFR. Performed By: #### 3 4528-0, 82729-3 #### [facility] CLIA [id number] [address] [place] [address] [place] Glucose [Mass/Vol] 102 mg/dL High 70-100 [facility] Comment on above: Order Comment: Jean welsh Type: BLOOD SPECIMEN Ordering Facility: [facility] Address: [address] [place] [address] Result Comment: The [place] Diabetes Association (ADA) provides guidance for cutoff [...] Standards of Medical Care in Diabetes 2016, [place] [employer]. Diabetes Care. 2016.39(Suppl 1). Results may be falsely elevated after the administration of Sulfapyridine. Results may be falsely depressed after the administration of Sulfasalazine. Performed By: #### 3 4528-0, 68404-7 #### [facility] CLIA [id number] [address] [place] [address] [place] Potassium [Moles/Vol] 4.3 mmol/L Normal 3.5-5.1 [facility] Comment on above: Order Comment: Speci men Type: BLOOD SPECIMEN Ordering Facility: [facility] Address: [facility] [place] [address] Performed By: #### 3 4528-0, 04507-5 #### [facility] CLIA [id number] [address] [place] [address] [place] Protein [Mass/Vol] 5.7 g/dL Low 6.0-8.5 [facility] Comment on above: Order Comment: Speci men Type: BLOOD SPECIMEN Ordering Facility: [facility] Address: [address] [place] [address] Performed By: #### 3 4528-0, 83592-2 #### [facility] CLIA [id number] [address] [place] [address] [place] Sodium [Moles/Vol] 141 mmol/L Normal 136-145 [facility] Comment on above: Order Comment: Speci men Type: BLOOD SPECIMEN Ordering Facility: [facility] Address: [address] [place] [address] Performed By: #### 3 4528-0, 03066-5 #### [facility] CLIA [id number] [address] [place] [address] [place] Urea nitrogen [Mass/Vol] 14 mg/dL Normal 7-26 [facility] Comment on above: Order Comment: Speci men Type: BLOOD SPECIMEN Ordering Facility: [facility] Address: [address] [place] [address] [place] [address] Performed By: #### 3 4528-0, 99685-2 #### [facility] CLIA [id number] [address] [place] [address] [place] Magnesium SerPl-mCncon 07-19 Magnesium [Mass/Vol] 1.7 mg/dL Normal 1.6-2.6 [facility] Comment on above: Order Comment: Speci men Type: BLOOD SPECIMEN Ordering Facility: [facility] Address: [address] [place] [address] Performed By: #### 3 4528-0, 23358-3 #### [facility] CLIA [id number] [address] [place] [address] Phosphate SerPl-mCncon 07-19 Phosphate [Mass/Vol] 4.1 mg/dL Normal 2.5-4.9 [facility] Comment on above: Order Comment: Speci men Type: BLOOD SPECIMEN Ordering Facility: [facility] Address: [facility] [place] [address] Result Comment: Elev ated m-protein (paraprotein) levels in the serum may be exhibited in patients with monoclonal gammopathies, causing falsely elevated inorganic phosphorus results. Performed By: #### 3 4528-0, 50243-6 #### [facility] CLIA [id number] [address] [place], [place] [address] [facility] THERAPY NTon 07-19-2024 THERAPY NT HNO ID: [id number] Author: NIKOLE ANN, PT, DPT Service: Physical Therapy Author Type: Physical Therapist Type: Therapy (PT/OT/Speech/Resp) Filed: 07/19/2024 14:34 Note Text: Physical Therapy Evaluation Summary SERVICE DATE: 07/19/2024 SERVICE TIME: 1343 to 1410 ROOM: [id number] PT 6 Clicks Score: 24 Total Joint [...] Reduced mobility-other TREATMENT INTERVENTIONS Evaluation, Therapeutic Activity (10657) Timed Code Treatment (minutes): 13 Skilled Treatment [...] for Next Visit: Gait Training SIGNATURE: Nikole Ann PT, DPT PATIENT NAME: Brooke Landaverde DATE: July 19, 2024 TIME: 2:34 PM Normal [facility] THERAPY NT HNO ID: [id number] Author: CRYSTAL CASTRO OTR/L Service: Occupational Therapy Author Type: Occupational Therapist Type: Therapy (PT/OT/Speech/Resp) Filed: 07/19/2024 08:56 Note Text: Occupational Therapy Evaluation Summary SERVICE DATE: 07/19/2024 SERVICE TIME: 275 to 08 ROOM: [id number] OT 6 Clicks Score: 24 Total Joint [...] daily living (ADL) TREATMENT INTERVENTIONS Evaluation, Self Mcc Management (09896) Timed Code Treatment (minutes): 38 Skilled Treatment Time (minutes): 53 TRAINING AND EDUCATION PROVIDED Activity Adaptation/Compensato ry Strategies, Bed Mobility, Benefits of In-Hospital Mobility, Discharge Planning, Edema Management, Energy Conservation, Functional Mobility Involving ADLs, Grooming Tasks, Insight into Deficits, Lower Extremity Bathing, Lower Extremity Dressing, Positioning, Precautions/Restricti ons, Role of Occupational Therapy, Safety/Judgment THERAPEUTIC SKILLS [...] DATE: July 19, 2024 TIME: 8:55 AM [facility] ANES POSTPROC EVALon 024 ANES POSTPROC EVAL HNO ID: [id number] Author: TAMERA NEELY DO Service: ? Author Type: Anesthesiologist Type: Anesthesia Postprocedure Evaluation Filed: 07/18/2024 15:44 Note Text: POST ANESTHESIA EVALUATION NOTE : 1970 Procedure Summary Date: 07/18/24 Room / Location: OR OR Anesthesia Start: 1117 Anesthesia Stop: 1434 Procedures: FUSION LUMBAR POSTERIOR LEVEL 1 WITH [...] Surgeons: Peri Rogel DO Responsible Provider: Tamera Neely DO Anesthesia Type: general ASA Status: 2 [...] team. Anesthesia Observations No Documentation SIGNATURE: Tamera Neely DO PATIENT NAME: Brooke Landaverde DATE: July 18, 2024 TIME: 3:44 PM CSN: [id number] [facility] ANES PRE-OPon 07-18-2024 ANES PRE-OP HNO ID: [id number] Author: TAMERA NEELY DO Service: ? Author Type: Anesthesiologist Type: [...] and consent discussed: yes. Patient / Responsible Libertarian agrees to proceed: yes Patient / Surrogate [...] within 48 hours of Surgery/Procedure. SIGNATURE: Tamera Neely DO PATIENT NAME: Brooke Landaverde DATE: July 18, 2024 TIME: 10:14 AM CSN: [id number] [facility] CONFIRM BLOOD TYPEon 024 ABO O [facility] Comment on above: Order Comment: Speci men Type: BLOOD SPECIMEN Ordering Facility: [facility] Address: [address] [place] [address] Performed By: #### 3 4528-0, 92758-0 #### [facility] CLIA [id number] [address] [place] [address] Rh Nom (Bld) Positive Normal [facility] Comment on above: Order Comment: Speci men Type: BLOOD SPECIMEN Ordering Facility: [facility] Address: [address] [place] [address] Performed By: #### 3 4528-0, 56152-6 #### [facility] CLIA [id number] [address] [place], [place] [address] [facility] CONSULTon 07-18-2024 CONSULT HNO ID: [id number] Author: NAREN LOMBARDO MD Service: Hospital Medicine Author Type: Physician [...] visit: Most recent labs and imaging results. Impression/Recommenda tions Active Problems: S/P back surgery _Patient underwent spinal fusion. Pending notes from the surgeon _POD 0 _Pain medication, bowel care as per Ortho _Comment incentive spirometer _PT and OT Hypertension Hyperlipidemia Heart murmur _resume home medications DVT prophylaxis as per Ortho, recommend ambulation Medication and Non-Pharmacologic VTE Prophylaxis/Anticoagu lants 07/18/24 0930 graduated compression stockings (dc,pr) VTE Prophylaxis: VTE prophylaxis appropriate SIGNATURE: Naren Lombardo MD PATIENT NAME: Brooke Landaverde DATE: July 18, 2024 TIME: 2:49 PM [facility] HISTORY PHYSICALon HISTORY PHYSICAL HNO ID: [id number] Author: PERI ROGEL, DO Service: ? Author Type: Physician Type: H&P Filed: 07/18/2024 10:54 Note Text: UPDATED HISTORY AND PHYSICAL EXAMINATION SERVICE DATE: 07/18/2024 SERVICE TIME: 12:20 AM SENSITIVE EXAMINATION CONSENT: The sensitive examination was discussed with the Patient or Patient's Authorized Crystal Lapper. As applicable, any other physician, advance practice provider, medical student, or other health professional student that will be observing or involved in the sensitive examination for educational or training purposes was discussed with the Patient or Authorized Crystal Lapper. The Patient or Authorized Crystal Lapper has agreed to proceed with the sensitive [...] July 18, 2024 TIME: 10:53 AM Normal [facility] OPERATIVE NOon 07-18-2024 OPERATIVE NO HNO ID: [id number] Author: PERI ROGEL DO Service: Orthopaedic Surgery Author Type: Physician Type: Operative Report Filed: 07/26/2024 10:41 Note Text: [facility] - OPERATIVE REPORT BROOKE LANDAVERDE : 1970 AGE: 53. SEX: F PATIENT TYPE: A [facility]: OR LOCATION: [id number] ATTENDING PHYSICIAN: Peri Rogel DO CSN NUMBER: [id number] DATE OF SURGERY/PROCEDURE: 07/18/2024 INCISION/PROCEDURE START TIME: 11:56 AM INCISION CLOSE/PROCEDURE END TIME: 2:20 PM PREOPERATIVE DIAGNOSIS: POSTOPERATIVE DIAGNOSIS: SURGEON: Peri Rogel DO CAFETERIA AIDE: JALEEL Torres SURGERY/PROCEDURE: ANESTHESIA: General endotracheal, Dr. [...] who was seen by Dr. Victoria in [facility] and has been in pain management, [...] 5 interval and I confirmed with Dr. Pierre from Radiology per [facility] protocol that we were at the appropriate [...] in the posterolateral (more content not included)... [facility] XR VERIFY LEVEL [id number] 07-18-2024 XR VERIFY LEVEL [id number] * * [...] fluoroscopy of the lumbar spine for localization. Medical Assembler: PSCB Transcribe Date/Time: Jul 18 2024 12:09P Dictated by : JAYDEN PIERRE MD This examination was interpreted and the report reviewed and electronically signed by: JAYDEN PIERRE MD on Jul 18 2024 12:11PM EST [id number] [facility] ACTIVATED PARTIAL THROMBOPLA STIN TIMEon 07-08-2024 aPTT Coag (PPP) [Time] 31.5 s [facility] Bacteria Ur Culton Bacteria identified Cx Nom (U) CULTURE, URINE: No growth (<1,000 CFU/ml) Normal [facility] Comment on above: Performed By: #### 3 4528-0, 88828-1 #### [facility] CLIA [id number] [address] [place] [address] [place] Basic metabolic 2000 panelon 07-08-2024 Anion gap [Moles/Vol] 8 mmol/L 5 - 16 mmol/L [facility] Calcium [Mass/Vol] 10.5 mg/dL 8.5 - 10. 5 mg/dL [facility] Chloride [Moles/Vol] 108 mmol/L High 98 - 10 7 mmol/L [facility] CO2 [Moles/Vol] 24 mmol/L 21 - 32 mmol/L [facility] Creatinine [Mass/Vol] 0.52 mg/dL 0.51 - 0.95 mg/dL [facility] Comment on above: Patients receiving e ither N-Acetylcysteine (NAC) or Metamizole prior to venipuncture, may have falsely depressed results. GFR/1.73 sq M.predicted among non-blacks MDRD (S/P/Bld) [Vol rate/Area] 112 mL/min/{1.73_m2} - PINF [facility] Comment on above: Estimated Glomerular Filtration Rate [...] [Mass/Vol] 99 mg/dL 70 - 100 mg/dL [facility] Comment on above: The [place] Di[employer] s Association (ADA) provides guidance for [...] Standards of Medical Care in Diabetes 2016, [place] [employer]. Diabetes Care. 2016.39(Suppl 1). Results may be falsely elevated after the administration of Sulfapyridine. Results may be falsely depressed after the administration of Sulfasalazine. Interpretation and review of laboratory results Abnormal [facility] Potassium [Moles/Vol] 4.1 mmol/L 3.5 - 5.1 mmol/L [facility] Sodium [Moles/Vol] 140 mmol/L 136 - 145 mmol/L [facility] Urea nitrogen [Mass/Vol] 13 mg/dL 7 - 26 mg/dL [facility] Anion gap [Moles/Vol] 8 mmol/L Normal 5-16 [facility] Comment on above: Order Comment: Jean welsh Type: BLOOD SPECIMEN Ordering Facility: [facility] Address: [address] [place] [address] Performed By: #### 2 4321-2 #### [facility] CLIA [id number] [address] [place] [address] [place] Calcium [Mass/Vol] 10.5 mg/dL Normal 8.5-10.5 [facility] Comment on above: Order Comment: Jean welsh Type: BLOOD SPECIMEN Ordering Facility: [facility] Address: [address] [place] [address] Performed By: #### 2 4321-2 #### [facility] CLIA [id number] [address] [place] [address] [place] Chloride [Moles/Vol] 108 mmol/L High 98-107 [facility] Comment on above: Order Comment: Jean welsh Type: BLOOD SPECIMEN Ordering Facility: [facility] Address: [address] [place] [address] Performed By: #### 2 4321-2 #### [facility] CLIA [id number] [address] [place] [address] [place] CO2 [Moles/Vol] 24 mmol/L Normal 21-32 [facility] Comment on above: Order Comment: Jean welsh Type: BLOOD SPECIMEN Ordering Facility: [facility] Address: [address] [place] [address] Performed By: #### 2 4321-2 #### [facility] CLIA [id number] [address] [place] [address] [place] Creatinine [Mass/Vol] 0.52 mg/dL Normal 0.51-0.95 [facility] Comment on above: Order Comment: Jean welsh Type: BLOOD SPECIMEN Ordering Facility: [facility] Address: [address] [place] [address] Result Comment: Diane ents receiving either N-Acetylcysteine (NAC) or Metamizole prior to venipuncture, may have falsely depressed results. Performed By: #### 2 4321-2 #### [facility] CLIA [id number] [address] [place] [address] OF [facility] Creatinine and Glomerular filtration rate.predicted panel (S/P/Bld) 112 mL/min/1.73m??? Normal >=60 [facility] Comment on above: Order Comment: Jean welsh Type: BLOOD SPECIMEN Ordering Facility: [facility] Address: [address] [place] [address] Result Comment: Gabi mated Glomerular Filtration Rate [...] GFR. Performed By: #### 2 4321-2 #### [facility] CLIA [id number] [address] [place] [address] [place] Glucose [Mass/Vol] 99 mg/dL Normal 70-100 [facility] Comment on above: Order Comment: Jean welsh Type: BLOOD SPECIMEN Ordering Facility: [facility] Address: [address] [place] [address] Result Comment: The [place] Diabetes Association (ADA) provides guidance for cutoff [...] Standards of Medical Care in Diabetes 2016, [place] Diabetes Association. Diabetes Care. 2016.39(Suppl 1). Results may be falsely elevated after the administration of Sulfapyridine. Results may be falsely depressed after the administration of Sulfasalazine. Performed By: #### 2 4321-2 #### [facility] CLIA [id number] [address] [place] [address] [place] Potassium [Moles/Vol] 4.1 mmol/L Normal 3.5-5.1 [facility] Comment on above: Order Comment: Speci men Type: BLOOD SPECIMEN Ordering Facility: [facility] Address: [address] [place] [address] Performed By: #### 2 4321-2 #### [facility] CLIA [id number] [address] [place] [address] [place] Sodium [Moles/Vol] 140 mmol/L Normal 136-145 [facility] Comment on above: Order Comment: Speci men Type: BLOOD SPECIMEN Ordering Facility: [facility] Address: [address] [id number] Performed By: #### 2 4321-2 #### [facility] CLIA [id number] [address] [place] [address] [place] Urea nitrogen [Mass/Vol] 13 mg/dL Normal 7-26 [facility] Comment on above: Order Comment: Speci men Type: BLOOD SPECIMEN Ordering Facility: [facility] Address: [address] [id number] Performed By: #### 2 4321-2 #### [facility] CLIA [id number] [address] [place] [address] [place] CBC W Auto Differential pane l (Bld)on 07-08-2024 Basophils (Bld) [#/Vol] 0.06 10*3/uL [facility] Basophils/100 WBC (Bld) 0.5 % [facility] Differential cell count method Nom (Bld) Auto [facility] Eosinophils (Bld) [#/Vol] 0.19 10*3/uL [facility] Eosinophils/100 WBC (Bld) 1.7 % [facility] Erythrocyte distribution width (RBC) [Ratio] 14.2 % 11.5 - 15.0 % [facility] Hematocrit (Bld) [Volume fraction] 45.8 % 36.0 - 46.0 % [facility] Hemoglobin (Bld) [Mass/Vol] 15.0 g/dL 11.5 - 15.5 g/dL [facility] Immature granulocytes (Bld) [#/Vol] 0.11 10*3/uL High [facility] Immature granulocytes/100 WBC (Bld) 1.0 % [facility] Interpretation and review of laboratory results Abnormal [facility] Lymphocytes (Bld) [#/Vol] 2.89 10*3/uL [facility] Lymphocytes/100 WBC (Bld) 26.2 % [facility] MCH (RBC) [Entitic mass] 26.0 pg 26.0 - 34.0 pg [facility] MCHC (RBC) [Mass/Vol] 32.8 g/dL 30.5 - 36.0 g/dL [facility] MCV (RBC) [Entitic vol] 79.4 fL Low 80.0 - 100.0 fL [facility] Monocytes (Bld) [#/Vol] 0.56 10*3/uL [facility] Monocytes/100 WBC (Bld) 5.1 % [facility] Neutrophils (Bld) [#/Vol] 7.20 10*3/uL [facility] Neutrophils/100 WBC (Bld) 65.5 % [facility] Nucleated RBC (Bld) [#/Vol] [facility] Nucleated RBC/100 WBC (Bld) [Ratio] 0.0 % /100 WBC [facility] Platelet mean volume (Bld) [Entitic vol] 11.1 fL 9.0 - 12.7 fL [facility] Platelets (Bld) [#/Vol] 276 10*3/uL [facility] RBC (Bld) [#/Vol] 5.77 10*6/uL High 3.90 - 5.2 0 m/uL [facility] WBC (Bld) [#/Vol] 11.01 10*3/uL [facility] Basophils (Bld) [#/Vol] 0.06 10*3/uL Normal <0.11 [facility] Comment on above: Order Comment: Speci men Type: BLOOD SPECIMEN Ordering Facility: [facility] Address: [address] [place] [address] Performed By: #### 5 7021-8 #### [facility] CLIA [id number] [address] [place] [address] [place] Basophils/100 WBC (Bld) 0.5 % Normal [facility] Comment on above: Order Comment: Speci men Type: BLOOD SPECIMEN Ordering Facility: [facility] Address: [address] [place] [address] Performed By: #### 5 7021-8 #### [facility] CLIA [id number] [address] [place] [address] [place] Differential cell count method Nom (Bld) Auto Normal [facility] Comment on above: Order Comment: Speci men Type: BLOOD SPECIMEN Ordering Facility: [facility] Address: [address] [place] [address] Performed By: #### 5 7021-8 #### [facility] CLIA [id number] [address] [place] [address] [place] Eosinophils (Bld) [#/Vol] 0.19 10*3/uL Normal <0.46 [facility] Comment on above: Order Comment: Speci men Type: BLOOD SPECIMEN Ordering Facility: [facility] Address: [address] [place] [address] Performed By: #### 5 7021-8 #### [facility] CLIA [id number] [address] [place] [address] [place] Eosinophils/100 WBC (Bld) 1.7 % Normal [facility] Comment on above: Order Comment: Speci men Type: BLOOD SPECIMEN Ordering Facility: [facility] Address: [address] [place] [address] Performed By: #### 5 7021-8 #### [facility] CLIA [id number] [address] [place] [address] [place] Erythrocyte distribution width (RBC) [Ratio] 14.2 % Normal 11.5-15.0 [facility] Comment on above: Order Comment: Speci men Type: BLOOD SPECIMEN Ordering Facility: [facility] Address: [address] [place] [address] Performed By: #### 5 7021-8 #### [facility] CLIA [id number] [address] [place] [address] [place] Hematocrit (Bld) [Volume fraction] 45.8 % Normal 36.0-46.0 [facility] Comment on above: Order Comment: Speci men Type: BLOOD SPECIMEN Ordering Facility: [facility] Address: [address] [place] [address] Performed By: #### 5 7021-8 #### [facility] CLIA [id number] [address] [place] [address] [place] Hemoglobin (Bld) [Mass/Vol] 15.0 g/dL Normal 11.5-15.5 [facility] Comment on above: Order Comment: Speci men Type: BLOOD SPECIMEN Ordering Facility: [facility] Address: [address] [place] [address] Performed By: #### 5 7021-8 #### [facility] CLIA [id number] [address] [place] [address] [place] Immature granulocytes (Bld) [#/Vol] 0.11 10*3/uL High <0.10 [facility] Comment on above: Order Comment: Speci men Type: BLOOD SPECIMEN Ordering Facility: [facility] Address: [address] [place] [address] Performed By: #### 5 7021-8 #### [facility] CLIA [id number] [address] [place] [address] [place] Immature granulocytes/100 WBC (Bld) 1.0 % Normal [facility] Comment on above: Order Comment: Speci men Type: BLOOD SPECIMEN Ordering Facility: [facility] Address: [address] [place] [address] Performed By: #### 5 7021-8 #### [facility] CLIA [id number] [address] [place] [address] [place] Lymphocytes (Bld) [#/Vol] 2.89 10*3/uL Normal 1.00-4.00 [facility] Comment on above: Order Comment: Speci men Type: BLOOD SPECIMEN Ordering Facility: [facility] Address: [address] [place] [address] Performed By: #### 5 7021-8 #### [facility] CLIA [id number] [address] [place] [address] [place] Lymphocytes/100 WBC (Bld) 26.2 % Normal [facility] Comment on above: Order Comment: Speci men Type: BLOOD SPECIMEN Ordering Facility: [facility] Address: [address] [place] [address] Performed By: #### 5 7021-8 #### [facility] CLIA [id number] [address] [place] [address] [place] MCH (RBC) [Entitic mass] 26.0 pg Normal 26.0-34.0 [facility] Comment on above: Order Comment: Speci men Type: BLOOD SPECIMEN Ordering Facility: [facility] Address: [address] [place] [address] Performed By: #### 5 7021-8 #### [facility] CLIA [id number] [address] [place] [address] [place] MCHC (RBC) [Mass/Vol] 32.8 g/dL Normal 30.5-36.0 [facility] Comment on above: Order Comment: Speci men Type: BLOOD SPECIMEN Ordering Facility: [facility] Address: [address] [place] [address] Performed By: #### 5 7021-8 #### [facility] CLIA [id number] [address] [place] [address] [place] MCV (RBC) [Entitic vol] 79.4 fL Low 80.0-100.0 [facility] Comment on above: Order Comment: Speci men Type: BLOOD SPECIMEN Ordering Facility: [facility] Address: [address] [place] [address] Performed By: #### 5 7021-8 #### [facility] CLIA [id number] [address] [place] [address] [place] Monocytes (Bld) [#/Vol] 0.56 10*3/uL Normal <0.87 [facility] Comment on above: Order Comment: Speci men Type: BLOOD SPECIMEN Ordering Facility: [facility] Address: [address] [place] [address] Performed By: #### 5 7021-8 #### [facility] CLIA [id number] [address] [place] [address] [place] Monocytes/100 WBC (Bld) 5.1 % Normal [facility] Comment on above: Order Comment: Speci men Type: BLOOD SPECIMEN Ordering Facility: [facility] Address: [address] [place] [address] Performed By: #### 5 7021-8 #### [facility] CLIA [id number] [address] [place] [address] [place] Neutrophils (Bld) [#/Vol] 7.20 10*3/uL Normal 1.45-7.50 [facility] Comment on above: Order Comment: Speci men Type: BLOOD SPECIMEN Ordering Facility: [facility] Address: [address] [place] [address] Performed By: #### 5 7021-8 #### [facility] CLIA [id number] [address] [place] [address] [place] Neutrophils/100 WBC (Bld) 65.5 % Normal [facility] Comment on above: Order Comment: Speci men Type: BLOOD SPECIMEN Ordering Facility: [facility] Address: [address] [place] [address] Performed By: #### 5 7021-8 #### [facility] CLIA [id number] [address] [place] [address] [place] Nucleated RBC (Bld) [#/Vol] 10*3/uL Normal <0.01 [facility] Comment on above: Order Comment: Speci men Type: BLOOD SPECIMEN Ordering Facility: [facility] Address: [address] [place] [address] Performed By: #### 5 7021-8 #### [facility] CLIA [id number] [address] [place] [address] [place] Nucleated RBC/100 WBC (Bld) [Ratio] 0.0 /100 WBC Normal [facility] Comment on above: Order Comment: Speci men Type: BLOOD SPECIMEN Ordering Facility: [facility] Address: [address] [place] [address] Performed By: #### 5 7021-8 #### [facility] CLIA [id number] [address] [place] [address] [place] Platelet mean volume (Bld) [Entitic vol] 11.1 fL Normal 9.0-12.7 [facility] Comment on above: Order Comment: Speci men Type: BLOOD SPECIMEN Ordering Facility: [facility] Address: [address] [place] [address] Performed By: #### 5 7021-8 #### [facility] CLIA [id number] [address] [place] [address] [place] Platelets (Bld) [#/Vol] 276 10*3/uL Normal 150-400 [facility] Comment on above: Order Comment: Speci men Type: BLOOD SPECIMEN Ordering Facility: [facility] Address: [address] [place] [address] Performed By: #### 5 7021-8 #### [facility] CLIA [id number] [address] [id number] [facility] RBC (Bld) [#/Vol] 5.77 10*6/uL High 3.90-5.20 [facility] Comment on above: Order Comment: Speci men Type: BLOOD SPECIMEN Ordering Facility: [facility] Address: [address] [place] [address] Performed By: #### 5 7021-8 #### [facility] CLIA [id number] [facility] [place] [address] [facility] WBC (Bld) [#/Vol] 11.01 10*3/uL High 3.70-11.00 [facility] Comment on above: Order Comment: Speci men Type: BLOOD SPECIMEN Ordering Facility: [facility] Address: [address] [place] [address] Performed By: #### 5 7021-8 #### [facility] CLIA [id number] [address] [place], [place] [address] [facility] ECG COMPLETEon 07-08-2024 Atrial Rate 72 BPM [facility] Calculated P [place] 63 degrees [facility] Calculated R [place] 81 degrees [facility] Calculated T [place] 46 degrees [facility] P-R Interval 136 ms [facility] QRS Duration 86 ms [facility] QT Interval 396 ms [facility] QTC Calculation (Bazett) 433 ms [facility] Ventricular Rate 72 BPM [facility] : BROOKE LANDAVERDE PID : [id number] : 1970 Gender : Female Race : ORD : [id number] Procedure Date : Jul 08 2024 10:09:45 Edit Date : Jul 08 2024 15:35:49 Diagnosis: Normal sinus rhythm Poor anterior R-wave progression Normal ECG No previous ECGs available Confirmed by JOAQUÍN ADAM MD ([id number]) on 07/08/2024 3:35:41 PM Test Reason : [facility] Location : 2 : [place] Overread By : JOAQUÍN ADAM MD Edited By : JOAQUÍN ADAM MD Referred By : STEFANKO, Acquired by : [place], [facility] ECG COMPLETE Ventricular Rate : 7 2 BPM Atrial Rate : 72 BPM P-R Interval : 136 ms QRS Duration : 86 ms Q-T Interval : 396 ms QTC Calculation(Bazeana) : 433 ms Calculated P [place] : 63 degrees Calculated R [place] : 81 degrees Calculated T [place] : 46 degrees Normal sinus rhythm Poor anterior R-wave progression Normal ECG No previous ECGs available Confirmed by JOAQUÍN ADAM MD ([id number]) on 07/08/2024 3:35:41 PM NAME : BROOKE LANDAVERDE PID : [id number] : 1970 Gender : Female Race : ORD : [id number] Procedure Date : Jul 08 2024 10:09:45 Edit Date : Jul 08 2024 15:35:49 Diagnosis: Normal sinus rhythm Poor anterior R-wave progression Normal ECG No previous ECGs available Confirmed by JOAQUÍN ADAM MD ([id number]) on 07/08/2024 3:35:41 PM Test Reason : [facility] Location : 2 : [place] Overread By : JOAQUÍN ADAM MD Edited By : JOAQUÍN ADAM MD Referred By : DENISE Acquired by : Jacob ARAYA [facility] HbA1c (Bld)on 07-08-2024 Average glucose Estimated from glycated hemoglobin (Bld) [Mass/Vol] 123 mg/dL Normal [facility] Comment on above: Order Comment: Jean welsh Type: BLOOD SPECIMEN Ordering Facility: [facility] Address: [address] [place] [address] Result Comment: eAG: (Estimated average glucose) is a calculated value from HgbA1c and is advertising account representative of the average blood glucose level in the last 2-3 month period. Performed By: #### 3 4528-0, 26859-5 #### [facility] CLIA [id number] [address] [place] [address] [place] HbA1c (Bld) [Mass fraction] 5.9 % High 4.3-5.6 [facility] Comment on above: Order Comment: Jean welsh Type: BLOOD SPECIMEN Ordering Facility: [facility] Address: [address] [place] [address] Result Comment: [place] Diabetes Association guidelines indicate that patients with HgbA1c in the range 5.7-6.4% are at increased risk for development of diabetes, and intervention by lifestyle modification may be beneficial. HgbA1c greater or equal to 6.5% is considered diagnostic of diabetes. Performed By: #### 3 4528-0, 21733-2 #### [facility] CLIA [id number] [address] [place], [place] [address] [place] NT PRO BNPon 07-08-2024 Natriuretic peptide.B prohormone N-Terminal [Mass/Vol] 39 pg/mL NINF - 125 pg/mL [facility] Comment on above: NT-proBNP results of less [...] prohormone N-Terminal [Mass/Vol] 39 pg/mL Normal <125 [facility] Comment on above: Order Comment: Speci men Type: BLOOD SPECIMEN Ordering Facility: [facility] Address: [address] [place] [address] Result Comment: NT-p roBNP results of less than 300 pg/mL likely rules out acute congestive heart failure with 99% predictive value. NOTE: These cutoff points are suggested for ACUTE CHF DIAGNOSIS only Less than 50 years\X09\ Greater than 450 pg/mL 50 - 75 years\X09\\X09\ Greater than 900 pg/mL Greater than 75 years\X09\ Greater than 1800 pg/mL Performed By: #### 3 3762-6 #### [facility] CLIA [id number] [address] [place] [address] [place] Natriuretic peptide.B prohor giles N-Terminal [Mass/Vol]on 07-08-2024 Interpretation and review of laboratory results Normal [facility] No Panel Informationon 07-08 Interpretation and review of laboratory results Normal [facility] PT panel Coag (PPP)on 2023 INR Coag (PPP) [Relative time] 0.9 {INR} 0.9 - 1.3 [facility] Comment on above: Vitamin K Antagonist (VKA) Therapeutic Range: INR 2 to 3 (Target INR of 2.5) Note: For patients treated with VKA drugs, such as warfarin, the [place] [employer] 2012 Guideline recommends [...] of 3). amelia Martinez. Chest 2012, 141:7S-47S oJao GIBSON et al. [facility] 2017, 70: 252-289 PT Coag (PPP) [Time] 10.2 s [facility] INR Coag (PPP) [Relative time] 0.9 {INR} Normal 0.9-1.3 [facility] Comment on above: Order Comment: Speci men Type: BLOOD SPECIMEN Ordering Facility: [facility] Address: [address] [id number] Result Comment: Katt min K Antagonist (VKA) Therapeutic Range: INR 2 to 3 (Target INR of 2.5) Note: For patients treated with VKA drugs, such as warfarin, the [place] [employer] 2012 Guideline recommends [...] Chest 2012, 141:7S-47S Joao GIBSON et al. [facility] 2017, 70: 252-289 Performed By: #### 3 4528-0, 52486-5 #### [facility] CLIA [id number] [address] [place], [place] [address] [place] PT Coag (PPP) [Time] 10.2 s Normal 9.7-13.0 [facility] Comment on above: Order Comment: Speci men Type: BLOOD SPECIMEN Ordering Facility: [facility] Address: [address] [place] [address] Performed By: #### 3 4528-0, 97624-2 #### [facility] CLIA [id number] [address] [place] [address] [place] STAPHYLOCOCCUS AUREUS AND MR SA SCREEN, PCR, NASALon 07-08-2024 S. aureus and MRSA panel TRACIE+probe (Nose) Not detected Normal Not Detected [facility] Comment on above: Order Comment: Speci men Type: SWAB Ordering Facility: [facility] Address: [address] [place] [address] Performed By: #### S APCR #### [facility] CLIA [id number] [address] [place] [address] [place] STAPHYLOCOCCUS AUREUS & MRSA SCREEN, PCR, NASALon 07-08-2024 Interpretation and review of laboratory results Normal [facility] S. aureus and MRSA panel TRACIE+probe (Nose) Not detected Not Detected [facility] TYPE AND SCREEN,30 DAYon ABO group Nom (Bld) O [facility] Blood group antibody screen Ql Negative [facility] HIstorical Ab Scr Status Negative [facility] Rh Nom (Bld) Positive [facility] ABO O Normal [facility] Comment on above: Order Comment: Speci men Type: BLOOD SPECIMEN Ordering Facility: [facility] Address: [address] [place] [address] Performed By: #### T [id number] #### [facility] BLOOD BANK CLIA [id number] [address] [place] [address] OF [facility] HISTORICAL AB SCR STATUS Negative Normal [facility] Comment on above: Order Comment: Speci men Type: BLOOD SPECIMEN Ordering Facility: [facility] Address: [address] [place] [address] Performed By: #### T [id number] #### [facility] BLOOD BANK CLIA [id number] [address] [place], [place] [id number] [place] Rh Nom (Bld) Positive Normal [facility] Comment on above: Order Comment: Speci men Type: BLOOD SPECIMEN Ordering Facility: [facility] Address: [address] [place] [address] Performed By: #### T [id number] #### [facility] BLOOD BANK CLIA [id number] [address] [place] [address] OF [place] aPTT Coag (PPP) [Time]on Unfractionated Heparin Therapeutic Ranges: Standard Heparin Nomogram: 53 to [...] laboratory APTT reagent in use throughout the [facility] aPTT PPPon 07-08-2024 aPTT Coag (PPP) [Time] 31.5 s Normal 23.0-32.4 [facility] Comment on above: Order Comment: Speci men Type: BLOOD SPECIMEN Ordering Facility: [facility] Address: [address] [place] [address] Performed By: #### 3 [id number], [id number] #### [facility] LABORATORY CLIA [id number] [address] [place], [place] [id number] [place] Internal Medicine Office Vis iton 06-26-2024 Internal Medicine Office Visit [facility] [address] [place] [address] [address] [place], [place] [address] OFFICE VISIT Date of Service: 06/26/24 MR#: [id number] Acct: [id number] Name: BROOKE LANDAVERDE #: [id number] : 1970 Provider: Dr. 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 Required: No Accompanied by: Self Is patient in pain?: Yes (lower back ) Pain scale (1-10): 2 Allergies codeine Allergy (Mild, Verified 06/26/24 09:49) anxious meperidine HCl (From Demerol) Adverse Reaction (Verified 06/26/24 09:49) Nausea/Vom/Diarrhea Medications ???Medication ???Instructions ???Recorded ???Confirmed ???Type hydrochlorothiazide 12.5 mg tablet 12.5 mg PO QAM PRN 12/13/21 06/26/24 History glucocil PO 12/28/23 06/26/24 History amlodipine 10 mg tablet 10 mg PO DAILY #90 tabs 06/03/24 06/26/24 Rx metoprolol succinate 100 mg 100 mg PO DAILY #90 tabs 06/26/24 06/26/24 Rx tablet,extended release 24 hr rosuvastatin 20 mg tablet 20 mg PO DAILY #90 TABLETS 06/26/24 06/26/24 Rx tramadol 50 mg tablet mg PO PRN 06/26/24 06/26/24 History venlafaxine 37.5 mg 37.5 mg PO QHS #90 caps 06/26/24 06/26/24 Rx capsule,extended release 24 hr PFSH Medical History (Updated 06/26/24 @ 10:[address] Gómez Montalvo MD) Hot flashes due to menopause Preoperative evaluation to rule out surgical contraindication Hyperlipidemia Colon cancer screening Preventative health care Chronic back pain Lumbar radiculopathy Acute lumbar myofascial strain Abscess of left groin Generalized anxiety disorder with panic attacks High blood pressure Heart murmur Frequent headaches H/O emotional problems Back pain Vitamin D deficiency High cholesterol Surgical History Hx of tonsillectomy History of hysterectomy History of wisdom tooth extraction Family History Other Unknown- Adopted Social History (Updated 06/26/24 @ 09:53 by Danette Montez MA) Smoking Status: Current some day smoker Tobacco: How many years used: 2 alcohol intake: current alcohol intake frequency: holidays/special occasions only substance use type: does not use what type of physical activity do you participate in: none seatbelt use: always do you feel safe at home: Yes HPI HPI Chief Complaint: surgical clearance Details: BROOKE LANDAVERDE, is a 53 F who presents to the office today for follow-up of her chronic medical conditions and presurgical evaluation. Scheduled for L4 S1 posterolateral fusion with instrumentation, right sided L4 S1 decompression and bone marrow aspiration on the 18 of July. This will be under general anesthesia. Has had surgery under general anesthesia and tolerated it well. No history of sleep apnea. No tobacco or alcohol use. Denies chest pain, palpitation or shortness of breath. Aside from her back pain, feels well. Other chronic medical conditions are stable. History of hypertension, blood pressure today at 132/84 and she states that her readings at home have been stable as well. She would like medication refill. ROS Const Constitutional: No body ache, chills, excessive sweating, fatigue, fever(s), frequent falls, headache(s), snoring, weakness or change in appetite Eyes Eyes: No blurry vision, change in vision, bulging eyes, floaters, visual disturbances, eye pain or Light sensitivity ENT ENT: No abnormal hearing, ear or mastoid pain, tinnitus, nasal congestion, headache(s), neck pain or sore throat Resp Respiratory: No cough, shortness of breath, snoring or wheezing Cardio Cardiology: No chest pain at rest, chest pain with exertion, excessive sweating, dyspnea on exertion, lightheadedness, orthopnea or palpitations Gastro GI: No abdominal pain, change in bowel habits, constipation, cramping, diarrhea, nausea/dyspepsia or vomiting Genitourinary-Female: No burning urination, painful urination, urinary incontinence, urinary frequency, urinary hesitancy, suprapubic fullness or side pain Musc Musculoskeletal: Positive for back pain and radiating pain into limb; No abnormal gait, joint pain, limited range of motion, muscle weakness, neck pain or numbness Skin Skin: No dry skin, redness, lesions, itchy eyes, rash or wounds Neuro (more content not included)... Normal [facility] XR SPINE LUMBAR AP/LAT/FLEX/ EXTon 01-09-2024 XR [...] 01/09/2024 11:17:20 AM Ordering Provider: [facility] Absolute lymphocyte countOrd ered By: Gómez Montalvo on 08-16-2023 Lymphocytes Auto (Unsp spec) [#/Vol] 2.48 10*3/uL 0.83-4.51 [facility] Basophil percentageOrdered B y: Gómez Montalvo on 08-16-2023 Basophils/100 WBC (Bld) 0.5 % 0-1 [facility] Bilirubin [Mass/Vol] 0.40 mg/dL 0.20-1.00 [facility] Comment on above: For patients on eltr ombopag therapy, use of Dimension [place] TBIL is not recommended. Chloride [Moles/Vol] 106 mmol/L 98-107 [facility] Cholesterol [Mass/Vol] 301 mg/dL <200 [facility] Comment on above: <200 mg/dL Desirable 200-240 mg/dL Borderline >240 mg/dL High Risk Eosinophils/100 WBC (Bld) 1.6 % 0-5 [facility] Glucose [Mass/Vol] 105 mg/dL 74-106 [facility] Comment on above: Fasting Glucose resu lt from 100 to 125 mg/dL suggests IMPAIRED HOMEOSTASIS per A.D.A. criteria. Neutrophils (Bld) [#/Vol] 5.9 10*3/uL 2.0-7.7 [facility] Neutrophils/100 WBC (Bld) 63.5 % 47-70 [facility] Potassium [Moles/Vol] 4.5 mmol/L 3.5-5.[address] [facility] Protein [Mass/Vol] 8.1 g/dL 6.4-8.2 [facility] Sodium [Moles/Vol] 137 mmol/L 136-145 [facility] Triglyceride [Mass/Vol] 102 mg/dL <199 [facility] Comment on above: The drugs N-Acetylcy steine and Metamizole may falsely depress this assay.Serum Triglycerides Reference Interval Normal <150 mg/dL Borderline high 150 - 199 mg/dL High 200 - 499 mg/dL Very High > or = 500 mg/dL WBC (Bld) [#/Vol] 9.3 10*3/uL 4.4-11.0 [facility] Blood erythrocytes count (nu mber/volume)Ordered By: Gómez Montalvo on 08-16-2023 RBC (Bld) [#/Vol] 6.22 10*6/uL 4.2-5.4 [facility] Blood hemoglobin measurement (mass/volume)Ordered By: Gómez Montalvo on 08-16-2023 Hemoglobin (Bld) [Mass/Vol] 16.3 g/dL 12.0-15.0 [facility] Blood lymphocytes/100 leukoc ytesOrdered By: Gómez Montalvo on 08-16-2023 Lymphocytes/100 WBC (Bld) 26.6 % 19-41 [facility] Blood monocytes/100 leukocyt esOrdered By: Gómez Montalvo on 08-16-2023 Monocytes/100 WBC (Bld) 6.6 % 0-10 [facility] Blood platelet mean volumeOr dered By: brandengrand caneeliu Montalvo on 08-16-2023 Platelet mean volume (Bld) [Entitic vol] 10.2 fL 6.2-12.0 [facility] Determination of erythrocyte mean corpuscular volume (MCV)Ordered By: Stefaniegrand caneeliu Montalvo on 08-16-2023 MCV (RBC) [Entitic vol] 82.0 fL 81-99 [facility] Hematocrit Auto (Bld) [Volum e fraction]Ordered By: brandengrand caneeliu Montalvo on 08-16-2023 Hematocrit (Bld) [Volume fraction] 51.0 % 37-47 [facility] Laboratory - Chemistry and C hemistry - challengeOrdered By: Gómez Montalvo on 08-16-2023 ALP [Catalytic activity/Vol] 80 U/L 45-117 [facility] ALT [Catalytic activity/Vol] 25 U/L 13-56 [facility] CO2 [Moles/Vol] 28.0 mmol/L 21.0-32.0 [facility] Globulin (S) [Mass/Vol] 4.0 g/dL 2.2-4.2 [facility] Urea nitrogen/Creatinine [Mass ratio] 33.6 mg/mg 10-20 [facility] Laboratory - Hematology and Cell countsOrdered By: Gómez Vickcaitlin on 08-16-2023 Erythrocyte distribution width (RBC) [Entitic vol] 44.1 fL 35.1-43.9 [facility] Erythrocyte distribution width (RBC) [Ratio] 15.0 % 11.6-14.6 [facility] Immature granulocytes/100 WBC (Bld) 1.200 % 0.0-0.9 [facility] Comment on above: IG% - Immature Granu locytes (promyelocytes, myelocytes and metamyelocytes) > 1% indicates that a LEFT SHIFT is Present. MCH (RBC) [Entitic mass] 26.2 pg 27.0-32.0 [facility] Nucleated RBC/100 WBC (Bld) [Ratio] 0 % 0[facility] [Mass/Vol]Or dered By: Gómez Montalvo on 08-16-2023 MCHC (RBC) [Mass/Vol] 32.0 g/dL 32-[address] [facility] No Panel InformationOrdered By: Gómez Montalvo on 08-16-2023 Estimated GFR (MDRD) Amer 116 mL/min >60 [facility] Comment on above: GFR Calc Estimated GFR (MDRD) Non-Af Amer 96 mL/min >60 [facility] Comment on above: Non- GFR Calc Platelets bldOrdered By: Irvin Montalvo on 08-16-2023 Platelets (Bld) [#/Vol] 214 10*3/uL 150-450 [facility] Serum or plasma albumin neftali urement (mass/volume)Ordered By: Gómez Montalvo on 08-16-2023 Albumin [Mass/Vol] 4.1 g/dL 3.2-5.0 [facility] Serum or plasma albumin/glob ulin mass ratioOrdered By: Gómez Montalvo on 08-16-2023 Albumin/Globulin [Mass ratio] 1.0 {ratio} 0.9-2.4 [facility] Serum or plasma calcium neftali urement (mass/volume)Ordered By: Gómez Montalvo on 08-16-2023 Calcium [Mass/Vol] 9.3 mg/dL 8.5-10.1 [facility] Serum or plasma cholesterol in HDL measurement (mass/volume)Ordered By: Gómez Montalvo on 08-16-2023 Cholesterol in HDL [Mass/Vol] 68 mg/dL >40 [facility] Comment on above: The drugs N-Acetylcy steine and Metamizole may falsely depress this assay. Reference Range HDL <40 mg/dL Low HDL Cholesterol HDL >or= 60 mg/dL High HDL Cholesterol Serum or plasma cholesterol in VLDL measurement (mass/volume)Ordered By: Gómez Montalvo on 08-16-2023 Cholesterol in VLDL [Mass/Vol] 20 mg/dL 5-40 [facility] Serum or plasma creatinine m easurement (mass/volume)Ordered By: Gómez Montalvo on 08-16-2023 Creatinine [Mass/Vol] 0.68 mg/dL 0.55-1.[address] [facility] Comment on above: The validity of the calculated GFR & GFRAA in patients over 70 years has not been determined. Clinical correlation is essential. Serum or plasma low density lipoprotein (LDL) cholesterol measurement (mass/volume)Ordered By: brandengrand caneeliu Montalvo on 08-16-2023 Cholesterol in LDL [Mass/Vol] 213 mg/dL 0-130 [facility] Serum or plasma urea nitroge n measurement (mass/volume)Ordered By: [facility] on 08-16-2023 Urea nitrogen [Mass/Vol] 23 mg/dL 7-18 [facility] Thin prep Papanicolaou smear with manual screeningOrdered By: [facility] on 08-16-2023 Thin prep Papanicolaou smear with manual screening 9 U/L 15-37 [facility] Thin prep Papanicolaou smear with manual screening 3 5-15 [facility] Absolute lymphocyte counton 01-13-2022 Lymphocytes Auto (Unsp spec) [#/Vol] 2.15 10*3/uL 0.83-4.51 [facility] Work Phone: Basophil percentageon 2021 Basophils/100 WBC (Bld) 0.7 % 0-1 [facility] Work Phone: Bilirubin [Mass/Vol] 0.40 mg/dL 0.20-1.00 [facility] Work Phone: Comment on above: For patients on eltr ombopag therapy, use of Dimension [place] TBIL is not recommended. Chloride [Moles/Vol] 106 mmol/L 98-107 [facility] Work Phone: Cholesterol [Mass/Vol] 237 mg/dL <200 [facility] Work Phone: Comment on above: <200 mg/dL Desirable 200-240 mg/dL Borderline >240 mg/dL High Risk Eosinophils/100 WBC (Bld) 4.5 % 0-5 [facility] Work Phone: Glucose [Mass/Vol] 92 mg/dL 74-106 [facility] Work Phone: Neutrophils (Bld) [#/Vol] 5.6 10*3/uL 2.0-7.7 [facility] Work Phone: Neutrophils/100 WBC (Bld) 63.4 % 47-70 [facility] Work Phone: Potassium [Moles/Vol] 4.2 mmol/L 3.5-5.[address] [facility] Work Phone: Protein [Mass/Vol] 7.5 g/dL 6.4-8.2 [facility] Work Phone: Sodium [Moles/Vol] 137 mmol/L 136-145 [facility] Work Phone: Triglyceride [Mass/Vol] 85 mg/dL [facility] Work Phone: Comment on above: The drugs N-Acetylcy steine and Metamizole may falsely depress this assay.Serum Triglycerides Reference Interval Normal <150 mg/dL Borderline high 150 - 199 mg/dL High 200 - 499 mg/dL Very High > or = 500 mg/dL WBC (Bld) [#/Vol] 8.8 10*3/uL 4.4-11.0 [facility] Work Phone: Blood erythrocytes count (nu mber/volume)on 01-13-2022 RBC (Bld) [#/Vol] 5.59 10*6/uL 4.2-5.4 [facility] Work Phone: Blood hemoglobin measurement (mass/volume)on 01-13-2022 Hemoglobin (Bld) [Mass/Vol] 14.5 g/dL 12.0-15.0 [facility] Work Phone: Blood lymphocytes/100 leukoc yteson 01-13-2022 Lymphocytes/100 WBC (Bld) 24.3 % 19-41 [facility] Work Phone: Blood monocytes/100 leukocyt eson 01-13-2022 Monocytes/100 WBC (Bld) 6.6 % 0-10 [facility] Work Phone: Blood platelet mean volumeon 01-13-2022 Platelet mean volume (Bld) [Entitic vol] 11.9 fL 6.2-12.0 [facility] Work Phone: Determination of erythrocyte mean corpuscular volume (MCV)on 01-13-2022 MCV (RBC) [Entitic vol] 80.7 fL 81-99 [facility] Work Phone: Hematocrit Auto (Bld) [Volum e fraction]on 01-13-2022 Hematocrit (Bld) [Volume fraction] 45.1 % 37-47 [facility] Work Phone: Laboratory - Chemistry and C hemistry - challengeon 01-13-2022 ALP [Catalytic activity/Vol] 89 U/L 45-117 [facility] Work Phone: ALT [Catalytic activity/Vol] 14 U/L 13-56 [facility] Work Phone: CO2 [Moles/Vol] 26.0 mmol/L 21.0-32.0 [facility] Work Phone: Globulin (S) [Mass/Vol] 3.4 g/dL 2.2-4.2 [facility] Work Phone: Urea nitrogen/Creatinine [Mass ratio] 27.9 mg/mg 10-20 [facility] Work Phone: Laboratory - Hematology and Cell countson 01-13-2022 Erythrocyte distribution width (RBC) [Entitic vol] 41.3 fL 35.1-43.9 [facility] Work Phone: Erythrocyte distribution width (RBC) [Ratio] 14.2 % 11.6-14.6 [facility] Work Phone: Immature granulocytes/100 WBC (Bld) 0.500 % 0.0-0.9 [facility] Work Phone: Comment on above: IG% - Immature Granu locytes (promyelocytes, myelocytes and metamyelocytes) > 1% indicates that a LEFT SHIFT is Present. MCH (RBC) [Entitic mass] 25.9 pg 27.0-32.0 [facility] Work Phone: Nucleated RBC/100 WBC (Bld) [Ratio] 0 % 0-5 [facility] Work Phone: MCHC Auto (RBC) [Mass/Vol]on 01-13-2022 MCHC (RBC) [Mass/Vol] 32.2 g/dL 32-[address] [facility] Work Phone: No Panel Informationon 01-13 Estimated GFR (MDRD) Amer 118 mL/min >60 [facility] Work Phone: Comment on above: GFR Calc Estimated GFR (MDRD) Non-Af Amer 97 mL/min >60 [facility] Work Phone: Comment on above: Non- GFR Calc Thyroid Stimulating Hormone (TSH) 0.72 uIU/mL 0.358-3.74 [facility] Work Phone: Platelets bldon 01-13-2022 Platelets (Bld) [#/Vol] 234 10*3/uL 150-450 [facility] Work Phone: Serum or plasma albumin neftali urement (mass/volume)on 01-13-2022 Albumin [Mass/Vol] 4.1 g/dL 3.2-5.0 [facility] Work Phone: Serum or plasma albumin/glob ulin mass ratioon 01-13-2022 Albumin/Globulin [Mass ratio] 1.2 {ratio} 0.9-2.4 [facility] Work Phone: Serum or plasma calcium neftali urement (mass/volume)on 01-13-2022 Calcium [Mass/Vol] 8.7 mg/dL 8.5-10.1 [facility] Work Phone: Serum or plasma cholesterol in HDL measurement (mass/volume)on 01-13-2022 Cholesterol in HDL [Mass/Vol] 47 mg/dL [facility] Work Phone: Comment on above: The drugs N-Acetylcy steine and Metamizole may falsely depress this assay. Reference Range HDL <40 mg/dL Low HDL Cholesterol HDL >or= 60 mg/dL High HDL Cholesterol Serum or plasma cholesterol in VLDL measurement (mass/volume)on 01-13-2022 Cholesterol in VLDL [Mass/Vol] 17 mg/dL 5-40 [facility] Work Phone: Serum or plasma creatinine m easurement (mass/volume)on 01-13-2022 Creatinine [Mass/Vol] 0.68 mg/dL 0.55-1.[address] [facility] Work Phone: Comment on above: The validity of the calculated GFR & GFRAA in patients over 70 years has not been determined. Clinical correlation is essential. Serum or plasma low density lipoprotein (LDL) cholesterol measurement (mass/volume)on 01-13-2022 Cholesterol in LDL [Mass/Vol] 173 mg/dL 0-130 [facility] Work Phone: Serum or plasma urea nitroge n measurement (mass/volume)on 01-13-2022 Urea nitrogen [Mass/Vol] 19 mg/dL 7-18 [facility] Work Phone: Thin prep Papanicolaou smear with manual screeningon 01-13-2022 Thin prep Papanicolaou smear with manual screening 8 U/L 15-37 [facility] Work Phone: Thin prep Papanicolaou smear with manual screening 5 5-15 [facility] Work Phone: Laboratory - Microbiology an d Antimicrobial susceptibilityon 12-06-2021 SARS-CoV-2 (COVID-19) RNA TRACIE+probe Ql (Unsp spec) Not detected [facility] Work Phone: No Panel Informationon 12-06 Influenza Types A,B Rapid (Clinic) Not detected [facility] Work Phone: Vital Signs Date Time Vital Sign Value Performing Clinician Faci lity 03-12-2025 10:05-0400 Body height 162.[address] Jamie Santizo MD Work Phone: [facility] 03-12-2025 10:05-0400 Body mass index (BMI) [Ratio] 23.6 kg/m2 Dr. Jamie Santizo MD Work Phone: [facility] 03-12-2025 10:05-0400 Body temperature 97.8 [degF] Dr. Jamie Santizo MD Work Phone: [facility] 03-12-2025 10:05-0400 Body weight 62.[address] Jamie Santizo MD Work Phone: [facility] 03-12-2025 10:05-0400 Diastolic blood pressure 82 mm[Hg] Dr. Jamie Santizo MD Work Phone: [facility] 03-12-2025 10:05-0400 Heart rate 76 /min Dr. Jamie Santizo MD Work Phone: [phone] [place] [address] 03-12-2025 10:05-0400 Respiratory rate 18 /min Dr. Jamie Santizo MD Work Phone: [facility] 03-12-2025 10:05-0400 SaO2% (BldA) [Mass fraction] 97 % Dr. Jamie Santizo MD Work Phone: [facility] 03-12-2025 10:05-0400 Systolic blood pressure 142 mm[Hg] Dr. Jamie Santizo MD Work Phone: [facility] 07-08-2024 11:20-0400 Body height 152.4 cm Pacc 1 Work Phone: [facility] 07-08-2024 11:20-0400 Body mass index (BMI) [Ratio] 26.95 kg/m2 Pacc 1 Work Phone: [facility] 07-08-2024 11:20-0400 Body weight 62.6 kg Pacc 1 Work Phone: [facility] 07-08-2024 11:20-0400 Heart rate 72 /min Pac 1 Work Phone: [facility] 07-08-2024 11:20-0400 Respiratory rate 18 /min Pac 1 Work Phone: [facility] 07-08-2024 11:20-0400 SaO2% (BldA) [Mass fraction] 98 % Pac 1 Work Phone: [facility] 06-26-2023 14:37-0400 Body height 152.[address] Gómez Montalvo Work Phone: [facility] 06-26-2023 14:37-0400 Body mass index (BMI) [Ratio] 27.6 kg/m2 Dr. Gómez Montalvo Work Phone: [facility] 06-26-2023 14:37-0400 Body temperature 97.6 [degF] Dr. Gómez Montalvo Work Phone: [facility] 06-26-2023 14:37-0400 Body weight 64.[address] Gómez Montalvo Work Phone: [facility] 06-26-2023 14:37-0400 Diastolic blood pressure 80 mm[Hg] Dr. Gómez Montalvo Work Phone: [facility] 06-26-2023 14:37-0400 Heart rate 82 /min Dr. Gómez Montalvo Work Phone: [facility] 06-26-2023 14:37-0400 Respiratory rate 18 /min Dr. Gómez Montalvo Work Phone: [facility] 06-26-2023 14:37-0400 SaO2% (BldA) [Mass fraction] 99 % Dr. Gómez Montalvo Work Phone: [facility] 06-26-2023 14:37-0400 Systolic blood pressure 116 mm[Hg] Dr. Gómez Montalvo Work Phone: [facility] 01-14-2022 13:11-0400 Body height 152.[address] Gómez Montalvo Work Phone: [facility] Work Phone: 01-14-2022 13:11-0400 Body mass index (BMI) [Ratio] 25.4 kg/m2 Dr. Gómez Montalvo Work Phone: [facility] Work Phone: 01-14-2022 13:11-0400 Body temperature 97.6 [degF] Dr. Gómez Montalvo Work Phone: [facility] Work Phone: 01-14-2022 13:11-0400 Body weight 59.[address] Gómez Montalvo Work Phone: [facility] Work Phone: 01-14-2022 13:11-0400 Diastolic blood pressure 89 mm[Hg] Dr. Gómez Montalvo Work Phone: [facility] Work Phone: 01-14-2022 13:11-0400 Heart rate 71 /min Dr. Gómez Montalvo Work Phone: [facility] Work Phone: 01-14-2022 13:11-0400 Respiratory rate 18 /min Dr. Gómez Montalvo Work Phone: [facility] Work Phone: 01-14-2022 13:11-0400 SaO2% (BldA) [Mass fraction] 98 % Dr. Gómez Montalvo Work Phone: [facility] Work Phone: 01-14-2022 13:11-0400 Systolic blood pressure 142 mm[Hg] Dr. Gómez Montalvo Work Phone: [facility] Work Phone: 01-07-2022 11:55-0500 Body temperature 96.3 [degF] Dr. Gómez Montalvo Work Phone: [facility] Work Phone: 01-07-2022 11:55-0500 Body weight 59.[address] Gómez Montalvo Work Phone: [facility] Work Phone: 01-07-2022 11:55-0500 Diastolic blood pressure 78 mm[Hg] Dr. Gómez Montalvo Work Phone: [facility] Work Phone: 01-07-2022 11:55-0500 Heart rate 51 /min Dr. Gómez Montalvo Work Phone: [facility] Work Phone: 01-07-2022 11:55-0500 Respiratory rate 16 /min Dr. Gómez Montalvo Work Phone: [facility] Work Phone: 01-07-2022 11:55-0500 SaO2% (BldA) [Mass fraction] 98 % Dr. Gómez Montalvo Work Phone: [facility] Work Phone: 01-07-2022 11:55-0500 Systolic blood pressure 120 mm[Hg] Dr. Gómez Montalvo Work Phone: [facility] Work Phone: 12-13-2021 14:57-0500 Body mass index (BMI) [Ratio] 26.2 kg/m2 Dr. Gómez Montalvo Work Phone: [facility] Work Phone: 12-13-2021 14:57-0500 Body temperature 97.9 [degF] Dr. Gmóez Montalvo Work Phone: [facility] Work Phone: 12-13-2021 14:57-0500 Body weight 60.[address] Gómez Montalvo Work Phone: [facility] Work Phone: 12-13-2021 14:57-0500 Diastolic blood pressure 70 mm[Hg] Dr. Gómez Montalvo Work Phone: [facility] Work Phone: 12-13-2021 14:57-0500 Heart rate 58 /min Dr. Gómez Montalvo Work Phone: [facility] Work Phone: 12-13-2021 14:57-0500 Respiratory rate 18 /min Dr. Gómez Montalvo Work Phone: [facility] Work Phone: 12-13-2021 14:57-0500 SaO2% (BldA) [Mass fraction] 99 % Dr. Gómez Montalvo Work Phone: [facility] Work Phone: 12-13-2021 14:57-0500 Systolic blood pressure 118 mm[Hg] Dr. Gómez Montalvo Work Phone: [facility] Work Phone: Encounters Encounter Date Encounter Type Care Provider Facility Start: 04-02-2025 End: 04-02-2025 Telephone encounter Tom Rodrigez MD Work Phone: General Surgery Start: 04-01-2025 End: 04-01-2025 Emergency department patient [facility] Start: 04-01-2025 End: 04-01-2025 ambulatory Bernarda Cherie Facility:[facility] Start: 03-12-2025 End: 03-12-2025 Patient encounter procedure Michi MARMOLEJO [facility] Work Phone: Start: 03-12-2025 End: 03-12-[address] Jamie Santizo MD Work Phone: [facility] Work Phone: Start: 11-15-2024 ambulatory Gómez Montalvo Facili ty:[facility] Start: 10-31-2024 End: 12-06-2024 ambulatory JAMIE [facility] Start: 10-31-2024 End: 12-06-2024 Encounter for general adult medical examination without abnormal findings PERI ROGEL [facility] Start: 09-23-2024 ambulatory [facility] Start: 09-18-2024 End: 10-29-2024 ambulatory JAMIE CRUM [facility] Start: 09-05-2024 Encounter for genera l adult medical examination without abnormal findings [facility] Start: 08-21-2024 End: 08-21-2024 ambulatory GÓMEZ LUJAN [facility] Start: 08-19-2024 End: 08-19-2024 ambulatory Gómez Montalvo Facility:[facility] Start: 08-19-2024 End: 08-19-2024 ambulatory brandengrand caneeliu [facility] Facility:[facility] Start: 07-18-2024 End: 07-20-2024 ambulatory PERI ROGEL Facility:[id number] Start: 07-11-2024 Patient encounter status Jakob Rodrigez MD Work Phone: [facility] Work Phone: Start: 07-08-2024 End: 07-08-2024 Office outpatient new 45 [place] [address] Work Phone: Pre Anesthesia Comment on above: Preop testing (Prima ry Dx); PONV (postoperative nausea and vomiting); Heart murmur; Mixed hyperlipidemia; Primary hypertension Start: 07-08-2024 End: 07-08-2024 Patient encounter status Pacc 1 Work Phone: [facility] Start: 07-08-2024 End: 07-08-2024 ambulatory GÓMEZ MONTALVO Facility:[id number] Start: 07-08-2024 Encounter for other preprocedural examination [facility] Start: 06-26-[address] Andrea Santizo MD Work Phone: [facility] Start: 06-26-2024 End: 06-26-2024 ambulatory Gómez Montalvo Facility:[facility] Start: 06-19-2024 ambulatory ZAKI CROOK MD Facilit y:A Start: 05-22-2024 End: 05-22-2024 ambulatory GÓMEZ MONTALVO MD Facility:A Start: 01-29-2024 End: 01-29-2024 ambulatory GÓMEZ MONTALVO MD Facility:A Start: 01-29-2024 End: 01-29-2024 Patient encounter procedure ZAKI CROOK MD [facility] Start: 01-09-2024 End: 01-09-2024 ambulatory GÓMEZ MONTALVO MD Facility:A Start: 08-16-2023 End: 08-16-[address] Gómez Montalvo Work Phone: [facility] Work Phone: Start: 08-16-2023 End: 08-16-[address] Gómez Montalvo Work Phone: [facility] Work Phone: Start: 07-13-2023 End: 07-13-2023 ambulatory GÓMEZ MONTALVO MD Facility:A Start: 07-13-2023 End: 07-13-2023 Patient encounter procedure MITCH LINDSEY APRN-HUMAN RESOURCES ASSISTANT MANAGER [facility] Start: 06-26-[address] Caitlin Montalvo Work Phone: [facility] Start: 06-26-2023 End: 06-26-2023 Encounter for general adult medical examination without abnormal findings Dr. Gómez Montalov Work Phone: [facility] Start: 06-26-2023 End: 06-26-[address] Gómez Montalvo Work Phone: [facility] Work Phone: Start: 06-07-2023 End: 06-07-2023 ambulatory [facility] Work Phone: Start: 06-07-2023 End: 06-07-2023 Discharged Recurring [facility] Work Phone: Start: 01-19-2022 End: 01-19-[address] Gómez Montalvo Work Phone: [facility] Start: 01-14-2022 End: 01-14-[address] Gómez Montalvo Work Phone: [facility] Start: 01-13-2022 End: 01-13-[address] Gómez Montalvo Work Phone: [facility] Start: 01-07-2022 End: 01-07-[address] Gómez Montalvo Work Phone: [facility] Start: 12-13-2021 End: 12-13-[address] Gómez Montalvo Work Phone: [facility] Start: 12-06-2021 End: 12-06-[address] Gómez Montalvo Work Phone: [facility] Start: 04-19-2012 Evaluation and management of inpatient Dr. Gómez Montalvo Work Phone: [facility]- Procedures Date Procedure Procedure Detail Performing Clinician Start: 04-01-2025 Urinalysis JAMIE TRAN Comment on above: Result Comment: URIN ALYSIS Performed By: #### 2 [id number] ####[facility] [address] Start: 07-08-2024 Antibody screen PACO MONTALVO Comment on above: Order Comment: Speci men Type: BLOOD SPECIMEN Ordering Facility: [facility] Address: [facility] [place] [address] Performed By: #### T [id number] #### [facility] BLOOD BANK CLIA [id number] [address] [place] [address] Start: 07-08-2024 Antibody screen rbc each serum technique Peri Swartz Joongel DO Work Phone: Start: 07-08-2024 Iadna s aureus ampli fied probe tq Peri Jianshu DO Work Phone: Start: 07-08-2024 Thromboplastin time partial plasma/whole blood [employer] Work Phone: Start: 08-16-2023 Screening mammography D r. Gómez Montalvo Work Phone: Start: 11-30-2016 Lipid 1996 panel - S arabella or Plasma Pacc 1 Work Phone: Hysterectomy MITCH LINDSEY CIGAR PACKING EXAMINER-HUMAN RESOURCES ASSISTANT MANAGER Tonsillectomy MITCH LINDSEY CIGAR PACKING EXAMINER-HUMAN RESOURCES ASSISTANT MANAGER Plan of Treatment Date Care Activity Detail Author Start: 07-20-2027 Diabetes Screening Diabetes Screening [facility] Start: 07-08-2027 Diabetes Screening Diabetes Screening [facility] Start: 04-07-2025 End: 04-07-2025 Patient encounter procedure 04/07/2025 3:45 PM EDT Office Visit General Surgery [address] [place] [address] Tom Rodrigez MD [address] [place] [address] RUQ pain - CT scan done at [facility] on 04/01/25, images requested from [facility] General Surgery Comment on above: RUQ pain - CT scan done at [facility] on 04/01/25, images requested from [facility] Start: 07-18-2024 End: 07-18-2024 Admission to same day surgery center 07/18/2024 11:05 AM EDT - 07/18/2024 2:[address] [facility] [address] [place] [address] ePri Rogel, DO [address] [place] [address] FUSION LUMBAR POSTERIOR LEVEL [address] [facility] Comment on above: FUSION LUMBAR POSTERIOR LEVEL 1 WITH C A RM Start: 07-18-2024 End: 07-18-2024 Allograft for spine [...] physician 07/18/2024 11:05 AM EDT Hospital Encounter [facility] [address] [place] [address] Peri Rogel, DO [address] [place] [id number] Spinal stenosis of lumbar region with neurogenic claudication [M48.062] [facility] Comment on above: Spinal stenosis of lumbar region with ne urogenic claudication [M48.062] Start: 07-08-2024 End: 10-07-2024 Bacteria identified in Urine by Culture [facility] Work Phone: Comment on above: Expected: 07/08/2024, Expires: Start: 07-08-2024 End: 10-07-2024 Hemoglobin A1c in Blood [facility] Work Phone: Comment on above: Expected: 07/08/2024, Expires: 4 Start: 06-30-2024 Covid-19 Vaccine ( season) Covid-19 Vaccine ( season) [facility] Start: 06-30-2024 Covid-19 Vaccine ( season) Covid-19 Vaccine ( season) [facility] Start: 06-30-2024 Influenza [facility] Start: 06-26-2023 Patient referral [facility] Work Phone: Start: 01-07-2022 Patient referral [facility] Work Phone: Start: 2021 Pneumococcal Vaccine: 50+ (1 of 1 - PCV) Pneumococcal Vaccine: 50+ (1 of 1 - PCV) [facility] Start: 2021 Shingrix Vaccine (1 of 2) Shingrix Vaccine (1 of 2) [facility] Start: 12-13-2021 Patient referral [facility] Work Phone: Start: 11-30-2021 Lipid panel Lipid Screening [facility] Start: 03-12-2020 Urine microalbumin profile DTaP,Tdap,Td Vaccine (2 - Td or Tdap) [facility] Start: 2016 Screening for malignant neoplasm of colon [facility] Start: 07-15-2014 Screening for malignant neoplasm of breast Mammogram Screening [facility] Start: 1990 Hepatitis B Vaccine (1 of 3 - 19+ 3-dose series) Hepatitis B Vaccine (1 of 3 - 19+ 3-dose series) [facility] Start: 1989 Annual PCP Team Chronic Disease Visit Annual PCP Team Chronic Disease Visit [facility] Start: 1989 Anxiety Screening Anxiety Screening [facility] Start: 1989 BP Controlled (<130/80) BP Controlled (<130/80) [facility]ic Start: 1989 Depression Screening Depression Screening [facility] CBC W Auto Different ial panel - Blood [facility] Comprehensive metabo lic 2000 panel - Serum or Plasma [facility] Lipid 1996 panel - S arabella or Plasma [facility] Patient referral [facility] Work Phone: Thyroid stimulating hormone measurement [facility] Immunizations Immunization Date Immunization Notes Care Provider Fa cility 08-19-2024 influenza, injectabl e, madin eze canine kidney, preservative free Dr. Jamie Santizo MD Work Phone: [facility] 09-09-2021 Covid (Moderna) Dr. Marci Montalvo Work Phone: [facility] 08-04-2021 influenza, injectabl e, quadrivalent, preservative free Dr. Gómez Montalvo Work Phone: [facility] 08-04-2021 influenza, seasonal, injectable Dr. Gómez Montalvo Work Phone: [facility] 08-04-2021 influenza virus vaccine, unspecified formulation [facility] 1 Work Phone: [facility] 12-15-2020 Covid (Moderna) Dr. Marci Montalvo Work Phone: [facility] 11-17-2020 Covid (Moderna) Dr. Marci Montalov Work Phone: [facility] 08-17-2020 influenza, injectabl e, quadrivalent, preservative free Dr. Gómez Montalvo Work Phone: [facility] 08-17-2020 influenza, seasonal, injectable Dr. Gómez Montalvo Work Phone: [facility] 07-25-2019 influenza, injectabl e, quadrivalent, preservative free Dr. Gómez Montalvo Work Phone: [facility] 07-25-2019 influenza, seasonal, injectable Dr. Gómez Montalvo Work Phone: [facility] 08-29-2018 influenza, injectabl e, quadrivalent, preservative free Dr. Gómez Montalvo Work Phone: [facility] 08-29-2018 influenza, seasonal, injectable Dr. Gómez Montalvo Work Phone: [facility] 07-27-2017 influenza, injectabl e, quadrivalent, preservative free Dr. Gómez Montalvo Work Phone: [facility] 07-27-2017 influenza, seasonal, injectable Dr. Gómez Montalvo Work Phone: [facility] 07-14-2017 tuberculin skin test ; purified protein derivative solution, intradermal Pac 1 Work Phone: [facility] 07-30-[address] Gómez Montalvo Work Phone: [facility] 08-12-2015 influenza virus vaccine, unspecified formulation Pac 1 Work Phone: [facility] 08-16-2013 influenza virus vaccine, unspecified formulation Pac 1 Work Phone: [facility] 03-22-2010 tuberculin skin test ; purified protein derivative solution, intradermal Pac 1 Work Phone: [facility] 03-12-2010 tetanus toxoid, reduced diphtheria toxoid, and acellular pertussis vaccine, adsorbed Pacc 1 Work Phone: [facility] 03-12-2010 tuberculin skin test ; purified protein derivative solution, intradermal Pac 1 Work Phone: [facility] 11-01-1993 hepatitis B immune globulin Pac 1 Work Phone: [facility] 04-02-1993 hepatitis B immune globulin Pac 1 Work Phone: [facility] 02-22-1993 hepatitis B immune globulin Pac 1 Work Phone: [facility] Payers Date Payer Category Payer Private Health Insurance [id number] 2024 Private Health Insurance [id number] 2024 Self-pay [id number] 2023 Private Health Insurance [id number] 2023 Unknown [id number] 2011 Unknown [id number] 2011 Unknown [facility] [id number] 1971 Unknown [id number] 27 1971 Unknown [id number] 2.16.840.1.553984.3.579.2.6 27 1971 Unknown [id number] 2.16.840.1.078928.3.579.2.6 27 1971 Unknown [id number] 2.16.840.1.886073.3.579.2.6 27 1971 Unknown [id number] 2.16.840.1.886996.3.579.2.6 27 1971 Unknown [id number] 2.16.840.1.186113.3.579.2.6 27 1971 Unknown [id number] 2.16.840.1.322844.3.579.2.6 51 1971 Unknown [id number] 2.16.840.1.592913.3.579.2.6 51 1971 Unknown [id number] 2.16.840.1.505398.3.579.2.6 51 1971 Unknown [id number] 2.16.840.1.291893.3.579.2.6 51 1971 Unknown [id number] 2.16.840.1.586977.3.579.2.6 51 Private Health Insurance [id number] Private Health Insurance [id number] Unknown SELF [employer] [facility] [id number] Unknown [id number] [id number] 62 Unknown [id number] 2.16.840.1.905775.3.579.2.4 62 Unknown [id number] 2.16.840.1.591289.3.579.2.4 62 Unknown [id number] 2.16.840.1.099024.3.579.2.4 62 Unknown [id number] 2.16.840.1.570652.3.579.2.4 62 Unknown [id number] [id number] 62 Social History Date Type Detail Facility Start: 01-19-2022 End: 06-26-2023 Tobacco smoking status TXIS Unknown if ever smoked [facility] Start: 06-28-2019 Occasional [facility] Start: 06-28-2019 None [facility] Start: 06-28-2019 Spouse/ Significant Other [facility] Start: 06-28-2019 Cigarettes [facility] Start: 1970 Sex Assigned At Female [facility] Start: 07-13-2023 End: 01-09-2024 Tobacco smoking status Never smoked tobacco (finding) [facility] Start: 07-08-2024 Tobacco smoking status NHIS Ex-smoker [facility] History of tobacco use Current smoker [facility] Start: 07-08-2024 Tobacco use and exposure Smokeless tobacco non-user [facility] Start: 07-08-2024 Alcoholic beverage intake Current drinker of alcohol (finding) [facility] Start: 07-08-2024 End: 07-19-2024 History of Social function [facility] Work Phone: Start: 07-08-2024 End: 07-19-2024 Tobacco use panel [facility] Work Phone: National Score (1-100), lower number is lower risk 76 [facility] Start: 07-08-2024 Tobacco Comment was passive smoker quit 2001, smoked intermittently [facility] Start: 1970 Sex assigned at Not on file [facility] Start: 06-26-2024 Tobacco smoking status NHIS Current some day smoker [facility] Has the [employer], gas, oil, or water Group [employer] threatened to shut off services in your home in past 12Mo No [facility] Work Phone: (I/We) worried whether (my/our) food would run out before (I/we) got money to buy more. Never true [facility] Medical Equipment Procedure Code Equipment Code Equipment Origin al Text Equipment Identifier Dates Graft Bone Cance llo Chips 30cc - [id number] FDA Start: 07-18-2024 Bone Vivigen Formable 10cc - [id number] Start: 07-18-2024 Kore Fiber - [id number] Start: 07-18-2024 Expedium 5.50 Ti X25 Set Screw [id number] Start: 07-18-2024 Connector Expedi um Sfx 5.5mm A5 Titanium 41-49mm Delta Nonsterile Spine - [id number] Start: 07-18-2024 Screw Depuy Vipe r Yosi 7.0x40mm [id number] Start: 07-18-2024 Delta Expedium 5.5 mm Titanium 65mm Spinal Prebent Line Nonsterile - [id number] Start: 07-18-2024 Screw Expedium 6 mm Titanium 40mm Bone Fix 5.5mm Delta Spine Cortical - [id number] Start: 07-18-2024 Screw Expedium 6 mm Titanium 45mm Bone Fix 5.5mm Delta Spine Cortical - [id number] Start: 07-18-2024 Screw Expedium 7 mm Titanium 50mm Bone Fix 5.5mm Delta Spine [facility] - [id number] Start: 07-18-2024 Goals Date Patient Goal Desired Activity /State Functional Status Date Assessment Result Facility 07-20-2024 Are you deaf, or do you have serious difficulty hearing No 07/20/2024 8:41 AM RACHEALT Debby Diaz RN No [facility] 07-20-2024 Are you blind, or do you have serious difficulty seeing, even when wearing glasses No 07/20/2024 8:41 AM EDT Debby Diaz RN No [facility] 07-20-2024 Do you have serious difficulty walking or climbing stairs No 07/20/2024 8:41 AM EDT Debby Diaz RN No [facility] 07-20-2024 Do you have difficul ty dressing or bathing No 07/20/2024 8:41 AM RACHEALT Debby Diaz RN No [facility] 07-20-2024 Because of a physica l, mental, or emotional condition, do you have difficulty doing errands alone such as visiting a physician's office or shopping No 07/20/2024 8:41 AM RACHEALT Debby Diaz RN No [facility] Mental Status Date Assessment Result Facility 07-20-2024 Because of a physica l, mental, or emotional condition, do you have serious difficulty concentrating, remembering, or making decisions No 07/20/2024 8:41 AM EDT Debby Diaz RN No [facility] Clinical Notes 07-08-2024 to 04-02-2025 Telephone Encounter - Carlos Cutler RN - 04/02/2025 10:32 AM EDTTelephone Encounter - Carlos Cutler RN - 04/02/2025 10:32 AM Tom Calle PA-C - 07/08/2024 12:04 PM EDT Note Date & Type Note Facility 04-02-2025 Telephone encounter Note Images requested from [place] for CT scan 04/01/25.Carlos Cutler RN [facility] 04-02-2025 Miscellaneous Notes Images requested from [facility] for CT scan 04/01/25.Carlos Cutler RN documented in this encounter [facility] 07-20-2024 Note HNO ID: [id number] Author: DEBBY DIAZ RN Service: Nursing Author Type: Registered Nurse Type: Nursing Progress Note Filed: 07/20/2024 09:47 Note Text: D/C instructions given at this time. All questions answered, pt to d/c home with . [facility] 07-20-2024 Note HNO ID: [id number] Author: MARCO SANTANA PA-C Service: Orthopaedic Surgery Author Type: Physician Tool Sharpener Type: Progress Notes Filed: 07/20/2024 07:29 Note [...] home with self-care. Electronically signed by: Marco Santana PA-C, PA-C [facility] 07-20-2024 Note HNO ID: [id number] Author: NOTE, INTERFACE, ? Service: ? Author Type: ? Type: Progress Notes Filed: 07/20/2024 03:40 Note Text: Epic Scheduled Downtime: 07/20/2024 1:00:00 AM to 07/20/2024 3:20:00 AM [facility] 07-19-2024 Note HNO ID: [id number] Author: JOCELYN OJEDA APRN.CNP Service: Hospital Medicine Author Type: Nurse Practitioner [...] 3 times d (more content not included)... [facility] 09-20-2024 Note HNO ID: [id number] Author: PERI ROGEL DO Service: Orthopaedic Surgery [...] discharge tomorrow if patient is doing fine. [facility] 07-19-2024 Note HNO ID: [id number] Author: MARCO SANTANA PA-C Service: Orthopaedic Surgery Author Type: Physician Tool Sharpener Type: Progress Notes Filed: 07/19/2024 07:32 Note [...] cleared physical therapy. Electronically signed by: Marco Santana PA-C, PA-C [facility] 07-18-2024 Note HNO ID: [id number] Author: YOON PRADO RN Service: ? Author Type: Registered Nurse Type: Progress Notes Filed: 07/18/2024 21:25 Note Text: Pt complaints of pain medicated per order [facility] 07-18-2024 Note HNO ID: [id number] Author: BISI MARTE AA Service: ? Author Type: Brew House Supervisor Type: Anesthesia Procedure Notes Filed: 07/18/2024 11:49 Note Text: ANESTHESIOLOGY PROCEDURE NOTE Airway General Information Procedure Start Time/Medication Administration: 07/18/2024 11:25 AM Procedure End Time: 07/18/2024 11:25 AM Patient location during procedure: OR Timeout Performed Pre-procedure: timeout performed Consent Obtained: Yes Patient identity confirmed: arm band Staffing Anesthesiologist: Tamera Neely DO CAA: Bisi Marte AA Performed by: [...] July 18, 2024 TIME: 11:49 AM CSN: [id number] [facility] 07-17-2024 Note HNO ID: [id number] Author: JONA RENO RN Service: Nursing Author [...] Ensure Pre-Surgery (given by FOREST or your ), fruit juice without pulp (apple/cranberry), clear tea, [...] directed. Bring copy of Living Will/Power of Inserter Operator. Do not smoke or chew. If you [...] the Surgery Center. UPON ARRIVAL: Access to [facility] is located on [address] [employer] parking is available for your convenience from [...] instructions for the morning of your procedure. [facility] 07-10-2024 Note HNO ID: [id number] Author: BLAISE GAMBOA APRN.CASI Service: ? Author Type: Nurse Practitioner Type: Progress Notes Filed: 07/10/2024 13:01 Note Text: Summary: ABNORMAL LABS WBC elevated 11.01, RBC 5.77, low MCV. Sending communication to Leonardo and will defer to them if they feel she warrants additional testing. [facility] 07-08-2024 Note Normal sinus rhythm Poor anterior R-wave progression Normal ECG No previous ECGs available Confirmed by [facility] ([id number]) on 07/08/2024 3:35:[address] [facility] 07-08-2024 Note HNO ID: [id number] Author: BLAISE GAMBOA APRN.HUMAN RESOURCES ASSISTANT MANAGER Service: ? Author Type: Physician Tool Sharpener Type: Progress Notes Filed: 07/10/2024 12:59 Note [...] fevers. Neuro: No history of TIA's, stroke, INSTRUCTION DEAN tumor, impaired sensorium, hemiplegia, paraplegia or quadraplegia. [...] or incontinence,, stones or chronic kidney disease MINE SUPERVISOR: Negative for abnormal vaginal bleeding, abnormal vaginal [...] m/uL 5.77 Hemoglobi (more content not included)... [facility] 07-08-2024 History of Presen t illness Narrative PACC Consult SERVICE DATE: 07/08/2024 [...] fevers. Neuro: No history of TIA's, stroke, INSTRUCTION DEAN tumor, impaired sensorium, hemiplegia, paraplegia or quadraplegia. 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 She's having shooting pain down her right [...] from Dr. Montalvo. documented in this encounter [facility] 07-08-2024 Instructions Tmo Burnett PA-C - 07/08/2024 11:51 AM EDT [...] of your procedure. documented in this encounter [facility] 07-08-2024 Note HNO ID: [id number] Author: TOM BURNETT PA-C Service: ? Author Type: Physician Tool Sharpener Type: Progress Notes Filed: 07/08/2024 12:19 Note [...] instructions for the morning of your procedure. [facility] 07-08-2024 Note HNO ID: [id number] Author: DIVYA BRYANT APRN.HUMAN RESOURCES ASSISTANT MANAGER Service: ? Author Type: Nurse Practitioner Type: Progress Notes Filed: 07/08/2024 12:19 Note Text: [facility] 07/18/24 L4-S1 PLF with instrumentation, R L4-S1 decompression and bone marrow aspiration 53 yo female with HTN, HLD, near syncope. Med clearance received from Dr. Montalvo. [facility] Chief complaint+Reason for visit Narrative Reason for Visit Abscess of left groi n Generalized anxiety disorder with panic attacks Hypertension Abscess of left groin [facility] Work Phone: Evaluation + Plan note No data available for this section [facility] Evaluation note* Diagnosis Onset Date Resolution Status Abscess of left groin chroni c Generalized anxiety disorder with panic attacks chronic Hypertension chronic Abscess of left groin chroni c [facility] Work Phone: Evaluation noteNo assessment information available [facility] Work Phone: Evaluation note* Diagnosis Onset Date Resolution Status Colon cancer screening acute Preventative health care acu te Chronic back pain chronic [facility] Work Phone: Evaluation note* Diagnosis Annual physical exam- Primary Routine general [...] displacement, lumbar region [facility] Diagnosis Onset Date Resolution Status Admit Date Hypertension chronic March 12 9:58am [facility] Work Phone: Hospital Discharge instructions No data available for this section [facility] Progress note No data available for this section [facility] Reason for referral (narrative)* Outpatient Procedure (Routine) - New Request Specialty Diagnoses / Procedures Referred By Mandy roy [facility] Diagnoses Preop testing Procedures ECG COMPLETE ECG COMPLETE ECG ROUTINE ECG W/LEAST 12 LDS W/I&R Peri Rogel DO [address] [place] [address] [facility] [place] [address] [place] [address] Referral ID Status Reason Start Date Expiration Date Visits Requested Visits Authorized [id number] New Request Auto-Generat ed Referral 07/08/2024 07/04/2025 1 1 [facility] for referral (narrative)No reason for referral [facility] Work [facility]: Advance Directives Advance Directive Response Recorded Date/ Time Advance Directives No September 1:52pm Living Will No June 28, 201 9 2:27pm Power of Inserter Operator No June 28, 2 019 2:27pm Advance Directive Response Recorded Date/ Time Advance Directives No May 10 9:20am Living Will No May 10, 2023 9:20am Power of Inserter Operator No May 10 9:20am Advance Directive Response Recorded Date/ Time Advance Directives No May 10 9:20am Date Activated Date Inactivated Comments 07/18/2024 4:49 PM 07/20/2024 1:05 PM Question Answer Comments Full Code Order Discussed With: Discussion Not M edically Appropriate Chief Complaint and Reason for Visit Chief Complaint LUMBAR STRAIN / RX H ERE Chief Complaint LUMBAR STRAIN / RX H ERE 1 yr fu SCREENING / e orders for lab Reason for Visit Colon cancer screeni Preventative health care Chronic back pain Chief Complaint Admit Date ACUTE - MED REFILLS March 12, 2025 9:58a m Reason for Visit Admit Date Hypertension March 12, 2025 9:58a m Summary Purpose Family History No Family History Records Found Additional Source Comments Care Teams (unrecognized sec tion and content) Team Status: Active Member Role Status Dates Dr. Gómez Montalvo MD Family Provider Active Dr. Gómez Montalvo MD Primary Care Provider Active Team Status: Active Member Role Status Dates Dr. Jamie Santizo MD Primary Care Provider, Family Provider Active Team Status: Inactive Member Role Status Dates Dr. Gómez Montalvo MD Primary Care Provider Active Lion MARMOLEJO, PA Attending Provider Active Team Status: Inactive Member Role Status Dates Dr. óGmez Montalvo MD Primary Care P sherman, Attending Provider, Referring Provider Active Roll Icer Machine Relationship Specialty Start Date End Date Gómez Montalvo MD [address] [place] [address] PCP - General Internal Medicine 06/26/24 Team Status: Active Member Role Status Dates Dr. Jamie Santizo MD Primary Care Provider Active Start: April 19, 2012 Dr. Jamie Santizo MD Family Provider Active Start: April 19, 2012 Team Status: Inactive Member Role Status Dates Dr. Gómez Montalvo MD Primary Care Provider Active Start: March 12, 2025 End: March 12, 2025 Dr. Gómez Montalvo MD Referring Provider Active Start: March 12, 2025 End: March 12, 2025 Michi MARMOLEJO, PA Attending Provider Active St art: March 12, 2025 End: March 12, 2025 Roll Icer Machine Relationship Specialty Start Date End Date Gómez Montalvo MD [address] [place], [place] [id number] PCP - General Internal Medicine 06/26/24 INFORMATION SOURCE (unrecogn ized section and content) DATE CREATED AUTHOR 06/21/2024 [facility] ([place]) DATE CREATED AUTHOR AUTHOR'S ORGANIZ ATION 08/07/2024 [facility] DATE CREATED AUTHOR AUTHOR'S ORGANIZ ATION 04/02/2025 [facility] DATE CREATED AUTHOR AUTHOR'S ORGANIZ ATION 04/03/2025 [facility] DATE CREATED AUTHOR AUTHOR'S ORGANIZ ATION 04/03/2025 [facility] Source Comments (unrecognize d section and content) In the event this informatio n is protected by the Federal Confidentiality of Alcohol and Drug Abuse Patient Records regulations: The Federal rules restrict any use of the information to criminally investigate or prosecute any alcohol or drug abuse patient.[facility] the event this information is protected by the Federal Confidentiality of Alcohol and Drug Abuse Patient Records regulations: The Federal rules restrict any use of the information to criminally investigate or prosecute any alcohol or drug abuse patient.[facility] FOR RECORDS PERTAINING TO PATIENTS WHO ARE [...] CLINICAL RECORDS. [facility] [employer] [facility]. provides no warranty or guarantee of the accuracy or completeness of information in this document.
== END | disposition home or self-care (01) ==
LOC: US 10:29
PROVIDERS: PCP Internal Medicine; Referring Provider Nurse Practitioner Family; Visit Provider Nurse Practitioner Family
DX: R10.9 Unspecified abdominal pain (principal)
CPT/HCPCS: 76705

== ENCOUNTER → 2025-09-10 | Outpatient (CLI) | payer OTHER, SELFPAY ==
[2025-09-10 09:02] LABS: Hematocrit 46.5 % (37-47); Hemoglobin 15.0 g/dL (12.0-15.0); Immature Granulocytes Count 0.050 X10^3/uL (0.0-0.0); Mean Corp Hgb Conc 32.3 g/dL (32-36); Mean Corpuscular Volume 80.6 fL (81-99); Mean Platelet Vol. 10.8 fl (6.2-12.0); NRBC Flagged by Analyzer 0 % (0-5); Platelet Count 192 K/mm3 (150-450); RBC Distribution Width CV 14.6 % (11.6-14.6); RBC Distribution Width SD 42.4 fl (35.1-43.9); Red Blood Count 5.77 M/mm3 (4.2-5.4); White Blood Count 12.0 K/mm3 (4.4-11.0)
[2025-09-10 09:31] LABS: AST(SGOT) 18 U/L (<=31); Alanine Aminotransfer ALT/SGPT 17 U/L (<=34); Albumin, Serum 4.8 g/dL (3.5-5.0); Alkaline Phosphatase 141 U/L (35-104); Anion Gap 10 (5-15); BUN 13 mg/dL (4-19); BUN/Creat Ratio 22.3 RATIO (10-20); Calcium,Total 10.0 mg/dL (7.6-11.0); Carbon Dioxide 25.4 mmol/L (21.0-32.0); Chloride 104 mmol/L (98-108); Cholesterol 168 mg/dL (<=200); Globulin 3.0 g/dL (2.2-4.2); Glucose 128 mg/dL (70-99); Low Density Lipoprotein Calc. 95 mg/dL; Potassium 4.8 mmol/L (3.3-5.1); Triglycerides 63 mg/dL; Very Low Density Lipoprotein 13 mg/dL (5-40); cholesterol:hdl ratio screen 2.75
== END | disposition home or self-care (01) ==
PROVIDERS: PCP Internal Medicine; Referring Provider Physician Assistant; Visit Provider Physician Assistant
DX: I10 Essential (primary) hypertension (principal); E78.5 Hyperlipidemia, unspecified
CPT/HCPCS: 36415; 80053; 80061; 84443; 85025

== ENCOUNTER → 2025-09-10 | Outpatient (CLI) | payer OTHER, SELFPAY ==
--- NOTE | 2025-09-10 15:15 | BI_ITS ---
EXAM: SCRN MAMM (CAD)W/NAKUL BILAT DATE: 09/10/2025 CLINICAL HISTORY: F, Age 54 y/o , BREAST CANCER SCREENING TECHNIQUE: Procedure Code: [id number] Modality: MG Procedure: SCRN MAMM (CAD)W/NAKUL BILAT COMPARISON: Prior exam(s) were compared FINDINGS: TISSUE DENSITY: The breasts are heterogeneously dense, which may obscure small masses. Bilateral Breast Mammographic Findings: No significant masses, calcifications or other abnormalities are identified. BI/SCRN MAMM (CAD)W/NAKUL BILAT IMPRESSION: No mammographic evidence of malignancy in either breast. OVERALL FINAL ASSESSMENT BI-RADS 1: NEGATIVE. RECOMMENDATION: Routine annual follow-up in 1 Year Additional Recommendation none A letter with findings and recommendations will be mailed to the patient. Reading Location: [id number]
== END | disposition home or self-care (01) ==
LOC: OPBI 11:41
PROVIDERS: PCP Internal Medicine; Referring Provider Internal Medicine; Visit Provider Internal Medicine
DX: Z12.31 Encounter for screening mammogram for malignant neoplasm of breast (principal)
CPT/HCPCS: 77063; 77067